=== PATIENT | female | born 1940 | race Caucasian/White ===

== ENCOUNTER 2017-01-01 17:28 | Inpatient (IN) ==
[2017-01-01] MEDS ORDERED: ONDANSETRON 4 MG/2 ML VIAL IV STA (17:48)
[2017-01-01] MEDS ORDERED: ALBUTEROL/IPRATROPIUM 3 ML NEB RESP TX STA (17:48)
[2017-01-01] MEDS ORDERED: LEVOFLOXACIN INJ 750 MG in PREMIX 1 EACH IV STA (17:48)
[2017-01-01] MEDS ORDERED: methylPREDNISolone SOD SUC 125 MG/2 ML VIAL IV STA (17:48)
[2017-01-01] MEDS ORDERED: KETOROLAC 30 MG/1 ML VIAL IV STA (17:51)
--- NOTE | 2017-01-01 17:54 | EKG Report ---
Stationary ECG Study [facility] ER Test Date: 01/01/2017 5:44:29 PM Pat Name: RAINE RIVERA Department: Room: Gender: F Rn Lpn Cna: : 1940 Requested by: Vladimir Doll Order Number: [id number] Reading MD: BROWN SOOD Intervals [place] Rate: 60 P: 140 NV: 284 QRS: -27 QRSD: 110 T: 46 QT: 432 QTc: 432 Interpretive Statements ELECTRONIC ATRIAL PACEMAKER INCOMPLETE RIGHT BUNDLE BRANCH BLOCK CONSIDER ANTEROSEPTAL INFARCT OR LEAD PLACEMENT Electronically Signed On 01-01-17 18:08:51 CDT by BROWN SOOD [email or web address]
--- NOTE | 2017-01-01 17:56 | Emergency Department Note ---
Arrival - Arrival Chief Complaint: Weakness ED Nursing Triage Note: pt saw dr ortiz friday and was told very thing was good and she had over done it. pt states she thinks she over done it. Mode of Arrival: Stretcher Limitations: No Limitations Source: Patient Time Seen by Provider: 01/01/17 17:48 - History of Present Illness HPI Narrative: This 76-year-old white female presents with complaints of weakness and generalized aches and pains. She states she thinks she is overdone it. She reports no chills, chest pain, shortness of breath, nausea, vomiting, diarrhea, dysuria, urgency, frequency, or hematuria. She does states she has had a low- grade fever, cough, and yellow-green sputum. Currently she seems comfortable and quite stable and in no medical distress. Onset (ago): week(s) Allergies/Adverse Reactions: Allergies Allergy/AdvReac Type Severity Reaction Status Date / Time levetiracetam [From Keppra] Allergy Unknown/Unable Verified 01/01/17 18:30 to obtain levofloxacin [From Levaquin] Allergy Unknown/Unable Verified 01/01/17 18:30 to obtain nitroglycerin Allergy Unknown/Unable Verified 01/01/17 18:30 [From Nitro-Bid] to obtain promethazine [From Phenergan] Allergy Unknown/Unable Verified 01/01/17 18:30 to obtain meperidine [From Demerol] AdvReac Palpitation Verified 02/23/16 13:44 s milk AdvReac Nausea Verified 02/23/16 13:44 Penicillins AdvReac Unknown/Unable Verified 02/23/16 13:44 to obtain Home Medications: Home Medications Medication Instructions Recorded Confirmed Type Amiodarone Tab [Cordarone Tab] 200 mg PO DAILY 10/20/14 03/07/16 History Amlodipine Besylate 2.5 mg PO DAILY 10/20/14 03/07/16 History Aspirin [Ecotrin] 81 mg PO DAILY 10/20/14 03/07/16 History Fludrocortisone [Florinef] 0.1 mg PO DAILY 10/20/14 03/07/16 History Pravastatin Sodium 20 mg PO BEDTIME 10/20/14 03/07/16 History Apixaban [Eliquis] 2.5 mg PO BID 08/12/15 03/07/16 History Clorazepate [Tranxene] 3.75 mg PO BEDTIME 08/12/15 03/07/16 History Furosemide Tab [Lasix Tab] 40 mg PO DAILY 08/12/15 03/07/16 History Magnesium Chloride [Mag Delay] 2 tablet PO BID 08/12/15 03/07/16 History Diphenoxylate/Atrop 2.5-0.025 1 tablet PO Q6H PRN 02/23/16 03/07/16 History [Lomotil Tab] Levothyroxine Tab [Synthroid Tab] 50 mcg PO DAILY 02/23/16 03/07/16 History Omeprazole [Prilosec] 20 mg PO BID 02/23/16 03/07/16 History Ondansetron Tab [Zofran Tab] 4 mg PO Q6HR PRN 02/23/16 03/07/16 History Valsartan/Hydrochlorothiazide 1 each PO DAILY 02/23/16 03/07/16 History [Valsartan-Hctz 160-12.5 mg Tab] HYDROcodone/ACETAMIN 7.5-325 1 tablet PO Q6H PRN 03/07/16 03/07/16 History [[place] 7.5-325] Nebivolol HCl [Bystolic] 2.5 mg PO DAILY 03/07/16 03/07/16 History Review of System - Review of System 12 point system: reviewed and no additional remarkable complaints except as stated - Review of System Constitutional: Present: as per HPI Respiratory: Present: as per HPI Cardiovascular: Present: as per HPI Gastrointestinal: Present: as per HPI Genitourinary female: Present: as per HPI Medical,Surgical,& Family Hx - Medical History Cardio: History of: Cardiac Dysrhythmia (A-FIB), CHF, CAD, Hypertension, [place], Pacemaker (08/20), Cardiovascular Problems Neurology: History of: Seizures, TIA HEENT: History of: Eye Problem, Glaucoma Endocrine: History of: Dyslipidemia No history of: Diabetes Mellitus (IDDM), Diabetes Mellitus (NIDDM) Respiratory: History of: COPD Renal: History of: Renal Failure, Renal Problems (one kidney) Genitourinary: History of: Recurring Urinary Tract Infections Gastrointestinal: History of: Gastrointestinal Bleed (upper GI bleed), Gastrointestinal Cancer (rectal cancer), GI Problems (Rectal Cancer-- 22 inches of Colon removed 2011) Musculoskeletal: History of: Back/Neck Problems (chronic back pain), Herniated Disk No history of: Amputation Hematology: History of: Anemia Other: History of: Cancer (rectal) - Surgical History Cardiac Surgeries: Sugical HX of: Cardiac Surgery (CABG) Thoracic Surgeries: Patient denies;: Organ Transplant HEENT Surgeries: Surgical HX of: Tonsilectomy & Adenoidectomy Abdominal Surgeries: Surgical HX of: Abdominal Surgery (resection of rectal carcinoma, 2007. Explored for lap for bowel obs 2009), Appendectomy, Cholecystectomy, EGD, Hernia Repair Reproductive Surgeries: Patient denies;: Genitourinary Surgery - Family History Family History: Reports;: Family Cancer (MOYHER), Family Heart Disease (FATHER) , Family Hypertension (FATHER), Family Stroke (UNCLE) Denies;: Family Diabetes, Family Psychiatric Problems - Social History Smoking Status: Former smoker Frequency of Alcohol Use: None Type of Drug Use: None Exam Physical Examination: GENERAL: Well developed, well nourished elderly white female in no acute distress. HEENT: Normocephalic. No trauma. Moist mucous membranes. EOMI. PERRLA. ENT NML NECK: Supple. No adenopathy. CARDIAC: Regular. No murmurs. Heart rate 60 CHEST: Occasional expiratory rhonchi. No respiratory distress. O2 sat 92% ABDOMEN: Soft. Nontender. Active bowel sounds. EXTREMITIES: No trauma. Normal ROM. No pedal edema. SKIN: No diaphoresis. No rash. NEURO: Alert. Oriented 3. Motor, sensory, vibratory intact. No focal deficits. Vital Signs: Vital Signs Temperature 97.0 F L 01/01/17 17:34 Pulse Rate 61 01/01/17 18:10 Respiratory Rate 20 01/01/17 18:10 Blood Pressure 142/33 01/01/17 17:34 O2 Sat by Pulse Oximetry 98 01/01/17 18:10 Course - Reevaluation(s) Reevaluation #1: Advised patient she will need admission for congestive failure - Consultations Consultation #1: Discussed with Dr. Modi who will admit the patient for Dr. Starks for further treatment and evaluation. Results - Labs CBC & BMP: 01/01/17 17:54 01/01/17 17:54 Labs: I have reviewed the lab and noted the greatly elevated BMP - Impressions EKG paced rhythm with incomplete right bundle branch block and evidence of LVH. Diffuse nonspecific ST changes. No evidence of acute injury although evidence of old anterior RI. - Diagnostic Findings Procedure: Chest x-ray: image reviewed by me, report reviewed by me (Status post median sternotomy, cardiomegaly, pacemaker noted, progressive pulmonary edema with small effusions noted) Disposition Clinical Impression: Congestive failure, bronchitis Case discussed with: patient, patient's family Disposition: Still a Patient Time of Disposition: 20:02
[2017-01-01 18:05] LABS: Basophils % 0.5 % (0.0-0.8); Eosinophils % 0.5 % (0.00-10.9); Hematocrit 30.9 VOL% (35.7-47.0); Immature Granulocytes % 1.1 %; Immature Granulocytes Absolute 0.06 #; Lymphocytes # 0.8 10*3/uL (1.4-4.0); Mean Corpuscular HGB Conc 32.4 GM/DL (32-36); Mean Corpuscular Hemoglobin 29 PG (27-34); Mean Platelet Volume 10.1 FL (9.6-12.0); Monocytes # 0.8 10*3/uL (0.11-0.8); Neutrophils # 3.9 10*3/uL (1.4-7.4); Neutrophils % 68.9 % (38.7-73.9); Platelet Count 186 T/CUMM (130-400); Red Blood Count 3.47 MC/CUMM (3.8-5.5); Red Cell Distribution Width 14.4 % (9.3-17.3); White Blood Count 5.6 T/CUMM (4-12)
[2017-01-01 18:16] LABS: INR 1.2; Partial Thromboplastin Time 36.4 SECS (0-40)
[2017-01-01] MEDS ORDERED: ONDANSETRON 4 MG/2 ML VIAL ONE (18:24)
[2017-01-01] MEDS ORDERED: KETOROLAC 30 MG/1 ML VIAL ONE (18:24)
[2017-01-01] MEDS ORDERED: LEVOFLOXACIN INJ 0 ML IV ONE (18:24)
[2017-01-01] MEDS ORDERED: methylPREDNISolone SOD SUC 125 MG/2 ML VIAL ONE (18:24)
--- NOTE | 2017-01-01 18:32 | XRay Report ---
Portable chest Date: 01/01/2017 Clinical history: Shortness of breath Comparison: 03/07/2016 Technique: Portable AP sitting chest Findings: Persistent cardiomegaly with left subclavian atrioventricular permanent pacemaker. Prior median sternotomy with chronic scarring. Progressive diffuse parenchymal findings with small pleural effusions. More prominent pulmonary vasculature/sofiya with degenerative changes. Impression: Status post median sternotomy with cardiomegaly and left subclavian atrioventricular permanent pacemaker. Progressive moderate pulmonary edema with associated atelectasis and small pleural effusions. PROCEDURE INTERPRETED AT [facility] DEPARTMENT OF RADIOLOGY Final Report Signed by: Dr. Janie Farris
[2017-01-01] MEDS ORDERED: AZITHROMYCIN INJ 500 MG in SODIUM CHLORIDE 0.9% 250 ML IV STA (18:34)
[2017-01-01] MEDS ORDERED: AZITHROMYCIN 500 MG VIAL IV ONE (18:35)
[2017-01-01 18:44] LABS: Alanine Aminotransferase 12 U/L (13-56); Albumin 2.8 G/DL (3.4-5.0); Alkaline Phosphatase 126 U/L (45-117); Aspartate Amino Transferase 22 U/L (0-37); Blood Urea Nitrogen 21 MG/DL (7-18); Calcium 8.4 MG/DL (8.5-10.1); Glucose 83 MG/DL (74-106); Osmolality,Calculated 265.5 MOS/KG (273-304); Potassium 4.3 MMOL/L (3.5-5.1); Sodium 132 MMOL/L (136-145); Total Protein 6.6 G/DL (6.4-8.3); Troponin I Only < 0.015 NG/ML (0.00-0.045)
[2017-01-01] MEDS ORDERED: PRAVASTATIN 20 MG TABLET PO SCH (21:00)
[2017-01-01] MEDS: ALBUTEROL/IPRATROPIUM 3 ML NEB RESP TX SCH (21:15)
[2017-01-01] MEDS: APIXABAN 2.5 MG TABLET PO SCH (23:17)
[2017-01-02] MEDS: ALBUTEROL/IPRATROPIUM 3 ML NEB RESP TX SCH ×4 (00:18→19:50)
[2017-01-02 04:58] LABS: Hematocrit 27.1 VOL% (35.7-47.0); Hemoglobin 8.8 GM/DL (12.0-16.0); Immature Granulocytes % 0.6 %; Immature Granulocytes Absolute 0.02 #; Lymphocytes # 0.2 10*3/uL (1.4-4.0); Lymphocytes % 6.2 % (21.3-54.2); Mean Corpuscular HGB Conc 32.5 GM/DL (32-36); Mean Corpuscular Hemoglobin 29 PG (27-34); Mean Corpuscular Volume 89.1 FL (87-102); Mean Platelet Volume 10.7 FL (9.6-12.0); Monocytes # 0.1 10*3/uL (0.11-0.8); Monocytes % 2.5 % (1.7-12.7); Neutrophils # 3.2 10*3/uL (1.4-7.4); Neutrophils % 90.7 % (38.7-73.9); Platelet Count 150 T/CUMM (130-400); Red Blood Count 3.04 MC/CUMM (3.8-5.5); Red Cell Distribution Width 14.3 % (9.3-17.3); White Blood Count 3.5 T/CUMM (4-12)
[2017-01-02 05:25] LABS: Hypochromasia 1+; Lymphocytes 4 % (20-55); Osmolality,Calculated 282.2 MOS/KG (273-304); Platelet Estimate Normal; Potassium 4.1 MMOL/L (3.5-5.1); Segmented Neutrophils 95 % (50-85); Total Cells Counted 100
[2017-01-02] MEDS: LEVOTHYROXINE 50 MCG TABLET PO SCH (06:37)
[2017-01-02] MEDS ORDERED: NEBIVOLOL 5 MG TABLET PO SCH (09:00)
[2017-01-02] MEDS ORDERED: LEVOFLOXACIN 750 MG TABLET PO SCH (09:00)
[2017-01-02] MEDS: FLUDROCORTISONE 0.1 MG TABLET PO SCH (09:46)
[2017-01-02] MEDS: AMIODARONE 200 MG TABLET PO SCH (09:49)
[2017-01-02] MEDS: VALSARTAN/HCTZ 160-12.5 MG TABLET PO SCH (09:49)
[2017-01-02] MEDS: PANTOPRAZOLE 40 MG TABLET PO SCH (09:49)
[2017-01-02] MEDS: ASPIRIN 325 MG TABLET PO SCH (09:49)
[2017-01-02] MEDS: APIXABAN 2.5 MG TABLET PO SCH ×2 (09:49→20:32)
[2017-01-02 10:27] LABS: Free T4 (Free Thyroxine) 1.75 NG/DL (0.76-1.46); Thyroid Stimulating Hormone 0.396 uIU/ml (0.358-3.74)
[2017-01-02] MEDS: FUROSEMIDE 100 MG/10 ML VIAL IV SCH ×2 (10:59→17:29)
[2017-01-02] MEDS: AZITHROMYCIN INJ 500 MG in SODIUM CHLORIDE 0.9% 250 ML IV SCH (11:02)
--- NOTE | 2017-01-02 12:40 | Internal Med History&Physical ---
Assessment and Plan (1) Congestive cardiac failure Status: Chronic Assessment and plan: will do cardiology consult, continue IV lasix, Current Visit: Yes Qualifiers: Congestive heart failure type: unspecified congestive heart failure type Congestive heart failure chronicity: unspecified congestive heart failure chronicity Qualified Code(s): I50.9 - Heart failure, unspecified (2) COPD (chronic obstructive pulmonary disease) with acute bronchitis Status: Acute Assessment and plan: continue IV Abx , switch from levofloxacin to AZITHROMYCIN ( since allergic to levofloxacin), on Routine O2, on duonebs Current Visit: Yes (3) Coronary artery disease Status: Chronic Current Visit: No (4) History of atrial fibrillation Status: Chronic Assessment and plan: continue eliquis Current Visit: No (5) Hypertension Status: Chronic Assessment and plan: contine antihypertensives Current Visit: No Qualifiers: Hypertension type: essential hypertension Qualified Code(s): I10 - Essential (primary) hypertension History of Present Illness Chief complaint: Weakness History of present illness: Ms. Quiros is a 76 year old female, PCP Dr. Starks. Patient came to the ER on 01/01/2017 for weakness., Generalized aches and pains. Could not get up in the morning of 01/01/2017 felt too weak to do even her regular chores. history of COPD, chronic anemia, anterior myocardial infarction and atrial fibrillation, [facility] pacemaker [facility] Usually she does her ADLs, needs help with IADLs, uses walker to ambulate. As per the patient she mentioned probably she has overdone it, had done few long rides to and fro, in past few weeks. Patient has seen Dr. Hays this past Friday, in the clinic was told her labs were okay. Patient mentioned she has only one kidney. She did mention having low-grade fever with wet cough, on and off since past few weeks. She has been feeling nauseated since few days, no vomiting. She uses inhalers, home oxygen. her BNP was abnormal, from the ER. Home Medications Medication Instructions Recorded Confirmed Type Amiodarone Tab [Cordarone Tab] 200 mg PO DAILY 10/20/14 01/01/17 History Amlodipine Besylate 5 mg PO DAILY 10/20/14 01/01/17 History Aspirin [Ecotrin] 81 mg PO DAILY 10/20/14 01/01/17 History Fludrocortisone [Florinef] 0.1 mg PO DAILY PRN 10/20/14 01/01/17 History Apixaban [Eliquis] 2.5 mg PO BID 08/12/15 01/01/17 History Clorazepate [Tranxene] 3.75 mg PO BEDTIME 08/12/15 01/01/17 History Furosemide Tab [Lasix Tab] 40 mg PO DAILY PRN 08/12/15 01/01/17 History Magnesium Chloride [Mag Delay] 2 tablet PO BID 08/12/15 01/01/17 History Diphenoxylate/Atrop 2.5-0.025 1 tablet PO Q6H PRN 02/23/16 01/01/17 History [Lomotil Tab] Levothyroxine Tab [Synthroid Tab] 50 mcg PO DAILY 02/23/16 01/01/17 History Omeprazole [Prilosec] 20 mg PO BID 02/23/16 01/01/17 History Ondansetron Tab [Zofran Tab] 4 mg PO Q6HR PRN 02/23/16 01/01/17 History Valsartan/Hydrochlorothiazide 1 each PO DAILY 02/23/16 01/01/17 History [Valsartan-Hctz 160-12.5 mg Tab] HYDROcodone/ACETAMIN 7.5-325 1 tablet PO Q6H PRN 03/07/16 01/01/17 History [[place] 7.5-325] Nebivolol HCl [Bystolic] 5 mg PO DAILY 03/07/16 01/01/17 History Rosuvastatin Calcium 10 mg PO DAILY 01/01/17 01/01/17 History Nebivolol [Bystolic] 5 mg PO DAILY 01/02/17 01/02/17 History Allergies Allergy/AdvReac Type Severity Reaction Status Date / Time levetiracetam [From Keppra] Allergy Unknown/Unable Verified 01/01/17 18:30 to obtain levofloxacin [From Levaquin] Allergy Unknown/Unable Verified 01/01/17 20:54 to obtain nitroglycerin Allergy Unknown/Unable Verified 01/01/17 18:30 [From Nitro-Bid] to obtain promethazine [From Phenergan] Allergy Unknown/Unable Verified 01/01/17 18:30 to obtain meperidine [From Demerol] AdvReac Palpitation Verified 02/23/16 13:44 s milk AdvReac Nausea Verified 02/23/16 13:44 Penicillins AdvReac Unknown/Unable Verified 02/23/16 13:44 to obtain Medical,Surgical,& Family Hx - Medical History Cardio: History of: Cardiac Dysrhythmia (A-FIB), CHF, CAD, Hypertension, [place], Pacemaker (08/20), Cardiovascular Problems Neurology: History of: Seizures, TIA HEENT: History of: Eye Problem, Glaucoma Endocrine: History of: Dyslipidemia No history of: Diabetes Mellitus (IDDM), Diabetes Mellitus (NIDDM) Respiratory: History of: COPD Renal: History of: Renal Failure, Renal Problems (one kidney) Genitourinary: History of: Recurring Urinary Tract Infections Gastrointestinal: History of: Gastrointestinal Bleed (upper GI bleed), Gastrointestinal Cancer (rectal cancer), GI Problems (Rectal Cancer-- 22 inches of Colon removed 2011) Musculoskeletal: History of: Back/Neck Problems (chronic back pain), Herniated Disk No history of: Amputation Hematology: History of: Anemia Other: History of: Cancer (rectal) - Surgical History Cardiac Surgeries: Sugical HX of: Cardiac Surgery (CABG) Thoracic Surgeries: Patient denies;: Organ Transplant HEENT Surgeries: Surgical HX of: Tonsilectomy & Adenoidectomy Abdominal Surgeries: Surgical HX of: Abdominal Surgery (resection of rectal carcinoma, 2007. Explored for lap for bowel obs 2009), Appendectomy, Cholecystectomy, EGD, Hernia Repair Reproductive Surgeries: Patient denies;: Genitourinary Surgery, Gynecologic Surgery - Family History Family History: Reports;: Family Cancer (MOYHER), Family Heart Disease (FATHER) , Family Hypertension (FATHER), Family Stroke (UNCLE) Denies;: Family Diabetes, Family Psychiatric Problems - Social History Smoking Status: Former smoker Frequency of Alcohol Use: None Type of Drug Use: None - Constitutional Constitutional: Present: as per HPI, fatigue - EENT Eyes: Present: as per HPI Ears: Present: as per HPI Nose, mouth and throat: Present: as per HPI - Respiratory Respiratory: Present: cough - Gastrointestinal Gastrointestinal: Present: as per HPI - Genitourinary Genitourinary: Present: as per HPI (Wear depends) - Musculoskeletal Musculoskeletal: Present: muscle weakness (Generalized) - Neurological Neurological: Present: as per HPI (Uses walker to ambulate) Exam - Constitutional Vitals: Period Temp Pulse Resp BP Sys/Scott Pulse Ox Last 24 Hr 96.9 F-98.7 F 60-98 16-20 101-147/33-63 86-98 General appearance: normal weight, no acute distress (Ambulating with walker. Elderly female patient) - Head Head exam: Present: other (Has healed old bruises over the forehead) - ENT ENT exam: Present: normal exam - Neck Neck exam: Present: normal inspection - Respiratory Respiratory exam: Present: rhonchi (Transmitted breath sounds.), wheezes - Cardiovascular Cardiovascular exam: Present: regular rate and rhythm - GI/Abdominal GI/Abdominal exam: Present: normal bowel sounds, tenderness (None) - Extremities Exam Extremities exam: Present: normal inspection (Wearing compression stockings bilaterally), edema (None) - Neurological Exam Neurological exam: Present: alert, oriented X3, CN II-XII intact, other (Motor and sensory exam grossly intact) - Psychiatric Psychiatric exam: Present: normal affect, normal mood - Skin Skin exam: Present: other (Has multiple bruises bilateral upper extremities in different stages of healing, left forearm possibly from the IV injection site from yesterday) Results - Labs CBC & BMP: 01/02/17 04:15 01/02/17 04:15 - Impressions BNP 800+ from the ER. Last 24 hours labs reviewed, TSH and T4 labs sent - Diagnostic Findings Procedure: Chest x-ray: other (Chest x-ray from the ER shows progressive moderate pulmonary edema with atelectasis and small pleural effusion.)
--- NOTE | 2017-01-02 15:04 | Cardiology Consult Note ---
<Cherelle Muller - Last Filed: 01/02/17 14:18> Assessment and Plan - Time spent with patient Time spent with patient: Greater than 30 minutes (1) Congestive cardiac failure Status: Chronic Assessment and plan: SEE PLAN OF CARE LISTED BELOW Current Visit: Yes Qualifiers: Congestive heart failure type: unspecified congestive heart failure type Congestive heart failure chronicity: unspecified congestive heart failure chronicity Qualified Code(s): I50.9 - Heart failure, unspecified (2) Coronary artery disease involving coronary bypass graft Status: Chronic Assessment and plan: SEE PLAN OF CARE LISTED BELOW Current Visit: Yes (3) History of TIA (transient ischemic attack) Status: Chronic Assessment and plan: SEE PLAN OF CARE LISTED BELOW Current Visit: Yes (4) dual-chamber pacemaker Status: Chronic Assessment and plan: SEE PLAN OF CARE LISTED BELOW Current Visit: No (5) Former smoker Status: Chronic Assessment and plan: SEE PLAN OF CARE LISTED BELOW Current Visit: Yes (6) Chronic anemia Status: Chronic Assessment and plan: SEE PLAN OF CARE LISTED BELOW Current Visit: Yes (7) Dyslipidemia Status: Chronic Assessment and plan: SEE PLAN OF CARE LISTED BELOW Current Visit: Yes (8) Chronic anticoagulation Status: Chronic Assessment and plan: SEE PLAN OF CARE LISTED BELOW Current Visit: Yes (9) Paroxysmal a-fib Status: Chronic Assessment and plan: SEE PLAN OF CARE LISTED BELOW Current Visit: No (10) COPD (chronic obstructive pulmonary disease) Status: Chronic Assessment and plan: SEE PLAN OF CARE LISTED BELOW Current Visit: Yes (11) Hypertension Status: Chronic Assessment and plan: SEE PLAN OF CARE LISTED BELOW Current Visit: No Qualifiers: Hypertension type: essential hypertension Qualified Code(s): I10 - Essential (primary) hypertension History of Present Illness - Data of Consult Patient: known to practice within the last 3 years Consult date: 01/02/17 Requesting Physician: Bonifacio Modi Primary care physician: Alex Starks - Consult Narrative Reason for consult: a fib, CHF History of present illness: Inspecting Supervisor: Dr. Herbert PCP: Dr. Alex Starks Ms. Quiros is a 76 year old female with known history of coronary artery disease, routinely followed by Dr. Herbert. Patient has cardiac risk factors significant for known history of coronary artery disease, hypertension, dyslipidemia, advanced age, sedentary lifestyle, former smoker and family history of coronary artery disease (father had CABG at age 67). She is a past medical history of COPD, chronic anemia, anterior myocardial infarction and atrial fibrillation. 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 Patient's most recent echocardiogram was performed March 2016 which revealed normal LV systolic function with ejection fraction estimated to be 65% without segmental wall motion abnormality. Grade 1 diastolic dysfunction was noted. She had a nuclear cardiac stress test August 2015 which revealed normal myocardial perfusion scan that did not suggest the presence of significant coronary ischemia. Normal LV systolic function with ejection fraction estimated to be 57%. Normal end-diastolic volume. Patient was last seen in the cardiology clinic September 2016 for routine follow-up. Patient was in her usual state of health until yesterday when she began to feel fatigued, tired and weak. She also reports shortness of breath and general body aches. This is most likely multifactorial as patient does have history of COPD and reports chronic dyspnea. She denies orthopnea and lower extremity edema. She also has been without chest pain, heaviness and tightness. Patient reports that she just saw Dr. Martín Hays on Friday as she only has one kidney. She was doing fine and without any complaints at that time. She also confirms a cough. However, she tells me that this is chronic for her as she has COPD. Yesterday, her shortness of breath progressively worsened and she felt that she needed to be further evaluated in the emergency department. She has been admitted to the hospital under hospitalist's service and housed the telemetry floor. Cardiology has been consulted to further evaluate her dyspnea and manage her paroxysmal atrial fibrillation. Patient was seen and examined on the telemetry unit. Upon entering the room, patient was lying comfortably in her bed with the head of bed approximately 10 . Requiring oxygen via nasal cannula. She is without chest pain, heaviness and tightness. She does tell me that her breathing has improved since being admitted. Cardiac biomarkers have been negative so far and EKG is without diagnostic changes. Patient does have history of paroxysmal atrial fibrillation. However, this admission patient has remained in normal sinus rhythm with occasional atrial pacing. Chest x-ray reveals moderate progressive pulmonary edema. BNP mildly elevated at 823 upon admission. However, this was in the setting of an elevated creatinine of 1.4. Patient's most recent echocardiogram was performed March 2016 which revealed normal LV systolic function with ejection fraction estimated to be 65%. At this time, we will continue to diurese patient with IV Lasix. We will also order repeat echocardiogram in order to reevaluate patient's LV function. This is most likely diastolic heart failure as patient had grade 1 diastolic dysfunction noted per echocardiogram March 2016. We will monitor daily weights and strict I's and O's. I will further discuss with Dr. dickens and await his additional recommendations. ASSESSMENT/PLAN: 1. CONGESTIVE HEART FAILURE - Chest x-ray reveals moderate progressive pulmonary edema. BNP mildly elevated at 823 upon admission. However, this was in the setting of an elevated creatinine of 1.4. Patient's most recent echocardiogram was performed March 2016 which revealed normal LV systolic function with ejection fraction estimated to be 65%. At this time, we will continue to diurese patient with IV Lasix. We will also order repeat echocardiogram in order to reevaluate patient's LV function. This is most likely diastolic heart failure as patient had grade 1 diastolic dysfunction noted per echocardiogram March 2016. We will monitor daily weights and strict I's and O's. I will further discuss with Dr. German and await his additional recommendations. 2. CORONARY ARTERY DISEASE, STATUS POST CABG 2010 - Patient is status post CABG 2010 with a AZAR to LAD and SVG to circumflex artery. This appears to be clinically stable at present. Patient is without chest pain, heaviness and tightness this admission. Recently underwent cardiac stress testing August 2015 which did not reveal any significant coronary ischemia. Cardiac biomarkers have been negative 1 and EKG does not reveal any diagnostic changes. At this point, we will continue current plan of care with aspirin, beta-tamara and lipid-lowering agent. 3. HYPERTENSION - This is clinically stable. Will continue current plan of care and adjust as needed throughout her hospitalization. 4. FORMER SMOKER - Reports that she quit smoking in 2004. 5. HISTORY OF DUAL CHAMBER PACEMAKER - Patient had dual-chamber pacemaker placed 2014as she has history of paroxysmal atrial fibrillation and developed sick sinus syndrome with tachybradycardia components. 6. CHRONIC ANEMIA - Patient reports that she receives iron transfusions occasionally. Her last transfusion was April 2016. Most recent H&H is noted to be 8.8 and 27.1. No overt bleeding noted. I will check stool for occult blood. Patient is chronically anticoagulated with Eliquis for her paroxysmal atrial fibrillation. I will discuss with Dr. German regarding the risk and benefits of chronic anticoagulation given her chronic anemia. 7. DYSLIPIDEMIA - Continue lipid-lowering agent. I will add lipid panel to patient's lab draw. 8. CHRONIC ANTICOAGULATION - Patient is chronically anticoagulated with Eliquis as she has paroxysmal atrial fibrillation. Patient also has chronic anemia requiring iron transfusions occasionally. Her last iron transfusion was April 2016. H&H is admission is noted to be 8.8 and 27.1. No overt bleeding is noted. I will check stool for occult blood. Patient has had a TIA in the past and is extremely high risk for recurrent stroke. I will discuss with Dr. dickens regarding the risk and benefits of chronic anticoagulation given her chronic anemia state. Further recommendations to follow. 9. HISTORY OF PAF - Patient has history of paroxysmal atrial fibrillation. However, this admission she has been in normal sinus rhythm with occasional atrial pacing. She is chronically anticoagulated with Coumadin. At this point , we will continue her current medication regimen of amiodarone, beta- tamara and Eliquis. We will monitor her rhythm per telemetry and make further adjustments as needed. 10.COPD - This is most likely also contributing to her shortness of breath. Will defer management of this to attending. 11. HISTORY OF TIA - Patient reports history of TIA. She is currently chronically anticoagulated with Eliquis. Further plan and addendum to follow per Dr. German. CC: Alex Starks MD - Home Medications and Allergies Home Medications: Home Medications Medication Instructions Recorded Confirmed Type Amiodarone Tab [Cordarone Tab] 200 mg PO DAILY 10/20/14 01/01/17 History Amlodipine Besylate 5 mg PO DAILY 10/20/14 01/01/17 History Aspirin [Ecotrin] 81 mg PO DAILY 10/20/14 01/01/17 History Fludrocortisone [Florinef] 0.1 mg PO DAILY PRN 10/20/14 01/01/17 History Apixaban [Eliquis] 2.5 mg PO BID 08/12/15 01/01/17 History Clorazepate [Tranxene] 3.75 mg PO BEDTIME 08/12/15 01/01/17 History Furosemide Tab [Lasix Tab] 40 mg PO DAILY PRN 08/12/15 01/01/17 History Magnesium Chloride [Mag Delay] 2 tablet PO BID 08/12/15 01/01/17 History Diphenoxylate/Atrop 2.5-0.025 1 tablet PO Q6H PRN 02/23/16 01/01/17 History [Lomotil Tab] Levothyroxine Tab [Synthroid Tab] 50 mcg PO DAILY 02/23/16 01/01/17 History Omeprazole [Prilosec] 20 mg PO BID 02/23/16 01/01/17 History Ondansetron Tab [Zofran Tab] 4 mg PO Q6HR PRN 02/23/16 01/01/17 History Valsartan/Hydrochlorothiazide 1 each PO DAILY 02/23/16 01/01/17 History [Valsartan-Hctz 160-12.5 mg Tab] HYDROcodone/ACETAMIN 7.5-325 1 tablet PO Q6H PRN 03/07/16 01/01/17 History [[place] 7.5-325] Nebivolol HCl [Bystolic] 5 mg PO DAILY 03/07/16 01/01/17 History Rosuvastatin Calcium 10 mg PO DAILY 01/01/17 01/01/17 History Nebivolol [Bystolic] 5 mg PO DAILY 01/02/17 01/02/17 History Allergies/Adverse Reactions: Allergies Allergy/AdvReac Type Severity Reaction Status Date / Time levetiracetam [From Keppra] Allergy Unknown/Unable Verified 01/01/17 18:30 to obtain levofloxacin [From Levaquin] Allergy Unknown/Unable Verified 01/01/17 20:54 to obtain nitroglycerin Allergy Unknown/Unable Verified 01/01/17 18:30 [From Nitro-Bid] to obtain promethazine [From Phenergan] Allergy Unknown/Unable Verified 01/01/17 18:30 to obtain meperidine [From Demerol] AdvReac Palpitation Verified 02/23/16 13:44 s milk AdvReac Nausea Verified 02/23/16 13:44 Penicillins AdvReac Unknown/Unable Verified 02/23/16 13:44 to obtain - Constitutional Constitutional: Present: fatigue, fever(s), lethargy, malaise, weakness. Absent : frequent falls, headache(s) - Cardiovascular Cardiovascular: Present: dyspnea, dyspnea on exertion. Absent: chest pain at rest, chest pain with activity, claudication, diaphoresis, edema, radiating jaw , neck or arm pain, lightheadedness, orthopnea, palpitations, PND - Respiratory Respiratory: Present: cough (Chronic), dyspnea, dyspnea on exertion. Absent: hemoptysis, wheezing, snoring, pain on inspiration, change in phlegm color - Gastrointestinal Gastrointestinal: Absent: abdominal pain, change in bowel habits, coffee ground emesis, constipation, cramping, diarrhea, heartburn, hematemesis, hematochezia, loose stools, melena, nausea, vomiting - Musculoskeletal Musculoskeletal: Present: arthralgias, myalgias - Neurological Neurological: Absent: abnormal gait, abnormal speech, behavioral changes, dizziness, paresthesias, syncope Medical,Surgical,& Family Hx - Medical History Cardio: History of: Cardiac Dysrhythmia (A-FIB), CHF, CAD, Hypertension, [place], Pacemaker (08/20), Cardiovascular Problems Neurology: History of: TIA HEENT: History of: Eye Problem, Glaucoma Endocrine: History of: Dyslipidemia No history of: Diabetes Mellitus (IDDM), Diabetes Mellitus (NIDDM) Respiratory: History of: COPD Renal: History of: Renal Failure, Renal Problems (one kidney) Genitourinary: History of: Recurring Urinary Tract Infections Gastrointestinal: History of: Gastrointestinal Bleed (upper GI bleed), Gastrointestinal Cancer (rectal cancer), GI Problems (Rectal Cancer-- 22 inches of Colon removed 2011) Musculoskeletal: History of: Back/Neck Problems (chronic back pain), Herniated Disk No history of: Amputation Hematology: History of: Anemia Other: History of: Cancer (rectal) - Surgical History Cardiac Surgeries: Sugical HX of: Cardiac Surgery (CABG) Thoracic Surgeries: Patient denies;: Organ Transplant HEENT Surgeries: Surgical HX of: Tonsilectomy & Adenoidectomy Abdominal Surgeries: Surgical HX of: Abdominal Surgery (resection of rectal carcinoma, 2007. Explored for lap for bowel obs 2009), Appendectomy, Cholecystectomy, EGD, Hernia Repair Reproductive Surgeries: Patient denies;: Genitourinary Surgery, Gynecologic Surgery - Family History Family History: Reports;: Family Cancer (MOYHER), Family Heart Disease (FATHER) , Family Hypertension (FATHER), Family Stroke (UNCLE) Denies;: Family Diabetes, Family Psychiatric Problems - Social History Smoking Status: Former smoker Frequency of Alcohol Use: None Type of Drug Use: None Marital Status: Single Lives With:: Alone Functional capacity: independent ambulation Physical Examination Vital Signs Temp Pulse Resp BP Pulse Ox 97.0 F L 61 18 142/33 88 L 01/01/17 17:34 01/01/17 17:34 01/01/17 17:34 01/01/17 17:34 01/01/17 17:34 Exam: General: Appears well with no apparent distress. Pleasant and cooperative. Appears comfortable. HEENT: PERRL, normocephalic, atraumatic. Mucous membranes moist. No jaundice noted. Conjunctiva moist and clear, sclerae anicteric Neck: No JVD/HJR, no thyromegaly or lymphadenopathy noted. Cardiac: Regular rate and rhythm. 2/6 systolic murmur Lungs: Rales and rhonchi auscultated throughout. Requiring oxygen via nasal cannula Abdomen: Soft, bowel sounds normoactive. Nontender and nondistended. Extremities: No clubbing, cyanosis noted. No edema noted. Upper extremity pulses 2+. Lower extremity pulses 2+. Capillary refill less than 3 seconds. Skin: No unusual lesions or rashes. No skin breakdown appreciated. Neuro: Awake, alert and oriented 3. Moves all extremities well without hemiparesis or paralysis. No essential tremor is appreciated. Result/EKG - Labs CBC & BMP: 01/02/17 04:15 01/02/17 04:15 Lab Results: I have reviewed the past 24 hour labs Labs: Laboratory Results - last 24 hr 01/01/17 01/01/17 01/01/17 17:54 17:54 17:54 WBC 5.6 RBC 3.47 L Hgb 10.0 L Hct 30.9 L MCV 89.0 MCH 29 MCHC 32.4 RDW 14.4 Plt Count 186 MPV 10.1 Neut % (Auto) 68.9 Lymph % (Auto) 15.0 L [place] % (Auto) 14.0 H Eos % (Auto) 0.5 Baso % (Auto) 0.5 Neut # (Auto) 3.9 Lymph # (Auto) 0.8 L [place] # (Auto) 0.8 Eos # (Auto) 0.0 Baso # (Auto) 0.0 Total Counted Immature Gran % 1.1 Nucleated RBC % 0.0 Immature Gran # 0.06 Segmented Neutrophils Lymphocytes Monocytes Nucleated RBCs # 0.00 Platelet Estimate Hypochromasia Morphology Comment INR 1.2 PT Patient/Control Mix 13.0 Circ Anticoag PTT 36.4 Sodium 132 L Potassium 4.3 Chloride 98 Carbon Dioxide 24 Anion Gap 14.3 BUN 21 H Creatinine 1.40 H GFR Calculation 39 BUN/Creatinine Ratio 15.00 Glucose 83 Calculated Osmolality 265.5 L Calcium 8.4 L Total Bilirubin 0.60 AST 22 ALT 12 L Alkaline Phosphatase 126 H Total Creatine Kinase 68 CK-MB (CK-2) 1.3 Troponin I < 0.015 B-Natriuretic Peptide Total Protein 6.6 Albumin 2.8 L Globulin 3.8 H Albumin/Globulin Ratio 0.7 L Free T4 TSH 3rd Generation 01/01/17 01/02/17 01/02/17 17:54 04:15 04:15 WBC 3.5 L D RBC 3.04 L Hgb 8.8 L Hct 27.1 L MCV 89.1 MCH 29 MCHC 32.5 RDW 14.3 Plt Count 150 MPV 10.7 Neut % (Auto) 90.7 H Lymph % (Auto) 6.2 L [place] % (Auto) 2.5 Eos % (Auto) 0.0 Baso % (Auto) 0.0 Neut # (Auto) 3.2 Lymph # (Auto) 0.2 L [place] # (Auto) 0.1 L Eos # (Auto) 0.0 Baso # (Auto) 0.0 Total Counted 100 Immature Gran % 0.6 Nucleated RBC % 0.0 Immature Gran # 0.02 Segmented Neutrophils 95 H Lymphocytes 4 L Monocytes 1 L Nucleated RBCs # 0.00 Platelet Estimate Normal Hypochromasia 1+ Morphology Comment INR PT Patient/Control Mix Circ Anticoag PTT Sodium 134 L Potassium 4.1 Chloride 101 Carbon Dioxide 20 L Anion Gap 17.1 H BUN 27 H Creatinine 1.60 H GFR Calculation 32 BUN/Creatinine Ratio 16.00 Glucose 276 H Calculated Osmolality 282.2 Calcium 8.0 L Total Bilirubin AST ALT Alkaline Phosphatase Total Creatine Kinase CK-MB (CK-2) Troponin I B-Natriuretic Peptide 823 H Total Protein Albumin Globulin Albumin/Globulin Ratio Free T4 TSH 3rd Generation 01/02/17 01/02/17 04:15 Unknown WBC RBC Hgb Hct MCV MCH MCHC RDW Plt Count MPV Neut % (Auto) Lymph % (Auto) [place] % (Auto) Eos % (Auto) Baso % (Auto) Neut # (Auto) Lymph # (Auto) [place] # (Auto) Eos # (Auto) Baso # (Auto) Total Counted Immature Gran % Nucleated RBC % Immature Gran # Segmented Neutrophils Lymphocytes Monocytes Nucleated RBCs # Platelet Estimate Hypochromasia Morphology Comment INR PT Patient/Control Mix Circ Anticoag PTT Sodium Potassium Chloride Carbon Dioxide Anion Gap BUN Creatinine GFR Calculation BUN/Creatinine Ratio Glucose Calculated Osmolality Calcium Total Bilirubin AST ALT Alkaline Phosphatase Total Creatine Kinase CK-MB (CK-2) Troponin I B-Natriuretic Peptide 569 H Total Protein Albumin Globulin Albumin/Globulin Ratio Free T4 1.75 H TSH 3rd Generation 0.396 - EKG EKG results: interpreted by me, sinus rhythm <Tristan German - Last Filed: 01/02/17 16:19> History of Present Illness - Consult Narrative History of present illness: Cardiology addendum 76-year-old woman with a four-day history of increasing shortness of breath and cough productive of yellow sputum. Chest x-ray shows congestive heart failure and cardiomegaly. BNP level 823 EKG shows sinus rhythm with atrial pacing. Patient has felt warm the last 2 nights but did not take her temperature. She tires very quickly. She sleeps on 2 pillows and has nocturia 3 times nightly. Denies chest pain. She quit smoking over 10 years ago. Status post two-vessel CABG 2010 Sick sinus syndrome with tacky/bradycardia components Paroxysmal atrial fibrillation, well-controlled on amiodarone Chronic anticoagulation History of rectal cancer 2007 COPD Bronchitis Negative Lexiscan cardiac stress test August 2015 EF 57%. Bilateral carotid stenosis. Loud bilateral bruits. CTA carotids done September show 50-6% right ICA stenosis with severe right subclavian artery stenosis and 80-85% left ICA stenosis. Plan 80 mg Lasix IV twice daily DuoNeb Antibiotics BMP in a.m. CC: Alex Starks MD Physical Examination Vital Signs Temp Pulse Resp BP Pulse Ox 97.0 F L 61 18 142/33 88 L 01/01/17 17:34 01/01/17 17:34 01/01/17 17:34 01/01/17 17:34 01/01/17 17:34 Result/EKG - Labs CBC & BMP: 01/02/17 04:15 01/02/17 04:15 Labs: Laboratory Results - last 24 hr 01/01/17 01/01/17 01/01/17 17:54 17:54 17:54 WBC 5.6 RBC 3.47 L Hgb 10.0 L Hct 30.9 L MCV 89.0 MCH 29 MCHC 32.4 RDW 14.4 Plt Count 186 MPV 10.1 Neut % (Auto) 68.9 Lymph % (Auto) 15.0 L [place] % (Auto) 14.0 H Eos % (Auto) 0.5 Baso % (Auto) 0.5 Neut # (Auto) 3.9 Lymph # (Auto) 0.8 L [place] # (Auto) 0.8 Eos # (Auto) 0.0 Baso # (Auto) 0.0 Total Counted Immature Gran % 1.1 Nucleated RBC % 0.0 Immature Gran # 0.06 Segmented Neutrophils Lymphocytes Monocytes Nucleated RBCs # 0.00 Platelet Estimate Hypochromasia Morphology Comment INR 1.2 PT Patient/Control Mix 13.0 Circ Anticoag PTT 36.4 Sodium 132 L Potassium 4.3 Chloride 98 Carbon Dioxide 24 Anion Gap 14.3 BUN 21 H Creatinine 1.40 H GFR Calculation 39 BUN/Creatinine Ratio 15.00 Glucose 83 Calculated Osmolality 265.5 L Calcium 8.4 L Total Bilirubin 0.60 AST 22 ALT 12 L Alkaline Phosphatase 126 H Total Creatine Kinase 68 CK-MB (CK-2) 1.3 Troponin I < 0.015 B-Natriuretic Peptide Total Protein 6.6 Albumin 2.8 L Globulin 3.8 H Albumin/Globulin Ratio 0.7 L Free T4 TSH 3rd Generation 01/01/17 01/02/17 01/02/17 17:54 04:15 04:15 WBC 3.5 L D RBC 3.04 L Hgb 8.8 L Hct 27.1 L MCV 89.1 MCH 29 MCHC 32.5 RDW 14.3 Plt Count 150 MPV 10.7 Neut % (Auto) 90.7 H Lymph % (Auto) 6.2 L [place] % (Auto) 2.5 Eos % (Auto) 0.0 Baso % (Auto) 0.0 Neut # (Auto) 3.2 Lymph # (Auto) 0.2 L [place] # (Auto) 0.1 L Eos # (Auto) 0.0 Baso # (Auto) 0.0 Total Counted 100 Immature Gran % 0.6 Nucleated RBC % 0.0 Immature Gran # 0.02 Segmented Neutrophils 95 H Lymphocytes 4 L Monocytes 1 L Nucleated RBCs # 0.00 Platelet Estimate Normal Hypochromasia 1+ Morphology Comment INR PT Patient/Control Mix Circ Anticoag PTT Sodium 134 L Potassium 4.1 Chloride 101 Carbon Dioxide 20 L Anion Gap 17.1 H BUN 27 H Creatinine 1.60 H GFR Calculation 32 BUN/Creatinine Ratio 16.00 Glucose 276 H Calculated Osmolality 282.2 Calcium 8.0 L Total Bilirubin AST ALT Alkaline Phosphatase Total Creatine Kinase CK-MB (CK-2) Troponin I B-Natriuretic Peptide 823 H Total Protein Albumin Globulin Albumin/Globulin Ratio Free T4 TSH 3rd Generation 01/02/17 01/02/17 04:15 Unknown WBC RBC Hgb Hct MCV MCH MCHC RDW Plt Count MPV Neut % (Auto) Lymph % (Auto) [place] % (Auto) Eos % (Auto) Baso % (Auto) Neut # (Auto) Lymph # (Auto) [place] # (Auto) Eos # (Auto) Baso # (Auto) Total Counted Immature Gran % Nucleated RBC % Immature Gran # Segmented Neutrophils Lymphocytes Monocytes Nucleated RBCs # Platelet Estimate Hypochromasia Morphology Comment INR PT Patient/Control Mix Circ Anticoag PTT Sodium Potassium Chloride Carbon Dioxide Anion Gap BUN Creatinine GFR Calculation BUN/Creatinine Ratio Glucose Calculated Osmolality Calcium Total Bilirubin AST ALT Alkaline Phosphatase Total Creatine Kinase CK-MB (CK-2) Troponin I B-Natriuretic Peptide 569 H Total Protein Albumin Globulin Albumin/Globulin Ratio Free T4 1.75 H TSH 3rd Generation 0.396
--- NOTE | 2017-01-02 15:21 | EKG Report ---
Stationary ECG Study [facility] Test Date: 01/02/2017 3:20:44 PM Pat Name: RAINE RIVERA Department: Room: 265 Gender: F Drilling Manager: : 1940 Requested by: Cherelle Muller Order Number: [id number] Reading MD: XUAN LUU Intervals [place] Rate: 81 P: 118 TN: 271 QRS: -11 QRSD: 125 T: 72 QT: 418 QTc: 455 Interpretive Statements ELECTRONIC ATRIAL PACEMAKER POSSIBLE RIGHT VENTRICULAR CONDUCTION DELAY MODERATE INTRAVENTRICULAR CONDUCTION DELAY Electronically Signed On 01-02-17 15:59:28 CDT by XUAN LUU [email or web address]
[2017-01-02] MEDS: NEBIVOLOL 5 MG TABLET PO SCH (16:01)
--- NOTE | 2017-01-02 18:05 | ECHO Report ---
Elle Quiros Exam Date: 01/02/2017 15:06 Referring Physician: Technologist: karena Lee ARDMS, RVT Age: 76 Ht (in): 66 Wt (lb): 150 Gender: F Exam Location: [facility] Echo Indications: Weakness, Essential (primary) hypertension, Hx. of Afib, CHF, COPD, CAD, Prev. CABG, Pacemaker BP: 131 / 59 HR: 75 Rhythm: Sinus Technical Quality: Fair IMPRESSIONS MEASUREMENTS (Male / Female) Normal Values 2D ECHO LV Diastolic Diameter PLAX 5.3 cm 4.2 - 5.9 / 3.9 - 5.3 cm LV Systolic Diameter PLAX 3.9 cm LV Fractional Shortening PLAX 25.7 % IVS Diastolic Thickness 1.0 cm 0.6 - 1.0 / 0.6 - 0.9 cm LVPW Diastolic Thickness 1.0 cm 0.6 - 1.0 / 0.6 - 0.9 cm RV Internal Dim ED PLAX 2.7 cm Aortic Root Diameter 3.9 cm LA Systolic Diameter LX 5.0 cm 3.0 - 4.0 / 2.7 - 3.8 cm DOPPLER TR Peak Velocity 308.0 cm/s TR Peak Gradient 37.9 mmHg FINDINGS Left Ventricle EF 60 %. Grade I/IV diastolic dysfunction (abnormal relaxation filling pattern), normal to mildly elevated filling pressures. Right Ventricle The right ventricle is normal in size and function. Right Atrium Moderately increased right atrial size. Left Atrium Moderately increased left atrial size. Mitral Valve Mitral valve sclerosis. Trace mitral valve regurgitation. Aortic Valve Aortic valve sclerosis. Trace to mild aortic valve regurgitation. Tricuspid Valve Morphologically normal tricuspid valve. Moderate tricuspid valve regurgitation. PAP50 mmHG. Pulmonic Valve Morphologically normal pulmonic valve. Trace pulmonary valve regurgitation. Pericardium Normal pericardium without effusion. Aorta Normal ascending aorta dimension. Cayetano German (Electronically Signed) Final Date: 02 January 2017 18:04
[2017-01-03] MEDS: ALBUTEROL/IPRATROPIUM 3 ML NEB RESP TX SCH ×4 (00:15→18:54)
[2017-01-03 05:07] LABS: Basophils % 0.1 % (0.0-0.8); Hematocrit 26.6 VOL% (35.7-47.0); Hemoglobin 8.7 GM/DL (12.0-16.0); Immature Granulocytes % 0.9 %; Immature Granulocytes Absolute 0.12 #; Lymphocytes # 0.5 10*3/uL (1.4-4.0); Lymphocytes % 3.4 % (21.3-54.2); Mean Corpuscular HGB Conc 32.7 GM/DL (32-36); Mean Corpuscular Hemoglobin 29 PG (27-34); Mean Corpuscular Volume 88.1 FL (87-102); Mean Platelet Volume 10.2 FL (9.6-12.0); Monocytes % 7.1 % (1.7-12.7); Neutrophils % 88.5 % (38.7-73.9); Platelet Count 234 T/CUMM (130-400); Red Blood Count 3.02 MC/CUMM (3.8-5.5); Red Cell Distribution Width 14.4 % (9.3-17.3); White Blood Count 13.5 T/CUMM (4-12)
[2017-01-03 05:30] LABS: Hypochromasia 1+; Lymphocytes 3 % (20-55); Ovalocytes Slight; Platelet Estimate Adequate; Segmented Neutrophils 92 % (50-85); Total Cells Counted 100
[2017-01-03 05:41] LABS: Calcium 8.2 MG/DL (8.5-10.1); Magnesium 1.6 MG/DL (1.8-2.4); Osmolality,Calculated 283.8 MOS/KG (273-304); Potassium 3.9 MMOL/L (3.5-5.1)
[2017-01-03 06:03] LABS: Risk Ratio 1.96; VLDL CHOLESTEROL 17.4 MG/DL
[2017-01-03] MEDS: LEVOTHYROXINE 50 MCG TABLET PO SCH (06:46)
--- NOTE | 2017-01-03 07:52 | Cardiology Progress Note ---
Cardiology - PN: Subj Interval history: Cardiology note 76-year-old woman admitted with CHF and bronchitis. No temperature. Telemetry shows sinus rhythm occasional PACs. Blood pressure 124/76 the left arm by me. Decreased breath sounds with bibasilar rhonchi no wheezing Bilateral carotid bruits Regular rhythm with soft systolic murmur Lab data today White count 13.5 with left shift Hemoglobin 8.7 hematocrit 26.6 Sodium 137 potassium 3.9 chloride 99 CO2 24 BUN 36 creatinine 1.70 Mag 1.6 glucose 146 Echo shows ejection fraction of 60% with moderate dilated left atrium, mitral valve sclerosis, aortic valve sclerosis, 1+ AI, normal RV function, moderate TR PA pressure 50 Impression Bronchitis CHF due to diastolic dysfunction Sick sinus syndrome Paroxysmal atrial fibrillation, well-controlled on amiodarone Chronic anticoagulation History of rectal cancer 2007 COPD Normal Lexiscan cardiac stress test August 2015 EF 57% CTA carotids October 03, 2016 showed 50-60% right ICA stenosis with severe right subclavian artery stenosis and 80-85% left ICA stenosis Plan Duo nebs IV antibiotics 80 mg Lasix IV twice daily BMP in a.m. Stool for occult blood Exam (Progress Note) - Constitutional Vitals: Period Temp Pulse Resp BP Sys/Scott Pulse Ox Last 24 Hr 96.6 F-98.7 F 68-98 17-20 114-134/50-63 2-94 Result/EKG - Labs CBC & BMP: 01/03/17 04:17 01/03/17 04:17 Labs: Laboratory Results - last 24 hr 01/02/17 01/03/17 01/03/17 Unknown 04:17 04:17 WBC 13.5 H D RBC 3.02 L Hgb 8.7 L Hct 26.6 L MCV 88.1 MCH 29 MCHC 32.7 RDW 14.4 Plt Count 234 D MPV 10.2 Neut % (Auto) 88.5 H Lymph % (Auto) 3.4 L [place] % (Auto) 7.1 Eos % (Auto) 0.0 Baso % (Auto) 0.1 Neut # (Auto) 12.0 H Lymph # (Auto) 0.5 L [place] # (Auto) 1.0 H Eos # (Auto) 0.0 Baso # (Auto) 0.0 Total Counted 100 Immature Gran % 0.9 Nucleated RBC % 0.0 Immature Gran # 0.12 Segmented Neutrophils 92 H Lymphocytes 3 L Monocytes 5 Nucleated RBCs # 0.00 Platelet Estimate Adequate Hypochromasia 1+ Ovalocytes Slight Morphology Comment Sodium Potassium Chloride Carbon Dioxide Anion Gap BUN Creatinine GFR Calculation BUN/Creatinine Ratio Glucose Calculated Osmolality Calcium Magnesium Triglycerides 87 Cholesterol 90 LDL Cholesterol 32.0 VLDL Cholesterol 17.4 HDL Cholesterol 46 Heart Disease Risk Ratio 1.96 Free T4 1.75 H TSH 3rd Generation 0.396 01/03/17 04:17 WBC RBC Hgb Hct MCV MCH MCHC RDW Plt Count MPV Neut % (Auto) Lymph % (Auto) [place] % (Auto) Eos % (Auto) Baso % (Auto) Neut # (Auto) Lymph # (Auto) [place] # (Auto) Eos # (Auto) Baso # (Auto) Total Counted Immature Gran % Nucleated RBC % Immature Gran # Segmented Neutrophils Lymphocytes Monocytes Nucleated RBCs # Platelet Estimate Hypochromasia Ovalocytes Morphology Comment Sodium 137 Potassium 3.9 Chloride 99 Carbon Dioxide 24 Anion Gap 17.9 H BUN 36 H Creatinine 1.70 H GFR Calculation 30 BUN/Creatinine Ratio 21.00 H Glucose 146 H Calculated Osmolality 283.8 Calcium 8.2 L Magnesium 1.6 L Triglycerides Cholesterol LDL Cholesterol VLDL Cholesterol HDL Cholesterol Heart Disease Risk Ratio Free T4 TSH 3rd Generation
--- NOTE | 2017-01-03 10:09 | Internal Med Progress Note ---
Assessment and Plan - Time spent with patient Time spent with patient: Less than 30 minutes (1) Congestive cardiac failure Status: Chronic Assessment and plan: Cardiology consult was done, echocardiogram report available, Will adjust Lasix, change IV 80 mg twice daily to p.o. 20 mg twice daily. Continue rest of the medication including Eliquis Current Visit: Yes Qualifiers: Congestive heart failure type: diastolic Congestive heart failure chronicity: acute on chronic Qualified Code(s): I50.33 - Acute on chronic diastolic (congestive) heart failure (2) COPD (chronic obstructive pulmonary disease) with acute bronchitis Status: Acute Assessment and plan: continue IV Abx , AZITHROMYCIN, on Routine O2, on duonebs. We will get chest x-ray PA lateral view this morning Current Visit: Yes (3) Coronary artery disease Status: Chronic Current Visit: Yes (4) History of atrial fibrillation Status: Chronic Assessment and plan: continue eliquis Current Visit: No (5) Hypertension Status: Chronic Assessment and plan: contine antihypertensives. Current Visit: Yes Qualifiers: Hypertension type: essential hypertension Qualified Code(s): I10 - Essential (primary) hypertension (6) Renal insufficiency, mild Status: Acute Assessment and plan: Will get renal ultrasound, adjust Lasix dosage. Discussed patient labs with Dr. Hays, this AM( patient's psychiatric tech) Current Visit: No Internal Medicine - PN: Subj Interval history: Patient seen and examined at the telemetry bed, patient was sleeping. After waking her up, patient did not give any new complaints today. Feeling better than yesterday. Tiredness better than yesterday, She was unable to go to the restroom bedside commode was arranged. No fever, chest pain, Had bowel movement 3 yesterday, noticed blood in the stool 1, patient has history of rectal cancer. Attributes the blood to the constipation before she got better yesterday bowel movement. Exam (Progress Note) - Constitutional Vitals: Period Temp Pulse Resp BP Sys/Scott Pulse Ox Last 24 Hr 96.6 F-98.7 F 68-89 17-20 114-131/50-59 2-94 Exam: GENERAL APPEARANCE: alert and oriented, pleasant, in no acute distress, wearing oxygen cannula 2 L,. HEENT: normal. EYES: extraocular movement intact (EOMI), conjunctiva clear, normal. NECK/THYROID: neck supple, full range of motion, no cervical lymphadenopathy, no thyromegaly. HEART: regular rate and rhythm, no murmurs, rubs, gallops. LUNGS: Bilateral rales, transmitted breath sounds. ABDOMEN: soft, nontender, nondistended, no organomegaly , bowel sounds present. EXTREMITIES: no edema. NEUROLOGIC: alert and oriented, cranial nerves 2-12 grossly intact, Results - Labs CBC & BMP: 01/03/17 04:17 01/03/17 04:17 Lab Results: I have reviewed the past 24 hour labs
[2017-01-03] MEDS: AMIODARONE 200 MG TABLET PO SCH (10:17)
[2017-01-03] MEDS: ROSUVASTATIN 10 MG TABLET PO SCH (10:17)
[2017-01-03] MEDS: VALSARTAN/HCTZ 160-12.5 MG TABLET PO SCH (10:17)
[2017-01-03] MEDS: ASPIRIN 325 MG TABLET PO SCH (10:17)
[2017-01-03] MEDS: PANTOPRAZOLE 40 MG TABLET PO SCH (10:18)
[2017-01-03] MEDS: NEBIVOLOL 5 MG TABLET PO SCH (10:19)
[2017-01-03] MEDS: FLUDROCORTISONE 0.1 MG TABLET PO SCH (10:19)
[2017-01-03] MEDS: APIXABAN 2.5 MG TABLET PO SCH ×2 (10:20→21:52)
--- NOTE | 2017-01-03 10:44 | Physician Query Form ---
CLICK EDIT DOCUMENT TO SELECT QUERY ANSWER --> OK --> SIGN Pearl Hoover RN, CCDS Certified Clinical Unit Receptionist W) [phone] (f) [phone] [email or web address] PROVIDERS: Make your selection(s) from the choices in EACH section by typing an "x" and enter comments in the comment section. Please use your independent medical judgment in providing your response. This request does not imply that any particular answer is desired or expected. CLINICAL INDICATORS: (Providers should not edit this section) The medical record indicates that the patient was admitted with CHF, COPD & "continue IV Abx , switch from levofloxacin to AZITHROMYCIN ( since allergic to levofloxacin), on Routine O2". As the attending MD can you please clarify the acuity of the COPD? Clarify which of the following accurately represents the acuity of the above diagnosis. ( ) Acute (exacerbation) ( ) Acute (exacerbation) on chronic ( ) Chronic stable condition ( ) Remission ( ) Other, please specify: Chronic obstructive pulmonary disease with acute bronchitis ( ) Clinically unable to determine COMMENTS: PLEASE ALSO DOCUMENT RESPONSE IN PROGRESS NOTES AND/OR DISCHARGE SUMMARY Use of terms such as suspected, likely, or probable (associated with a specific diagnosis that is being evaluated, monitored, or treated as if it exists) are acceptable and can be restated in the discharge summary if not ruled out. MTDD
--- NOTE | 2017-01-03 10:45 | Physician Query Form ---
CLICK EDIT DOCUMENT TO SELECT QUERY ANSWER --> OK --> SIGN Pearl Hoover RN, CCDS Certified Clinical Tester/Lift Trucker W) [phone] (f) [phone] [email or web address] PROVIDERS: Make your selection(s) from the choices in EACH section by typing an "x" and enter comments in the comment section. Please use your independent medical judgment in providing your response. This request does not imply that any particular answer is desired or expected. CLINICAL INDICATORS: (Providers should not edit this section) The medical record indicates that the patient was admitted with CHF, creatinine of 1.40 on the that has increased to 1.70 on the 30th, GFR of 39 # that has dropped to 30# on the 30th, History- "Renal Failure, Renal Problems ( one kidney)" and the patient being treated for CHF. Clarify which of the following most accurately represents the patient's renal status: ( ) Acute kidney injury (non-traumatic) ( ) Acute renal failure ( ) Acute renal failure with underlying Chronic Kidney Disease (CKD) - please provide stage below ( ) Acute renal failure with pathological renal lesion ( ) Acute renal failure with necrosis ( ) tubular ( ) medullary ( ) cortical ( ) CKD - please provide stage below ( ) End Stage Renal Disease ( ) Acute interstitial nephritis ( ) Hepatorenal syndrome ( ) Other, please specify: Developing worsening of renal function, acutely during this hospital stay ( ) Clinically unable to determine Chronic Kidney Disease Stages Source: National Kidney Disease Foundation ( ) Stage I (eGFR > or = 90) ( ) Stage II (eGFR 60 - 89) ( ) Stage III (eGFR 30 - 59) ( ) Stage IV (eGFR 15 - 29) ( ) Stage V (eGFR < 15 or dialysis) COMMENTS: PLEASE ALSO DOCUMENT RESPONSE IN PROGRESS NOTES AND/OR DISCHARGE SUMMARY Use of terms such as suspected, likely, or probable (associated with a specific diagnosis that is being evaluated, monitored, or treated as if it exists) are acceptable and can be restated in the discharge summary if not ruled out. MTDD
--- NOTE | 2017-01-03 11:40 | Ultrasound Report ---
Exam: US renal Bilateral Date: 01/03/2017 9:29 AM Indication: Renal insufficiency, mild Comparison: None Findings: Right kidney. 11.3 x 5.1 x 4.7 cm . There is a 9 x 8 x 7 mm cyst with smaller cyst also present. No obstructive uropathy present. Normal color flow present. Mild medical renal disease Left kidney. 6.1 x 3.2 x 2.6 cm. No focal mass hydronephrosis or obstruction present with normal color flow. Mild medical renal disease Impression: 1. Simple cyst right kidney. 2. Mild medical renal disease 3. No obstructive uropathy Ultrasound images were stored and captured PROCEDURE INTERPRETED AT [facility] DEPARTMENT OF RADIOLOGY Final Report Signed by: Dr. Lio Bowen
[2017-01-03] MEDS: AZITHROMYCIN INJ 500 MG in SODIUM CHLORIDE 0.9% 250 ML IV SCH (11:46)
[2017-01-03] MEDS: FUROSEMIDE 100 MG/10 ML VIAL IV SCH (11:54)
[2017-01-03] MEDS ORDERED: FUROSEMIDE 20 MG TABLET PO SCH (16:00)
[2017-01-03] MEDS ORDERED: methylPREDNISolone SOD SUC 40 MG/1 ML VIAL IV ONE (21:03)
[2017-01-03] MEDS: BUDESONIDE 0.5 MG/2 ML NEB RESP TX SCH (21:33)
[2017-01-03 21:43] LABS: Allen Test Positive
[2017-01-03 21:44] LABS: ABG Base Excess 2.4 MMOL/L (-2.5-2.5); ABG HCO3 25.7 MMOL/L (20-26); ABG Oxygen Saturation 39.9 % (95-100); ABG PCO2 43.7 MM HG (35-48); ABG PH 7.406 (7.35-7.45); ABG TCO2 25.5 MMOL/L (23-27)
[2017-01-03 21:47] LABS: ABG PO2 25.2 MM HG (80-95)
[2017-01-03] MEDS ORDERED: FUROSEMIDE 40 MG TABLET PO SCH (22:00)
[2017-01-03] MEDS ORDERED: FUROSEMIDE 40 MG/4 ML VIAL IV SCH (22:00)
--- NOTE | 2017-01-03 22:00 | Internal Med Progress Note ---
Assessment and Plan (1) COPD (chronic obstructive pulmonary disease) with acute bronchitis Status: Acute Assessment and plan: continue IV Abx , AZITHROMYCIN,Day 3, on Routine O2, on duonebs. We will try to get chest x-ray today, 2 view if not possible portable ,continue DuoNeb treatments, continue Pulmicort Current Visit: Yes (2) Congestive cardiac failure Status: Chronic Assessment and plan: Will adjust Lasix, morning received 40 mg IV, will go Lasix 20 mg p.o. from the evening dose if patient tolerates continue rest of the medication including Eliquis Current Visit: Yes Qualifiers: Congestive heart failure type: diastolic Congestive heart failure chronicity: acute on chronic Qualified Code(s): I50.33 - Acute on chronic diastolic (congestive) heart failure (3) Coronary artery disease Status: Chronic Current Visit: Yes Qualifiers: Associated angina: without angina (4) History of atrial fibrillation Status: Chronic Assessment and plan: continue eliquis Current Visit: No (5) Hypertension Status: Chronic Assessment and plan: contine antihypertensives. Current Visit: Yes Qualifiers: Hypertension type: essential hypertension Qualified Code(s): I10 - Essential (primary) hypertension (6) Renal insufficiency, mild Status: Acute Assessment and plan: Renal US ,shows BL kidneys , with no significant masses or obstruction. BUN/ creatinine increased to 45/1.9 this a.m. Will get magnesium level. We will try to make 20 mg p.o. twice daily of Lasix Current Visit: Yes (7) Anemia Status: Chronic Assessment and plan: Received blood transfusion 1 yesterday, her H&H today is 9.2/28.3 Current Visit: Yes Qualifiers: Other causes of anemia: chronic disease, other Internal Medicine - PN: Subj Interval history: Patient seen and examined at the telemetry bed, patient is awake. On oxygen and DuoNeb treatment ongoing. Feeling same as yesterday. , No fever, chest pain, Patient noticed to have yesterday low pulse ox, tolerated well the blood transfusion given yesterday. Bowel movement no blood in stool recently. Exam (Progress Note) - Constitutional Vitals: Period Temp Pulse Resp BP Sys/Scott Pulse Ox Last 24 Hr 96.6 F-98.3 F 80-93 17-20 119-132/50-67 2-94 Exam: GENERAL APPEARANCE: alert and oriented, pleasant, in no acute distress, wearing oxygen cannula 2 L,. HEENT: normal. EYES: extraocular movement intact (EOMI), conjunctiva clear, normal. NECK/THYROID: neck supple, full range of motion, no cervical lymphadenopathy, no thyromegaly. HEART: regular rate and rhythm, no murmurs, rubs, gallops. LUNGS: Bilateral generalized rales, transmitted breath sounds, ABDOMEN: soft, nontender, nondistended, no organomegaly , bowel sounds present. EXTREMITIES: no edema. NEUROLOGIC: alert and oriented, cranial nerves 2-12 grossly intact, Results - Labs CBC & BMP: 01/04/17 06:20 01/04/17 06:20 Lab Results: I have reviewed the past 24 hour labs
[2017-01-03] MEDS ORDERED: MAGNESIUM SULF RIDER 2 GM in PREMIX 1 EACH IV ONE (22:37)
[2017-01-03] MEDS ORDERED: SODIUM CHLORIDE 0.9% 250 ML IV PRN (22:49)
[2017-01-04] MEDS: ALBUTEROL/IPRATROPIUM 3 ML NEB RESP TX SCH ×7 (00:34→23:31)
[2017-01-04] MEDS: LEVOTHYROXINE 50 MCG TABLET PO SCH (06:20)
[2017-01-04 06:34] LABS: Hematocrit 28.3 VOL% (35.7-47.0); Hemoglobin 9.2 GM/DL (12.0-16.0); Immature Granulocytes % 1.7 %; Immature Granulocytes Absolute 0.14 #; Lymphocytes # 0.4 10*3/uL (1.4-4.0); Mean Corpuscular HGB Conc 32.5 GM/DL (32-36); Mean Corpuscular Hemoglobin 29 PG (27-34); Mean Corpuscular Volume 88.4 FL (87-102); Monocytes # 0.3 10*3/uL (0.11-0.8); Monocytes % 4.2 % (1.7-12.7); Neutrophils # 7.2 10*3/uL (1.4-7.4); Neutrophils % 89.1 % (38.7-73.9); Platelet Count 183 T/CUMM (130-400); Red Cell Distribution Width 14.7 % (9.3-17.3); White Blood Count 8.1 T/CUMM (4-12)
[2017-01-04 07:03] LABS: Calcium 8.4 MG/DL (8.5-10.1); Magnesium 1.6 MG/DL (1.8-2.4); Potassium 3.6 MMOL/L (3.5-5.1)
[2017-01-04] MEDS: BUDESONIDE 0.5 MG/2 ML NEB RESP TX SCH ×2 (07:06→19:15)
[2017-01-04] MEDS ORDERED: FUROSEMIDE 40 MG/4 ML VIAL IV SCH (08:00)
--- NOTE | 2017-01-04 09:05 | Cardiology Progress Note ---
Cardiology - PN: Subj Interval history: Cardiology note 76-year-old woman admitted with CHF and bronchitis. Telemetry shows sinus rhythm with occasional PACs. O2 sat is 88 on 3 L nasal cannula. Today's chest x-ray shows cardiomegaly with CHF, cannot rule out superimposed pneumonia. Recent echo showed ejection fraction of 60% with moderate dilated left atrium, aortic valve sclerosis, normal RV function, moderate TR PA pressure 50 Regular rhythm soft systolic murmur as before Decreased breath sounds with diffuse rhonchi but no wheezing Abdomen benign Lab data today White count 8.1 Hemoglobin 9.2 hematocrit 20 point 1:03 unit transfusion Sodium 136 potassium 3.6 chloride 99 CO2 29 BUN of 45 creatinine 1.90 Mag 1.8 BNP 569 on admission Impression Bronchitis CHF due to diastolic dysfunction Sick sinus syndrome Paroxysmal atrial fibrillation, well-controlled on amiodarone Chronic anticoagulation History rectal cancer 2007 COPD Normal Lexiscan cardiac stress test August 2015 EF 57% CTA carotids October 03, 2016 showed 50-60% right ICA stenosis with severe right subclavian artery stenosis and 80-85% left ICA stenosis Plan Change Lasix to 40 mg po twice daily Duo nebs Consult pulmonary. May need to broaden antibiotic coverage. BMP and BNP in a.m. Exam (Progress Note) - Constitutional Vitals: Period Temp Pulse Resp BP Sys/Scott Pulse Ox Last 24 Hr 96.8 F-99.5 F 74-99 18-99 78-132/39-72 78-94 Result/EKG - Labs CBC & BMP: 01/04/17 06:20 01/04/17 06:20 Labs: Laboratory Results - last 24 hr 01/03/17 01/03/17 01/04/17 21:38 23:10 00:07 WBC RBC Hgb Hct MCV MCH MCHC RDW Plt Count MPV Neut % (Auto) Lymph % (Auto) [place] % (Auto) Eos % (Auto) Baso % (Auto) Neut # (Auto) Lymph # (Auto) [place] # (Auto) Eos # (Auto) Baso # (Auto) Immature Gran % Nucleated RBC % Immature Gran # Nucleated RBCs # ABG pH 7.406 ABG pCO2 43.7 ABG pO2 25.2 L* ABG HCO3 25.7 ABG Total CO2 25.5 ABG O2 Saturation 39.9 L ABG Base Excess 2.4 FiO2 36.00 Sodium Potassium Chloride Carbon Dioxide Anion Gap BUN Creatinine GFR Calculation BUN/Creatinine Ratio Glucose Calculated Osmolality Calcium Magnesium Blood Type A NEGATIVE A NEGATIVE Antibody Screen Negative Crossmatch See Detail 01/04/17 01/04/17 06:20 06:20 WBC 8.1 D RBC 3.20 L Hgb 9.2 L Hct 28.3 L MCV 88.4 MCH 29 MCHC 32.5 RDW 14.7 Plt Count 183 D MPV 10.0 Neut % (Auto) 89.1 H Lymph % (Auto) 5.0 L [place] % (Auto) 4.2 Eos % (Auto) 0.0 Baso % (Auto) 0.0 Neut # (Auto) 7.2 Lymph # (Auto) 0.4 L [place] # (Auto) 0.3 Eos # (Auto) 0.0 Baso # (Auto) 0.0 Immature Gran % 1.7 Nucleated RBC % 0.0 Immature Gran # 0.14 Nucleated RBCs # 0.00 ABG pH ABG pCO2 ABG pO2 ABG HCO3 ABG Total CO2 ABG O2 Saturation ABG Base Excess FiO2 Sodium 136 Potassium 3.6 Chloride 99 Carbon Dioxide 29 Anion Gap 11.6 BUN 45 H Creatinine 1.90 H GFR Calculation 26 BUN/Creatinine Ratio 23.00 H Glucose 181 H Calculated Osmolality 288.0 Calcium 8.4 L Magnesium 1.6 L Blood Type Antibody Screen Crossmatch
[2017-01-04] MEDS: APIXABAN 2.5 MG TABLET PO SCH ×2 (10:02→21:24)
[2017-01-04] MEDS: NEBIVOLOL 5 MG TABLET PO SCH (10:03)
[2017-01-04] MEDS: ROSUVASTATIN 10 MG TABLET PO SCH (10:03)
[2017-01-04] MEDS: VALSARTAN/HCTZ 80-12.5 MG TABLET PO SCH (10:03)
[2017-01-04] MEDS: PANTOPRAZOLE 40 MG TABLET PO SCH (10:04)
[2017-01-04] MEDS: AMIODARONE 200 MG TABLET PO SCH (10:04)
[2017-01-04] MEDS: ASPIRIN EC 81 MG TABLET PO SCH (10:04)
--- NOTE | 2017-01-04 10:09 | XRay Report ---
History: Pulmonary edema Date: 01/04/2017 Study: Chest x-ray PA and lateral Comparison exam: January 01, 2017 chest x-ray The left subclavian dual-lead transvenous pacemaker is unchanged. There is stable cardiomegaly. The mediastinal contours are unchanged. There is some hazy and patchy edema/infiltrate in the perihilar regions and lung bases, mildly increased. There is no significant pleural effusion. Osseous structures are unchanged. Impression: Mildly increased bilateral pulmonary edema/infiltrate compared to the previous study PROCEDURE INTERPRETED AT [facility] DEPARTMENT OF RADIOLOGY Final Report Signed by: Dr. Felicitas Puckett
[2017-01-04 12:15] LABS: ABG PH 7.405 (7.35-7.45); Allen Test Positive
[2017-01-04 12:16] LABS: ABG Base Excess 1.5 MMOL/L (-2.5-2.5); ABG HCO3 25.3 MMOL/L (20-26); ABG Oxygen Saturation 74.8 % (95-100); ABG PCO2 42.3 MM HG (35-48); ABG PO2 42.2 MM HG (80-95); ABG TCO2 23.3 MMOL/L (23-27)
[2017-01-04] MEDS ORDERED: methylPREDNISolone SOD SUC 40 MG/1 ML VIAL IV SCH (13:00)
--- NOTE | 2017-01-04 14:08 | Pulmonology Consult Note ---
History of Present Illness Chief complaint: Shortness of breath. Hypoxemia. Abnormal chest x-ray History of present illness: Ms. Quiros is a 76 year old white female whom I been asked to see in pulmonary consultation for evaluation and treatment. This patient was admitted with shortness of breath and dyspnea on exertion. She had developed a cough. She says sometimes the sputum was yellow sometimes it was clear she did not have any blood. At the time of admission she said she had a low-grade fever. Today she did not it when I talked her about it. There has not been any significant reflux or aspiration. The remainder the review of systems is negative Allergies Keppra, Levaquin, nitroglycerin, Phenergan, Demerol, milk, penicillin Home medicines. See list Hospital medicines see list. Past history. Partial function 1 of her kidneys. Followed by Dr. Hays. History of COPD. Chronic anemia. History of atrial fib. History of anterior myocardial infarction. Cardiac pacemaker. Degenerative joint disease. High blood pressure. Chronic anticoagulation. Hypothyroidism. History of TIA and seizures. Glaucoma. Hyperlipidemia. History of GI bleed. History of rectal cancer. 22 inches of the colon was removed in 2011. Previous coronary artery bypass grafts. Appendectomy. Cholecystectomy. Hernia repair. Social history. Patient smoked more than a pack of cigarettes per day. She stopped smoking in 2004. She denies alcohol. Family history. Her mother had a cancer. Her father had heart disease and high blood pressure. An uncle had a stroke. Chest x-ray. 01/04/2017. My interpretation. Cardiomegaly. Benign calcifications of both hilar areas. Pulmonary arteries are not well seen. There is a generalized 5 lobe increase in interstitial markings along with multiple small areas of alveolar filling. There are a few scattered areas to contain small air bronchograms. This x-ray was compared to some x-rays done in March 2016. Those x-rays showed a few increased markings at the bases but nothing could that compares to this chest x-ray older x-rays such as August 2015 and x-rays in 2014 showed no changes similar to today's x-ray. This x-ray could be atypical pulmonary edema but I favor amiodarone lung. ABGs on room air showed a pH of 7.40, PCO2 42.3, PO2 of 42.2 and a bicarb of 25.3. O2 sats were in the mid 70s. He said not improved significantly on 3 L/ min oxygen but did move up to approximately 87% on 6 L of oxygen. Echocardiogram. Ejection fraction 60%. Grade 1/4 diastolic dysfunction. Trace of mitral regurgitation. Pulmonary artery pressures of 50 mmHg. Moderately increased right atrial size. Left atrial size is also moderately increased. Right ventricle has normal size and function Creatinine has varied between 1.40 and 1.90 today BUN is 45. Electrolytes are normal. Admit white count was 5600 and now it is 8100 with 89 segs. H&H is 9.2 /28.3. Admit nitrated peptide was elevated at 823 and the following day it dropped to 569. I have ordered a repeat today. TSH is normal. Free T4 is elevated and this is also most likely a side effect of amiodarone. Microbiology. No positive cultures Physical exam. Vital signs. See below. No fever Psychiatric oriented 3. Not a very good historian. Neurologic. Cranial nerves are intact with decreased hearing acuity. Patient moves all 4 extremities. Sensory exam was not done. Gait was not tested. Face. Symmetrical. No swelling of the lips and tongue. Neck. Kyphotic. No meningismus. Lymphatics. No submandibular cervical or supraclavicular or epitrochlear adenopathy. Chest. Diffuse Velcro rales. These are heard anteriorly and posteriorly over all 5 lobes of the chest. Heart. Lateral PMI Abdomen. Nontender Lower extremities. No evidence of edema or deep venous thrombophlebitis Venous exam of the neck upper extremities are normal lower extremities show chronic venous stasis. Musculoskeletal. Loss of normal curvature cervical thoracic and lumbar spine degenerative changes of the hands and knees. The remainder the physical exam is noncontributory. Impression. 1. Diffuse 5 lobe interstitial and alveolar infiltrate. 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 Note the presence of Velcro rales. Watch closely for the possibility of atypical pulmonary edema 2. COPD 3. Significant past history tobacco abuse. Stop smoking 2004 4. Normal TSH with elevated free T4 most likely secondary to amiodarone. 5. 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 6. Mild chronic renal failure and 1 nonfunctioning kidney followed by Dr. Martín Hays 7. Chronic anemia 8. Atrial fibrillation. Plan. 1. Stop amiodarone 2. Chest x-ray and ABGs daily 4 3. C-reactive protein and erythrocyte sedimentation rate 4. Repeat BNP 5. Increase Solu-Medrol to 40 mg every 8 hours 6. See orders 7. Dr. Tristan dicknes and I have discussed the case and we have coordinated her care. Home Medications Medication Instructions Recorded Confirmed Type Amiodarone Tab [Cordarone Tab] 200 mg PO DAILY 10/20/14 01/01/17 History Amlodipine Besylate 5 mg PO DAILY 10/20/14 01/01/17 History Aspirin [Ecotrin] 81 mg PO DAILY 10/20/14 01/01/17 History Fludrocortisone [Florinef] 0.1 mg PO DAILY PRN 10/20/14 01/01/17 History Apixaban [Eliquis] 2.5 mg PO BID 08/12/15 01/01/17 History Clorazepate [Tranxene] 3.75 mg PO BEDTIME 08/12/15 01/01/17 History Furosemide Tab [Lasix Tab] 40 mg PO DAILY PRN 08/12/15 01/01/17 History Magnesium Chloride [Mag Delay] 2 tablet PO BID 08/12/15 01/01/17 History Diphenoxylate/Atrop 2.5-0.025 1 tablet PO Q6H PRN 02/23/16 01/01/17 History [Lomotil Tab] Levothyroxine Tab [Synthroid Tab] 50 mcg PO DAILY 02/23/16 01/01/17 History Omeprazole [Prilosec] 20 mg PO BID 02/23/16 01/01/17 History Ondansetron Tab [Zofran Tab] 4 mg PO Q6HR PRN 02/23/16 01/01/17 History Valsartan/Hydrochlorothiazide 1 each PO DAILY 02/23/16 01/01/17 History [Valsartan-Hctz 160-12.5 mg Tab] HYDROcodone/ACETAMIN 7.5-325 1 tablet PO Q6H PRN 03/07/16 01/01/17 History [[place] 7.5-325] Nebivolol HCl [Bystolic] 5 mg PO DAILY 03/07/16 01/01/17 History Rosuvastatin Calcium 10 mg PO DAILY 06/28/17 06/28/17 History Nebivolol [Bystolic] 5 mg PO DAILY 01/02/17 01/02/17 History Allergies Allergy/AdvReac Type Severity Reaction Status Date / Time levetiracetam [From Keppra] Allergy Unknown/Unable Verified 01/01/17 18:30 to obtain levofloxacin [From Levaquin] Allergy Unknown/Unable Verified 01/01/17 20:54 to obtain nitroglycerin Allergy Unknown/Unable Verified 01/01/17 18:30 [From Nitro-Bid] to obtain promethazine [From Phenergan] Allergy Unknown/Unable Verified 01/01/17 18:30 to obtain meperidine [From Demerol] AdvReac Palpitation Verified 02/23/16 13:44 s milk AdvReac Nausea Verified 02/23/16 13:44 Penicillins AdvReac Unknown/Unable Verified 02/23/16 13:44 to obtain Exam (Pulmonay) H&P - Constitutional Vitals: Period Temp Pulse Resp BP Sys/Scott Pulse Ox Last 24 Hr 96.8 F-99.5 F 73-99 18-99 78-132/39-72 78-94 Medical,Surgical,& Family Hx - Medical History Cardio: History of: Cardiac Dysrhythmia (A-FIB), CHF, CAD, Hypertension, [place], Pacemaker (08/20), Cardiovascular Problems Neurology: History of: Seizures, TIA HEENT: History of: Eye Problem, Glaucoma Endocrine: History of: Dyslipidemia No history of: Diabetes Mellitus (IDDM), Diabetes Mellitus (NIDDM) Respiratory: History of: COPD Renal: History of: Renal Failure, Renal Problems (one kidney) Genitourinary: History of: Recurring Urinary Tract Infections Gastrointestinal: History of: Gastrointestinal Bleed (upper GI bleed), Gastrointestinal Cancer (rectal cancer), GI Problems (Rectal Cancer-- 22 inches of Colon removed 2011) Musculoskeletal: History of: Back/Neck Problems (chronic back pain), Herniated Disk No history of: Amputation Hematology: History of: Anemia Other: History of: Cancer (rectal) - Surgical History Cardiac Surgeries: Sugical HX of: Cardiac Surgery (CABG) Thoracic Surgeries: Patient denies;: Organ Transplant HEENT Surgeries: Surgical HX of: Tonsilectomy & Adenoidectomy Abdominal Surgeries: Surgical HX of: Abdominal Surgery (resection of rectal carcinoma, 2007. Explored for lap for bowel obs 2009), Appendectomy, Cholecystectomy, EGD, Hernia Repair Reproductive Surgeries: Patient denies;: Genitourinary Surgery, Gynecologic Surgery - Family History Family History: Reports;: Family Cancer (MOYHER), Family Heart Disease (FATHER) , Family Hypertension (FATHER), Family Stroke (UNCLE) Denies;: Family Diabetes, Family Psychiatric Problems - Social History Smoking Status: Former smoker Frequency of Alcohol Use: None Type of Drug Use: None Results - Labs CBC & BMP: 01/04/17 06:20 01/04/17 06:20
[2017-01-04 14:11] LABS: ABG Base Excess 0.2 MMOL/L (-2.5-2.5); ABG HCO3 24.4 MMOL/L (20-26); ABG Oxygen Saturation 84.8 % (95-100); ABG PCO2 40.9 MM HG (35-48); ABG PH 7.395 (7.35-7.45); ABG PO2 52.2 MM HG (80-95); ABG TCO2 22.6 MMOL/L (23-27); Allen Test Positive
[2017-01-04] MEDS: AZITHROMYCIN INJ 500 MG in SODIUM CHLORIDE 0.9% 250 ML IV SCH (14:44)
[2017-01-04] MEDS: methylPREDNISolone SOD SUC 40 MG/1 ML VIAL IV SCH ×2 (14:44→23:23)
[2017-01-04] MEDS: FUROSEMIDE 40 MG TABLET PO SCH (17:09)
[2017-01-05] MEDS: ALBUTEROL/IPRATROPIUM 3 ML NEB RESP TX SCH ×6 (03:51→23:55)
[2017-01-05 03:58] LABS: Basophils % 0.1 % (0.0-0.8); Hematocrit 28.6 VOL% (35.7-47.0); Hemoglobin 9.3 GM/DL (12.0-16.0); Immature Granulocytes % 1.5 %; Immature Granulocytes Absolute 0.16 #; Lymphocytes # 0.4 10*3/uL (1.4-4.0); Mean Corpuscular HGB Conc 32.5 GM/DL (32-36); Mean Corpuscular Hemoglobin 29 PG (27-34); Mean Corpuscular Volume 88.5 FL (87-102); Mean Platelet Volume 10.2 FL (9.6-12.0); Monocytes # 0.4 10*3/uL (0.11-0.8); Monocytes % 3.6 % (1.7-12.7); Neutrophils # 9.7 10*3/uL (1.4-7.4); Neutrophils % 90.8 % (38.7-73.9); Platelet Count 229 T/CUMM (130-400); Red Blood Count 3.23 MC/CUMM (3.8-5.5); Red Cell Distribution Width 15.3 % (9.3-17.3); White Blood Count 10.7 T/CUMM (4-12)
[2017-01-05 04:04] LABS: ABG Base Excess 1.6 MMOL/L (-2.5-2.5); ABG HCO3 25.7 MMOL/L (20-26); ABG PCO2 40.4 MM HG (35-48); ABG PH 7.418 (7.35-7.45); ABG PO2 59.9 MM HG (80-95)
[2017-01-05 04:31] LABS: Calcium 8.5 MG/DL (8.5-10.1); Osmolality,Calculated 289.2 MOS/KG (273-304); Potassium 3.3 MMOL/L (3.5-5.1)
[2017-01-05 06:42] LABS: Hypochromasia 1+; Lymphocytes 5 % (20-55); Ovalocytes Slight; Platelet Estimate Adequate; Segmented Neutrophils 94 % (50-85); Total Cells Counted 100
[2017-01-05] MEDS: LEVOTHYROXINE 50 MCG TABLET PO SCH (07:00)
[2017-01-05] MEDS: methylPREDNISolone SOD SUC 40 MG/1 ML VIAL IV SCH ×3 (07:00→23:58)
[2017-01-05] MEDS: BUDESONIDE 0.5 MG/2 ML NEB RESP TX SCH ×2 (07:04→19:36)
--- NOTE | 2017-01-05 09:02 | Cardiology Progress Note ---
Cardiology - PN: Subj Interval history: Cardiology note 76-year-old woman admitted with CHF and bronchitis. Appreciate Dr. Couch help. Multilobe infiltrate pattern consistent with amiodarone lung toxicity. O2 sat 88 and 5 L cannula. No temperature. Weak cough. Bilateral carotid bruits. 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 twice daily Supplemental O2 as needed Exam (Progress Note) - Constitutional Vitals: Period Temp Pulse Resp BP Sys/Scott Pulse Ox Last 24 Hr 97 F-97.9 F 68-93 16-150 112-130/51-62 87-95 Result/EKG - Labs CBC & BMP: 01/05/17 03:33 01/05/17 03:34 Labs: Laboratory Results - last 24 hr 01/04/17 01/04/17 01/04/17 12:00 13:42 13:42 WBC RBC Hgb Hct MCV MCH MCHC RDW Plt Count MPV Neut % (Auto) Lymph % (Auto) [place] % (Auto) Eos % (Auto) Baso % (Auto) Neut # (Auto) Lymph # (Auto) [place] # (Auto) Eos # (Auto) Baso # (Auto) Total Counted Immature Gran % Nucleated RBC % Immature Gran # Segmented Neutrophils Lymphocytes Monocytes Nucleated RBCs # Platelet Estimate Hypochromasia Ovalocytes Morphology Comment ESR Westergren ABG pH 7.405 ABG pCO2 42.3 ABG pO2 42.2 L ABG HCO3 25.3 ABG Total CO2 23.3 ABG O2 Saturation 74.8 L ABG Base Excess 1.5 FiO2 21.00 Sodium Potassium Chloride Carbon Dioxide Anion Gap BUN Creatinine GFR Calculation BUN/Creatinine Ratio Glucose Calculated Osmolality Calcium Magnesium C-Reactive Protein 14.90 H B-Natriuretic Peptide 385 H 01/04/17 01/04/17 01/05/17 14:00 14:51 03:33 WBC 10.7 D RBC 3.23 L Hgb 9.3 L Hct 28.6 L MCV 88.5 MCH 29 MCHC 32.5 RDW 15.3 Plt Count 229 D MPV 10.2 Neut % (Auto) 90.8 H Lymph % (Auto) 4.0 L [place] % (Auto) 3.6 Eos % (Auto) 0.0 Baso % (Auto) 0.1 Neut # (Auto) 9.7 H Lymph # (Auto) 0.4 L [place] # (Auto) 0.4 Eos # (Auto) 0.0 Baso # (Auto) 0.0 Total Counted 100 Immature Gran % 1.5 Nucleated RBC % 0.0 Immature Gran # 0.16 Segmented Neutrophils 94 H Lymphocytes 5 L Monocytes 1 L Nucleated RBCs # 0.00 Platelet Estimate Adequate Hypochromasia 1+ Ovalocytes Slight Morphology Comment ESR Westergren 102 H ABG pH 7.395 ABG pCO2 40.9 ABG pO2 52.2 L ABG HCO3 24.4 ABG Total CO2 22.6 L ABG O2 Saturation 84.8 L ABG Base Excess 0.2 FiO2 44.00 Sodium Potassium Chloride Carbon Dioxide Anion Gap BUN Creatinine GFR Calculation BUN/Creatinine Ratio Glucose Calculated Osmolality Calcium Magnesium C-Reactive Protein B-Natriuretic Peptide 01/05/17 01/05/17 03:34 03:55 WBC RBC Hgb Hct MCV MCH MCHC RDW Plt Count MPV Neut % (Auto) Lymph % (Auto) [place] % (Auto) Eos % (Auto) Baso % (Auto) Neut # (Auto) Lymph # (Auto) [place] # (Auto) Eos # (Auto) Baso # (Auto) Total Counted Immature Gran % Nucleated RBC % Immature Gran # Segmented Neutrophils Lymphocytes Monocytes Nucleated RBCs # Platelet Estimate Hypochromasia Ovalocytes Morphology Comment ESR Westergren ABG pH 7.418 ABG pCO2 40.4 ABG pO2 59.9 L ABG HCO3 25.7 ABG Total CO2 24.0 ABG O2 Saturation 90.0 L ABG Base Excess 1.6 FiO2 44.00 Sodium 134 L Potassium 3.3 L Chloride 95 L Carbon Dioxide 27 Anion Gap 15.3 H BUN 51 H Creatinine 2.00 H GFR Calculation 25 BUN/Creatinine Ratio 25.00 H Glucose 247 H Calculated Osmolality 289.2 Calcium 8.5 Magnesium 2.0 C-Reactive Protein B-Natriuretic Peptide
[2017-01-05] MEDS: MAGNESIUM CHLORIDE 64 MG TABLET PO SCH ×2 (09:58→21:07)
[2017-01-05] MEDS: VALSARTAN/HCTZ 80-12.5 MG TABLET PO SCH (09:58)
[2017-01-05] MEDS: ROSUVASTATIN 10 MG TABLET PO SCH (09:58)
[2017-01-05] MEDS: NEBIVOLOL 5 MG TABLET PO SCH (09:58)
[2017-01-05] MEDS: ASPIRIN EC 81 MG TABLET PO SCH (09:59)
[2017-01-05] MEDS: PANTOPRAZOLE 40 MG TABLET PO SCH (09:59)
[2017-01-05] MEDS: APIXABAN 2.5 MG TABLET PO SCH ×2 (09:59→21:07)
[2017-01-05] MEDS: FUROSEMIDE 40 MG TABLET PO SCH (10:00)
[2017-01-05] MEDS: FLUDROCORTISONE 0.1 MG TABLET PO SCH (10:01)
--- NOTE | 2017-01-05 10:16 | XRay Report ---
History: Interstitial lung disease Date: 01/05/2017 Study: Chest x-ray PA and lateral Comparison exam: 01/04/2017 There is stable cardiomegaly. The mediastinal contours are unchanged in this patient status post prior median sternotomy. The pulmonary vasculature is slightly prominent. There is groundglass and hazy parenchymal disease in either mid to lower lung as before. There is slightly improved aeration in the perihilar regions on the current study. There is no interval worsening. There is no layering pleural effusion. Osseous structures are unchanged. The left subclavian transvenous pacemaker is stable. Impression: Continued bilateral pulmonary edema/infiltrate with slightly improved aeration in the perihilar regions compared to the previous study PROCEDURE INTERPRETED AT [facility] DEPARTMENT OF RADIOLOGY Final Report Signed by: Dr. Felicitas Puckett
--- NOTE | 2017-01-05 13:13 | Pulmonology Progress Note ---
Pulmonary - PN: Subj Interval history: This is a 76-year-old white female whom I saw in pulmonary consultation on 2016. She had had progressive shortness of breath and had chest x-ray changes along with progressive hypoxemia. My impressions were. 1. Diffuse 5 lobe interstitial and alveolar infiltrate. Suspect this will cross tie turner to be amiodarone lung. Note the presence of Velcro rales. Watch closely for the possibility of atypical pulmonary edema 2. COPD 3. Significant past history tobacco abuse. Stop smoking 2004 4. Normal TSH with elevated free T4 most likely secondary to amiodarone. 5. 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 6. Mild chronic renal failure and 1 nonfunctioning kidney followed by Dr. Martín Hays 7. Chronic anemia 8. Atrial fibrillation. Plan. 1. Stop amiodarone 2. Chest x-ray and ABGs daily 4 3. C-reactive protein and erythrocyte sedimentation rate 4. Repeat BNP 5. Increase Solu-Medrol to 40 mg every 8 hours 6. See orders 7. Dr. Tristan dickens and I have discussed the case and we have coordinated her care. 01/05/2017. Today's chest x-ray still shows 5 lobe interstitial and alveolar infiltrates but these appear to be a little different and a little less dense allowing for technique. The patient says she feels better. Her O2 has improved slightly she has erosions in her nose and with her to try different apparatus for her oxygen and will use Bactroban in her nares. There are no new microbiology reports. FiO2 of 44%, pH is 7.418, PO2 is 40.4, PO2 is 59.9 bicarb is 25.7. White count is 10,700 with 90.8 segs. H&H is 9.3/28.6. Sodium is 134 and potassium is 3.3. Cardiology will adjust this. Creatinine has increased to 2.00 with a BUN of 51. I think the patient is becoming a little over diuresed and I have stopped her Lasix which was 40 mg twice daily. Patient fell Velcro rounds have disappeared. Physical exam. Vital signs see below Psychiatric oriented 3 Cranial nerves are intact Long track motor functions intact Chest. Wheeze free. Velcro rales have disappeared. No chest wall tenderness. Heart. No definite gallop. Abdomen. Nontender. Positive bowel sounds. Extremities. No edema Neck. Symmetrical kyphotic with no meningismus Lymphatics. No submandibular cervical supraclavicular adenopathy. The remainder of the physical exam is noncontributory Plan. 01/05/2017 1. DC Lasix, 40 mg p.o. twice daily was her dose 2. Monitor BUN/creatinine sodium and potassium 3. Continue steroids 4. Daily chest x-rays and ABGs to we can see clear-cut improvement. 5. Today I asked the patient admits she has not seen anyone in pulmonary before she says on one occasion she saw Dr. Minesh Whaley. She requested to change to my service and after we discussed this I agree. She has some family members to see me. She is related to Tahira dorado Exam (Progress Note) - Constitutional Vitals: Period Temp Pulse Resp BP Sys/Scott Pulse Ox Last 24 Hr 97.2 F-97.9 F 68-97 16-150 104-130/51-72 87-95 Results - Labs CBC & BMP: 01/05/17 03:33 01/05/17 03:34
[2017-01-05] MEDS: AZITHROMYCIN INJ 500 MG in SODIUM CHLORIDE 0.9% 250 ML IV SCH (16:04)
[2017-01-05] MEDS: CLORAZEPATE 3.75 MG TABLET PO SCH (21:07)
--- NOTE | 2017-01-06 00:09 | Internal Med Progress Note ---
Assessment and Plan (1) COPD (chronic obstructive pulmonary disease) with acute bronchitis Status: Acute Current Visit: Yes (2) COPD (chronic obstructive pulmonary disease) Status: Chronic Current Visit: Yes (3) Chronic anemia Status: Chronic Current Visit: Yes (4) Congestive cardiac failure Status: Chronic Current Visit: Yes Qualifiers: Congestive heart failure type: diastolic Congestive heart failure chronicity: acute on chronic Qualified Code(s): I50.33 - Acute on chronic diastolic (congestive) heart failure (5) Coronary artery disease involving coronary bypass graft Status: Chronic Current Visit: Yes (6) Dyslipidemia Status: Chronic Current Visit: Yes (7) History of TIA (transient ischemic attack) Status: Chronic Current Visit: Yes (8) Hypertension Status: Chronic Current Visit: Yes Qualifiers: Hypertension type: essential hypertension Qualified Code(s): I10 - Essential (primary) hypertension (9) Atrial fibrillation Status: Acute Current Visit: No Qualifiers: Atrial fibrillation type: chronic Qualified Code(s): I48.2 - Chronic atrial fibrillation Internal Medicine - PN: Subj Interval history: This patient was seen during the early afternoon on rounds: This is a 76 year old female patient of Dr. John Paul Starks with history of atrial fibrillation, pacemaker placement, TIA, CAD/FL/CABG, dyslipidemia, anemia, COPD , OA, generalized weakness, who presented to ER with COPD exacerbation and CHF. She also has pulmonary fibrotic disease and Amiodarone was discontinued. She has been hypoxic. She is feeling better on breathing treatments and Solumedrol. Oxygen has been increased and she has favorably responded. Exam (Progress Note) - Constitutional Vitals: Period Temp Pulse Resp BP Sys/Scott Pulse Ox Last 24 Hr 97.2 F-98.6 F 68-97 16-150 104-129/52-74 87-96 General appearance: no acute distress - Head Head exam: Present: normocephalic - Respiratory Respiratory exam: Present: rhonchi (diffuse and scattered) - Cardiovascular Cardiovascular exam: Present: regular rate and rhythm (paced rhythm) - GI/Abdominal GI/Abdominal exam: Present: normal bowel sounds, soft - Extremities Exam Extremities exam: Absent: edema - Neurological Exam Neurological exam: Present: alert - Psychiatric Psychiatric exam: Present: normal mood - Skin Skin exam: Present: warm, dry Results - Labs CBC & BMP: 01/05/17 03:33 01/05/17 03:34 - Diagnostic Findings Procedure: Chest x-ray: report reviewed by me
[2017-01-06] MEDS: ALBUTEROL/IPRATROPIUM 3 ML NEB RESP TX SCH ×6 (04:03→23:57)
[2017-01-06 04:22] LABS: Allen Test Positive
[2017-01-06 04:36] LABS: ABG Base Excess 5.8 MMOL/L (-2.5-2.5); ABG HCO3 29.4 MMOL/L (20-26); ABG Oxygen Saturation 83.9 % (95-100); ABG PH 7.464 (7.35-7.45); ABG PO2 48.9 MM HG (80-95); ABG TCO2 26.7 MMOL/L (23-27)
[2017-01-06] MEDS: MUPIROCIN 2% OINT 22 GM TUBE TOP SCH ×3 (04:54→21:47)
[2017-01-06 04:59] LABS: Hematocrit 29.9 VOL% (35.7-47.0); Hemoglobin 9.6 GM/DL (12.0-16.0); Immature Granulocytes % 1.9 %; Immature Granulocytes Absolute 0.17 #; Lymphocytes # 0.4 10*3/uL (1.4-4.0); Lymphocytes % 4.4 % (21.3-54.2); Mean Corpuscular HGB Conc 32.1 GM/DL (32-36); Mean Corpuscular Hemoglobin 28 PG (27-34); Mean Corpuscular Volume 87.4 FL (87-102); Mean Platelet Volume 9.9 FL (9.6-12.0); Monocytes # 0.4 10*3/uL (0.11-0.8); Monocytes % 4.6 % (1.7-12.7); Neutrophils # 8.2 10*3/uL (1.4-7.4); Neutrophils % 89.1 % (38.7-73.9); Platelet Count 238 T/CUMM (130-400); Red Blood Count 3.42 MC/CUMM (3.8-5.5); Red Cell Distribution Width 15.1 % (9.3-17.3); White Blood Count 9.2 T/CUMM (4-12)
[2017-01-06 05:28] LABS: Calcium 8.3 MG/DL (8.5-10.1); Osmolality,Calculated 290.7 MOS/KG (273-304); Potassium 3.2 MMOL/L (3.5-5.1)
[2017-01-06 06:23] LABS: Hypochromasia 1+; Lymphocytes 4 % (20-55); Microcytosis 1+; Ovalocytes Few; Segmented Neutrophils 91 % (50-85); Total Cells Counted 100
[2017-01-06 06:24] LABS: Platelet Estimate Normal
[2017-01-06] MEDS: methylPREDNISolone SOD SUC 40 MG/1 ML VIAL IV SCH ×3 (06:28→22:18)
[2017-01-06] MEDS: LEVOTHYROXINE 50 MCG TABLET PO SCH (06:28)
--- NOTE | 2017-01-06 07:04 | XRay Report ---
XR chest 2V Indication: Amiodarone lung. Comparison: Chest x-ray 01/05/2017 Technique: PA and lateral chest x-ray was performed. Findings: The heart is minimally enlarged. Prior sternotomy and stable. Cardiac pacemaker is stable. Pulmonary vasculature demonstrates no specific abnormality. Hilar structures demonstrate fairly symmetric appearance. The lungs lungs demonstrate diffuse pattern of reticular opacification more prevalent within the mid to lower chest stable in appearance to previous study. Bones and soft tissues demonstrate no evidence of acute pathology. Impression: 1. Little interval change in the chest. Fibrotic changes are suggested bilaterally given history of amiodarone lung. 01/06/2017 7:00 AM PROCEDURE INTERPRETED AT [facility] DEPARTMENT OF RADIOLOGY Final Report Signed by: Dr. Cipriano Hoover
[2017-01-06] MEDS: BUDESONIDE 0.5 MG/2 ML NEB RESP TX SCH ×2 (07:08→19:22)
--- NOTE | 2017-01-06 07:58 | Pulmonology Progress Note ---
Pulmonary - PN: Subj Interval history: This is a 76-year-old white female whom I saw in pulmonary consultation on 2016. She had had progressive shortness of breath and had chest x-ray changes along with progressive hypoxemia. My impressions were. 1. Diffuse 5 lobe interstitial and alveolar infiltrate. Suspect this will bottom turner to be amiodarone lung. Note the presence of Velcro rales. Watch closely for the possibility of atypical pulmonary edema 2. COPD 3. Significant past history tobacco abuse. Stop smoking 2004 4. Normal TSH with elevated free T4 most likely secondary to amiodarone. 5. 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 6. Mild chronic renal failure and 1 nonfunctioning kidney followed by Dr. Martín Hays 7. Chronic anemia 8. Atrial fibrillation. Plan. 1. Stop amiodarone 2. Chest x-ray and ABGs daily 4 3. C-reactive protein and erythrocyte sedimentation rate 4. Repeat BNP 5. Increase Solu-Medrol to 40 mg every 8 hours 6. See orders 7. Dr. Tristan dickens and I have discussed the case and we have coordinated her care. 01/05/2017. Today's chest x-ray still shows 5 lobe interstitial and alveolar infiltrates but these appear to be a little different and a little less dense allowing for technique. The patient says she feels better. Her O2 has improved slightly she has erosions in her nose and with her to try different apparatus for her oxygen and will use Bactroban in her nares. There are no new microbiology reports. FiO2 of 44%, pH is 7.418, PO2 is 40.4, PO2 is 59.9 bicarb is 25.7. White count is 10,700 with 90.8 segs. H&H is 9.3/28.6. Sodium is 134 and potassium is 3.3. Cardiology will adjust this. Creatinine has increased to 2.00 with a BUN of 51. I think the patient is becoming a little over diuresed and I have stopped her Lasix which was 40 mg twice daily. Patient fell Velcro rounds have disappeared. 01/06/2017. This patient has amiodarone lung. This will be the third day she is off amiodarone. She is on Solu-Medrol 40 IV push q. 8. Today's chest x-ray looks markedly better. She still has 5 lobe alveolar and interstitial infiltrates but these are rapidly resolving. Today's O2 has not improved significantly but I expect that to follow. We need to continue the present treatment for right now impaired attention to her heart rhythm. Potassium is low at 3.2 and replacement as needed. H&H is stable at 9.6/29.9. White count is 9289 segs. TSH is normal. Free T4 is elevated most likely secondary to amiodarone. Physical exam. Vital signs see below Psychiatric oriented 3 Cranial nerves are intact Long track motor functions intact Chest. Wheeze free. Velcro rales have disappeared. No chest wall tenderness. Heart. No definite gallop. Abdomen. Nontender. Positive bowel sounds. Extremities. No edema Neck. Symmetrical kyphotic with no meningismus Lymphatics. No submandibular cervical supraclavicular adenopathy. The remainder of the physical exam is noncontributory Plan. 01/05/2017 1. DC Lasix, 40 mg p.o. twice daily was her dose 2. Monitor BUN/creatinine sodium and potassium 3. Continue steroids 4. Daily chest x-rays and ABGs to we can see clear-cut improvement. 5. Today I asked the patient admits she has not seen anyone in pulmonary before she says on one occasion she saw Dr. Minesh Whaley. She requested to change to my service and after we discussed this I agree. She has some family members to see me. She is related to Tahira dorado 01/06/2017. 1. See today's note above. 2. Amiodarone lung which is improving. Continue steroids and follow chest x- ray and ABGs. 3. Replacement of potassium Exam (Progress Note) - Constitutional Vitals: Period Temp Pulse Resp BP Sys/Scott Pulse Ox Last 24 Hr 96.6 F-98.6 F 75-97 16-22 103-129/46-81 88-96 Results - Labs CBC & BMP: 01/06/17 03:52 01/06/17 03:52
[2017-01-06] MEDS: APIXABAN 2.5 MG TABLET PO SCH ×2 (08:45→21:47)
[2017-01-06] MEDS: VALSARTAN/HCTZ 80-12.5 MG TABLET PO SCH (08:45)
[2017-01-06] MEDS: PANTOPRAZOLE 40 MG TABLET PO SCH (08:45)
[2017-01-06] MEDS: NEBIVOLOL 5 MG TABLET PO SCH (08:45)
[2017-01-06] MEDS: ROSUVASTATIN 10 MG TABLET PO SCH (08:45)
[2017-01-06] MEDS: POTASSIUM CHLORIDE 20 MEQ TABLET PO SCH ×2 (08:46→21:47)
[2017-01-06] MEDS: ASPIRIN EC 81 MG TABLET PO SCH (08:46)
[2017-01-06] MEDS: AZITHROMYCIN INJ 500 MG in SODIUM CHLORIDE 0.9% 250 ML IV SCH (10:30)
[2017-01-06] MEDS: MAGNESIUM CHLORIDE 64 MG TABLET PO SCH ×2 (10:30→21:48)
--- NOTE | 2017-01-06 13:02 | Cardiology Progress Note ---
Assessment and Plan (1) Congestive cardiac failure Status: Chronic Assessment and plan: SEE PLAN OF CARE LISTED BELOW Current Visit: Yes Qualifiers: Congestive heart failure type: diastolic Congestive heart failure chronicity: acute on chronic Qualified Code(s): I50.33 - Acute on chronic diastolic (congestive) heart failure (2) Coronary artery disease involving coronary bypass graft Status: Chronic Assessment and plan: SEE PLAN OF CARE LISTED BELOW Current Visit: Yes (3) History of TIA (transient ischemic attack) Status: Chronic Assessment and plan: SEE PLAN OF CARE LISTED BELOW Current Visit: Yes (4) dual-chamber pacemaker Status: Chronic Assessment and plan: SEE PLAN OF CARE LISTED BELOW Current Visit: No (5) Former smoker Status: Chronic Assessment and plan: SEE PLAN OF CARE LISTED BELOW Current Visit: Yes (6) Chronic anemia Status: Chronic Assessment and plan: SEE PLAN OF CARE LISTED BELOW Current Visit: Yes (7) Dyslipidemia Status: Chronic Assessment and plan: SEE PLAN OF CARE LISTED BELOW Current Visit: Yes (8) Chronic anticoagulation Status: Chronic Assessment and plan: SEE PLAN OF CARE LISTED BELOW Current Visit: Yes (9) Paroxysmal a-fib Status: Chronic Assessment and plan: SEE PLAN OF CARE LISTED BELOW Current Visit: No (10) COPD (chronic obstructive pulmonary disease) Status: Chronic Assessment and plan: SEE PLAN OF CARE LISTED BELOW Current Visit: Yes (11) Hypertension Status: Chronic Assessment and plan: SEE PLAN OF CARE LISTED BELOW Current Visit: Yes Qualifiers: Hypertension type: essential hypertension Qualified Code(s): I10 - Essential (primary) hypertension (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 Current Visit: Yes (13) Hypokalemia Status: Acute Assessment and plan: See plan of care listed below. Current Visit: Yes (14) Chronic renal failure, stage 3 (moderate) Status: Acute Assessment and plan: See plan of care listed below. Current Visit: Yes Cardiology - PN: Subj Interval history: Stunt Person: Dr. Herbert PCP: Dr. Alex Starks SUMMARY - Ms. Quiros is a 76 year old female with known history of coronary artery disease, routinely followed by Dr. Herbert. Patient has cardiac risk factors significant for known history of coronary artery disease, hypertension, dyslipidemia, advanced age, sedentary lifestyle, former smoker and family history of coronary artery disease (father had CABG at age 67). She is a past medical history of COPD, chronic anemia, anterior myocardial infarction and atrial fibrillation. 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 She had a nuclear cardiac stress test August 2015 which revealed normal myocardial perfusion scan that did not suggest the presence of significant coronary ischemia. Normal LV systolic function with ejection fraction estimated to be 57%. Normal end-diastolic volume. Patient presented to [facility] with complaints of fatigue, weakness and shortness of breath. Patient is currently being treated for acute on chronic congestive heart failure due to diastolic dysfunction. Echocardiogram was performed this admission which revealed preserved ejection fraction of 60% and grade 1 diastolic dysfunction. JANUARY 06, 2017 UPDATE - Patient was seen and examined on the telemetry unit. Patient has been diagnosed with amiodarone long. Amiodarone has now been discontinued for 3 days. X-ray is improving. She reports that her breathing is improving daily. She is without complaints of chest pain, heaviness or tightness. Vital signs are stable. Telemetry has been reviewed and no atrial fibrillation has been noted since amiodarone has been discontinued. Will continue to monitor per telemetry and adjust medications as needed. Potassium 3.2. Will replace per protocol. Creatinine improved overnight to 1.6. We will continue to monitor this with daily BMP. I will discuss further with Dr. Fernandes and await his additional recommendations. ASSESSMENT/PLAN: 1. ACUTE ON CHRONIC CONGESTIVE HEART FAILURE, DYSTOLIC DYSFUNCTION - Improved. Echocardiogram this admission reveals preserved ejection fraction of 60% with grade 1 diastolic dysfunction. Diuresed well with IV and p.o. Lasix. This is now been discontinued prior pulmonary due to increasing creatinine. Weight is unchanged. We will monitor daily weights and strict I' s and O's. I will further discuss with Dr. Fernandes and await his additional recommendations. 2. CORONARY ARTERY DISEASE, STATUS POST CABG 2010 - Patient is status post CABG 2010 with a AZAR to LAD and SVG to circumflex artery. This appears to be clinically stable at present. Patient is without chest pain, heaviness and tightness this admission. Recently underwent cardiac stress testing August 2015 which did not reveal any significant coronary ischemia. Cardiac biomarkers have been negative and EKG does not reveal any diagnostic changes. At this point, we will continue current plan of care with aspirin, beta- tamara and lipid-lowering agent. 3. AMIODARONE LUNG - Amiodarone has been discontinued. Management per pulmonary. Continue steroid therapy. 4. HYPERTENSION - This is clinically stable. Will continue current plan of care and adjust as needed throughout her hospitalization. 5. FORMER SMOKER - Reports that she quit smoking in 2004. 6. HISTORY OF DUAL CHAMBER PACEMAKER - Patient had dual-chamber pacemaker placed 2013 as she has history of paroxysmal atrial fibrillation and developed sick sinus syndrome with tachybradycardia components. 7. CHRONIC ANEMIA - Patient reports that she receives iron transfusions occasionally. Her last transfusion was April 2016. Most recent H&H is noted to be 9.6 and 29.9. Patient is chronically anticoagulated with Eliquis for her paroxysmal atrial fibrillation. This will be continued at this time as patient is a high risk for recurrent stroke as she has history of TIA. Will monitor H&H with daily CBC. 8. DYSLIPIDEMIA - Continue lipid-lowering agent. 9. CHRONIC ANTICOAGULATION - Patient is chronically anticoagulated with Eliquis as she has paroxysmal atrial fibrillation. Patient also has chronic anemia requiring iron transfusions occasionally. Her last iron transfusion was April 2016. Patient has had a TIA in the past and is extremely high risk for recurrent stroke. At this point, her H&H is stable. We will monitor this daily during hospitalization. 10. HISTORY OF PAF - Patient has history of paroxysmal atrial fibrillation. This admission she has been in normal sinus rhythm with occasional atrial pacing. She is chronically anticoagulated with Eliquis. Amiodarone has been discontinued due to amiodarone lung. No recurrent atrial fibrillation since that has been discontinued. At this point, we will continue beta-blockade , monitor on telemetry and further adjust medications as needed throughout her hospitalization. 11.COPD - Will defer management of this to attending. 12. HISTORY OF TIA - Patient reports history of TIA. She is currently chronically anticoagulated with Eliquis. 13. HYPOKALEMIA - Replaced per protocol. 14. CHRONIC RENAL FAILURE, STAGE 3 WITH NONFUNCTIONING KIDNEY - Patient routinely followed by Dr. Martín Hays. Monitor with daily BMP. Further plan and addendum to follow per Dr. Fernandes. Exam (Progress Note) - Constitutional Vitals: Period Temp Pulse Resp BP Sys/Scott Pulse Ox Last 24 Hr 96.6 F-98.6 F 71-94 16-22 103-129/46-81 88-96 Exam: General: Appears well with no apparent distress. Pleasant and cooperative. Appears comfortable. HEENT: PERRL, normocephalic, atraumatic. Mucous membranes moist. No jaundice noted. Conjunctiva moist and clear, sclerae anicteric Neck: No JVD/HJR, no thyromegaly or lymphadenopathy noted. No carotid bruit appreciated Cardiac: Regular rate and rhythm. 2/6 systolic murmur. Lungs: Mild rhonchi auscultated without accessory muscle use to assist the respiratory pattern. Requiring oxygen via nasal cannula. Abdomen: Soft, bowel sounds normoactive. Nontender and nondistended. No abdominal bruit or thrill noted. No masses noted. Extremities: No clubbing, cyanosis noted. No edema noted. Upper extremity pulses 2+. Lower extremity pulses 2+. Capillary refill less than 3 seconds. Skin: No unusual lesions or rashes. No skin breakdown appreciated. Neuro: Awake, alert and oriented 3. Moves all extremities well without hemiparesis or paralysis. No essential tremor is appreciated. Result/EKG - Labs CBC & BMP: 01/06/17 03:52 01/06/17 03:52 Lab Results: I have reviewed the past 24 hour labs Labs: Laboratory Results - last 24 hr 01/06/17 01/06/17 01/06/17 03:52 03:52 03:57 WBC 9.2 RBC 3.42 L Hgb 9.6 L Hct 29.9 L MCV 87.4 MCH 28 MCHC 32.1 RDW 15.1 Plt Count 238 MPV 9.9 Neut % (Auto) 89.1 H Lymph % (Auto) 4.4 L [place] % (Auto) 4.6 Eos % (Auto) 0.0 Baso % (Auto) 0.0 Neut # (Auto) 8.2 H Lymph # (Auto) 0.4 L [place] # (Auto) 0.4 Eos # (Auto) 0.0 Baso # (Auto) 0.0 Total Counted 100 Immature Gran % 1.9 Nucleated RBC % 0.0 Immature Gran # 0.17 Segmented Neutrophils 91 H Lymphocytes 4 L Monocytes 5 Nucleated RBCs # 0.00 Platelet Estimate Normal Hypochromasia 1+ Microcytosis 1+ Ovalocytes Few ABG pH 7.464 H ABG pCO2 42.0 ABG pO2 48.9 L ABG HCO3 29.4 H ABG Total CO2 26.7 ABG O2 Saturation 83.9 L ABG Base Excess 5.8 H FiO2 44.00 Sodium 138 Potassium 3.2 L Chloride 96 L Carbon Dioxide 30 Anion Gap 15.2 H BUN 45 H Creatinine 1.60 H GFR Calculation 32 BUN/Creatinine Ratio 28.00 H Glucose 172 H Calculated Osmolality 290.7 Calcium 8.3 L Magnesium 2.0
[2017-01-06] MEDS ORDERED: HYOSCYAMINE 0.125 MG TABLET PO ONE (13:26)
--- NOTE | 2017-01-06 13:42 | EKG Report ---
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
[2017-01-06] MEDS: POTASSIUM CHLORIDE 20 MEQ TABLET PO PRN ×2 (14:23→18:43)
--- NOTE | 2017-01-06 14:27 | Internal Med Progress Note ---
Assessment and Plan (1) COPD (chronic obstructive pulmonary disease) with acute bronchitis Status: Acute Assessment and plan: continue IV Abx , AZITHROMYCIN,Day 5, on O2, on duonebs/breathing treatments, and Solu-Medrol. Current Visit: Yes (2) Congestive cardiac failure Status: Chronic Assessment and plan: Continue recommendation as per smoke control supervisor. Not on Lasix presently, daily weights are stable Current Visit: Yes Qualifiers: Congestive heart failure type: diastolic Congestive heart failure chronicity: acute on chronic Qualified Code(s): I50.33 - Acute on chronic diastolic (congestive) heart failure (3) Coronary artery disease Status: Chronic Current Visit: Yes Qualifiers: Coronary Disease-Associated Artery/Lesion type: [place] artery Associated angina: without angina (4) History of atrial fibrillation Status: Chronic Assessment and plan: continue eliquis Current Visit: No (5) Hypertension Status: Chronic Assessment and plan: contine antihypertensives. Current Visit: Yes Qualifiers: Hypertension type: essential hypertension Qualified Code(s): I10 - Essential (primary) hypertension (6) Renal insufficiency, mild Status: Acute Assessment and plan: BUN/creatinine improving, will continue monitoring daily BMPs, will have a follow-up as outpatient with Dr. Hays at the time of discharge Current Visit: Yes (7) Anemia Status: Chronic Assessment and plan: Received blood transfusion 1 yesterday, her H&H today is 9.2/28.3 Current Visit: Yes Qualifiers: Other causes of anemia: chronic disease, other Internal Medicine - PN: Subj Interval history: Patient seen and examined at the telemetry bed, patient is having her lunch. On oxygen . no overnight events as per the nurse. Overall feeling better, no new complaints given by the patient today No fever, chest pain, shortness of breath improved. 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 Patient's kidney functions are improving. Discussed option of swing bed discharge when the patient is ready, patient refused. Patient is willing to continue her home health with necessary therapy as needed , has [facility] Exam (Progress Note) - Constitutional Vitals: Period Temp Pulse Resp BP Sys/Scott Pulse Ox Last 24 Hr 96.6 F-98.6 F 71-94 16-22 103-129/46-81 88-96 Exam: GENERAL APPEARANCE: alert and oriented, pleasant, in no acute distress, elderly white female patient, on on continuous oxygen,. HEENT: normal. EYES: extraocular movement intact (EOMI), conjunctiva clear, normal. NECK/THYROID: neck supple, full range of motion, no cervical lymphadenopathy, no thyromegaly. HEART: regular rate and rhythm, no murmurs, rubs, gallops. LUNGS: Bilateral generalized rales, transmitted breath sounds, ABDOMEN: soft, nontender, nondistended, no organomegaly , bowel sounds present. EXTREMITIES: no edema. NEUROLOGIC: alert and oriented, cranial nerves 2-12 grossly intact, Results - Labs CBC & BMP: 01/06/17 03:52 01/06/17 03:52 Lab Results: I have reviewed the past 24 hour labs Labs: BUN/creatinine function gradually improving, her H&H is stable
[2017-01-06] MEDS ORDERED: ISOSORBIDE MONONITRATE 20 MG TABLET PO SCH (15:00)
[2017-01-06] MEDS ORDERED: FUROSEMIDE 40 MG/4 ML VIAL IV SCH (16:00)
[2017-01-06] MEDS ORDERED: HYOSCYAMINE 0.125 MG TABLET PO SCH (21:00)
[2017-01-06] MEDS: CLORAZEPATE 3.75 MG TABLET PO SCH (21:50)
[2017-01-07] MEDS: POTASSIUM CHLORIDE 20 MEQ TABLET PO PRN (00:51)
[2017-01-07] MEDS: ALBUTEROL/IPRATROPIUM 3 ML NEB RESP TX SCH ×6 (04:32→22:36)
[2017-01-07 04:42] LABS: ABG Base Excess 4.1 MMOL/L (-2.5-2.5); ABG HCO3 27.9 MMOL/L (20-26); ABG PCO2 41.4 MM HG (35-48); ABG PH 7.445 (7.35-7.45); ABG PO2 54.4 MM HG (80-95); Allen Test Positive
[2017-01-07 05:03] LABS: Basophils % 0.1 % (0.0-0.8); Hematocrit 30.4 VOL% (35.7-47.0); Hemoglobin 9.8 GM/DL (12.0-16.0); Immature Granulocytes % 3.9 %; Immature Granulocytes Absolute 0.36 #; Lymphocytes # 0.3 10*3/uL (1.4-4.0); Lymphocytes % 3.5 % (21.3-54.2); Mean Corpuscular HGB Conc 32.2 GM/DL (32-36); Mean Corpuscular Hemoglobin 29 PG (27-34); Mean Corpuscular Volume 89.1 FL (87-102); Mean Platelet Volume 9.8 FL (9.6-12.0); Monocytes # 0.6 10*3/uL (0.11-0.8); Monocytes % 6.7 % (1.7-12.7); Neutrophils # 7.8 10*3/uL (1.4-7.4); Neutrophils % 85.8 % (38.7-73.9); Platelet Count 228 T/CUMM (130-400); Red Blood Count 3.41 MC/CUMM (3.8-5.5); Red Cell Distribution Width 15.2 % (9.3-17.3); White Blood Count 9.1 T/CUMM (4-12)
[2017-01-07 05:37] LABS: Calcium 8.3 MG/DL (8.5-10.1); Magnesium 1.9 MG/DL (1.8-2.4); Osmolality,Calculated 289.5 MOS/KG (273-304); Potassium 4.2 MMOL/L (3.5-5.1)
[2017-01-07 05:39] LABS: Band Neutrophils 1 % (0-10); Hypochromasia 1+; Lymphocytes 2 % (20-55); Microcytosis Slight; Myelocytes 1 %; Ovalocytes Slight; Platelet Estimate Adequate; Segmented Neutrophils 90 % (50-85); Total Cells Counted 100
[2017-01-07] MEDS: methylPREDNISolone SOD SUC 40 MG/1 ML VIAL IV SCH ×3 (06:21→22:09)
[2017-01-07] MEDS: BUDESONIDE 0.5 MG/2 ML NEB RESP TX SCH ×2 (06:57→18:55)
[2017-01-07] MEDS: LEVOTHYROXINE 50 MCG TABLET PO SCH (07:18)
[2017-01-07] MEDS: MAGNESIUM CHLORIDE 64 MG TABLET PO SCH ×2 (08:20→20:36)
[2017-01-07] MEDS: ASPIRIN EC 81 MG TABLET PO SCH (08:20)
[2017-01-07] MEDS: VALSARTAN/HCTZ 80-12.5 MG TABLET PO SCH (08:20)
[2017-01-07] MEDS: ROSUVASTATIN 10 MG TABLET PO SCH (08:20)
[2017-01-07] MEDS: FLUDROCORTISONE 0.1 MG TABLET PO SCH (08:20)
[2017-01-07] MEDS: PANTOPRAZOLE 40 MG TABLET PO SCH (08:20)
[2017-01-07] MEDS: POTASSIUM CHLORIDE 20 MEQ TABLET PO SCH ×2 (08:20→20:36)
[2017-01-07] MEDS: NEBIVOLOL 5 MG TABLET PO SCH (08:20)
[2017-01-07] MEDS: APIXABAN 2.5 MG TABLET PO SCH ×2 (08:21→20:36)
[2017-01-07] MEDS: MUPIROCIN 2% OINT 22 GM TUBE TOP SCH ×2 (08:21→20:36)
--- NOTE | 2017-01-07 08:41 | Pulmonology Progress Note ---
Pulmonary - PN: Subj Interval history: This 76-year-old female came in with shortness of breath. Dr. Herrera saw her over the weekend and felt that she may have amiodarone lung. That was stopped and she has been given steroids. Her chest x-ray does look better. Exam (Progress Note) - Constitutional Vitals: Period Temp Pulse Resp BP Sys/Scott Pulse Ox Last 24 Hr 97.4 F-98.9 F 76-96 18-20 100-132/47-70 83-96 Exam: Patient is alert and oriented. Vital signs normal. Pupils react to light. Throat is clear. Chest shows some minimal bibasilar crackles. Heart normal rate and rhythm no murmurs. Abdomen soft no masses. Extremities no clubbing cyanosis edema. Calves nontender. Results - Labs CBC & BMP: 01/07/17 04:51 01/07/17 04:51 Lab Results: I have reviewed the past 24 hour labs - Diagnostic Findings Procedure: Chest x-ray: image reviewed by me (Yesterday's chest x-ray shows improvement in the interstitial edema pattern.) Assessment and Plan (1) Coronary artery disease involving coronary bypass graft Status: Chronic Assessment and plan: BNP is a bit elevated at 385. Part of this may be congestive heart failure. Current Visit: Yes (2) Amiodarone pulmonary toxicity Status: Acute Assessment and plan: X-ray and symptoms have improved with holding amiodarone and giving steroids. However again part may be from diuretics improving her fluid status. Current Visit: Yes
--- NOTE | 2017-01-07 09:11 | XRay Report ---
2 view chest. Indication: Interstitial lung disease. Comparison: January 06, 2017. The heart is borderline enlarged. Postmedian sternotomy. Cardiac hardware is in satisfactory position. There is apical pleural irregularity and calcification. There are fibrotic changes noted throughout the lung [place], similar to the previous exam. No dense consolidation, pneumothorax, or pleural effusion. Stable osseous structures. Impression: Chronic lung changes. Borderline cardiomegaly. PROCEDURE INTERPRETED AT [facility] DEPARTMENT OF RADIOLOGY Final Report Signed by: Dr. Cherelle Oakes
--- NOTE | 2017-01-07 09:22 | Internal Med Progress Note ---
Assessment and Plan (1) COPD (chronic obstructive pulmonary disease) with acute bronchitis Status: Acute Assessment and plan: continue IV Abx , AZITHROMYCIN,Day 6, on O2, on duonebs/breathing treatments, and Solu-Medrol. Current Visit: Yes (2) Congestive cardiac failure Status: Chronic Assessment and plan: Continue recommendation as per white goods appliance tech. Not on Lasix presently, daily weights are stable Current Visit: Yes Qualifiers: Congestive heart failure type: diastolic Congestive heart failure chronicity: acute on chronic Qualified Code(s): I50.33 - Acute on chronic diastolic (congestive) heart failure (3) Coronary artery disease Status: Chronic Current Visit: Yes Qualifiers: Coronary Disease-Associated Artery/Lesion type: [place] artery Associated angina: without angina (4) History of atrial fibrillation Status: Chronic Assessment and plan: continue eliquis Current Visit: No (5) Hypertension Status: Chronic Assessment and plan: contine antihypertensives. Current Visit: Yes Qualifiers: Hypertension type: essential hypertension Qualified Code(s): I10 - Essential (primary) hypertension (6) Renal insufficiency, mild Status: Acute Assessment and plan: BUN/creatinine improved to baseline, will continue monitoring daily BMPs, will have a follow-up as outpatient with Dr. Hays at the time of discharge Current Visit: Yes (7) Anemia Status: Chronic Assessment and plan: H&H stable, 9.8/30.4 from today. No new events of bleeding reported by the patient. Current Visit: Yes Qualifiers: Other causes of anemia: chronic disease, other Internal Medicine - PN: Subj Interval history: PCP: Dr. Starks, Patient seen and examined at the telemetry bed, On oxygen . Last night had the episode where she had sweating, no chest pain or no worsening of shortness of breath by history. 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 Patient's kidney functions are improving. Discussed option of swing bed discharge when the patient is ready, patient refused. Patient is willing to continue her home health with necessary therapy as needed , has [facility] Exam (Progress Note) - Constitutional Vitals: Period Temp Pulse Resp BP Sys/Scott Pulse Ox Last 24 Hr 97.4 F-98.9 F 76-96 18-20 100-132/47-70 83-96 Exam: GENERAL APPEARANCE: alert and oriented, pleasant, in no acute distress, elderly white female patient, on continuous oxygen,. HEENT: normal. EYES: extraocular movement intact (EOMI), conjunctiva clear, normal. NECK/THYROID: neck supple, full range of motion, no cervical lymphadenopathy, no thyromegaly. HEART: regular rate and rhythm, no murmurs, rubs, gallops. LUNGS: Bilateral generalized rales, transmitted breath sounds, ABDOMEN: soft, nontender, nondistended, no organomegaly , bowel sounds present. EXTREMITIES: no edema. NEUROLOGIC: alert and oriented, cranial nerves 2-12 grossly intact, Results - Labs CBC & BMP: 01/07/17 04:51 01/07/17 04:51 Lab Results: I have reviewed the past 24 hour labs - Diagnostic Findings Procedure: Chest x-ray: report reviewed by me (From 01/07/2017, chronic lung changes. Borderline cardiomegaly.)
--- NOTE | 2017-01-07 10:43 | Cardiology Progress Note ---
Assessment and Plan (1) dual-chamber pacemaker Status: Chronic Assessment and plan: 76-year-old female, history of CAD, status post CABG, TIA, paroxysmal atrial fibrillation, dual-chamber pacemaker, past smoker, COPD, admitted with respiratory insufficiency. Pneumonitis was diagnosed, with amiodarone as possible etiology. Improving with steroids. Was also diuresed, currently, able to lay flat. Preserved systolic function, diastolic dysfunction. No ACS. No recent A. fib. -Agree to hold off amiodarone due to pulm tox. If symptomatic AF recurs, we may consider renally adjusted sotalol -Continue aspirin, losartan, nebivolol, statin for CAD/hypertension -Continue anticoagulation with low-dose Eliquis. CKD, anemia. No active bleeding -Lasix was stopped. No significant edema on exam. May need to resume lower po dose if worsens, has DDF. -Intermittent jaw and elbow pain, intermittent, occ. at rest. Her angina was atypical in the past. She will need ischemic reevaluation, once recovers from her acute pulmonary issues. No ACS. If remains stable, this may be pursued as an outpatient. Current Visit: No (2) Chronic anticoagulation Status: Chronic Current Visit: Yes (3) Paroxysmal a-fib Status: Chronic Current Visit: No (4) COPD (chronic obstructive pulmonary disease) Status: Chronic Current Visit: Yes (5) Anemia Status: Chronic Current Visit: Yes Qualifiers: Other causes of anemia: chronic disease, other (6) Amiodarone pulmonary toxicity Status: Acute Current Visit: Yes (7) Chronic renal failure, stage 3 (moderate) Status: Acute Current Visit: Yes Cardiology - PN: Subj Interval history: Her oxygen saturation is 94, with supplemental oxygen. Shortness of breath improved. No pain. Acute kidney injury resolving. Sinus rhythm. Exam (Progress Note) - Constitutional Vitals: Period Temp Pulse Resp BP Sys/Scott Pulse Ox Last 24 Hr 97.4 F-98.9 F 76-96 18-20 100-132/47-70 83-96 General appearance: normal weight, over weight - Head Head exam: Present: normal inspection, normocephalic - Eye Eye exam: Absent: conjunctival injection Pupils: Absent: dilated - ENT ENT exam: Present: normal external ear exam - Neck Neck exam: Present: normal inspection - Respiratory Respiratory exam: Present: decreased breath sounds, rhonchi, wheezes - Cardiovascular Cardiovascular exam: Present: regular rate and rhythm, systolic murmur - GI/Abdominal GI/Abdominal exam: Present: normal bowel sounds. Absent: ascites, distended - Extremities Exam Extremities exam: Present: normal inspection, normal capillary refill. Absent: edema - Back Exam Back exam: Present: normal inspection - Neurological Exam Neurological exam: Present: alert, oriented X3 - Psychiatric Psychiatric exam: Present: normal affect, normal mood - Skin Skin exam: Present: normal color, warm. Absent: cyanosis Result/EKG - Labs CBC & BMP: 01/07/17 04:51 01/07/17 04:51 Lab Results: I have reviewed the past 24 hour labs Labs: Laboratory Results - last 24 hr 01/07/17 01/07/17 01/07/17 04:35 04:51 04:51 WBC 9.1 RBC 3.41 L Hgb 9.8 L Hct 30.4 L MCV 89.1 MCH 29 MCHC 32.2 RDW 15.2 Plt Count 228 MPV 9.8 Neut % (Auto) 85.8 H Lymph % (Auto) 3.5 L [place] % (Auto) 6.7 Eos % (Auto) 0.0 Baso % (Auto) 0.1 Neut # (Auto) 7.8 H Lymph # (Auto) 0.3 L [place] # (Auto) 0.6 Eos # (Auto) 0.0 Baso # (Auto) 0.0 Total Counted 100 Immature Gran % 3.9 Nucleated RBC % 0.0 Immature Gran # 0.36 Segmented Neutrophils 90 H Band Neutrophils 1 Lymphocytes 2 L Monocytes 6 Myelocytes 1 Nucleated RBCs # 0.00 Platelet Estimate Adequate Hypochromasia 1+ Microcytosis Slight Ovalocytes Slight Morphology Comment ABG pH 7.445 ABG pCO2 41.4 ABG pO2 54.4 L ABG HCO3 27.9 H ABG Total CO2 26.0 ABG O2 Saturation 87.0 L ABG Base Excess 4.1 H FiO2 44.00 Sodium 139 Potassium 4.2 Chloride 100 Carbon Dioxide 29 Anion Gap 14.2 BUN 39 H Creatinine 1.40 H GFR Calculation 38 BUN/Creatinine Ratio 27.00 H Glucose 171 H Calculated Osmolality 289.5 Calcium 8.3 L Magnesium 1.9 - EKG EKG results: interpreted by me
[2017-01-07] MEDS: AZITHROMYCIN INJ 500 MG in SODIUM CHLORIDE 0.9% 250 ML IV SCH (11:15)
[2017-01-07] MEDS: CLORAZEPATE 3.75 MG TABLET PO SCH (20:36)
[2017-01-08] MEDS: ALBUTEROL/IPRATROPIUM 3 ML NEB RESP TX SCH ×6 (02:58→23:37)
[2017-01-08 03:25] LABS: Allen Test Positive
[2017-01-08 03:27] LABS: ABG Base Excess 3.3 MMOL/L (-2.5-2.5); ABG Oxygen Saturation 73.7 % (95-100); ABG PCO2 39.7 MM HG (35-48); ABG PH 7.448 (7.35-7.45); ABG TCO2 25.3 MMOL/L (23-27)
[2017-01-08 03:30] LABS: ABG PO2 40.5 MM HG (80-95)
[2017-01-08 04:17] LABS: Allen Test Positive
[2017-01-08 04:21] LABS: ABG Base Excess 3.3 MMOL/L (-2.5-2.5); ABG HCO3 27.4 MMOL/L (20-26); ABG Oxygen Saturation 85.3 % (95-100); ABG PCO2 39.6 MM HG (35-48); ABG PH 7.458 (7.35-7.45); ABG TCO2 28.6 MMOL/L (23-27)
[2017-01-08 05:58] LABS: Basophils % 0.1 % (0.0-0.8); Hematocrit 29.2 VOL% (35.7-47.0); Hemoglobin 9.4 GM/DL (12.0-16.0); Immature Granulocytes % 3.3 %; Immature Granulocytes Absolute 0.32 #; Lymphocytes # 0.4 10*3/uL (1.4-4.0); Mean Corpuscular HGB Conc 32.2 GM/DL (32-36); Mean Corpuscular Hemoglobin 29 PG (27-34); Mean Corpuscular Volume 89.6 FL (87-102); Monocytes # 0.8 10*3/uL (0.11-0.8); Monocytes % 7.8 % (1.7-12.7); Neutrophils # 8.2 10*3/uL (1.4-7.4); Neutrophils % 84.8 % (38.7-73.9); Platelet Count 195 T/CUMM (130-400); Red Blood Count 3.26 MC/CUMM (3.8-5.5); Red Cell Distribution Width 15.1 % (9.3-17.3); White Blood Count 9.7 T/CUMM (4-12)
[2017-01-08] MEDS: LEVOTHYROXINE 50 MCG TABLET PO SCH (06:07)
[2017-01-08] MEDS: methylPREDNISolone SOD SUC 40 MG/1 ML VIAL IV SCH ×3 (06:07→21:47)
[2017-01-08 06:20] LABS: Lymphocytes 5 % (20-55); Segmented Neutrophils 88 % (50-85); Total Cells Counted 100
[2017-01-08 06:21] LABS: Hypochromasia 2+; Platelet Estimate Normal
[2017-01-08 06:30] LABS: Calcium 8.5 MG/DL (8.5-10.1); Magnesium 1.8 MG/DL (1.8-2.4); Potassium 4.3 MMOL/L (3.5-5.1)
[2017-01-08] MEDS: BUDESONIDE 0.5 MG/2 ML NEB RESP TX SCH ×2 (07:35→19:08)
--- NOTE | 2017-01-08 07:39 | Family Practice Progress Note ---
Family Practice - PN: Subj Interval history: Patient states he still dyspneic this morning and when she talks her O2 sats dropped to 85%. 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 EF was 60% on recent echocardiogram. Patient denies any pain at present. She also has underlying COPD and paroxysmal atrial fibrillation. Exam (Progress Note) - Constitutional Vitals: Period Temp Pulse Resp BP Sys/Scott Pulse Ox Last 24 Hr 97.7 F-99.8 F 60-84 18-20 106-128/50-72 90-97 Exam: Objective a well-developed white female no acute distress. Patient's not dyspneic at rest though I note that her O2 sats dropped into the upper 80s when she is conversing. Cardiovascular: Heart rates regular I hear no murmurs or gallops respiratory: Respiratory: Patient has scattered inspiratory rales in all lung [place]. Abdomen: Abdomen soft and nontender. Results - Labs CBC & BMP: 01/08/17 04:26 01/08/17 04:26 Lab Results: I have reviewed the past 24 hour labs - Diagnostic Findings Procedure: Chest x-ray: report reviewed by me (Chest x-ray shows no interval change from 01/07/2017.) Assessment and Plan (1) COPD (chronic obstructive pulmonary disease) Status: Chronic Assessment and plan: 01/08/2017: We will continue present therapy. Current Visit: Yes (2) Amiodarone pulmonary toxicity Status: Acute Assessment and plan: 01/08/2017: We will continue to hold her amiodarone of course. Current Visit: Yes
--- NOTE | 2017-01-08 07:53 | XRay Report ---
XR chest 2V Indication: Interstitial lung disease. Comparison: Chest x-ray 01/07/2017 Technique: PA and lateral chest x-ray was performed. Findings: Borderline to mild cardiomegaly is stable. Previous sternotomy is demonstrated. Cardiac pacemaker is stable. The lungs demonstrate a reticular pattern of interstitial opacification scattered airspace opacities superimposed in the right perihilar region and more focal stranding noted within the left cardiophrenic angle. The pattern of parenchymal opacity has probably changed little since comparison study. Bones and soft tissues demonstrate no significant interval change. Gallbladder appears surgically absent. Impression: 1. The pattern of parenchymal opacification involving the lungs has changed little since comparison study. Component of subsegmental atelectasis could be considered within the left lower lobe. Superimposed pulmonary edema is not excluded. Infectious process right perihilar region is not excluded. 01/08/2017 7:49 AM PROCEDURE INTERPRETED AT [facility] DEPARTMENT OF RADIOLOGY Final Report Signed by: Dr. Cipriano Hoover
[2017-01-08] MEDS: ROSUVASTATIN 10 MG TABLET PO SCH (08:21)
[2017-01-08] MEDS: MAGNESIUM CHLORIDE 64 MG TABLET PO SCH ×2 (08:22→21:46)
[2017-01-08] MEDS: ASPIRIN EC 81 MG TABLET PO SCH (08:22)
[2017-01-08] MEDS: PANTOPRAZOLE 40 MG TABLET PO SCH (08:22)
[2017-01-08] MEDS: POTASSIUM CHLORIDE 20 MEQ TABLET PO SCH ×2 (08:22→21:46)
[2017-01-08] MEDS: VALSARTAN/HCTZ 80-12.5 MG TABLET PO SCH (08:22)
[2017-01-08] MEDS: APIXABAN 2.5 MG TABLET PO SCH ×2 (08:22→21:47)
[2017-01-08] MEDS: NEBIVOLOL 5 MG TABLET PO SCH (08:22)
[2017-01-08] MEDS: MUPIROCIN 2% OINT 22 GM TUBE TOP SCH ×2 (08:22→21:53)
[2017-01-08] MEDS: AZITHROMYCIN INJ 500 MG in SODIUM CHLORIDE 0.9% 250 ML IV SCH (09:22)
--- NOTE | 2017-01-08 09:33 | Pulmonology Progress Note ---
Pulmonary - PN: Subj Interval history: This is a 76-year-old white female whom I saw in pulmonary consultation on 2016. She had had progressive shortness of breath and had chest x-ray changes along with progressive hypoxemia. My impressions were. 1. Diffuse 5 lobe interstitial and alveolar infiltrate. Suspect this will boot turner to be amiodarone lung. Note the presence of Velcro rales. Watch closely for the possibility of atypical pulmonary edema 2. COPD 3. Significant past history tobacco abuse. Stop smoking 2004 4. Normal TSH with elevated free T4 most likely secondary to amiodarone. 5. 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 6. Mild chronic renal failure and 1 nonfunctioning kidney followed by Dr. Martín Hays 7. Chronic anemia 8. Atrial fibrillation. Plan. 1. Stop amiodarone 2. Chest x-ray and ABGs daily 4 3. C-reactive protein and erythrocyte sedimentation rate 4. Repeat BNP 5. Increase Solu-Medrol to 40 mg every 8 hours 6. See orders 7. Dr. Tristan dickens and I have discussed the case and we have coordinated her care. 01/05/2017. Today's chest x-ray still shows 5 lobe interstitial and alveolar infiltrates but these appear to be a little different and a little less dense allowing for technique. The patient says she feels better. Her O2 has improved slightly she has erosions in her nose and with her to try different apparatus for her oxygen and will use Bactroban in her nares. There are no new microbiology reports. FiO2 of 44%, pH is 7.418, PO2 is 40.4, PO2 is 59.9 bicarb is 25.7. White count is 10,700 with 90.8 segs. H&H is 9.3/28.6. Sodium is 134 and potassium is 3.3. Cardiology will adjust this. Creatinine has increased to 2.00 with a BUN of 51. I think the patient is becoming a little over diuresed and I have stopped her Lasix which was 40 mg twice daily. Patient fell Velcro rounds have disappeared. 01/06/2017. This patient has amiodarone lung. This will be the third day she is off amiodarone. She is on Solu-Medrol 40 IV push q. 8. Today's chest x-ray looks markedly better. She still has 5 lobe alveolar and interstitial infiltrates but these are rapidly resolving. Today's O2 has not improved significantly but I expect that to follow. We need to continue the present treatment for right now impaired attention to her heart rhythm. Potassium is low at 3.2 and replacement as needed. H&H is stable at 9.6/29.9. White count is 9289 segs. TSH is normal. Free T4 is elevated most likely secondary to amiodarone. 01/08/2017. On steroids the patient's lung (chest x-ray) is looking much better. Her breath sounds are much improved. So far her ABGs have not improved a good bit. Hopefully this will follow soon. Off diuretics creatinine is dropped from 2.0-1.30 with a BUN of 35. Electrolytes are normal. CBC is stable. Physical exam. Vital signs see below Psychiatric oriented 3 Cranial nerves are intact Long track motor functions intact Chest. Wheeze free. Velcro rales have disappeared. No chest wall tenderness. Heart. No definite gallop. Abdomen. Nontender. Positive bowel sounds. Extremities. No edema Neck. Symmetrical kyphotic with no meningismus Lymphatics. No submandibular cervical supraclavicular adenopathy. The remainder of the physical exam is noncontributory Plan. 01/05/2017 1. DC Lasix, 40 mg p.o. twice daily was her dose 2. Monitor BUN/creatinine sodium and potassium 3. Continue steroids 4. Daily chest x-rays and ABGs to we can see clear-cut improvement. 5. Today I asked the patient admits she has not seen anyone in pulmonary before she says on one occasion she saw Dr. Minesh Whaley. She requested to change to my service and after we discussed this I agree. She has some family members to see me. She is related to Tahiraglen dorado 01/06/2017. 1. See today's note above. 2. Amiodarone lung which is improving. Continue steroids and follow chest x- ray and ABGs. 3. Replacement of potassium 01/08/2017. 1. See today's note above. 2. Amiodarone lung is improving by chest x-ray and physical exam criteria. 3. Continue present regimen including Solu-Medrol 40 IV push every 8 hours Exam (Progress Note) - Constitutional Vitals: Period Temp Pulse Resp BP Sys/Scott Pulse Ox Last 24 Hr 97.7 F-99.8 F 60-84 18-22 106-146/50-72 83-97 Results - Labs CBC & BMP: 01/08/17 04:26 01/08/17 04:26
--- NOTE | 2017-01-08 10:34 | Cardiology Progress Note ---
Marcela Kuo April RN, am scribing for, and in the presence of, Art Fernandes MD 10 :34. Assessment and Plan (1) Amiodarone pulmonary toxicity Status: Acute Assessment and plan: 76-year-old female, history of CAD, status post CABG, TIA, paroxysmal atrial fibrillation, dual-chamber pacemaker, past smoker, COPD, admitted with respiratory insufficiency. Pneumonitis was diagnosed, with amiodarone as possible etiology. Improving with steroids. Was also diuresed, currently, able to lay flat. Preserved systolic function, diastolic dysfunction. No ACS. No recent A. fib. -Agree to hold off amiodarone due to pulm tox. If symptomatic AF recurs, we may consider renally adjusted sotalol. BRAEDEN improving -Still hypoxic. Pneumonitis improving. Resume Lasix 40 mg po qd. Has DDF -Continue aspirin, losartan, nebivolol, statin for CAD/hypertension -Continue anticoagulation with low-dose Eliquis. CKD, anemia. No active bleeding -Intermittent jaw and elbow pain, intermittent, occ. at rest. Her angina was atypical in the past. She will need ischemic reevaluation, once recovers from her acute pulmonary issues. No ACS. If remains stable, this may be pursued as an outpatient. Current Visit: Yes (2) Hypokalemia Status: Acute Current Visit: Yes (3) COPD (chronic obstructive pulmonary disease) Status: Chronic Current Visit: Yes (4) Chronic anemia Status: Chronic Current Visit: Yes (5) Chronic anticoagulation Status: Chronic Current Visit: Yes (6) Coronary artery disease involving coronary bypass graft Status: Chronic Current Visit: Yes Qualifiers: [place] vs. transplanted heart: [place] heart Associated angina: without angina Qualified Code(s): I25.810 - Atherosclerosis of coronary artery bypass graft(s) without angina pectoris (7) Former smoker Status: Chronic Current Visit: No (8) History of TIA (transient ischemic attack) Status: Chronic Current Visit: No (9) Hypertension Status: Chronic Current Visit: Yes Qualifiers: Hypertension type: essential hypertension Qualified Code(s): I10 - Essential (primary) hypertension (10) Paroxysmal a-fib Status: Chronic Current Visit: No (11) dual-chamber pacemaker Status: Chronic Current Visit: Yes Cardiology - PN: Subj Interval history: [employer] Operator: Dr. Herbert PCP: Dr. Alex Starks SUMMARY - Ms. Quiros is a 76 year old female with known history of coronary artery disease, routinely followed by Dr. Herbert. Patient has cardiac risk factors significant for known history of coronary artery disease, hypertension, dyslipidemia, advanced age, sedentary lifestyle, former smoker and family history of coronary artery disease (father had CABG at age 67). She is a past medical history of COPD, chronic anemia, anterior myocardial infarction and atrial fibrillation. 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 She had a nuclear cardiac stress test August 2015 which revealed normal myocardial perfusion scan that did not suggest the presence of significant coronary ischemia. Normal LV systolic function with ejection fraction estimated to be 57%. Normal end-diastolic volume. Patient presented to [facility] with complaints of fatigue, weakness and shortness of breath. Patient is currently being treated for acute on chronic congestive heart failure due to diastolic dysfunction. Echocardiogram was performed this admission which revealed preserved ejection fraction of 60% and grade 1 diastolic dysfunction. Patient has been diagnosed with amiodarone lung. Amiodarone was discontinued January 04. January 08, 2017: She is seen resting in bed reading the newspaper. She reports her breathing is about the same. Oxygen is in use via nasal cannula. O2 sats running in the 90s, but it does drop down in the mid 80s when she is conversing. Chest x-ray done this morning is essentially unchanged. She denies any chest pain or discomfort, palpitations, or dizziness. shelter monitor shows sinus rhythm with heart rates in the 80s, no atrial fibrillation has been noted. Vital signs been stable with blood pressure this morning 146/ 60. Potassium was low for several days was replaced. Today is 4.3. Creatinine continues to improve, today is 1.3. Exam (Progress Note) - Constitutional Vitals: Period Temp Pulse Resp BP Sys/Scott Pulse Ox Last 24 Hr 97.7 F-99.8 F 60-84 18-22 106-146/50-72 83-97 General appearance: normal weight, no acute distress - Head Head exam: Absent: abrasion, hematoma - Eye Eye exam: Absent: periorbital swelling, laceration to eyelids Pupils: Present: KEVON - Neck Neck exam: Absent: lymphadenopathy, tenderness - Respiratory Respiratory exam: Present: rhonchi, other (Oxygen via nasal cannula). Absent: accessory muscle use, chest wall tenderness - Cardiovascular Cardiovascular exam: Present: regular rate and rhythm, systolic murmur. Absent : carotid bruit - GI/Abdominal GI/Abdominal exam: Present: normal bowel sounds, soft. Absent: distended, tenderness - Extremities Exam Extremities exam: Absent: calf tenderness, edema - Neurological Exam Neurological exam: Present: alert, oriented X3 - Psychiatric Psychiatric exam: Present: normal affect, normal mood - Skin Skin exam: Present: warm, dry Result/EKG - Labs CBC & BMP: 01/08/17 04:26 01/08/17 04:26 Lab Results: I have reviewed the past 24 hour labs Labs: Laboratory Results - last 24 hr 01/08/17 01/08/17 01/08/17 03:21 04:02 04:26 WBC 9.7 RBC 3.26 L Hgb 9.4 L Hct 29.2 L MCV 89.6 MCH 29 MCHC 32.2 RDW 15.1 Plt Count 195 MPV 10.0 Neut % (Auto) 84.8 H Lymph % (Auto) 4.0 L Richardson % (Auto) 7.8 Eos % (Auto) 0.0 Baso % (Auto) 0.1 Neut # (Auto) 8.2 H Lymph # (Auto) 0.4 L Richardson # (Auto) 0.8 Eos # (Auto) 0.0 Baso # (Auto) 0.0 Total Counted 100 Immature Gran % 3.3 Nucleated RBC % 0.0 Immature Gran # 0.32 Segmented Neutrophils 88 H Lymphocytes 5 L Monocytes 7 Nucleated RBCs # 0.00 Platelet Estimate Normal Hypochromasia 2+ ABG pH 7.448 7.458 H ABG pCO2 39.7 39.6 ABG pO2 40.5 L* 45.0 L ABG HCO3 27.0 H 27.4 H ABG Total CO2 25.3 28.6 H ABG O2 Saturation 73.7 L 85.3 L ABG Base Excess 3.3 H 3.3 H FiO2 44.00 44.00 Sodium Potassium Chloride Carbon Dioxide Anion Gap BUN Creatinine GFR Calculation BUN/Creatinine Ratio Glucose Calculated Osmolality Calcium Magnesium 01/08/17 04:26 WBC RBC Hgb Hct MCV MCH MCHC RDW Plt Count MPV Neut % (Auto) Lymph % (Auto) Richardson % (Auto) Eos % (Auto) Baso % (Auto) Neut # (Auto) Lymph # (Auto) Richardson # (Auto) Eos # (Auto) Baso # (Auto) Total Counted Immature Gran % Nucleated RBC % Immature Gran # Segmented Neutrophils Lymphocytes Monocytes Nucleated RBCs # Platelet Estimate Hypochromasia ABG pH ABG pCO2 ABG pO2 ABG HCO3 ABG Total CO2 ABG O2 Saturation ABG Base Excess FiO2 Sodium 136 Potassium 4.3 Chloride 98 Carbon Dioxide 27 Anion Gap 15.3 H BUN 35 H Creatinine 1.30 H GFR Calculation 43 BUN/Creatinine Ratio 26.00 H Glucose 178 H Calculated Osmolality 283.0 Calcium 8.5 Magnesium 1.8 - Diagnostic Findings Procedure: Chest x-ray: report reviewed by me - EKG EKG results: interpreted by me EKG shows: sinus rhythm Dena Kuo Attila, MD, personally performed the services described in this documentation, ascribed by Marianne Medrano RN in my presence, and it is both accurate and complete .
--- NOTE | 2017-01-08 12:44 | Sleep Medicine Consult ---
Assessment and Plan (1) Unspecified sleep apnea Status: Acute Assessment and plan: This patient has a history of atrial fib that has been chronic. She had sleep study done in 2014 and did not have significant sleep apnea at that time. She has not gained much weight at all since that original diagnosis and I think it is unlikely based on her history that sleep apnea is a significant contributing factor to her current illness. She is not medically stable enough for HST evaluation while hospitalized. At this point, I would hold off on further sleep evaluation given her recent study in the last 2 years and with development of no new symptoms to suggest sleep apnea. If sleep medicine can be of further assistance, please do not hesitate to reconsult. Current Visit: Yes History of Present Illness Chief complaint: Sleep apnea History of present illness: Ms. Quiros is a 76 year old female known to me from previous sleep evaluation. She has a history of atrial fib and underwent sleep evaluation and 2015. She had no evidence of any significant sleep apnea at that time, having a normal apnea-hypopnea index of 0.3. She had no significant O2 desaturation with that study, her lowest O2 sat being only 89%. She has been admitted on this occasion for multi lobar infiltrates and there is concern that she has amiodarone toxicity. Sleep medicine was consulted. The patient denies any increased snoring. She has not gained weight since her original study done in 2014. She denies any significant problems with sleepiness during the day. Her stop bang score is only 3 and her [place] sleepiness score is within normal limits at 9. Home Medications Medication Instructions Recorded Confirmed Type Amiodarone Tab [Cordarone Tab] 200 mg PO DAILY 10/20/14 01/01/17 History Amlodipine Besylate 5 mg PO DAILY 10/20/14 01/01/17 History Aspirin [Ecotrin] 81 mg PO DAILY 10/20/14 01/01/17 History Fludrocortisone [Florinef] 0.1 mg PO DAILY PRN 10/20/14 01/01/17 History Apixaban [Eliquis] 2.5 mg PO BID 08/12/15 01/01/17 History Clorazepate [Tranxene] 3.75 mg PO BEDTIME 08/12/15 01/01/17 History Furosemide Tab [Lasix Tab] 40 mg PO DAILY PRN 08/12/15 01/01/17 History Magnesium Chloride [Mag Delay] 2 tablet PO BID 08/12/15 01/01/17 History Diphenoxylate/Atrop 2.5-0.025 1 tablet PO Q6H PRN 02/23/16 01/01/17 History [Lomotil Tab] Levothyroxine Tab [Synthroid Tab] 50 mcg PO DAILY 02/23/16 01/01/17 History Omeprazole [Prilosec] 20 mg PO BID 02/23/16 01/01/17 History Ondansetron Tab [Zofran Tab] 4 mg PO Q6HR PRN 02/23/16 01/01/17 History Valsartan/Hydrochlorothiazide 1 each PO DAILY 02/23/16 01/01/17 History [Valsartan-Hctz 160-12.5 mg Tab] HYDROcodone/ACETAMIN 7.5-325 1 tablet PO Q6H PRN 03/07/16 01/01/17 History [[place] 7.5-325] Nebivolol HCl [Bystolic] 5 mg PO DAILY 03/07/16 01/01/17 History Rosuvastatin Calcium 10 mg PO DAILY 01/01/17 01/01/17 History Nebivolol [Bystolic] 5 mg PO DAILY 01/02/17 01/02/17 History Allergies Allergy/AdvReac Type Severity Reaction Status Date / Time levetiracetam [From Keppra] Allergy Unknown/Unable Verified 01/01/17 18:30 to obtain levofloxacin [From Levaquin] Allergy Unknown/Unable Verified 01/01/17 20:54 to obtain nitroglycerin Allergy Unknown/Unable Verified 01/01/17 18:30 [From Nitro-Bid] to obtain promethazine [From Phenergan] Allergy Unknown/Unable Verified 01/01/17 18:30 to obtain meperidine [From Demerol] AdvReac Palpitation Verified 02/23/16 13:44 s milk AdvReac Nausea Verified 02/23/16 13:44 Penicillins AdvReac Unknown/Unable Verified 02/23/16 13:44 to obtain Review of systems: Otherwise unremarkable from a sleep standpoint. Exam (Pulmonay) H&P - Constitutional Vitals: Period Temp Pulse Resp BP Sys/Scott Pulse Ox Last 24 Hr 97.8 F-99.8 F 60-84 18-22 106-146/46-72 83-97 Exam: She is alert and responsive in no acute distress. Pupils equal round reactive to light and accommodation. Extraocular movements intact. Oropharynx with a class III Mallampati exam. Neck is supple without adenopathy or thyromegaly. No supraclavicular adenopathy is noted. Chest with fine crackles bilaterally. Cardiac exam reveals a regular rhythm without murmur or gallop. Abdomen soft nontender without palpable hepatosplenomegaly or mass. Extremities are without increased edema or clubbing. Neurologically, she is grossly intact. She answers all questions appropriately and moves all extremities with good strength. Medical,Surgical,& Family Hx - Medical History Cardio: History of: Cardiac Dysrhythmia (A-FIB), CHF, CAD, Hypertension, [place], Pacemaker (08/20), Cardiovascular Problems Neurology: History of: Seizures, TIA HEENT: History of: Eye Problem, Glaucoma Endocrine: History of: Dyslipidemia No history of: Diabetes Mellitus (IDDM), Diabetes Mellitus (NIDDM) Respiratory: History of: COPD Renal: History of: Renal Failure, Renal Problems (one kidney) Genitourinary: History of: Recurring Urinary Tract Infections Gastrointestinal: History of: Gastrointestinal Bleed (upper GI bleed), Gastrointestinal Cancer (rectal cancer), GI Problems (Rectal Cancer-- 22 inches of Colon removed 2011) Musculoskeletal: History of: Back/Neck Problems (chronic back pain), Herniated Disk No history of: Amputation Hematology: History of: Anemia Other: History of: Cancer (rectal) - Surgical History Cardiac Surgeries: Sugical HX of: Cardiac Surgery (CABG) Thoracic Surgeries: Patient denies;: Organ Transplant HEENT Surgeries: Surgical HX of: Tonsilectomy & Adenoidectomy Abdominal Surgeries: Surgical HX of: Abdominal Surgery (resection of rectal carcinoma, 2007. Explored for lap for bowel obs 2009), Appendectomy, Cholecystectomy, EGD, Hernia Repair Reproductive Surgeries: Patient denies;: Genitourinary Surgery, Gynecologic Surgery - Family History Family History: Reports;: Family Cancer (MOYHER), Family Heart Disease (FATHER) , Family Hypertension (FATHER), Family Stroke (UNCLE) Denies;: Family Diabetes, Family Psychiatric Problems - Social History Smoking Status: Former smoker Frequency of Alcohol Use: None Type of Drug Use: None Results - Labs CBC & BMP: 01/08/17 04:26 01/08/17 04:26 Lab Results: I have reviewed the past 24 hour labs
[2017-01-08] MEDS: FUROSEMIDE 40 MG TABLET PO SCH (13:30)
--- NOTE | 2017-01-08 15:40 | CT Report ---
History: Injury. Status post fall. Headache after fall from bedside toilet Date: 01/08/2017 Study: CT head without contrast Comparison exam: February 23, [address] sections were obtained through the head without IV contrast. This CT exam was performed using one or more the following dose reduction techniques: Automated exposure control, adjustment of the MA and/or KV according to patient size, or use of iterative reconstruction technique. The ventricles are midline in position without evidence of hydrocephalus. There is mild diffuse cerebral atrophy. There is no mass or parenchymal hemorrhage. There is no gross CT evidence of acute cortical stroke. There is a small amount of ill-defined low density in the periventricular white matter without mass effect compatible with changes of small vessel disease. There is no extra-axial hematoma. There is no acute abnormality of the calvarium. There is mild mucosal thickening in the left sphenoid sinus. The mastoid air cells are clear. Impression: No acute intracranial process. Mild left sphenoid sinus disease which may be chronic or allergic PROCEDURE INTERPRETED AT [facility] DEPARTMENT OF RADIOLOGY Final Report Signed by: Dr. Felicitas Puckett
--- NOTE | 2017-01-08 15:48 | CT Report ---
History: Neck pain after fall Date: 01/08/2017 Study: CT cervical spine without contrast Comparison exam: CT angiogram neck October 03, [address] sections were obtained through the cervical spine without IV contrast. Multiplanar reconstruction images are also evaluated. This CT exam was performed using one or more the following dose reduction techniques: Automated exposure control, adjustment of the MA and/or KV according to patient size, or use of iterative reconstruction technique. There is no acute fracture. There is mild chronic anterior subluxation of C5 with respect to C4 measuring approximately 3 mm, similar to the previous exam. There is prominent degenerative disc narrowing and moderate anterior spondylosis at C3-C4 through C6-C7. There is prominent facet hypertrophy throughout the cervical spine. There is no focal disc extrusion. There is mild narrowing of the spinal canal at C3-C4 related to posterior bulging disc and osteophyte; there is moderate bony neural foraminal narrowing bilaterally at this same level related to uncovertebral and facet hypertrophy. There is moderate spinal stenosis at C4-C5 related to posterior bulging disc and osteophyte as well as the subluxation; there is severe bony neural foraminal narrowing bilaterally related to uncovertebral hypertrophy. There is mild narrowing of the spinal canal at C5-C6 related to mild posterior bulging disc and osteophyte; there is severe neural foraminal narrowing bilaterally at this level related to uncovertebral hypertrophy. Impression: No acute fracture. Prominent degenerative disc disease with multilevel spinal and neural foraminal stenosis as detailed above. Mild subluxation at C4-C5 as on the previous study PROCEDURE INTERPRETED AT [facility] DEPARTMENT OF RADIOLOGY Final Report Signed by: Dr. Felicitas Puckett
--- NOTE | 2017-01-08 15:54 | CT Report ---
History: Facial injury after fall Date: 01/08/2017 Study: CT facial bones without contrast Comparison exam: July 31, [address] Thin spiral CT sections were obtained through the facial bones without IV contrast. Multiplanar reconstruction images are also evaluated. This CT exam was performed using one or more the following dose reduction techniques: Automated exposure control, adjustment of the MA and/or KV according to patient size, or use of iterative reconstruction technique. There is no acute displaced facial fracture noted on today's exam. There is prominent osteophyte formation and joint space narrowing associated with either TMJ, right more severe than left. There is mild circumferential mucosal thickening in the maxillary and sphenoid sinuses. The globes are intact. Impression: No convincing evidence of an acute facial fracture. Chronic sinus disease. Prominent osteoarthritis of either TMJ PROCEDURE INTERPRETED AT [facility] DEPARTMENT OF RADIOLOGY Final Report Signed by: Dr. Felicitas Puckett
[2017-01-08] MEDS: CLORAZEPATE 3.75 MG TABLET PO SCH (21:46)
[2017-01-09] MEDS: ALBUTEROL/IPRATROPIUM 3 ML NEB RESP TX SCH ×5 (03:25→20:55)
[2017-01-09 04:30] LABS: Basophils % 0.1 % (0.0-0.8); Hematocrit 27.3 VOL% (35.7-47.0); Hemoglobin 8.9 GM/DL (12.0-16.0); Immature Granulocytes % 5.4 %; Lymphocytes # 0.4 10*3/uL (1.4-4.0); Lymphocytes % 3.6 % (21.3-54.2); Mean Corpuscular HGB Conc 32.6 GM/DL (32-36); Mean Corpuscular Hemoglobin 29 PG (27-34); Mean Corpuscular Volume 88.9 FL (87-102); Monocytes # 0.7 10*3/uL (0.11-0.8); Monocytes % 6.4 % (1.7-12.7); Neutrophils # 9.5 10*3/uL (1.4-7.4); Neutrophils % 84.5 % (38.7-73.9); Platelet Count 182 T/CUMM (130-400); Red Blood Count 3.07 MC/CUMM (3.8-5.5); Red Cell Distribution Width 15.1 % (9.3-17.3); White Blood Count 11.2 T/CUMM (4-12)
[2017-01-09 05:05] LABS: Lymphocytes 4 % (20-55); Nucleated Red Blood Cells 1 (0-5); Segmented Neutrophils 88 % (50-85)
[2017-01-09 05:07] LABS: Elliptocytes Few; Hypochromasia 1+; Platelet Estimate Normal
[2017-01-09 05:08] LABS: Basophilic Stippling Few; Total Cells Counted 100
[2017-01-09 05:09] LABS: Calcium 8.3 MG/DL (8.5-10.1); Magnesium 1.6 MG/DL (1.8-2.4); Osmolality,Calculated 278.2 MOS/KG (273-304); Potassium 4.3 MMOL/L (3.5-5.1)
[2017-01-09] MEDS: LEVOTHYROXINE 50 MCG TABLET PO SCH (06:14)
[2017-01-09] MEDS: methylPREDNISolone SOD SUC 40 MG/1 ML VIAL IV SCH ×3 (06:14→20:31)
--- NOTE | 2017-01-09 07:40 | Family Practice Progress Note ---
Family Practice - PN: Subj Interval history: Patient states she is feeling a bit better this morning she had a fall yesterday morning striking her face on the floor. She has a large bruise to her chin. She had no loss consciousness and tells me she just stumbled and fell getting off the bedside commode. We did a CT of her brain or facial bones in her neck which revealed no acute abnormality. She seems to be breathing a bit better this morning though she still hypoxic when she talks. Exam (Progress Note) - Constitutional Vitals: Period Temp Pulse Resp BP Sys/Scott Pulse Ox Last 24 Hr 97.6 F-99.0 F 68-86 16-24 100-146/46-62 71-93 Exam: Objective a well-developed white female no acute distress. Patient's noted to have large bruise on her chin. Her oxygen saturation still dropped when she is talking. Cardiovascular: Heart rates regular I hear no murmurs or gallops respiratory: Respiratory: Patient has scattered inspiratory rales in all lung [place]. This is improved from yesterday. Abdomen: Abdomen soft and nontender. Results - Labs CBC & BMP: 01/09/17 03:55 01/09/17 03:55 Lab Results: I have reviewed the past 24 hour labs Assessment and Plan (1) COPD (chronic obstructive pulmonary disease) Status: Chronic Assessment and plan: 01/08/2017: We will continue present therapy. 01/09/2017: Patient is slowly improving. Current Visit: Yes (2) Amiodarone pulmonary toxicity Status: Acute Assessment and plan: 01/08/2017: We will continue to hold her amiodarone of course. 01/09/2017: Patient is slowly improving. Current Visit: Yes
[2017-01-09] MEDS ORDERED: MAGNESIUM SULF RIDER 4 GM in PREMIX 1 EACH IV PRN (08:03)
[2017-01-09] MEDS ORDERED: MAGNESIUM SULF RIDER 2 GM in PREMIX 1 EACH IV PRN (08:03)
[2017-01-09] MEDS: BUDESONIDE 0.5 MG/2 ML NEB RESP TX SCH ×2 (08:12→20:55)
[2017-01-09] MEDS: FLUDROCORTISONE 0.1 MG TABLET PO SCH (08:42)
[2017-01-09] MEDS: MAGNESIUM CHLORIDE 64 MG TABLET PO SCH ×2 (08:43→20:31)
[2017-01-09] MEDS: POTASSIUM CHLORIDE 20 MEQ TABLET PO SCH ×2 (08:43→20:31)
[2017-01-09] MEDS: NEBIVOLOL 5 MG TABLET PO SCH (08:43)
[2017-01-09] MEDS: VALSARTAN/HCTZ 80-12.5 MG TABLET PO SCH (08:43)
[2017-01-09] MEDS: PANTOPRAZOLE 40 MG TABLET PO SCH (08:43)
[2017-01-09] MEDS: APIXABAN 2.5 MG TABLET PO SCH ×2 (08:43→20:30)
[2017-01-09] MEDS: ROSUVASTATIN 10 MG TABLET PO SCH (08:43)
[2017-01-09] MEDS: FUROSEMIDE 40 MG TABLET PO SCH ×2 (08:43→08:57)
[2017-01-09] MEDS: ASPIRIN EC 81 MG TABLET PO SCH (08:43)
[2017-01-09] MEDS: MUPIROCIN 2% OINT 22 GM TUBE TOP SCH ×2 (08:44→20:32)
--- NOTE | 2017-01-09 09:52 | Physician Query Form ---
CLICK EDIT DOCUMENT TO SELECT QUERY ANSWER --> OK --> SIGN Pearl Hoover RN, CCDS Certified Clinical [employer] W) [phone] (f) [phone] [email or web address] PROVIDERS: Make your selection(s) from the choices in EACH section by typing an "x" and enter comments in the comment section. Please use your independent medical judgment in providing your response. This request does not imply that any particular answer is desired or expected. CLINICAL INDICATORS: (Providers should not edit this section) The medical record indicates that the patient was admitted with pulmonary toxicity, then on the : "ABGs on room air showed a pH of 7.40, PCO2 42.3, PO2 of 42.2 and a bicarb of 25.3. O2 sats were in the mid 70s. He said not improved significantly on 3 L/min oxygen but did move up to approximately 87% on 6 L of oxygen". If possible, please further clarify the type and acuity of respiratory diagnosis : ACUITY: ( ) Acute ( ) Chronic (x ) Acute on Chronic TYPE: ( ) Respiratory failure with hypoxia ( ) Respiratory failure with hypercapnia ( ) Respiratory Arrest ( ) Postprocedural/postoperative respiratory failure (x ) Respiratory Insufficiency ( ) ARDS (Adult/Acute Respiratory Distress Syndrome) ( ) Other, please specify: ( ) Clinically unable to determine Recognized criteria for respiratory failure PH <7.35 or >7.45 PO2 <60 PCO2 >50 RR >24 O2 Sat <90% on RA or <95% on O2 Use of accessory muscles Unable to speak in full sentences Intubation is not required COMMENTS: PLEASE ALSO DOCUMENT RESPONSE IN PROGRESS NOTES AND/OR DISCHARGE SUMMARY Use of terms such as suspected, likely, or probable (associated with a specific diagnosis that is being evaluated, monitored, or treated as if it exists) are acceptable and can be restated in the discharge summary if not ruled out. MTDD
--- NOTE | 2017-01-09 10:08 | Pulmonology Progress Note ---
Pulmonary - PN: Subj Interval history: This is a 76-year-old white female whom I saw in pulmonary consultation on 2016. She had had progressive shortness of breath and had chest x-ray changes along with progressive hypoxemia. My impressions were. 1. Diffuse 5 lobe interstitial and alveolar infiltrate. Suspect this will turn out worker to be amiodarone lung. Note the presence of Velcro rales. Watch closely for the possibility of atypical pulmonary edema 2. COPD 3. Significant past history tobacco abuse. Stop smoking 2004 4. Normal TSH with elevated free T4 most likely secondary to amiodarone. 5. 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 6. Mild chronic renal failure and 1 nonfunctioning kidney followed by Dr. Martín Hays 7. Chronic anemia 8. Atrial fibrillation. Plan. 1. Stop amiodarone 2. Chest x-ray and ABGs daily 4 3. C-reactive protein and erythrocyte sedimentation rate 4. Repeat BNP 5. Increase Solu-Medrol to 40 mg every 8 hours 6. See orders 7. Dr. Tristan dickens and I have discussed the case and we have coordinated her care. 01/05/2017. Today's chest x-ray still shows 5 lobe interstitial and alveolar infiltrates but these appear to be a little different and a little less dense allowing for technique. The patient says she feels better. Her O2 has improved slightly she has erosions in her nose and with her to try different apparatus for her oxygen and will use Bactroban in her nares. There are no new microbiology reports. FiO2 of 44%, pH is 7.418, PO2 is 40.4, PO2 is 59.9 bicarb is 25.7. White count is 10,700 with 90.8 segs. H&H is 9.3/28.6. Sodium is 134 and potassium is 3.3. Cardiology will adjust this. Creatinine has increased to 2.00 with a BUN of 51. I think the patient is becoming a little over diuresed and I have stopped her Lasix which was 40 mg twice daily. Patient fell Velcro rounds have disappeared. 01/06/2017. This patient has amiodarone lung. This will be the third day she is off amiodarone. She is on Solu-Medrol 40 IV push q. 8. Today's chest x-ray looks markedly better. She still has 5 lobe alveolar and interstitial infiltrates but these are rapidly resolving. Today's O2 has not improved significantly but I expect that to follow. We need to continue the present treatment for right now impaired attention to her heart rhythm. Potassium is low at 3.2 and replacement as needed. H&H is stable at 9.6/29.9. White count is 9289 segs. TSH is normal. Free T4 is elevated most likely secondary to amiodarone. 01/08/2017. On steroids the patient's lung (chest x-ray) is looking much better. Her breath sounds are much improved. So far her ABGs have not improved a good bit. Hopefully this will follow soon. Off diuretics creatinine is dropped from 2.0-1.30 with a BUN of 35. Electrolytes are normal. CBC is stable. 01/09/2017. Patient had a fall yesterday. She was on the commode and slumped forward and injured her face. She has had CT scan of the face and brain these are negative. She is fine from a neurological standpoint today and embarrassed by the episode. Patient's chest is clear at this time goes by. Her O2 sats have not improved but she is found if she lays on the right side and takes several deep breaths her oxygen improved. I think we will just have to wait this out but this should begin to improve. Orders have been reviewed and note that Lasix has been restarted. With holding Lasix creatinine is dropped from 2.00-1.20 with a BUN of 32. Sodium is 134 and potassium is 4.3. White count is 11,200 with 84 segs. H&H is 8.9/27.3. I have not repeated the patient's blood gases since she is asked that we hold this if at all possible. Physical exam. Vital signs see below Psychiatric oriented 3 Cranial nerves are intact Long track motor functions intact Chest. Wheeze free. Velcro rales have disappeared. No chest wall tenderness. Heart. No definite gallop. Abdomen. Nontender. Positive bowel sounds. Extremities. No edema Neck. Symmetrical kyphotic with no meningismus Lymphatics. No submandibular cervical supraclavicular adenopathy. The remainder of the physical exam is noncontributory Plan. 01/05/2017 1. DC Lasix, 40 mg p.o. twice daily was her dose 2. Monitor BUN/creatinine sodium and potassium 3. Continue steroids 4. Daily chest x-rays and ABGs to we can see clear-cut improvement. 5. Today I asked the patient admits she has not seen anyone in pulmonary before she says on one occasion she saw Dr. Minesh Whaley. She requested to change to my service and after we discussed this I agree. She has some family members to see me. She is related to Tahira dorado 01/06/2017. 1. See today's note above. 2. Amiodarone lung which is improving. Continue steroids and follow chest x- ray and ABGs. 3. Replacement of potassium 01/08/2017. 1. See today's note above. 2. Amiodarone lung is improving by chest x-ray and physical exam criteria. 3. Continue present regimen including Solu-Medrol 40 IV push every 8 hours 01/09/2017. 1. See today's note above 2. For tomorrow morning I have ordered a 2 view chest x-ray. #3 continue to monitor O2 sats. Exam (Progress Note) - Constitutional Vitals: Period Temp Pulse Resp BP Sys/Scott Pulse Ox Last 24 Hr 97.6 F-99.0 F 68-96 16-24 100-130/46-62 71-93 Results - Labs CBC & BMP: 01/09/17 03:55 01/09/17 03:55
--- NOTE | 2017-01-09 10:12 | Cardiology Progress Note ---
Marcela Kuo April RN, am scribing for, and in the presence of, Art Fernandes MD 10 :12. Assessment and Plan (1) Amiodarone pulmonary toxicity Status: Acute Assessment and plan: 76-year-old female, history of CAD, status post CABG, TIA, paroxysmal atrial fibrillation, dual-chamber pacemaker, past smoker, COPD, admitted with respiratory insufficiency. Pneumonitis was diagnosed, with amiodarone as possible etiology. Improving with steroids. Was also diuresed, currently, able to lay flat. Preserved systolic function, diastolic dysfunction. No ACS. No recent A. fib. -Amio was stopped due to pulm tox. If symptomatic AF recurs, we may consider renally adjusted sotalol. BRAEDEN improving -Still hypoxic. Pneumonitis improving. Lasix iv 40 mg qd. Has DDF -Continue aspirin, valsartan, nebivolol, crestor for CAD/hypertension -Continue anticoagulation with low-dose Eliquis. CKD, anemia. No active bleeding. facial hematoma post fall - if grows or crit drops, may need to hold anticoagulation. CHADSVASC 7. -Intermittent jaw and elbow pain, intermittent, occ. at rest. Her angina was atypical in the past. She will need ischemic reevaluation, once recovers from her acute pulmonary issues. No ACS. If remains stable, this may be pursued as an outpatient. With her recent fall/hematomas, full anticoagulation required for PCI would be high risk. Current Visit: Yes (2) Hypokalemia Status: Acute Current Visit: Yes (3) COPD (chronic obstructive pulmonary disease) Status: Chronic Current Visit: Yes (4) Chronic anemia Status: Chronic Current Visit: Yes (5) Chronic anticoagulation Status: Chronic Current Visit: Yes (6) Coronary artery disease involving coronary bypass graft Status: Chronic Current Visit: Yes Qualifiers: [place] vs. transplanted heart: [place] heart Associated angina: without angina Qualified Code(s): I25.810 - Atherosclerosis of coronary artery bypass graft(s) without angina pectoris (7) Former smoker Status: Chronic Current Visit: No (8) History of TIA (transient ischemic attack) Status: Chronic Current Visit: No (9) Hypertension Status: Chronic Current Visit: Yes Qualifiers: Hypertension type: essential hypertension Qualified Code(s): I10 - Essential (primary) hypertension (10) Paroxysmal a-fib Status: Chronic Current Visit: No (11) dual-chamber pacemaker Status: Chronic Current Visit: Yes (12) Hypomagnesemia Status: Acute Current Visit: Yes Cardiology - PN: Subj Interval history: Pantographer: Dr. Herbert PCP: Dr. Alex Starks SUMMARY - Ms. Quiros is a 76 year old female with known history of coronary artery disease, routinely followed by Dr. Herbert. Patient has cardiac risk factors significant for known history of coronary artery disease, hypertension, dyslipidemia, advanced age, sedentary lifestyle, former smoker and family history of coronary artery disease (father had CABG at age 67). She is a past medical history of COPD, chronic anemia, anterior myocardial infarction and atrial fibrillation. 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 She had a nuclear cardiac stress test August 2015 which revealed normal myocardial perfusion scan that did not suggest the presence of significant coronary ischemia. Normal LV systolic function with ejection fraction estimated to be 57%. Normal end-diastolic volume. Patient presented to [facility] with complaints of fatigue, weakness and shortness of breath. Patient is currently being treated for acute on chronic congestive heart failure due to diastolic dysfunction. Echocardiogram was performed this admission which revealed preserved ejection fraction of 60% and grade 1 diastolic dysfunction. Patient has been diagnosed with amiodarone lung. Amiodarone was discontinued January 04. January 08, 2017: She is seen resting in bed reading the newspaper. She reports her breathing is about the same. Oxygen is in use via nasal cannula. O2 sats running in the 90s, but it does drop down in the mid 80s when she is conversing. Chest x-ray done this morning is essentially unchanged. She denies any chest pain or discomfort, palpitations, or dizziness. infectious diseases physician shows sinus rhythm with heart rates in the 80s, no atrial fibrillation has been noted. Vital signs been stable with blood pressure this morning 146/ 60. Potassium was low for several days was replaced. Today is 4.3. Creatinine continues to improve, today is 1.3. January 09, 2017: Ms. Quiros sustained a fall yesterday. She states she was sitting on the bedside commode and leaned over. She is unsure if she just leaned over too far, but she fell on the floor. She has a large bruise noted on her chin this morning. CT of her brain, facial bones, and neck revealed no acute abnormality. She denies any chest pain or discomfort. She reports she feels as if her breathing has improved, but she continues to be hypoxic when conversing. infectious diseases physician currently shows sinus rhythm heart rates in the 80s. Vital signs been stable, blood pressure this morning 112/49. Magnesium this morning is 1.6, this is being repleted intravenously. Exam (Progress Note) - Constitutional Vitals: Period Temp Pulse Resp BP Sys/Scott Pulse Ox Last 24 Hr 97.6 F-99.0 F 68-89 16-24 100-130/46-62 71-93 General appearance: normal weight, no acute distress - Head Head exam: Present: hematoma (Chin). Absent: abrasion - Eye Eye exam: Absent: periorbital swelling, laceration to eyelids Pupils: Present: KEVON - Respiratory Respiratory exam: Present: rhonchi, other (oxygen via nasal cannula). Absent: accessory muscle use, chest wall tenderness - Cardiovascular Cardiovascular exam: Present: regular rate and rhythm - GI/Abdominal GI/Abdominal exam: Present: normal bowel sounds, soft. Absent: distended, tenderness - Extremities Exam Extremities exam: Absent: edema - Neurological Exam Neurological exam: Present: alert, oriented X3 - Psychiatric Psychiatric exam: Present: normal affect, normal mood - Skin Skin exam: Present: warm, dry Result/EKG - Labs CBC & BMP: 01/09/17 03:55 01/09/17 03:55 Lab Results: I have reviewed the past 24 hour labs Labs: Laboratory Results - last 24 hr 01/09/17 01/09/17 03:55 03:55 WBC 11.2 RBC 3.07 L Hgb 8.9 L Hct 27.3 L MCV 88.9 MCH 29 MCHC 32.6 RDW 15.1 Plt Count 182 MPV 10.0 Neut % (Auto) 84.5 H Lymph % (Auto) 3.6 L [place] % (Auto) 6.4 Eos % (Auto) 0.0 Baso % (Auto) 0.1 Neut # (Auto) 9.5 H Lymph # (Auto) 0.4 L [place] # (Auto) 0.7 Eos # (Auto) 0.0 Baso # (Auto) 0.0 Total Counted 100 Immature Gran % 5.4 Nucleated RBC % 0.0 Immature Gran # 0.60 Segmented Neutrophils 88 H Lymphocytes 4 L Monocytes 8 Nucleated RBCs 1 Nucleated RBCs # 0.00 Platelet Estimate Normal Hypochromasia 1+ Basophilic Stippling Few Elliptocytes Few Sodium 134 L Potassium 4.3 Chloride 95 L Carbon Dioxide 27 Anion Gap 16.3 H BUN 32 H Creatinine 1.20 H GFR Calculation 48 BUN/Creatinine Ratio 26.00 H Glucose 169 H Calculated Osmolality 278.2 Calcium 8.3 L Magnesium 1.6 L - EKG EKG results: interpreted by me EKG shows: sinus rhythm Dena Kuo Attila, MD, personally performed the services described in this documentation, ascribed by Marianne Medrano RN in my presence, and it is both accurate and complete .
[2017-01-09] MEDS: AZITHROMYCIN INJ 500 MG in SODIUM CHLORIDE 0.9% 250 ML IV SCH (10:40)
[2017-01-09] MEDS ORDERED: FUROSEMIDE 40 MG/4 ML VIAL IV ONE (11:30)
[2017-01-09] MEDS: ONDANSETRON 4 MG/2 ML VIAL IV PRN ×2 (12:35→18:41)
[2017-01-09] MEDS: CLORAZEPATE 3.75 MG TABLET PO SCH (20:30)
[2017-01-10] MEDS: methylPREDNISolone SOD SUC 40 MG/1 ML VIAL IV SCH ×4 (00:07→20:58)
[2017-01-10] MEDS: ALBUTEROL/IPRATROPIUM 3 ML NEB RESP TX SCH ×7 (00:31→23:49)
[2017-01-10 02:42] LABS: Basophils % 0.1 % (0.0-0.8); Hematocrit 28.1 VOL% (35.7-47.0); Hemoglobin 9.2 GM/DL (12.0-16.0); Immature Granulocytes % 5.4 %; Immature Granulocytes Absolute 0.78 #; Lymphocytes # 0.4 10*3/uL (1.4-4.0); Lymphocytes % 2.6 % (21.3-54.2); Mean Corpuscular HGB Conc 32.7 GM/DL (32-36); Mean Corpuscular Hemoglobin 29 PG (27-34); Mean Corpuscular Volume 88.4 FL (87-102); Mean Platelet Volume 10.2 FL (9.6-12.0); Monocytes # 0.8 10*3/uL (0.11-0.8); Monocytes % 5.4 % (1.7-12.7); NRBC # 0.03 10*3/uL; Neutrophils # 12.6 10*3/uL (1.4-7.4); Neutrophils % 86.5 % (38.7-73.9); Platelet Count 190 T/CUMM (130-400); Red Blood Count 3.18 MC/CUMM (3.8-5.5); Red Cell Distribution Width 15.1 % (9.3-17.3); White Blood Count 14.5 T/CUMM (4-12)
[2017-01-10 02:57] LABS: Calcium 7.9 MG/DL (8.5-10.1); Magnesium 2.1 MG/DL (1.8-2.4); Osmolality,Calculated 278.4 MOS/KG (273-304); Potassium 3.8 MMOL/L (3.5-5.1)
[2017-01-10 03:27] LABS: Band Neutrophils 1 % (0-10); Lymphocytes 1 % (20-55); Myelocytes 1 %; Ovalocytes Few; Platelet Estimate Normal; Segmented Neutrophils 95 % (50-85); Total Cells Counted 100
[2017-01-10] MEDS: POTASSIUM CHLORIDE 20 MEQ TABLET PO PRN (04:11)
--- NOTE | 2017-01-10 05:55 | Pulmonology Progress Note ---
Pulmonary - PN: Subj Interval history: This is a 76-year-old white female whom I saw in pulmonary consultation on 2016. She had had progressive shortness of breath and had chest x-ray changes along with progressive hypoxemia. My impressions were. 1. Diffuse 5 lobe interstitial and alveolar infiltrate. Suspect this will return clerk to be amiodarone lung. Note the presence of Velcro rales. Watch closely for the possibility of atypical pulmonary edema 2. COPD 3. Significant past history tobacco abuse. Stop smoking 2004 4. Normal TSH with elevated free T4 most likely secondary to amiodarone. 5. 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 6. Mild chronic renal failure and 1 nonfunctioning kidney followed by Dr. Martín Hays 7. Chronic anemia 8. Atrial fibrillation. Plan. 1. Stop amiodarone 2. Chest x-ray and ABGs daily 4 3. C-reactive protein and erythrocyte sedimentation rate 4. Repeat BNP 5. Increase Solu-Medrol to 40 mg every 8 hours 6. See orders 7. Dr. Tristan dickens and I have discussed the case and we have coordinated her care. 01/05/2017. Today's chest x-ray still shows 5 lobe interstitial and alveolar infiltrates but these appear to be a little different and a little less dense allowing for technique. The patient says she feels better. Her O2 has improved slightly she has erosions in her nose and with her to try different apparatus for her oxygen and will use Bactroban in her nares. There are no new microbiology reports. FiO2 of 44%, pH is 7.418, PO2 is 40.4, PO2 is 59.9 bicarb is 25.7. White count is 10,700 with 90.8 segs. H&H is 9.3/28.6. Sodium is 134 and potassium is 3.3. Cardiology will adjust this. Creatinine has increased to 2.00 with a BUN of 51. I think the patient is becoming a little over diuresed and I have stopped her Lasix which was 40 mg twice daily. Patient fell Velcro rounds have disappeared. 01/06/2017. This patient has amiodarone lung. This will be the third day she is off amiodarone. She is on Solu-Medrol 40 IV push q. 8. Today's chest x-ray looks markedly better. She still has 5 lobe alveolar and interstitial infiltrates but these are rapidly resolving. Today's O2 has not improved significantly but I expect that to follow. We need to continue the present treatment for right now impaired attention to her heart rhythm. Potassium is low at 3.2 and replacement as needed. H&H is stable at 9.6/29.9. White count is 9289 segs. TSH is normal. Free T4 is elevated most likely secondary to amiodarone. 01/08/2017. On steroids the patient's lung (chest x-ray) is looking much better. Her breath sounds are much improved. So far her ABGs have not improved a good bit. Hopefully this will follow soon. Off diuretics creatinine is dropped from 2.0-1.30 with a BUN of 35. Electrolytes are normal. CBC is stable. 01/09/2017. Patient had a fall yesterday. She was on the commode and slumped forward and injured her face. She has had CT scan of the face and brain these are negative. She is fine from a neurological standpoint today and embarrassed by the episode. Patient's chest is clear at this time goes by. Her O2 sats have not improved but she is found if she lays on the right side and takes several deep breaths her oxygen improved. I think we will just have to wait this out but this should begin to improve. Orders have been reviewed and note that Lasix has been restarted. With holding Lasix creatinine is dropped from 2.00-1.20 with a BUN of 32. Sodium is 134 and potassium is 4.3. White count is 11,200 with 84 segs. H&H is 8.9/27.3. I have not repeated the patient's blood gases since she is asked that we hold this if at all possible. 01/10/2017. This 76-year-old white female has amiodarone lung. After stopping amiodarone and starting Solu-Medrol 40 IV push every 8 hours her chest x-ray has improved remarkably. She however remains hypoxemia and hopefully this will be improved soon. Earlier in the patient's hospitalization she was slightly over diuresed and her creatinine went up to 1.6 with a BUN of 45. Creatinine is now 1.30 with a BUN of 36. Patient's on a lower dose of diuretics. Watch closely. White blood cell count is 14,500 with 86 segs. H&H is stable at 9.2/ 28.1. Platelets are 190,000. There are no positive cultures. Patient had a fall on 01/08/2017. CT of the face and head of been normal. She does have some mild contusions and bruises on her face. She was on Eliquis. There is a history of atrial fib. At the present time we will continue to follow her chest x-ray. Will wait for her oxygenation to improve and will watch her kidney status. Physical exam. Vital signs see below Psychiatric oriented 3 Cranial nerves are intact Long track motor functions intact Chest. Wheeze free. Velcro rales have disappeared. No chest wall tenderness. Heart. No definite gallop. Abdomen. Nontender. Positive bowel sounds. Extremities. No edema Neck. Symmetrical kyphotic with no meningismus Lymphatics. No submandibular cervical supraclavicular adenopathy. The remainder of the physical exam is noncontributory Plan. 01/05/2017 1. DC Lasix, 40 mg p.o. twice daily was her dose 2. Monitor BUN/creatinine sodium and potassium 3. Continue steroids 4. Daily chest x-rays and ABGs to we can see clear-cut improvement. 5. Today I asked the patient admits she has not seen anyone in pulmonary before she says on one occasion she saw Dr. Minesh Whaley. She requested to change to my service and after we discussed this I agree. She has some family members to see me. She is related to Tahira dorado 01/06/2017. 1. See today's note above. 2. Amiodarone lung which is improving. Continue steroids and follow chest x- ray and ABGs. 3. Replacement of potassium 01/08/2017. 1. See today's note above. 2. Amiodarone lung is improving by chest x-ray and physical exam criteria. 3. Continue present regimen including Solu-Medrol 40 IV push every 8 hours 01/09/2017. 1. See today's note above 2. For tomorrow morning I have ordered a 2 view chest x-ray. #3 continue to monitor O2 sats. 01/10/2017. 1. See today's note above. 2. Chest x-ray pending. Repeat Friday and Friday 3. Follow-up BMP 4. Supplemental oxygen. #5 continue Solu-Medrol 40 IV push every 8 hours. Exam (Progress Note) - Constitutional Vitals: Period Temp Pulse Resp BP Sys/Scott Pulse Ox Last 24 Hr 97.4 F-98.0 F 72-96 17-20 100-115/46-54 68-88 Results - Labs CBC & BMP: 01/10/17 01:53 01/10/17 01:53
[2017-01-10] MEDS: LEVOTHYROXINE 50 MCG TABLET PO SCH (06:01)
[2017-01-10] MEDS: BUDESONIDE 0.5 MG/2 ML NEB RESP TX SCH ×2 (06:44→19:00)
--- NOTE | 2017-01-10 08:23 | Family Practice Progress Note ---
Family Practice - PN: Subj Interval history: Patient states she is feeling some better and is not as short of breath. She was telling me this her O2 sats dropped into the 60s. Patient states he is not a source was yesterday from her fall but her chin is still very ecchymotic. All of her CTs were negative. Exam (Progress Note) - Constitutional Vitals: Period Temp Pulse Resp BP Sys/Scott Pulse Ox Last 24 Hr 97.4 F-98.0 F 72-96 17-20 100-115/46-54 68-87 Exam: Objective a well-developed white female no acute distress. Her oxygen saturation continues to drop when she is talking. I told her that telling her she got up was very satisfying but she told me not to get used to it! Cardiovascular: Heart rates regular I hear no murmurs or gallops respiratory: Respiratory: Patient has scattered inspiratory rales in all lung [place]. This is improved from yesterday. Abdomen: Abdomen soft and nontender. Results - Labs CBC & BMP: 01/10/17 01:53 01/10/17 01:53 Lab Results: I have reviewed the past 24 hour labs Assessment and Plan (1) COPD (chronic obstructive pulmonary disease) Status: Chronic Assessment and plan: 01/08/2017: We will continue present therapy. 01/09/2017: Patient is slowly improving. 01/10/2017: Patient is slowly improving Current Visit: Yes (2) Amiodarone pulmonary toxicity Status: Acute Assessment and plan: 01/08/2017: We will continue to hold her amiodarone of course. 01/09/2017: Patient is slowly improving. 01/10/2017: Patient is certainly improved with IV steroids. Current Visit: Yes
[2017-01-10] MEDS: APIXABAN 2.5 MG TABLET PO SCH ×2 (08:47→21:00)
[2017-01-10] MEDS: VALSARTAN/HCTZ 80-12.5 MG TABLET PO SCH (08:47)
[2017-01-10] MEDS: POTASSIUM CHLORIDE 20 MEQ TABLET PO SCH ×2 (08:47→21:00)
[2017-01-10] MEDS: FUROSEMIDE 40 MG TABLET PO SCH (08:47)
[2017-01-10] MEDS: PANTOPRAZOLE 40 MG TABLET PO SCH (08:48)
[2017-01-10] MEDS: ASPIRIN EC 81 MG TABLET PO SCH (08:48)
[2017-01-10] MEDS: MAGNESIUM CHLORIDE 64 MG TABLET PO SCH ×2 (08:48→21:00)
[2017-01-10] MEDS: NEBIVOLOL 5 MG TABLET PO SCH (08:48)
[2017-01-10] MEDS: ROSUVASTATIN 10 MG TABLET PO SCH (08:48)
[2017-01-10] MEDS: MUPIROCIN 2% OINT 22 GM TUBE TOP SCH ×2 (08:49→21:01)
[2017-01-10] MEDS: ONDANSETRON 4 MG/2 ML VIAL IV PRN ×2 (08:52→18:49)
[2017-01-10] MEDS: AZITHROMYCIN INJ 500 MG in SODIUM CHLORIDE 0.9% 250 ML IV SCH (09:01)
--- NOTE | 2017-01-10 13:15 | XRay Report ---
Exam: XR chest 2V Date: 01/10/2017 4:00 AM Indication: Pulmonary fibrosis ? Secondary to amiodarone therapy Comparison: 01/08/2017 Technical: PA lateral Findings: Cardiomegaly is present with previous sternotomy. A left-sided cardiac pacing device with atrial ventricular leads present. Underlying interstitial fibrotic scarring and some alveolar edema present bilaterally. Gastric distention is present. No pneumothorax. Impression: 1. Cardiomegaly and component of mild cardiac decompensation suspected with alveolar edema. Slight worsening of findings when compared to the previous study. 2. Previous sternotomy and stepsister cardiac pacing device with a left-sided approach PROCEDURE INTERPRETED AT [facility] DEPARTMENT OF RADIOLOGY Final Report Signed by: Dr. Lio Bowen
--- NOTE | 2017-01-10 14:03 | Cardiology Progress Note ---
Marcela Kuo April RN, am scribing for, and in the presence of, Art Fernandes MD 14 :03. Assessment and Plan (1) Amiodarone pulmonary toxicity Status: Acute Assessment and plan: 76-year-old female, history of CAD, status post CABG, TIA, paroxysmal atrial fibrillation, dual-chamber pacemaker, past smoker, COPD, admitted with respiratory insufficiency. Pneumonitis was diagnosed, with amiodarone as possible etiology. Improving with steroids. Was also diuresed, currently, able to lay flat. Preserved systolic function, diastolic dysfunction. No ACS. No recent A. fib. -Amio was stopped due to pul tox. If symptomatic AF recurs, we may consider renally adjusted sotalol. BRAEDEN improving -Still hypoxic. Pneumonitis improving. Lasix 40 mg po qd. Has DDF -Continue aspirin, losartan, nebivolol, statin for CAD/hypertension. BP, HR well controlled. -Continue anticoagulation with low-dose Eliquis. CKD, anemia. No active bleeding. Facial hematoma post fall - if grows or crit drops, may need to hold anticoagulation. CHADSVASC 7. -Intermittent jaw and elbow pain, intermittent, occ. at rest. Her angina was atypical in the past. She will need ischemic reevaluation, once recovers from her acute pulmonary issues. No ACS. If remains stable, this may be pursued as an outpatient. With her recent fall/hematomas, full anticoagulation required for PCI would be high risk at this time. Current Visit: Yes (2) Hypokalemia Status: Acute Current Visit: Yes (3) COPD (chronic obstructive pulmonary disease) Status: Chronic Current Visit: Yes (4) Chronic anemia Status: Chronic Current Visit: Yes (5) Chronic anticoagulation Status: Chronic Current Visit: Yes (6) Coronary artery disease involving coronary bypass graft Status: Chronic Current Visit: Yes Qualifiers: [place] vs. transplanted heart: [place] heart Associated angina: without angina Qualified Code(s): I25.810 - Atherosclerosis of coronary artery bypass graft(s) without angina pectoris (7) Former smoker Status: Chronic Current Visit: No (8) History of TIA (transient ischemic attack) Status: Chronic Current Visit: No (9) Hypertension Status: Chronic Current Visit: Yes Qualifiers: Hypertension type: essential hypertension Qualified Code(s): I10 - Essential (primary) hypertension (10) Paroxysmal a-fib Status: Chronic Current Visit: No (11) dual-chamber pacemaker Status: Chronic Current Visit: Yes (12) Hypomagnesemia Status: Acute Current Visit: Yes Cardiology - PN: Subj Interval history: Hadoop Software Engineer: Dr. Herbert PCP: Dr. Alex Starks SUMMARY - Ms. Quiros is a 76 year old female with known history of coronary artery disease, routinely followed by Dr. Herbert. Patient has cardiac risk factors significant for known history of coronary artery disease, hypertension, dyslipidemia, advanced age, sedentary lifestyle, former smoker and family history of coronary artery disease (father had CABG at age 67). She is a past medical history of COPD, chronic anemia, anterior myocardial infarction and atrial fibrillation. 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 She had a nuclear cardiac stress test August 2015 which revealed normal myocardial perfusion scan that did not suggest the presence of significant coronary ischemia. Normal LV systolic function with ejection fraction estimated to be 57%. Normal end-diastolic volume. Patient presented to [facility] with complaints of fatigue, weakness and shortness of breath. Patient is currently being treated for acute on chronic congestive heart failure due to diastolic dysfunction. Echocardiogram was performed this admission which revealed preserved ejection fraction of 60% and grade 1 diastolic dysfunction. Patient has been diagnosed with amiodarone lung. Amiodarone was discontinued January 04. January 08, 2017: She is seen resting in bed reading the newspaper. She reports her breathing is about the same. Oxygen is in use via nasal cannula. O2 sats running in the 90s, but it does drop down in the mid 80s when she is conversing. Chest x-ray done this morning is essentially unchanged. She denies any chest pain or discomfort, palpitations, or dizziness. laboratory monitor shows sinus rhythm with heart rates in the 80s, no atrial fibrillation has been noted. Vital signs been stable with blood pressure this morning 146/ 60. Potassium was low for several days was replaced. Today is 4.3. Creatinine continues to improve, today is 1.3. January 09, 2017: Ms. Quiros sustained a fall yesterday. She states she was sitting on the bedside commode and leaned over. She is unsure if she just leaned over too far, but she fell on the floor. She has a large bruise noted on her chin this morning. CT of her brain, facial bones, and neck revealed no acute abnormality. She denies any chest pain or discomfort. She reports she feels as if her breathing has improved, but she continues to be hypoxic when conversing. laboratory monitor currently shows sinus rhythm heart rates in the 80s. Vital signs been stable, blood pressure this morning 112/49. Magnesium this morning is 1.6, this is being repleted intravenously. January 10, 2017: Ms. Quiros says she does not feel well today, she is complaining of nausea. States she has had some Zofran. She is resting in bed on her right side, her O2 sats are currently in the low 80s. She denies any chest pain or discomfort. laboratory monitor currently shows sinus rhythm with heart rates in the 80s. Magnesium this morning is improved to 2.1. Creatinine is stable at 1.3. H&H is stable at 9.2 and 28.1. Exam (Progress Note) - Constitutional Vitals: Period Temp Pulse Resp BP Sys/Scott Pulse Ox Last 24 Hr 97.4 F-98.0 F 72-94 17-20 100-115/46-56 68-87 General appearance: normal weight, no acute distress - Head Head exam: Present: hematoma (To chin). Absent: abrasion - Eye Eye exam: Absent: periorbital swelling, laceration to eyelids - Respiratory Respiratory exam: Present: rales, other (Oxygen via nasal cannula). Absent: accessory muscle use, chest wall tenderness - Cardiovascular Cardiovascular exam: Present: regular rate and rhythm - GI/Abdominal GI/Abdominal exam: Present: normal bowel sounds, soft. Absent: distended, tenderness - Extremities Exam Extremities exam: Absent: edema - Neurological Exam Neurological exam: Present: alert, oriented X3 - Psychiatric Psychiatric exam: Present: normal affect, normal mood - Skin Skin exam: Present: warm, dry Result/EKG - Labs CBC & BMP: 01/10/17 01:53 01/10/17 01:53 Lab Results: I have reviewed the past 24 hour labs Labs: Laboratory Results - last 24 hr 01/10/17 01/10/17 01:53 01:53 WBC 14.5 H RBC 3.18 L Hgb 9.2 L Hct 28.1 L MCV 88.4 MCH 29 MCHC 32.7 RDW 15.1 Plt Count 190 MPV 10.2 Neut % (Auto) 86.5 H Lymph % (Auto) 2.6 L [place] % (Auto) 5.4 Eos % (Auto) 0.0 Baso % (Auto) 0.1 Neut # (Auto) 12.6 H Lymph # (Auto) 0.4 L [place] # (Auto) 0.8 Eos # (Auto) 0.0 Baso # (Auto) 0.0 Total Counted 100 Immature Gran % 5.4 Nucleated RBC % 0.2 Immature Gran # 0.78 Segmented Neutrophils 95 H Band Neutrophils 1 Lymphocytes 1 L Monocytes 2 Myelocytes 1 Nucleated RBCs # 0.03 Platelet Estimate Normal Ovalocytes Few Sodium 133 L Potassium 3.8 Chloride 94 L Carbon Dioxide 30 Anion Gap 12.8 BUN 36 H Creatinine 1.30 H GFR Calculation 43 BUN/Creatinine Ratio 27.00 H Glucose 187 H Calculated Osmolality 278.4 Calcium 7.9 L Magnesium 2.1 - EKG EKG results: interpreted by me EKG shows: sinus rhythm Dena Kuo Attila, MD, personally performed the services described in this documentation, ascribed by Marianne Medrano RN in my presence, and it is both accurate and complete 403 .
[2017-01-10] MEDS: CLORAZEPATE 3.75 MG TABLET PO SCH (20:59)
[2017-01-11] MEDS: methylPREDNISolone SOD SUC 40 MG/1 ML VIAL IV SCH ×4 (00:05→18:18)
[2017-01-11] MEDS: ALBUTEROL/IPRATROPIUM 3 ML NEB RESP TX SCH ×6 (03:07→23:22)
[2017-01-11] MEDS: LEVOTHYROXINE 50 MCG TABLET PO SCH (06:13)
[2017-01-11 06:14] LABS: Basophils % 0.1 % (0.0-0.8); Hematocrit 29.1 VOL% (35.7-47.0); Hemoglobin 9.3 GM/DL (12.0-16.0); Immature Granulocytes % 6.2 %; Immature Granulocytes Absolute 1.08 #; Lymphocytes # 0.4 10*3/uL (1.4-4.0); Lymphocytes % 2.2 % (21.3-54.2); Mean Corpuscular Hemoglobin 29 PG (27-34); Mean Corpuscular Volume 91.2 FL (87-102); Mean Platelet Volume 10.2 FL (9.6-12.0); Monocytes % 5.9 % (1.7-12.7); NRBC # 0.04 10*3/uL; Neutrophils % 85.6 % (38.7-73.9); Platelet Count 210 T/CUMM (130-400); Red Blood Count 3.19 MC/CUMM (3.8-5.5); Red Cell Distribution Width 15.4 % (9.3-17.3); White Blood Count 17.5 T/CUMM (4-12)
[2017-01-11 07:08] LABS: Calcium 8.6 MG/DL (8.5-10.1); Magnesium 2.2 MG/DL (1.8-2.4); Osmolality,Calculated 285.7 MOS/KG (273-304); Potassium 4.6 MMOL/L (3.5-5.1)
[2017-01-11] MEDS: BUDESONIDE 0.5 MG/2 ML NEB RESP TX SCH ×2 (07:08→19:01)
--- NOTE | 2017-01-11 07:44 | Family Practice Progress Note ---
Family Practice - PN: Subj Interval history: Seen this morning. She still having significant shortness of breath and her oxygen sats are dropping as low as 65-70. Currently they are about 85 and she does get a little better when she is lying on her side. White count was 17.5 with a hemoglobin hematocrit of 9.3 and 29. Electrolytes were grossly normal. She is very alert and oriented and answers all questions. She did want a Douglass catheter because it is difficult for her to move or she gets short of breath. I will accommodate her for a day or 2 with this but told her we cannot keep long. She voiced understanding Exam (Progress Note) - Constitutional Vitals: Period Temp Pulse Resp BP Sys/Scott Pulse Ox Last 24 Hr 97.1 F-98.1 F 60-99 16-20 96-116/44-73 59-87 Exam: Alert and oriented no acute distress although she gets short of breath with movement and especially lying on her back HEENT neck supple trachea midline Lungs positive rales and rhonchi Abdomen soft nondistended Extremities no clubbing cyanosis or edema Results - Labs CBC & BMP: 01/11/17 05:51 01/11/17 05:51 Assessment and Plan (1) Amiodarone pulmonary toxicity Status: Acute Assessment and plan: 01/11/2017 continuing current therapy at this time. White count is elevated but she is on steroids which certainly could be contributing at this. She has been covered with antibiotics Current Visit: Yes
[2017-01-11 08:06] LABS: Band Neutrophils 1 % (0-10); Hypochromasia 2+; Lymphocytes 4 % (20-55); Microcytosis 1+; Platelet Estimate Adequate; Segmented Neutrophils 89 % (50-85); Total Cells Counted 100
[2017-01-11] MEDS: AZITHROMYCIN INJ 500 MG in SODIUM CHLORIDE 0.9% 250 ML IV SCH (09:17)
[2017-01-11] MEDS: MAGNESIUM CHLORIDE 64 MG TABLET PO SCH ×2 (09:18→21:08)
[2017-01-11] MEDS: ROSUVASTATIN 10 MG TABLET PO SCH (09:18)
[2017-01-11] MEDS: POTASSIUM CHLORIDE 20 MEQ TABLET PO SCH ×2 (09:18→21:08)
[2017-01-11] MEDS: VALSARTAN/HCTZ 80-12.5 MG TABLET PO SCH (09:18)
[2017-01-11] MEDS: CLORAZEPATE 3.75 MG TABLET PO SCH ×2 (09:18→21:07)
[2017-01-11] MEDS: PANTOPRAZOLE 40 MG TABLET PO SCH (09:18)
[2017-01-11] MEDS: FLUDROCORTISONE 0.1 MG TABLET PO SCH (09:18)
[2017-01-11] MEDS: NEBIVOLOL 5 MG TABLET PO SCH (09:18)
[2017-01-11] MEDS: ASPIRIN EC 81 MG TABLET PO SCH (09:19)
[2017-01-11] MEDS: APIXABAN 2.5 MG TABLET PO SCH ×2 (09:19→21:08)
[2017-01-11] MEDS: MUPIROCIN 2% OINT 22 GM TUBE TOP SCH ×2 (09:19→21:07)
[2017-01-11] MEDS: FUROSEMIDE 40 MG TABLET PO SCH (09:19)
--- NOTE | 2017-01-11 09:20 | XRay Report ---
Portable chest. Indication: Amiodarone chronic lung changes. Comparison: Yesterday's exam. The heart is enlarged. Post median sternotomy. Cardiac hardware is in satisfactory position. Extensive reticulonodular opacities remain stable. No pneumothorax. No pleural effusion. Heavy vascular calcifications. Impression: Cardiomegaly. Fibrotic changes of the lung. No interval change. PROCEDURE INTERPRETED AT [facility] DEPARTMENT OF RADIOLOGY Final Report Signed by: Dr. Cherelle Oakes
--- NOTE | 2017-01-11 12:01 | Pulmonology Progress Note ---
Pulmonary - PN: Subj Interval history: PAtient with presumed amiodarone pulmonary toxicity, having significant hypoxia on NC. Has not been tried on other modalities. She feels ok if she lays still and doesnt move, gets severely short of breath if she tries to get around Exam (Progress Note) - Constitutional Vitals: Period Temp Pulse Resp BP Sys/Scott Pulse Ox Last 24 Hr 97.1 F-98.1 F 60-99 16-24 96-116/44-73 59-85 General appearance: mild distress - Head Head exam: Present: normal inspection - ENT ENT exam: Present: normal exam - Respiratory Respiratory exam: Present: rales, wheezes. Absent: accessory muscle use - Cardiovascular Cardiovascular exam: Present: regular rate and rhythm Results - Labs CBC & BMP: 01/11/17 05:51 01/11/17 05:51 Lab Results: I have reviewed the past 24 hour labs - Diagnostic Findings Procedure: Chest x-ray: image reviewed by me, report reviewed by me (i reviewed the image and report) Assessment and Plan (1) Hypoxemia requiring supplemental oxygen Status: Acute Assessment and plan: Patient with significant hypoxemia. Amiodarone induced pneumonitis is certainly on the differential, although this is rare and patient was on a low dose. Unfortunately at this time, she would not tolerate bronchoscopy without intubation. I am concerned that she does not appear to be having any response to the steroids. Will try her on CPAP to see if we can get any recruitment with positive pressure. Will continue to monitor closely. I discussed possible intubation with the patient and she does not want to do that at this time. Current Visit: Yes
--- NOTE | 2017-01-11 12:34 | Cardiology Progress Note ---
Assessment and Plan (1) Amiodarone pulmonary toxicity Status: Acute Assessment and plan: 76-year-old female, history of CAD, status post CABG, TIA, paroxysmal atrial fibrillation, dual-chamber pacemaker, past smoker, COPD, admitted with respiratory insufficiency. Pneumonitis was diagnosed, with amiodarone as possible etiology. Was also diuresed. Preserved systolic function, diastolic dysfunction. No ACS. No recent A. fib. -Amio was stopped due to susp pulm tox. If symptomatic AF recurs, we may consider renally adjusted sotalol. -Still markedly hypoxic. She has grade 1 diastolic dysfunction underwires no significant systolic dysfunction or valvular disease. -Peripheral edema improving. Now, only trace edema. Continue Lasix 40 mg daily. I's and O's were mostly negative, without much improvement in her oxygenation. -Continue anticoagulation with low-dose Eliquis. Mild CKD, anemia. No active bleeding. Facial hematoma post fall - if grows or crit drops, may need to hold anticoagulation. CHADSVASC 7. -Intermittent jaw and elbow pain, intermittent, occ. at rest. Her angina was atypical in the past. She will need ischemic reevaluation, once recovers from her acute pulmonary issues. No ACS. If remains stable, this may be pursued as an outpatient. Current Visit: Yes (2) Hypokalemia Status: Acute Current Visit: Yes (3) COPD (chronic obstructive pulmonary disease) Status: Chronic Current Visit: Yes (4) Chronic anemia Status: Chronic Current Visit: Yes (5) Chronic anticoagulation Status: Chronic Current Visit: Yes (6) Coronary artery disease involving coronary bypass graft Status: Chronic Current Visit: Yes Qualifiers: [place] vs. transplanted heart: [place] heart Associated angina: without angina Qualified Code(s): I25.810 - Atherosclerosis of coronary artery bypass graft(s) without angina pectoris (7) Former smoker Status: Chronic Current Visit: No (8) History of TIA (transient ischemic attack) Status: Chronic Current Visit: No (9) Hypertension Status: Chronic Current Visit: Yes Qualifiers: Hypertension type: essential hypertension Qualified Code(s): I10 - Essential (primary) hypertension (10) Paroxysmal a-fib Status: Chronic Current Visit: No (11) dual-chamber pacemaker Status: Chronic Assessment and plan: 76-year-old female, history of CAD, status post CABG, TIA, paroxysmal atrial fibrillation, dual-chamber pacemaker, past smoker, COPD, admitted with respiratory insufficiency. Pneumonitis was diagnosed, with amiodarone as possible etiology. Improving with steroids. Was also diuresed, currently, able to lay flat. Preserved systolic function, diastolic dysfunction. No ACS. No recent A. fib. -Agree to hold off amiodarone due to pulm tox. If symptomatic AF recurs, we may consider renally adjusted sotalol -Continue aspirin, losartan, nebivolol, statin for CAD/hypertension -Continue anticoagulation with low-dose Eliquis. CKD, anemia. No active bleeding -Lasix was stopped. No significant edema on exam. May need to resume lower po dose if worsens, has DDF. -Intermittent jaw and elbow pain, intermittent, occ. at rest. Her angina was atypical in the past. She will need ischemic reevaluation, once recovers from her acute pulmonary issues. No ACS. If remains stable, this may be pursued as an outpatient. Current Visit: Yes (12) Hypomagnesemia Status: Acute Current Visit: Yes Cardiology - PN: Subj Interval history: She remained markedly hypoxic, saturation is in the 60s, off BiPAP. This is only mildly symptomatic. I's and O's were mildly negative, the peripheral edema improved. No significant arrhythmia on telemetry. Exam (Progress Note) - Constitutional Vitals: Period Temp Pulse Resp BP Sys/Scott Pulse Ox Last 24 Hr 97.1 F-98.1 F 60-98 16-24 96-116/44-53 59-85 General appearance: normal weight, no acute distress - Head Head exam: Present: normal inspection, normocephalic - Eye Eye exam: Absent: conjunctival injection, scleral icterus Pupils: Absent: dilated - ENT ENT exam: Present: normal external ear exam - Neck Neck exam: Present: normal inspection - Respiratory Respiratory exam: Present: decreased breath sounds, rhonchi - Cardiovascular Cardiovascular exam: Present: regular rate and rhythm, systolic murmur. Absent : JVD - GI/Abdominal GI/Abdominal exam: Present: normal bowel sounds - Extremities Exam Extremities exam: Present: normal inspection, normal capillary refill, edema (1+ ) - Neurological Exam Neurological exam: Present: alert, oriented X3 - Psychiatric Psychiatric exam: Present: normal affect, normal mood - Skin Skin exam: Present: normal color, warm. Absent: cyanosis Result/EKG - Labs CBC & BMP: 01/11/17 05:51 01/11/17 05:51 Lab Results: I have reviewed the past 24 hour labs Labs: Laboratory Results - last 24 hr 01/11/17 01/11/17 05:51 05:51 WBC 17.5 H RBC 3.19 L Hgb 9.3 L Hct 29.1 L MCV 91.2 MCH 29 MCHC 32.0 RDW 15.4 Plt Count 210 MPV 10.2 Neut % (Auto) 85.6 H Lymph % (Auto) 2.2 L [place] % (Auto) 5.9 Eos % (Auto) 0.0 Baso % (Auto) 0.1 Neut # (Auto) 15.0 H Lymph # (Auto) 0.4 L [place] # (Auto) 1.0 H Eos # (Auto) 0.0 Baso # (Auto) 0.0 Total Counted 100 Immature Gran % 6.2 Nucleated RBC % 0.2 Immature Gran # 1.08 Segmented Neutrophils 89 H Band Neutrophils 1 Lymphocytes 4 L Monocytes 6 Nucleated RBCs # 0.04 Platelet Estimate Adequate Hypochromasia 2+ Microcytosis 1+ Sodium 138 Potassium 4.6 Chloride 98 Carbon Dioxide 33 H Anion Gap 11.6 BUN 36 H Creatinine 1.10 H GFR Calculation 52 BUN/Creatinine Ratio 32.00 H Glucose 150 H Calculated Osmolality 285.7 Calcium 8.6 Magnesium 2.2 - EKG EKG results: interpreted by me
[2017-01-11 14:18] LABS: ABG Base Excess 7.6 MMOL/L (-2.5-2.5); ABG HCO3 33.6 MMOL/L (20-26); ABG Oxygen Saturation 82.1 % (95-100); ABG PCO2 54.6 MM HG (35-48); ABG PH 7.407 (7.35-7.45); ABG PO2 46.3 MM HG (80-95); ABG TCO2 35.3 MMOL/L (23-27); Allen Test Positive; Pt O2 Delivery Device CPAP
--- NOTE | 2017-01-11 15:42 | Pulmonology Progress Note ---
Pulmonary - PN: Subj Interval history: Patient seen and examined this morning on telemetry floor. When I came in, her SpO2 was 79% on 6L. She reportedly has amiodarone pulmonary toxicity. She has been on solumedrol for the last week without any improvement in her breathing. She denies feeling short of breath except when she exerts herself. She had a bucio catheter placed because she was having such severe desats when she would get up to the bathroom. She does not know how long she has been on amiodarone. She denies any other recent exposures or travel outside of [place] Exam (Progress Note) - Constitutional Vitals: Period Temp Pulse Resp BP Sys/Scott Pulse Ox Last 24 Hr 97.1 F-98.1 F 60-99 16-28 96-118/44-69 59-88 General appearance: mild distress - Head Head exam: Present: normal inspection - Eye Eye exam: Present: EOMI - Respiratory Respiratory exam: Absent: rhonchi - Cardiovascular Cardiovascular exam: Present: regular rate and rhythm - GI/Abdominal GI/Abdominal exam: Present: normal bowel sounds Results - Labs CBC & BMP: 01/11/17 05:51 01/11/17 05:51 Lab Results: I have reviewed the past 24 hour labs - Diagnostic Findings Procedure: Chest x-ray: image reviewed by me (reviewed images and report) Assessment and Plan (1) Hypoxemia requiring supplemental oxygen Status: Acute Assessment and plan: Patient with significant hypoxemia. Amiodarone induced pneumonitis is certainly on the differential, although this is rare and patient was on a low dose. Unfortunately at this time, she would not tolerate bronchoscopy without intubation. I am concerned that she does not appear to be having any response to the steroids. Will try her on CPAP to see if we can get any recruitment with positive pressure. Will transfer her to the ICU for closer monitoring. I discussed possible intubation with the patient and she does not want to do that at this time. Wants to wait until family gets here to discuss further Current Visit: Yes
[2017-01-12] MEDS: methylPREDNISolone SOD SUC 40 MG/1 ML VIAL IV SCH ×4 (00:15→18:07)
[2017-01-12] MEDS: ALBUTEROL/IPRATROPIUM 3 ML NEB RESP TX SCH ×6 (02:22→23:01)
[2017-01-12 05:15] LABS: Basophils % 0.1 % (0.0-0.8); Hematocrit 30.5 VOL% (35.7-47.0); Hemoglobin 9.5 GM/DL (12.0-16.0); Immature Granulocytes % 5.6 %; Immature Granulocytes Absolute 0.95 #; Lymphocytes # 0.4 10*3/uL (1.4-4.0); Lymphocytes % 2.4 % (21.3-54.2); Mean Corpuscular HGB Conc 31.1 GM/DL (32-36); Mean Corpuscular Hemoglobin 28 PG (27-34); Mean Platelet Volume 10.7 FL (9.6-12.0); Monocytes # 0.8 10*3/uL (0.11-0.8); Monocytes % 4.5 % (1.7-12.7); NRBC # 0.06 10*3/uL; Neutrophils # 14.7 10*3/uL (1.4-7.4); Neutrophils % 87.4 % (38.7-73.9); Platelet Count 195 T/CUMM (130-400); Red Blood Count 3.35 MC/CUMM (3.8-5.5); Red Cell Distribution Width 15.6 % (9.3-17.3); White Blood Count 16.9 T/CUMM (4-12)
[2017-01-12 05:39] LABS: Calcium 8.3 MG/DL (8.5-10.1); Magnesium 2.1 MG/DL (1.8-2.4); Osmolality,Calculated 288.7 MOS/KG (273-304); Potassium 4.5 MMOL/L (3.5-5.1)
[2017-01-12] MEDS: LEVOTHYROXINE 50 MCG TABLET PO SCH (06:10)
[2017-01-12 06:17] LABS: Anisocytosis 1+; Band Neutrophils 3 % (0-10); Hypochromasia Slight; Lymphocytes 3 % (20-55); Metamyelocytes 2 %; Platelet Estimate Normal; Segmented Neutrophils 91 % (50-85); Total Cells Counted 100
[2017-01-12] MEDS: BUDESONIDE 0.5 MG/2 ML NEB RESP TX SCH ×2 (07:01→19:05)
--- NOTE | 2017-01-12 08:04 | Pulmonology Progress Note ---
Pulmonary - PN: Subj Interval history: Patient moved to the ICU yesterday and placed on CPAP, titrated up to pressure of 10, also increased her steroids to 60mg IV q 6. Her O2 sats this morning are back in the high 80s, low 90 and she is feeling better, although the CPAP mask is bothering her Exam (Progress Note) - Constitutional Vitals: Period Temp Pulse Resp BP Sys/Scott Pulse Ox Last 24 Hr 96.8 F-97.7 F 77-100 16-30 104-151/44-91 64-89 General appearance: normal weight, no acute distress - Head Head exam: Present: normal inspection, hematoma (over chin) - Respiratory Respiratory exam: Present: rhonchi - Cardiovascular Cardiovascular exam: Present: regular rate and rhythm - GI/Abdominal GI/Abdominal exam: Present: normal bowel sounds Results - Labs CBC & BMP: 01/12/17 04:38 01/12/17 04:38 Lab Results: I have reviewed the past 24 hour labs Assessment and Plan (1) Hypoxemia requiring supplemental oxygen Status: Acute Assessment and plan: Patient with improved sats on NIPPV and higher steroids. Ok to come off CPAP to eat, will see if she can maintain sats on a ventimask instead. Otherwise continue with supportive care for now Current Visit: Yes
[2017-01-12] MEDS: CLORAZEPATE 3.75 MG TABLET PO SCH ×2 (08:19→21:41)
[2017-01-12] MEDS: ROSUVASTATIN 10 MG TABLET PO SCH (08:19)
[2017-01-12] MEDS: NEBIVOLOL 5 MG TABLET PO SCH (08:19)
--- NOTE | 2017-01-12 08:19 | Family Practice Progress Note ---
Family Practice - PN: Subj Interval history: Seen this morning. She still having significant shortness of breath and her oxygen sats are dropping as low as 65-70. Currently they are about 85 and she does get a little better when she is lying on her side. White count was 17.5 with a hemoglobin hematocrit of 9.3 and 29. Electrolytes were grossly normal. She is very alert and oriented and answers all questions. She did want a Douglass catheter because it is difficult for her to move or she gets short of breath. I will accommodate her for a day or 2 with this but told her we cannot keep long. She voiced understanding 01/12/2017: Patient seen this morning. She is resting quite well. Oxygen sats are between 85 and 88 at present. Is continuing on CPAP with a pressure of 10. In no acute respiratory distress and talking very coherently without any difficulty. Does state that the mask hurts her a little bit on her forehead and nose. Lab reveals a white count 16.9. CBC values are tolerable at this time. Is afebrile and vital signs are stable otherwise with a blood pressure of 134/60. We will continue current therapy and appreciate pulmonary directives on this case Exam (Progress Note) - Constitutional Vitals: Period Temp Pulse Resp BP Sys/Scott Pulse Ox Last 24 Hr 96.8 F-97.7 F 77-100 16-30 104-151/44-91 64-89 Results - Labs CBC & BMP: 01/12/17 04:38 01/12/17 04:38 Assessment and Plan (1) Amiodarone pulmonary toxicity Status: Acute Assessment and plan: 01/11/2017 continuing current therapy at this time. White count is elevated but she is on steroids which certainly could be contributing at this. She has been covered with antibiotics Current Visit: Yes
[2017-01-12] MEDS: POTASSIUM CHLORIDE 20 MEQ TABLET PO SCH ×2 (08:20→21:40)
[2017-01-12] MEDS: APIXABAN 2.5 MG TABLET PO SCH ×2 (08:20→21:41)
[2017-01-12] MEDS: FUROSEMIDE 40 MG TABLET PO SCH (08:20)
[2017-01-12] MEDS: MAGNESIUM CHLORIDE 64 MG TABLET PO SCH ×2 (08:20→21:41)
[2017-01-12] MEDS: PANTOPRAZOLE 40 MG TABLET PO SCH (08:20)
[2017-01-12] MEDS: ASPIRIN EC 81 MG TABLET PO SCH (08:20)
[2017-01-12] MEDS: MUPIROCIN 2% OINT 22 GM TUBE TOP SCH ×2 (08:21→21:42)
[2017-01-12] MEDS: VALSARTAN/HCTZ 80-12.5 MG TABLET PO SCH (08:26)
[2017-01-12] MEDS: DOCUSATE SODIUM 100 MG CAPSULE PO SCH (08:27)
--- NOTE | 2017-01-12 08:28 | Cardiology Progress Note ---
Assessment and Plan (1) Amiodarone pulmonary toxicity Status: Acute Assessment and plan: 76-year-old female, history of CAD, status post CABG, TIA, paroxysmal atrial fibrillation, dual-chamber pacemaker, past smoker, COPD, admitted with respiratory insufficiency. Pneumonitis was diagnosed, with amiodarone as possible etiology. Was also diuresed. Preserved systolic function, diastolic dysfunction. No ACS. No recent A. fib. -Amio was stopped due to susp pulm tox. If symptomatic AF recurs, we may consider renally adjusted sotalol. -Still markedly hypoxic. She has grade 1 diastolic dysfunction, no significant systolic dysfunction or valvular disease. Elev PASP likely due to pulm issues. Clinical course does not suggest ischemic MR. -Peripheral edema improving. Now, only trace edema. Continue Lasix 40 mg daily. Continues diuresing well, renal function stable -Continue anticoagulation with low-dose Eliquis. Mild CKD, anemia. No active bleeding. Facial hematoma post fall - if grows or crit drops, may need to hold anticoagulation. CHADSVASC 7. -Intermittent jaw and elbow pain, intermittent, occ. at rest. Her angina was atypical in the past. She will need ischemic reevaluation, once recovers from her acute pulmonary issues. No ACS. If remains stable, this may be pursued as an outpatient. -We will continue intensive rate/rhythm control, blood pressure management, diuresis. I suspect the hypoxia is primarily a lung issue. Current Visit: Yes (2) Hypokalemia Status: Acute Current Visit: Yes (3) COPD (chronic obstructive pulmonary disease) Status: Chronic Current Visit: Yes (4) Chronic anemia Status: Chronic Current Visit: Yes (5) Chronic anticoagulation Status: Chronic Current Visit: Yes (6) Coronary artery disease involving coronary bypass graft Status: Chronic Current Visit: Yes Qualifiers: [place] vs. transplanted heart: [place] heart Associated angina: without angina Qualified Code(s): I25.810 - Atherosclerosis of coronary artery bypass graft(s) without angina pectoris (7) Former smoker Status: Chronic Current Visit: No (8) History of TIA (transient ischemic attack) Status: Chronic Current Visit: No (9) Hypertension Status: Chronic Current Visit: Yes Qualifiers: Hypertension type: essential hypertension Qualified Code(s): I10 - Essential (primary) hypertension (10) Paroxysmal a-fib Status: Chronic Current Visit: No (11) dual-chamber pacemaker Status: Chronic Assessment and plan: 76-year-old female, history of CAD, status post CABG, TIA, paroxysmal atrial fibrillation, dual-chamber pacemaker, past smoker, COPD, admitted with respiratory insufficiency. Pneumonitis was diagnosed, with amiodarone as possible etiology. Improving with steroids. Was also diuresed, currently, able to lay flat. Preserved systolic function, diastolic dysfunction. No ACS. No recent A. fib. -Agree to hold off amiodarone due to pulm tox. If symptomatic AF recurs, we may consider renally adjusted sotalol -Continue aspirin, losartan, nebivolol, statin for CAD/hypertension -Continue anticoagulation with low-dose Eliquis. CKD, anemia. No active bleeding -Lasix was stopped. No significant edema on exam. May need to resume lower po dose if worsens, has DDF. -Intermittent jaw and elbow pain, intermittent, occ. at rest. Her angina was atypical in the past. She will need ischemic reevaluation, once recovers from her acute pulmonary issues. No ACS. If remains stable, this may be pursued as an outpatient. Current Visit: Yes (12) Hypomagnesemia Status: Acute Current Visit: Yes Cardiology - PN: Subj Interval history: She remained hypoxic and was transferred to the ICU, now on BIPAP, O2 sat in high 80s. SHe is comfortable. Continues diuresis well with po Lasix. BP, HR well controlled. Exam (Progress Note) - Constitutional Vitals: Period Temp Pulse Resp BP Sys/Scott Pulse Ox Last 24 Hr 96.8 F-97.7 F 77-100 16-30 104-151/44-91 64-89 General appearance: normal weight, no acute distress - Head Head exam: Present: normal inspection, normocephalic - Eye Eye exam: Absent: conjunctival injection, scleral icterus Pupils: Absent: dilated - ENT ENT exam: Present: normal external ear exam - Neck Neck exam: Present: normal inspection - Respiratory Respiratory exam: Present: decreased breath sounds, rhonchi. Absent: wheezes - Cardiovascular Cardiovascular exam: Present: regular rate and rhythm. Absent: JVD, systolic murmur - GI/Abdominal GI/Abdominal exam: Present: normal bowel sounds. Absent: distended - Extremities Exam Extremities exam: Present: normal inspection, normal capillary refill, edema (1+ ) - Neurological Exam Neurological exam: Present: alert, oriented X3 - Psychiatric Psychiatric exam: Present: normal affect, normal mood - Skin Skin exam: Present: normal color, warm. Absent: cyanosis Result/EKG - Labs CBC & BMP: 01/12/17 04:38 01/12/17 04:38 Lab Results: I have reviewed the past 24 hour labs Labs: Laboratory Results - last 24 hr 01/11/17 01/12/17 01/12/17 14:13 04:38 04:38 WBC 16.9 H RBC 3.35 L Hgb 9.5 L Hct 30.5 L MCV 91.0 MCH 28 MCHC 31.1 L RDW 15.6 Plt Count 195 MPV 10.7 Neut % (Auto) 87.4 H Lymph % (Auto) 2.4 L [place] % (Auto) 4.5 Eos % (Auto) 0.0 Baso % (Auto) 0.1 Neut # (Auto) 14.7 H Lymph # (Auto) 0.4 L [place] # (Auto) 0.8 Eos # (Auto) 0.0 Baso # (Auto) 0.0 Total Counted 100 Immature Gran % 5.6 Nucleated RBC % 0.4 Immature Gran # 0.95 Segmented Neutrophils 91 H Band Neutrophils 3 Lymphocytes 3 L Monocytes 1 L Metamyelocytes 2 Nucleated RBCs # 0.06 Platelet Estimate Normal Hypochromasia Slight Anisocytosis 1+ ABG pH 7.407 ABG pCO2 54.6 H ABG pO2 46.3 L ABG HCO3 33.6 H ABG Total CO2 35.3 H ABG O2 Saturation 82.1 L ABG Base Excess 7.6 H FiO2 100.00 Sodium 138 Potassium 4.5 Chloride 97 L Carbon Dioxide 32 Anion Gap 13.5 BUN 44 H Creatinine 1.20 H GFR Calculation 47 BUN/Creatinine Ratio 36.00 H Glucose 146 H Calculated Osmolality 288.7 Calcium 8.3 L Magnesium 2.1 - EKG EKG results: interpreted by me
[2017-01-12] MEDS: ONDANSETRON 4 MG/2 ML VIAL IV PRN ×2 (10:02→23:05)
[2017-01-12] MEDS: AZITHROMYCIN INJ 500 MG in SODIUM CHLORIDE 0.9% 250 ML IV SCH (11:08)
[2017-01-13] MEDS: methylPREDNISolone SOD SUC 40 MG/1 ML VIAL IV SCH ×4 (01:09→18:09)
[2017-01-13] MEDS: ALBUTEROL/IPRATROPIUM 3 ML NEB RESP TX SCH ×5 (03:06→19:14)
[2017-01-13 05:43] LABS: Basophils % 0.1 % (0.0-0.8); Hematocrit 28.9 VOL% (35.7-47.0); Hemoglobin 9.2 GM/DL (12.0-16.0); Immature Granulocytes Absolute 0.41 #; Lymphocytes # 0.2 10*3/uL (1.4-4.0); Lymphocytes % 1.7 % (21.3-54.2); Mean Corpuscular HGB Conc 31.8 GM/DL (32-36); Mean Corpuscular Hemoglobin 29 PG (27-34); Mean Corpuscular Volume 90.6 FL (87-102); Monocytes # 0.5 10*3/uL (0.11-0.8); NRBC # 0.03 10*3/uL; Neutrophils # 12.3 10*3/uL (1.4-7.4); Neutrophils % 91.2 % (38.7-73.9); Platelet Count 149 T/CUMM (130-400); Red Blood Count 3.19 MC/CUMM (3.8-5.5); Red Cell Distribution Width 15.7 % (9.3-17.3); White Blood Count 13.5 T/CUMM (4-12)
[2017-01-13 06:14] LABS: Magnesium 2.2 MG/DL (1.8-2.4); Osmolality,Calculated 293.5 MOS/KG (273-304); Potassium 3.8 MMOL/L (3.5-5.1)
[2017-01-13 06:23] LABS: Band Neutrophils 1 % (0-10); Hypochromasia Slight; Lymphocytes 1 % (20-55); Microcytosis 1+; Myelocytes 1 %; Platelet Estimate Adequate; Segmented Neutrophils 95 % (50-85); Total Cells Counted 100
[2017-01-13] MEDS: LEVOTHYROXINE 50 MCG TABLET PO SCH (06:24)
--- NOTE | 2017-01-13 07:13 | Family Practice Progress Note ---
Family Practice - PN: Subj Interval history: Patient apparently worsens over the weekend and required BiPAP which she is unable to tolerate. She is now on a Ventimask and her O2 sats running around 80 %. Repeat chest x-ray this morning shows some improvement from 01/11/2017. She denies any chest pain associated with this. Her vital signs have been stable except for her hypoxia. Exam (Progress Note) - Constitutional Vitals: Period Temp Pulse Resp BP Sys/Scott Pulse Ox Last 24 Hr 97.6 F-98.4 F 77-102 17-31 68-140/41-68 78-87 Exam: Objective a well-developed white female in mild respiratory distress. Her oxygen saturation continues to drop when she is talking. She is able to give a good history without getting terribly dyspneic and her O2 sat hovered around 80% . Cardiovascular: Heart rates regular I hear no murmurs or gallops respiratory: Respiratory: Patient has scattered inspiratory rales in all lung [place]. This is about the same as it was Friday. Abdomen: Abdomen soft and nontender. Results - Labs CBC & BMP: 01/13/17 05:27 01/13/17 05:27 Lab Results: I have reviewed the past 24 hour labs Assessment and Plan (1) COPD (chronic obstructive pulmonary disease) Status: Chronic Assessment and plan: 01/08/2017: We will continue present therapy. 01/09/2017: Patient is slowly improving. 01/10/2017: Patient is slowly improving 01/13/2017: Patient is tolerating her Ventimask. Chest x-ray showed slight improvement with increasing steroids. Current Visit: Yes (2) Amiodarone pulmonary toxicity Status: Acute Assessment and plan: 01/08/2017: We will continue to hold her amiodarone of course. 01/09/2017: Patient is slowly improving. 01/10/2017: Patient is certainly improved with IV steroids. 01/13/2017: Patient improved with increase in steroids. Current Visit: Yes
--- NOTE | 2017-01-13 07:21 | XRay Report ---
Exam: XR chest 1V portable Date: 01/13/2017 3:00 AM Indication: Shortness of breath Comparison: 01/11/2017 Technical: AP portable Findings: Cardiomegaly with previous sternotomy. Cardiac pacing device with atrial ventricular leads present. Diffuse interstitial alveolar densities are present in the lung [place] bilaterally there are calcifications present extending along the right paratracheal region cephalad as well as in the left apex. External cardiac leads are present. Tiny low volume effusions. ASVD is present. No pneumothorax. Impression: 1. Diffuse interstitial alveolar infiltrates superimposed on chronic lung disease again noted 2. Cardiomegaly and stepsister cardiac pacing device and previous sternotomy. 3. Bony detail degenerative changes are present along the shoulders and thoracic spine. PROCEDURE INTERPRETED AT [facility] DEPARTMENT OF RADIOLOGY Final Report Signed by: Dr. Lio Bowen
[2017-01-13] MEDS: BUDESONIDE 0.5 MG/2 ML NEB RESP TX SCH ×2 (07:36→19:14)
--- NOTE | 2017-01-13 08:06 | Cardiology Progress Note ---
Assessment and Plan (1) Amiodarone pulmonary toxicity Status: Acute Assessment and plan: See plan of care listed below. Current Visit: Yes (2) COPD (chronic obstructive pulmonary disease) Status: Chronic Assessment and plan: SEE PLAN OF CARE LISTED BELOW Current Visit: Yes (3) Congestive cardiac failure Status: Chronic Assessment and plan: SEE PLAN OF CARE LISTED BELOW Current Visit: Yes Qualifiers: Congestive heart failure type: diastolic Congestive heart failure chronicity: acute on chronic Qualified Code(s): I50.33 - Acute on chronic diastolic (congestive) heart failure (4) Coronary artery disease involving coronary bypass graft Status: Chronic Assessment and plan: SEE PLAN OF CARE LISTED BELOW Current Visit: Yes Qualifiers: [place] vs. transplanted heart: [place] heart Associated angina: without angina Qualified Code(s): I25.810 - Atherosclerosis of coronary artery bypass graft(s) without angina pectoris (5) History of TIA (transient ischemic attack) Status: Chronic Assessment and plan: SEE PLAN OF CARE LISTED BELOW Current Visit: No (6) dual-chamber pacemaker Status: Chronic Assessment and plan: SEE PLAN OF CARE LISTED BELOW Current Visit: Yes (7) Former smoker Status: Chronic Assessment and plan: SEE PLAN OF CARE LISTED BELOW Current Visit: No (8) Chronic anemia Status: Chronic Assessment and plan: SEE PLAN OF CARE LISTED BELOW Current Visit: Yes (9) Dyslipidemia Status: Chronic Assessment and plan: SEE PLAN OF CARE LISTED BELOW Current Visit: Yes (10) Chronic anticoagulation Status: Chronic Assessment and plan: SEE PLAN OF CARE LISTED BELOW Current Visit: Yes (11) Paroxysmal a-fib Status: Chronic Assessment and plan: SEE PLAN OF CARE LISTED BELOW Current Visit: No (12) Hypertension Status: Chronic Assessment and plan: SEE PLAN OF CARE LISTED BELOW Current Visit: Yes Qualifiers: Hypertension type: essential hypertension Qualified Code(s): I10 - Essential (primary) hypertension (13) Hypokalemia Status: Acute Assessment and plan: See plan of care listed below. Current Visit: Yes (14) Chronic renal failure, stage 3 (moderate) Status: Acute Assessment and plan: See plan of care listed below. Current Visit: Yes Cardiology - PN: Subj Interval history: Bolt Sorter: Dr. Herbert PCP: Dr. Alex Starks SUMMARY - Ms. Quiros is a 76 year old female with known history of coronary artery disease, routinely followed by Dr. Herbert. Patient's PMH includes: hypertension, dyslipidemia, former smoker, COPD, chronic anemia, anterior myocardial infarction and paroxysmal atrial fibrillation. 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 She had a nuclear cardiac stress test August 2015 which revealed normal myocardial perfusion scan that did not suggest the presence of significant coronary ischemia. Normal LV systolic function with ejection fraction estimated to be 57 %. Normal end-diastolic volume. Patient admitted with respiratory insufficiency. Pneumonitis was diagnosed, with amiodarone as possible etiology. Was also diuresed due to acute on chronic CHF due to diastolic dysfunction. Preserved systolic function, grade 1 diastolic dysfunction. No ACS. No recent A. fib. JANUARY 13, 2017 UPDATE - Patient was seen and examined in the ICU. Patient is awake and alert and without complaints this morning. Currently requiring a Ventimask. She reports that her breathing has greatly improved. Hematoma noted to face. Patient is status post fall. Telemetry has been reviewed and no atrial fibrillation has been noted since amiodarone has been discontinued. We will continue to monitor her on the heart monitor and consider adding renally dose to sotalol if recurrent A. fib occurs. Mild hypotension noted overnight. At this point, we will hold valsartan/HCTZ. Will reinitiate this once her blood pressure will allow. H&H is stable at 9.2 and 28.9. No active bleeding noted. Creatinine of 1.4 with BUN of 47. We will continue to monitor this with daily BMP. I will discuss further with Dr. Martell and await his additional recommendations. ASSESSMENT/PLAN: 1. ACUTE ON CHRONIC CONGESTIVE HEART FAILURE, DYSTOLIC DYSFUNCTION - Improved. Echocardiogram this admission reveals preserved ejection fraction of 60% with grade 1 diastolic dysfunction. Diuresing well with p.o. Lasix. At this point, we will continue to diurese and monitor renal function with daily BMP. Suspect that patient's hypoxia is primarily a lung issue. 2. CORONARY ARTERY DISEASE, STATUS POST CABG 2010 - Patient is status post CABG 2010 with a AZAR to LAD and SVG to circumflex artery. This appears to be clinically stable at present, no ACS. Intermittent jaw and elbow pain, intermittent, occ. at rest. Her angina was atypical in the past. She will need ischemic reevaluation, once recovers from her acute pulmonary issues. No ACS. If remains stable, this may be pursued as an outpatient. 3. AMIODARONE LUNG - Amiodarone has been discontinued. Management per pulmonary. Continue steroid therapy. 4. HYPERTENSION - Patient has had episodes of hypotension overnight. We will hold valsartan/HCTZ at this time. Will reinitiate this once her blood pressure will allow. 5. FORMER SMOKER - Reports that she quit smoking in 2004. 6. HISTORY OF DUAL CHAMBER PACEMAKER - Patient had dual-chamber pacemaker placed 2013 as she has history of paroxysmal atrial fibrillation and developed sick sinus syndrome with tachybradycardia components. 7. CHRONIC ANEMIA - Patient reports that she receives iron transfusions occasionally. Her last transfusion was April 2016. Most recent H&H is noted to be 9.2 and 28.9. Patient is chronically anticoagulated with Eliquis for her paroxysmal atrial fibrillation. This will be continued at this time as patient is a high risk for recurrent stroke as she has history of TIA. Will monitor H&H with daily CBC. 8. DYSLIPIDEMIA - Continue lipid-lowering agent. 9. CHRONIC ANTICOAGULATION - Patient is chronically anticoagulated with Eliquis as she has paroxysmal atrial fibrillation. Facial hematoma post fall. If this grows or if H&H drops may need to hold anticoagulation. CHADSVASC score of 7. 10. HISTORY OF PAF - Amiodarone has been discontinued this admission due to suspected pulmonary toxicity. She is chronically anticoagulated with Eliquis. 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 If symptomatic AF recurs, we may consider renally adjusted sotalol. 11.COPD EXACERBATION - Will defer management of this to attending. 12. HISTORY OF TIA - Patient reports history of TIA. She is currently chronically anticoagulated with Eliquis. 13. HYPOKALEMIA - Resolved 14. CHRONIC RENAL FAILURE, STAGE 3 WITH NONFUNCTIONING KIDNEY - Patient routinely followed by Dr. Martín Hays. Monitor with daily BMP. Further plan and addendum to follow per Dr. Martell. Exam (Progress Note) - Constitutional Vitals: Period Temp Pulse Resp BP Sys/Scott Pulse Ox Last 24 Hr 97.6 F-98.4 F 77-102 17-33 68-140/41-68 78-87 Exam: General: Appears well with no apparent distress. Pleasant and cooperative. Appears comfortable. HEENT: PERRL, normocephalic, facial hematoma noted. Mucous membranes moist. No jaundice noted. Conjunctiva moist and clear, sclerae anicteric Neck: No JVD/HJR, no thyromegaly or lymphadenopathy noted. No carotid bruit appreciated Cardiac: Regular rate and rhythm. 2/6 systolic murmur. Lungs: Decreased breath sounds with mild rhonchi auscultated without accessory muscle use to assist the respiratory pattern. Requiring oxygen via Ventimask. Abdomen: Soft, bowel sounds normoactive. Nontender and nondistended. No abdominal bruit or thrill noted. No masses noted. Extremities: No clubbing, cyanosis noted. Trace edema. Upper extremity pulses 2+. Lower extremity pulses 2+. Capillary refill less than 3 seconds. Neuro: Awake, alert and oriented 3. Moves all extremities well without hemiparesis or paralysis. No essential tremor is appreciated. Result/EKG - Labs CBC & BMP: 01/13/17 05:27 01/13/17 05:27 Lab Results: I have reviewed the past 24 hour labs Labs: Laboratory Results - last 24 hr 01/13/17 01/13/17 05:27 05:27 WBC 13.5 H RBC 3.19 L Hgb 9.2 L Hct 28.9 L MCV 90.6 MCH 29 MCHC 31.8 L RDW 15.7 Plt Count 149 D MPV 11.0 Neut % (Auto) 91.2 H Lymph % (Auto) 1.7 L [place] % (Auto) 4.0 Eos % (Auto) 0.0 Baso % (Auto) 0.1 Neut # (Auto) 12.3 H Lymph # (Auto) 0.2 L [place] # (Auto) 0.5 Eos # (Auto) 0.0 Baso # (Auto) 0.0 Total Counted 100 Immature Gran % 3.0 Nucleated RBC % 0.2 Immature Gran # 0.41 Segmented Neutrophils 95 H Band Neutrophils 1 Lymphocytes 1 L Monocytes 2 Myelocytes 1 Nucleated RBCs # 0.03 Platelet Estimate Adequate Hypochromasia Slight Microcytosis 1+ Sodium 139 Potassium 3.8 Chloride 94 L Carbon Dioxide 37 H Anion Gap 11.8 BUN 47 H Creatinine 1.40 H GFR Calculation 39 BUN/Creatinine Ratio 33.00 H Glucose 191 H Calculated Osmolality 293.5 Calcium 8.0 L Magnesium 2.2
[2017-01-13 08:11] LABS: Troponin I Only 0.044 NG/ML (0.00-0.045)
[2017-01-13] MEDS: APIXABAN 2.5 MG TABLET PO SCH ×2 (08:27→21:45)
[2017-01-13] MEDS: PANTOPRAZOLE 40 MG TABLET PO SCH (08:27)
[2017-01-13] MEDS: ROSUVASTATIN 10 MG TABLET PO SCH (08:27)
[2017-01-13] MEDS: POTASSIUM CHLORIDE 20 MEQ TABLET PO SCH ×2 (08:27→22:04)
[2017-01-13] MEDS: ASPIRIN EC 81 MG TABLET PO SCH (08:27)
[2017-01-13] MEDS: FUROSEMIDE 40 MG TABLET PO SCH (08:27)
[2017-01-13] MEDS: CLORAZEPATE 3.75 MG TABLET PO SCH ×2 (08:27→21:45)
[2017-01-13] MEDS: MAGNESIUM CHLORIDE 64 MG TABLET PO SCH ×2 (08:27→21:45)
[2017-01-13] MEDS: DOCUSATE SODIUM 100 MG CAPSULE PO SCH (08:28)
[2017-01-13] MEDS: MUPIROCIN 2% OINT 22 GM TUBE TOP SCH ×2 (08:28→21:45)
[2017-01-13] MEDS: FLUDROCORTISONE 0.1 MG TABLET PO SCH (08:33)
[2017-01-13] MEDS: NEBIVOLOL 5 MG TABLET PO SCH (08:33)
[2017-01-13] MEDS: AZITHROMYCIN INJ 500 MG in SODIUM CHLORIDE 0.9% 250 ML IV SCH (09:46)
--- NOTE | 2017-01-13 10:01 | Pulmonology Progress Note ---
Pulmonary - PN: Subj Interval history: This is a 76-year-old white female whom I saw in pulmonary consultation on 2016. She had had progressive shortness of breath and had chest x-ray changes along with progressive hypoxemia. My impressions were. 1. Diffuse 5 lobe interstitial and alveolar infiltrate. Suspect this will returns processor to be amiodarone lung. Note the presence of Velcro rales. Watch closely for the possibility of atypical pulmonary edema 2. COPD 3. Significant past history tobacco abuse. Stop smoking 2004 4. Normal TSH with elevated free T4 most likely secondary to amiodarone. 5. 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 6. Mild chronic renal failure and 1 nonfunctioning kidney followed by Dr. Martín Hays 7. Chronic anemia 8. Atrial fibrillation. Plan. 1. Stop amiodarone 2. Chest x-ray and ABGs daily 4 3. C-reactive protein and erythrocyte sedimentation rate 4. Repeat BNP 5. Increase Solu-Medrol to 40 mg every 8 hours 6. See orders 7. Dr. Tristan dickens and I have discussed the case and we have coordinated her care. 01/05/2017. Today's chest x-ray still shows 5 lobe interstitial and alveolar infiltrates but these appear to be a little different and a little less dense allowing for technique. The patient says she feels better. Her O2 has improved slightly she has erosions in her nose and with her to try different apparatus for her oxygen and will use Bactroban in her nares. There are no new microbiology reports. FiO2 of 44%, pH is 7.418, PO2 is 40.4, PO2 is 59.9 bicarb is 25.7. White count is 10,700 with 90.8 segs. H&H is 9.3/28.6. Sodium is 134 and potassium is 3.3. Cardiology will adjust this. Creatinine has increased to 2.00 with a BUN of 51. I think the patient is becoming a little over diuresed and I have stopped her Lasix which was 40 mg twice daily. Patient fell Velcro rounds have disappeared. 01/06/2017. This patient has amiodarone lung. This will be the third day she is off amiodarone. She is on Solu-Medrol 40 IV push q. 8. Today's chest x-ray looks markedly better. She still has 5 lobe alveolar and interstitial infiltrates but these are rapidly resolving. Today's O2 has not improved significantly but I expect that to follow. We need to continue the present treatment for right now impaired attention to her heart rhythm. Potassium is low at 3.2 and replacement as needed. H&H is stable at 9.6/29.9. White count is 9289 segs. TSH is normal. Free T4 is elevated most likely secondary to amiodarone. 01/08/2017. On steroids the patient's lung (chest x-ray) is looking much better. Her breath sounds are much improved. So far her ABGs have not improved a good bit. Hopefully this will follow soon. Off diuretics creatinine is dropped from 2.0-1.30 with a BUN of 35. Electrolytes are normal. CBC is stable. 01/09/2017. Patient had a fall yesterday. She was on the commode and slumped forward and injured her face. She has had CT scan of the face and brain these are negative. She is fine from a neurological standpoint today and embarrassed by the episode. Patient's chest is clear at this time goes by. Her O2 sats have not improved but she is found if she lays on the right side and takes several deep breaths her oxygen improved. I think we will just have to wait this out but this should begin to improve. Orders have been reviewed and note that Lasix has been restarted. With holding Lasix creatinine is dropped from 2.00-1.20 with a BUN of 32. Sodium is 134 and potassium is 4.3. White count is 11,200 with 84 segs. H&H is 8.9/27.3. I have not repeated the patient's blood gases since she is asked that we hold this if at all possible. 01/10/2017. This 76-year-old white female has amiodarone lung. After stopping amiodarone and starting Solu-Medrol 40 IV push every 8 hours her chest x-ray has improved remarkably. She however remains hypoxemia and hopefully this will be improved soon. Earlier in the patient's hospitalization she was slightly over diuresed and her creatinine went up to 1.6 with a BUN of 45. Creatinine is now 1.30 with a BUN of 36. Patient's on a lower dose of diuretics. Watch closely. White blood cell count is 14,500 with 86 segs. H&H is stable at 9.2/ 28.1. Platelets are 190,000. There are no positive cultures. Patient had a fall on 01/08/2017. CT of the face and head of been normal. She does have some mild contusions and bruises on her face. She was on Eliquis. There is a history of atrial fib. At the present time we will continue to follow her chest x-ray. Will wait for her oxygenation to improve and will watch her kidney status. 01/13/2017. During this weekend the patient was moved to intensive care. Her chest x-ray which is shown a very good improvement with steroids regressed and as she has a 5 lobe alveolar filling defect with increased interstitial markings. She was being treated for amiodarone lung. Even though her chest x- ray improved her ABGs did not improve and they have recently deteriorated. We are at the point that this needs to be treated as adult respiratory distress syndrome. That necessitates mechanical ventilation with PEEP and pressure support. I have discussed this with the patient and she is agreeable. I discussed it with Dr. Alex Starks and Dr. Sam Martell and they were agreeable. I have asked anesthesia to electively intubate the patient. I will start her on P and later will add IMV and pressure support. Electrolytes are normal. Creatinine is 1.4. H&H is stable at 9.2/28.9. White count is 13,500 with 91 segs. Platelets are 149,000. Natruretic peptide is 267 Physical exam. Vital signs see below Psychiatric oriented 3. On 01/13/2017 this patient's mental status and reasoning ability were normal. As noted above we discussed whether not to proceed with intubation mechanical ventilation. Her ultimate reason was she had 2 grandchildren and she felt like they needed her. Cranial nerves are intact Long track motor functions intact Chest. Wheeze free. Velcro rales have disappeared. No chest wall tenderness. Heart. No definite gallop. Abdomen. Nontender. Positive bowel sounds. Extremities. No edema Neck. Symmetrical kyphotic with no meningismus Lymphatics. No submandibular cervical supraclavicular adenopathy. The remainder of the physical exam is noncontributory Plan. 01/05/2017 1. DC Lasix, 40 mg p.o. twice daily was her dose 2. Monitor BUN/creatinine sodium and potassium 3. Continue steroids 4. Daily chest x-rays and ABGs to we can see clear-cut improvement. 5. Today I asked the patient admits she has not seen anyone in pulmonary before she says on one occasion she saw Dr. Minesh Whaley. She requested to change to my service and after we discussed this I agree. She has some family members to see me. She is related to Tahira dorado 01/06/2017. 1. See today's note above. 2. Amiodarone lung which is improving. Continue steroids and follow chest x- ray and ABGs. 3. Replacement of potassium 01/08/2017. 1. See today's note above. 2. Amiodarone lung is improving by chest x-ray and physical exam criteria. 3. Continue present regimen including Solu-Medrol 40 IV push every 8 hours 01/09/2017. 1. See today's note above 2. For tomorrow morning I have ordered a 2 view chest x-ray. #3 continue to monitor O2 sats. 01/10/2017. 1. See today's note above. 2. Chest x-ray pending. Repeat Friday and Friday 3. Follow-up BMP 4. Supplemental oxygen. #5 continue Solu-Medrol 40 IV push every 8 hours. 01/13/2017. 1. See today's note. Above. 2. Continue Solu-Medrol 3. Intubation mechanical ventilation. Treat amiodarone lung as adult respiratory distress syndrome. Exam (Progress Note) - Constitutional Vitals: Period Temp Pulse Resp BP Sys/Scott Pulse Ox Last 24 Hr 97.6 F-98.4 F 77-102 17-33 68-140/41-68 78-87 Results - Labs CBC & BMP: 01/13/17 05:27 01/13/17 05:27
[2017-01-13] MEDS ORDERED: PROPOFOL 1,000 MG/100 ML BOTTLE IV ONE (14:52)
--- NOTE | 2017-01-13 15:08 | Anesthesia Procedures ---
Anesthesia Procedures - Intubation Time out performed intubation: Yes Sedative: Etomidate Mg given sedative: 20 Paralytic: Succinylcholine Mg given paralytic: 120 Laryngoscope: [place] ET Tube Size: 7.5 Tube Secured Depth (cm): 23 Tube Secured Location: lips Tube Placement Confirmation: visualized tube passing through cords, equal breath sounds bilaterally, no breath sounds over epigastrium, confirmation by capnometry, confirmation detector color change Patient tolerated procedure intubation: well Intubation Complications: none
[2017-01-13] MEDS ORDERED: ETOMIDATE 20 MG/10 ML VIAL IV ONE (15:20)
[2017-01-13] MEDS ORDERED: SUCCINYLCHOLINE 200 MG/10 ML VIAL ONE (15:20)
[2017-01-13] MEDS ORDERED: PROPOFOL 200 MG/20 ML VIAL IV ONE (15:20)
[2017-01-13 15:36] LABS: ABG Base Excess 13.1 MMOL/L (-2.5-2.5); ABG HCO3 36.9 MMOL/L (20-26); ABG Oxygen Saturation 98.1 % (95-100); ABG PCO2 49.3 MM HG (35-48); ABG PH 7.498 (7.35-7.45); ABG TCO2 34.5 MMOL/L (23-27)
[2017-01-13] MEDS ORDERED: MIDAZOLAM 2 MG/2 ML VIAL IV ONE (15:37)
[2017-01-13] MEDS ORDERED: MIDAZOLAM 2 MG/2 ML VIAL ONE (15:40)
--- NOTE | 2017-01-13 15:52 | XRay Report ---
Portable chest. Indication: Endotracheal tube placement. Comparison: January 13, 2017. The heart is enlarged. The distal tip of an endotracheal tube is in satisfactory position. Post median sternotomy. Cardiac hardware is in satisfactory position. The lung volumes are normal. There is heavy vascular calcification seen projecting along the right paratracheal region. There are prominent reticulonodular infiltrates bilaterally which are stable. Impression: Satisfactory endotracheal tube placement. Stable appearance of the lung hamilton. PROCEDURE INTERPRETED AT [facility] DEPARTMENT OF RADIOLOGY Final Report Signed by: Dr. Cherelle Oakes
[2017-01-13] MEDS: PROPOFOL 1,000 MG/100 ML BOTTLE IV SCH (16:33)
[2017-01-13 17:05] LABS: ABG Base Excess 13.8 MMOL/L (-2.5-2.5); ABG HCO3 37.6 MMOL/L (20-26); ABG Oxygen Saturation 97.3 % (95-100); ABG PCO2 55.9 MM HG (35-48); ABG PH 7.462 (7.35-7.45); ABG PO2 95.5 MM HG (80-95); ABG TCO2 36.2 MMOL/L (23-27); Pt O2 Delivery Device Ventilator
[2017-01-13] MEDS ORDERED: MORPHINE 2 MG/1 ML SYRINGE ONE (17:29)
[2017-01-13] MEDS ORDERED: MORPHINE 2 MG/1 ML SYRINGE IV SCH (17:30)
[2017-01-13] MEDS: MORPHINE 2 MG/1 ML SYRINGE IV PRN (18:08)
[2017-01-13] MEDS: POTASSIUM CHLORIDE 20 MEQ/15 ML UDCUP PER TUBE SCH (21:46)
[2017-01-14] MEDS: methylPREDNISolone SOD SUC 40 MG/1 ML VIAL IV SCH ×4 (01:07→18:16)
[2017-01-14] MEDS: ALBUTEROL/IPRATROPIUM 3 ML NEB RESP TX SCH ×7 (01:12→23:18)
[2017-01-14 05:37] LABS: Basophils % 0.1 % (0.0-0.8); Hematocrit 29.4 VOL% (35.7-47.0); Hemoglobin 9.3 GM/DL (12.0-16.0); Immature Granulocytes % 3.6 %; Immature Granulocytes Absolute 0.56 #; Lymphocytes # 0.4 10*3/uL (1.4-4.0); Lymphocytes % 2.3 % (21.3-54.2); Mean Corpuscular HGB Conc 31.6 GM/DL (32-36); Mean Corpuscular Hemoglobin 29 PG (27-34); Mean Platelet Volume 10.9 FL (9.6-12.0); Monocytes # 1.1 10*3/uL (0.11-0.8); Monocytes % 6.8 % (1.7-12.7); NRBC # 0.03 10*3/uL; Neutrophils # 13.7 10*3/uL (1.4-7.4); Neutrophils % 87.2 % (38.7-73.9); Platelet Count 148 T/CUMM (130-400); Red Blood Count 3.23 MC/CUMM (3.8-5.5); Red Cell Distribution Width 15.5 % (9.3-17.3); White Blood Count 15.8 T/CUMM (4-12)
[2017-01-14 05:57] LABS: Calcium 8.1 MG/DL (8.5-10.1)
[2017-01-14 05:58] LABS: Potassium 3.5 MMOL/L (3.5-5.1)
[2017-01-14 06:15] LABS: Band Neutrophils 2 % (0-10); Hypochromasia 2+; Macrocytosis Slight; Platelet Estimate Decreased; Segmented Neutrophils 89 % (50-85); Total Cells Counted 100
[2017-01-14] MEDS: LEVOTHYROXINE 50 MCG TABLET PO SCH (06:22)
[2017-01-14] MEDS: POTASSIUM CHLORIDE RIDER 10 MEQ in PREMIX 1 EACH IV PRN ×3 (06:22→08:45)
[2017-01-14 06:40] LABS: ABG Base Excess 14.4 MMOL/L (-2.5-2.5); ABG HCO3 38.3 MMOL/L (20-26); ABG Oxygen Saturation 98.4 % (95-100); ABG PCO2 45.8 MM HG (35-48); ABG PH 7.537 (7.35-7.45); ABG TCO2 35.5 MMOL/L (23-27); Allen Test Positive; Pt O2 Delivery Device Ventilator
--- NOTE | 2017-01-14 07:26 | Family Practice Progress Note ---
Family Practice - PN: Subj Interval history: Patient had a decent night according to ICU staff. She is presently on the ventilator and oxygenating well. Repeat chest x-ray this morning is pending. She is afebrile and her vital signs are stable. Exam (Progress Note) - Constitutional Vitals: Period Temp Pulse Resp BP Sys/Scott Pulse Ox Last 24 Hr 97.8 F-98.2 F 73-102 16-33 70-126/42-72 81-100 Exam: Objective a well-developed white female in no acute distress on the ventilator. She is awake and alert and follows simple commands. Cardiovascular: Heart rates regular I hear no murmurs or gallops respiratory: Respiratory: Patient has scattered inspiratory rales in all lung hamilton. This is about the same as it was yesterday. Abdomen: Abdomen soft and nontender. Results - Labs CBC & BMP: 01/14/17 05:06 01/14/17 05:06 Lab Results: I have reviewed the past 24 hour labs Assessment and Plan (1) COPD (chronic obstructive pulmonary disease) Status: Chronic Assessment and plan: 01/08/2017: We will continue present therapy. 01/09/2017: Patient is slowly improving. 01/10/2017: Patient is slowly improving 01/13/2017: Patient is tolerating her Ventimask. Chest x-ray showed slight improvement with increasing steroids. Current Visit: Yes (2) Amiodarone pulmonary toxicity Status: Acute Assessment and plan: 01/08/2017: We will continue to hold her amiodarone of course. 01/09/2017: Patient is slowly improving. 01/10/2017: Patient is certainly improved with IV steroids. 01/13/2017: Patient improved with increase in steroids. 01/14/2017: Patient presently on ventilator and is oxygenating adequately. Current Visit: Yes
[2017-01-14] MEDS: MORPHINE 2 MG/1 ML SYRINGE IV PRN ×2 (07:27→14:14)
--- NOTE | 2017-01-14 07:54 | Cardiology Progress Note ---
<Cherelle Muller - Last Filed: 01/14/17 07:57> Assessment and Plan (1) Amiodarone pulmonary toxicity Status: Acute Assessment and plan: See plan of care listed below. Current Visit: Yes (2) COPD (chronic obstructive pulmonary disease) Status: Chronic Assessment and plan: SEE PLAN OF CARE LISTED BELOW Current Visit: Yes (3) Congestive cardiac failure Status: Chronic Assessment and plan: SEE PLAN OF CARE LISTED BELOW Current Visit: Yes Qualifiers: Congestive heart failure type: diastolic Congestive heart failure chronicity: acute on chronic Qualified Code(s): I50.33 - Acute on chronic diastolic (congestive) heart failure (4) Coronary artery disease involving coronary bypass graft Status: Chronic Assessment and plan: SEE PLAN OF CARE LISTED BELOW Current Visit: Yes Qualifiers: [place] vs. transplanted heart: [place] heart Associated angina: without angina Qualified Code(s): I25.810 - Atherosclerosis of coronary artery bypass graft(s) without angina pectoris (5) History of TIA (transient ischemic attack) Status: Chronic Assessment and plan: SEE PLAN OF CARE LISTED BELOW Current Visit: No (6) dual-chamber pacemaker Status: Chronic Assessment and plan: SEE PLAN OF CARE LISTED BELOW Current Visit: Yes (7) Former smoker Status: Chronic Assessment and plan: SEE PLAN OF CARE LISTED BELOW Current Visit: No (8) Chronic anemia Status: Chronic Assessment and plan: SEE PLAN OF CARE LISTED BELOW Current Visit: Yes (9) Dyslipidemia Status: Chronic Assessment and plan: SEE PLAN OF CARE LISTED BELOW Current Visit: Yes (10) Chronic anticoagulation Status: Chronic Assessment and plan: SEE PLAN OF CARE LISTED BELOW Current Visit: Yes (11) Paroxysmal a-fib Status: Chronic Assessment and plan: SEE PLAN OF CARE LISTED BELOW Current Visit: No (12) Hypertension Status: Chronic Assessment and plan: SEE PLAN OF CARE LISTED BELOW Current Visit: Yes Qualifiers: Hypertension type: essential hypertension Qualified Code(s): I10 - Essential (primary) hypertension (13) Hypokalemia Status: Acute Assessment and plan: See plan of care listed below. Current Visit: Yes (14) Chronic renal failure, stage 3 (moderate) Status: Acute Assessment and plan: See plan of care listed below. Current Visit: Yes Cardiology - PN: Subj Interval history: Mechanic Foreman: Dr. Herbert PCP: Dr. Alex Starks SUMMARY - Ms. Quiros is a 76 year old female with known history of coronary artery disease, routinely followed by Dr. Herbert. Patient's PMH includes: hypertension, dyslipidemia, former smoker, COPD, chronic anemia, anterior myocardial infarction and paroxysmal atrial fibrillation. 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 She had a nuclear cardiac stress test August 2015 which revealed normal myocardial perfusion scan that did not suggest the presence of significant coronary ischemia. Normal LV systolic function with ejection fraction estimated to be 57 %. Normal end-diastolic volume. Patient admitted with respiratory insufficiency. Pneumonitis was diagnosed, with amiodarone as possible etiology. Was also diuresed due to acute on chronic CHF due to diastolic dysfunction. Preserved systolic function, grade 1 diastolic dysfunction. No ACS. No recent A. fib. JANUARY 14, 2017 UPDATE - Patient was seen and examined in the ICU. Patient is being treated for amiodarone lung. Yesterday, her ABGs declined. Therefore, pulmonary begin to treat as adult respiratory distress syndrome. Subsequently patient was electively intubated. She has done well overnight. This morning, she is awake on the ventilator and able to follow all commands. Hematoma noted to face. Patient is status post fall. Telemetry has been reviewed and no atrial fibrillation has been noted since amiodarone has been discontinued. We will continue to monitor her on the heart monitor and consider adding renally dose to sotalol if recurrent A. fib occurs. Blood pressure has improved today. We will continue to hold valsartan/HCTZ. Will reinitiate this once her blood pressure will allow. H&H is stable at 9.3 and 29.4. No active bleeding noted. Creatinine of 1.5 with BUN of 56. We will continue to monitor this with daily BMP. I will discuss further with Dr. Martell and await his additional recommendations. ASSESSMENT/PLAN: 1. ACUTE ON CHRONIC CONGESTIVE HEART FAILURE, DYSTOLIC DYSFUNCTION - Improved. Echocardiogram this admission reveals preserved ejection fraction of 60% with grade 1 diastolic dysfunction. Diuresing well with p.o. Lasix. At this point, we will continue to diurese and monitor renal function with daily BMP. Suspect that patient's hypoxia is primarily a lung issue. 2. CORONARY ARTERY DISEASE, STATUS POST CABG 2010 - Patient is status post CABG 2010 with a AZAR to LAD and SVG to circumflex artery. This appears to be clinically stable at present, no ACS. Intermittent jaw and elbow pain, occurs at rest. Her angina was atypical in the past. She will need ischemic reevaluation, once recovers from her acute pulmonary issues. No ACS. If remains stable, this may be pursued as an outpatient. 3. AMIODARONE LUNG - Amiodarone has been discontinued. Continue steroid therapy. Currently being treated as ARDS. Management per pulmonary. 4. HYPERTENSION - Under well control. Patient was mildly tachycardic overnight. Beta-tamara increased. Will further adjust as needed throughout her hospitalization. 5. FORMER SMOKER - Reports that she quit smoking in 2004. 6. HISTORY OF DUAL CHAMBER PACEMAKER - Continue current plan of care. Patient had dual-chamber pacemaker placed 2013 as she has history of paroxysmal atrial fibrillation and developed sick sinus syndrome with tachybradycardia components. 7. CHRONIC ANEMIA - Stable. Patient reports that she receives iron transfusions occasionally. Her last transfusion was April 2016. Most recent H&H is noted to be 9.2 and 28.9. Patient is chronically anticoagulated with Eliquis for her paroxysmal atrial fibrillation. This will be continued at this time as patient is a high risk for recurrent stroke, history of TIA. Will monitor H&H with daily CBC. 8. DYSLIPIDEMIA - Continue lipid-lowering agent. 9. CHRONIC ANTICOAGULATION - Patient is chronically anticoagulated with Eliquis as she has paroxysmal atrial fibrillation. Facial hematoma post fall. If this grows or if H&H drops may need to hold anticoagulation. CHADSVASC score of 7. 10. HISTORY OF PAF - Amiodarone has been discontinued this admission due to suspected pulmonary toxicity. She is chronically anticoagulated with Eliquis. At this point, we will continue beta-blockade and monitor closely on property assessment monitor. If symptomatic AF recurs, we may consider renally adjusted sotalol. 11.COPD EXACERBATION - Will defer management of this to attending. 12. HISTORY OF TIA - Patient reports history of TIA. She is currently chronically anticoagulated with Eliquis. 13. HYPOKALEMIA - Resolved 14. CHRONIC RENAL FAILURE, STAGE 3 WITH NONFUNCTIONING KIDNEY - Patient routinely followed by Dr. Martín Hays. Monitor with daily BMP. Further plan and addendum to follow per Dr. Martell. Exam (Progress Note) - Constitutional Vitals: Period Temp Pulse Resp BP Sys/Scott Pulse Ox Last 24 Hr 97.8 F-98.2 F 73-102 16-26 70-126/42-72 81-100 Exam: General: Appears comfortable on the ventilator. HEENT: PERRL, normocephalic, facial hematoma noted. No jaundice noted. Conjunctiva moist and clear, sclerae anicteric Neck: No JVD/HJR, no thyromegaly or lymphadenopathy noted. No carotid bruit appreciated Cardiac: Regular rate and rhythm. 2/6 systolic murmur. Lungs: Mild rhonchi auscultated. Patient ventilated. Abdomen: Soft, bowel sounds normoactive. Nontender and nondistended. No abdominal bruit or thrill noted. No masses noted. Extremities: No clubbing, cyanosis noted. Trace edema. Upper extremity pulses 2+. Lower extremity pulses 2+. Capillary refill less than 3 seconds. Neuro: Unable to fully assess as patient is ventilated. She is awake and able to follow commands. Result/EKG - Labs CBC & BMP: 01/14/17 05:06 01/14/17 05:06 Lab Results: I have reviewed the past 24 hour labs Labs: Laboratory Results - last 24 hr 01/13/17 01/13/17 01/13/17 05:33 07:21 15:40 WBC RBC Hgb Hct MCV MCH MCHC RDW Plt Count MPV Neut % (Auto) Lymph % (Auto) [place] % (Auto) Eos % (Auto) Baso % (Auto) Neut # (Auto) Lymph # (Auto) [place] # (Auto) Eos # (Auto) Baso # (Auto) Total Counted Immature Gran % Nucleated RBC % Immature Gran # Segmented Neutrophils Band Neutrophils Monocytes Nucleated RBCs # Platelet Estimate Hypochromasia Macrocytosis ABG pH 7.498 H ABG pCO2 49.3 H ABG pO2 107.0 H ABG HCO3 36.9 H ABG Total CO2 34.5 H ABG O2 Saturation 98.1 ABG Base Excess 13.1 H FiO2 Sodium Potassium Chloride Carbon Dioxide Anion Gap BUN Creatinine GFR Calculation BUN/Creatinine Ratio Glucose Calculated Osmolality Calcium Magnesium Total Creatine Kinase 36 CK-MB (CK-2) < 1.0 Troponin I 0.044 B-Natriuretic Peptide 267 H 01/13/17 01/14/17 01/14/17 16:45 05:06 05:06 WBC 15.8 H RBC 3.23 L Hgb 9.3 L Hct 29.4 L MCV 91.0 MCH 29 MCHC 31.6 L RDW 15.5 Plt Count 148 MPV 10.9 Neut % (Auto) 87.2 H Lymph % (Auto) 2.3 L [place] % (Auto) 6.8 Eos % (Auto) 0.0 Baso % (Auto) 0.1 Neut # (Auto) 13.7 H Lymph # (Auto) 0.4 L [place] # (Auto) 1.1 H Eos # (Auto) 0.0 Baso # (Auto) 0.0 Total Counted 100 Immature Gran % 3.6 Nucleated RBC % 0.2 Immature Gran # 0.56 Segmented Neutrophils 89 H Band Neutrophils 2 Monocytes 9 Nucleated RBCs # 0.03 Platelet Estimate Decreased Hypochromasia 2+ Macrocytosis Slight ABG pH 7.462 H ABG pCO2 55.9 H ABG pO2 95.5 H ABG HCO3 37.6 H ABG Total CO2 36.2 H ABG O2 Saturation 97.3 ABG Base Excess 13.8 H FiO2 100.00 Sodium 143 Potassium 3.5 Chloride 96 L Carbon Dioxide 38 H Anion Gap 12.5 BUN 56 H Creatinine 1.50 H GFR Calculation 33 BUN/Creatinine Ratio 37.00 H Glucose 148 H Calculated Osmolality 303.0 Calcium 8.1 L Magnesium 2.0 Total Creatine Kinase CK-MB (CK-2) Troponin I B-Natriuretic Peptide 01/14/17 06:35 WBC RBC Hgb Hct MCV MCH MCHC RDW Plt Count MPV Neut % (Auto) Lymph % (Auto) [place] % (Auto) Eos % (Auto) Baso % (Auto) Neut # (Auto) Lymph # (Auto) [place] # (Auto) Eos # (Auto) Baso # (Auto) Total Counted Immature Gran % Nucleated RBC % Immature Gran # Segmented Neutrophils Band Neutrophils Monocytes Nucleated RBCs # Platelet Estimate Hypochromasia Macrocytosis ABG pH 7.537 H ABG pCO2 45.8 ABG pO2 115.0 H ABG HCO3 38.3 H ABG Total CO2 35.5 H ABG O2 Saturation 98.4 ABG Base Excess 14.4 H FiO2 100.00 Sodium Potassium Chloride Carbon Dioxide Anion Gap BUN Creatinine GFR Calculation BUN/Creatinine Ratio Glucose Calculated Osmolality Calcium Magnesium Total Creatine Kinase CK-MB (CK-2) Troponin I B-Natriuretic Peptide <John Martell - Last Filed: 01/14/17 11:02> Cardiology - PN: Subj Interval history: This patient has changes on chest x-ray in the nurses suspicious for amiodarone lung toxicity. Her amiodarone has been discontinued we will continue aggressive steroid therapy. She has worsened to the point that she required intubation and mechanical ventilation and positive pressure which hopefully will improve her oxygenation she is very ill and will require significant ventilator support. I have discussed in detail the particulars of this case and I have examined the patient and reviewed the patient's chart both current and old. I was directly involved in the patient's evaluation and management and I completely agree with Cherelle Muller AUTO FLEET MANAGER regarding this patient's evaluation and treatment plan. Exam (Progress Note) - Constitutional Vitals: Period Temp Pulse Resp BP Sys/Scott Pulse Ox Last 24 Hr 97.8 F-98.2 F 73-102 16-26 70-126/42-72 81-100 Result/EKG - Labs CBC & BMP: 01/14/17 05:06 01/14/17 05:06 Labs: Laboratory Results - last 24 hr 01/13/17 01/13/17 01/14/17 15:40 16:45 05:06 WBC RBC Hgb Hct MCV MCH MCHC RDW Plt Count MPV Neut % (Auto) Lymph % (Auto) [place] % (Auto) Eos % (Auto) Baso % (Auto) Neut # (Auto) Lymph # (Auto) [place] # (Auto) Eos # (Auto) Baso # (Auto) Total Counted Immature Gran % Nucleated RBC % Immature Gran # Segmented Neutrophils Band Neutrophils Monocytes Nucleated RBCs # Platelet Estimate Hypochromasia Macrocytosis ABG pH 7.498 H 7.462 H ABG pCO2 49.3 H 55.9 H ABG pO2 107.0 H 95.5 H ABG HCO3 36.9 H 37.6 H ABG Total CO2 34.5 H 36.2 H ABG O2 Saturation 98.1 97.3 ABG Base Excess 13.1 H 13.8 H FiO2 100.00 Sodium 143 Potassium 3.5 Chloride 96 L Carbon Dioxide 38 H Anion Gap 12.5 BUN 56 H Creatinine 1.50 H GFR Calculation 33 BUN/Creatinine Ratio 37.00 H Glucose 148 H Calculated Osmolality 303.0 Calcium 8.1 L Magnesium 2.0 01/14/17 01/14/17 05:06 06:35 WBC 15.8 H RBC 3.23 L Hgb 9.3 L Hct 29.4 L MCV 91.0 MCH 29 MCHC 31.6 L RDW 15.5 Plt Count 148 MPV 10.9 Neut % (Auto) 87.2 H Lymph % (Auto) 2.3 L [place] % (Auto) 6.8 Eos % (Auto) 0.0 Baso % (Auto) 0.1 Neut # (Auto) 13.7 H Lymph # (Auto) 0.4 L [place] # (Auto) 1.1 H Eos # (Auto) 0.0 Baso # (Auto) 0.0 Total Counted 100 Immature Gran % 3.6 Nucleated RBC % 0.2 Immature Gran # 0.56 Segmented Neutrophils 89 H Band Neutrophils 2 Monocytes 9 Nucleated RBCs # 0.03 Platelet Estimate Decreased Hypochromasia 2+ Macrocytosis Slight ABG pH 7.537 H ABG pCO2 45.8 ABG pO2 115.0 H ABG HCO3 38.3 H ABG Total CO2 35.5 H ABG O2 Saturation 98.4 ABG Base Excess 14.4 H FiO2 100.00 Sodium Potassium Chloride Carbon Dioxide Anion Gap BUN Creatinine GFR Calculation BUN/Creatinine Ratio Glucose Calculated Osmolality Calcium Magnesium
[2017-01-14] MEDS: BUDESONIDE 0.5 MG/2 ML NEB RESP TX SCH ×2 (07:59→19:40)
--- NOTE | 2017-01-14 08:02 | XRay Report ---
Exam: XR chest 1V portable Date: 01/14/2017 7:43 AM Indication: Follow-up ventilator respiratory failure Comparison: 01/13/2017 Technical: AP portable Findings: Endotracheal tube at the level aortic knob. Nasogastric traverses esophagus into the stomach. A left-sided cardiac pacing device with atrial ventricular leads present. Cardiomegaly with previous sternotomy. ASVD is present. Low volume effusions are suspected bilaterally. Patchy alveolar interstitial densities are present bilaterally. No pneumothorax. Impression: 1. Stable appearance of the endotracheal tube with interval placement of a nasogastric tube into the stomach with decompression of the stomach. 2. Cardiomegaly with previous sternotomy and alveolar infiltrates and effusions bilaterally 3. Stable position a cardiac pacing device. PROCEDURE INTERPRETED AT [facility] DEPARTMENT OF RADIOLOGY Final Report Signed by: Dr. Lio Bowen
[2017-01-14] MEDS: NEBIVOLOL 5 MG TABLET PO SCH ×2 (09:29→09:46)
[2017-01-14] MEDS: MUPIROCIN 2% OINT 22 GM TUBE TOP SCH ×2 (09:29→21:46)
[2017-01-14] MEDS: MAGNESIUM CHLORIDE 64 MG TABLET PO SCH ×2 (09:29→21:47)
[2017-01-14] MEDS: POTASSIUM CHLORIDE 20 MEQ/15 ML UDCUP PER TUBE SCH ×2 (09:29→21:46)
[2017-01-14] MEDS: DOCUSATE SODIUM 100 MG CAPSULE PO SCH (09:30)
[2017-01-14] MEDS: FUROSEMIDE 40 MG TABLET PO SCH (09:30)
[2017-01-14] MEDS: ROSUVASTATIN 10 MG TABLET PO SCH (09:30)
[2017-01-14] MEDS: AZITHROMYCIN INJ 500 MG in SODIUM CHLORIDE 0.9% 250 ML IV SCH (09:30)
[2017-01-14] MEDS: APIXABAN 2.5 MG TABLET PO SCH ×2 (09:30→21:46)
[2017-01-14] MEDS: CLORAZEPATE 3.75 MG TABLET PO SCH ×2 (09:30→21:47)
[2017-01-14] MEDS: ASPIRIN EC 81 MG TABLET PO SCH (09:30)
[2017-01-14] MEDS: PANTOPRAZOLE 40 MG TABLET PO SCH (09:40)
[2017-01-14] MEDS: LANSOPRAZOLE ODT 30 MG TABLET PO SCH (09:42)
--- NOTE | 2017-01-14 09:46 | Pulmonology Progress Note ---
Pulmonary - PN: Subj Interval history: This is a 76-year-old white female whom I saw in pulmonary consultation on 2016. She had had progressive shortness of breath and had chest x-ray changes along with progressive hypoxemia. My impressions were. 1. Diffuse 5 lobe interstitial and alveolar infiltrate. Suspect this will electrode turner and finisher to be amiodarone lung. Note the presence of Velcro rales. Watch closely for the possibility of atypical pulmonary edema 2. COPD 3. Significant past history tobacco abuse. Stop smoking 2004 4. Normal TSH with elevated free T4 most likely secondary to amiodarone. 5. 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 6. Mild chronic renal failure and 1 nonfunctioning kidney followed by Dr. Martín Hays 7. Chronic anemia 8. Atrial fibrillation. Plan. 1. Stop amiodarone 2. Chest x-ray and ABGs daily 4 3. C-reactive protein and erythrocyte sedimentation rate 4. Repeat BNP 5. Increase Solu-Medrol to 40 mg every 8 hours 6. See orders 7. Dr. Tristan dickens and I have discussed the case and we have coordinated her care. 01/05/2017. Today's chest x-ray still shows 5 lobe interstitial and alveolar infiltrates but these appear to be a little different and a little less dense allowing for technique. The patient says she feels better. Her O2 has improved slightly she has erosions in her nose and with her to try different apparatus for her oxygen and will use Bactroban in her nares. There are no new microbiology reports. FiO2 of 44%, pH is 7.418, PO2 is 40.4, PO2 is 59.9 bicarb is 25.7. White count is 10,700 with 90.8 segs. H&H is 9.3/28.6. Sodium is 134 and potassium is 3.3. Cardiology will adjust this. Creatinine has increased to 2.00 with a BUN of 51. I think the patient is becoming a little over diuresed and I have stopped her Lasix which was 40 mg twice daily. Patient fell Velcro rounds have disappeared. 01/06/2017. This patient has amiodarone lung. This will be the third day she is off amiodarone. She is on Solu-Medrol 40 IV push q. 8. Today's chest x-ray looks markedly better. She still has 5 lobe alveolar and interstitial infiltrates but these are rapidly resolving. Today's O2 has not improved significantly but I expect that to follow. We need to continue the present treatment for right now impaired attention to her heart rhythm. Potassium is low at 3.2 and replacement as needed. H&H is stable at 9.6/29.9. White count is 9289 segs. TSH is normal. Free T4 is elevated most likely secondary to amiodarone. 01/08/2017. On steroids the patient's lung (chest x-ray) is looking much better. Her breath sounds are much improved. So far her ABGs have not improved a good bit. Hopefully this will follow soon. Off diuretics creatinine is dropped from 2.0-1.30 with a BUN of 35. Electrolytes are normal. CBC is stable. 01/09/2017. Patient had a fall yesterday. She was on the commode and slumped forward and injured her face. She has had CT scan of the face and brain these are negative. She is fine from a neurological standpoint today and embarrassed by the episode. Patient's chest is clear at this time goes by. Her O2 sats have not improved but she is found if she lays on the right side and takes several deep breaths her oxygen improved. I think we will just have to wait this out but this should begin to improve. Orders have been reviewed and note that Lasix has been restarted. With holding Lasix creatinine is dropped from 2.00-1.20 with a BUN of 32. Sodium is 134 and potassium is 4.3. White count is 11,200 with 84 segs. H&H is 8.9/27.3. I have not repeated the patient's blood gases since she is asked that we hold this if at all possible. 01/10/2017. This 76-year-old white female has amiodarone lung. After stopping amiodarone and starting Solu-Medrol 40 IV push every 8 hours her chest x-ray has improved remarkably. She however remains hypoxemia and hopefully this will be improved soon. Earlier in the patient's hospitalization she was slightly over diuresed and her creatinine went up to 1.6 with a BUN of 45. Creatinine is now 1.30 with a BUN of 36. Patient's on a lower dose of diuretics. Watch closely. White blood cell count is 14,500 with 86 segs. H&H is stable at 9.2/ 28.1. Platelets are 190,000. There are no positive cultures. Patient had a fall on 01/08/2017. CT of the face and head of been normal. She does have some mild contusions and bruises on her face. She was on Eliquis. There is a history of atrial fib. At the present time we will continue to follow her chest x-ray. Will wait for her oxygenation to improve and will watch her kidney status. 01/13/2017. During this weekend the patient was moved to intensive care. Her chest x-ray which is shown a very good improvement with steroids regressed and as she has a 5 lobe alveolar filling defect with increased interstitial markings. She was being treated for amiodarone lung. Even though her chest x- ray improved her ABGs did not improve and they have recently deteriorated. We are at the point that this needs to be treated as adult respiratory distress syndrome. That necessitates mechanical ventilation with PEEP and pressure support. I have discussed this with the patient and she is agreeable. I discussed it with Dr. Alex Starks and Dr. Sam Martell and they were agreeable. I have asked anesthesia to electively intubate the patient. I will start her on P and later will add IMV and pressure support. Electrolytes are normal. Creatinine is 1.4. H&H is stable at 9.2/28.9. White count is 13,500 with 91 segs. Platelets are 149,000. Natruretic peptide is 267 01/14/2017. This patient required intubation mechanical ventilation secondary to adult respiratory distress syndrome which is secondary to amiodarone. Today' s chest x-ray shows some improvement in a generalized 5 lobe alveolar infiltrates with surrounding interstitial edema. Endotracheal tube is in good position. ABGs on mechanical ventilation FiO2 of 100%. PEEP of 5 and pressure support of 12 shows a pH 7.537. PCO2 45.8. PO2 of 115 a bicarb of 35.2. Electrolytes are normal. Creatinine is increased to 1.50 with BUN of 56. We may need to stop either the patient's Lasix or her valsartan. H&H is 9.3/29.4. White count is 15,800 with 87% segs and platelets 148,000. Physical exam. Vital signs see below Psychiatric oriented 3. On 01/13/2017 this patient's mental status and reasoning ability were normal. As noted above we discussed whether not to proceed with intubation mechanical ventilation. Her ultimate reason was she had 2 grandchildren and she felt like they needed her. Cranial nerves are intact Long track motor functions intact Chest. Wheeze free. Velcro rales have disappeared. No chest wall tenderness. Heart. No definite gallop. Abdomen. Nontender. Positive bowel sounds. Extremities. No edema Neck. Symmetrical kyphotic with no meningismus Lymphatics. No submandibular cervical supraclavicular adenopathy. The remainder of the physical exam is noncontributory Plan. 01/05/2017 1. DC Lasix, 40 mg p.o. twice daily was her dose 2. Monitor BUN/creatinine sodium and potassium 3. Continue steroids 4. Daily chest x-rays and ABGs to we can see clear-cut improvement. 5. Today I asked the patient admits she has not seen anyone in pulmonary before she says on one occasion she saw Dr. Minesh Whaley. She requested to change to my service and after we discussed this I agree. She has some family members to see me. She is related to Tahira dorado 01/06/2017. 1. See today's note above. 2. Amiodarone lung which is improving. Continue steroids and follow chest x- ray and ABGs. 3. Replacement of potassium 01/08/2017. 1. See today's note above. 2. Amiodarone lung is improving by chest x-ray and physical exam criteria. 3. Continue present regimen including Solu-Medrol 40 IV push every 8 hours 01/09/2017. 1. See today's note above 2. For tomorrow morning I have ordered a 2 view chest x-ray. #3 continue to monitor O2 sats. 01/10/2017. 1. See today's note above. 2. Chest x-ray pending. Repeat Friday and Friday 3. Follow-up BMP 4. Supplemental oxygen. #5 continue Solu-Medrol 40 IV push every 8 hours. 01/13/2017. 1. See today's note. Above. 2. Continue Solu-Medrol 3. Intubation mechanical ventilation. Treat amiodarone lung as adult respiratory distress syndrome. 01/14/2017 1. Gradually increasing creatinine. Consider stopping Lasix and/or valsartan. 2. Slight improvement in ABGs. This looks like it is going to be slow. 3. Mechanical ventilation weaning protocol 4. Physical therapy protocol. 5. Deep venous thrombophlebitis prevention protocol 6. Proton pump inhibitor protocol 7. Discontinue Zithromax. Exam (Progress Note) - Constitutional Vitals: Period Temp Pulse Resp BP Sys/Scott Pulse Ox Last 24 Hr 97.8 F-98.2 F 73-102 16-26 70-126/42-72 81-100 Results - Labs CBC & BMP: 01/14/17 05:06 01/14/17 05:06
--- NOTE | 2017-01-14 11:08 | Post Interventional Procedure ---
Pre-op diagnosis: Intubated, ARDS, limited PIV access Post-op diagnosis: same Procedure: LUE mid-length PICC to left subclavian vein Flouroscopy: 0.4 min Radiologist: John Harris Anesthesia: local Specimens: none sent Estimated blood loss: none Complications: none Description/Findings: Unable to pass wire through innominant vein. Situated a mid-length catheter in the left subclavian vein. Assessment and Plan - Time spent with patient Time spent with patient: Less than 30 minutes
--- NOTE | 2017-01-14 13:10 | Interventional Radiology Rpt ---
IR PICC line insertion, US guide vascular access Indication: ARDS with intubation and very limited peripheral IV access. PICC LINE Description: A formal timeout was performed. Maximum sterile barrier technique was used. Sonographic evaluation of the left upper extremity demonstrates patent and compressible brachial vein. The upper arm was prepped and draped in sterile fashion. 3 cc 1% lidocaine was administered subcutaneously. Under sonographic guidance, a micropuncture needle was advanced into the vein. A captured sonographic image documents the position of the needle. Needle was exchanged over a wire for a peel-away sheath. The wire would not pass through the innominate vein which appears stenosed secondary to pacemaker device. Number, I elected to place a midline PICC. A dual lumen power PICC, cut to 32 cm, was advanced over the wire until the tip was in the left subclavian vein. The position of the catheter was confirmed with fluoroscopic guidance and an image stored in PACS. The wire and sheath were removed. Both ports of the PICC were aspirated and flushed with heparinized saline. The device was secured with a StatLock. Fluoroscopy: 0.4 minutes. Impression: Midline PICC line ready for immediate use, tip terminating left subclavian vein. Routine catheter care. Innominate vein occlusion/stenosis with pacemaker leads present. PROCEDURE INTERPRETED AT [facility] DEPARTMENT OF RADIOLOGY Final Report Signed by: oJhn Harris M.D.
[2017-01-14] MEDS: PROPOFOL 1,000 MG/100 ML BOTTLE IV SCH ×2 (17:02→20:00)
[2017-01-14] MEDS: DESITIN 4OZ/NYSTATIN 15 GRAM MIXTURE PASTE TOP SCH (21:47)
[2017-01-15] MEDS: methylPREDNISolone SOD SUC 40 MG/1 ML VIAL IV SCH ×4 (01:18→18:31)
[2017-01-15 03:51] LABS: ABG Base Excess 12.6 MMOL/L (-2.5-2.5); ABG HCO3 36.4 MMOL/L (20-26); ABG Oxygen Saturation 98.2 % (95-100); ABG PCO2 47.5 MM HG (35-48); ABG PH 7.506 (7.35-7.45); ABG TCO2 33.9 MMOL/L (23-27); Allen Test Positive; Pt O2 Delivery Device Ventilator
[2017-01-15] MEDS: ALBUTEROL/IPRATROPIUM 3 ML NEB RESP TX SCH ×5 (04:00→19:18)
[2017-01-15 05:25] LABS: Basophils % 0.1 % (0.0-0.8); Hematocrit 27.9 VOL% (35.7-47.0); Hemoglobin 8.9 GM/DL (12.0-16.0); Immature Granulocytes % 2.5 %; Immature Granulocytes Absolute 0.37 #; Lymphocytes # 0.2 10*3/uL (1.4-4.0); Lymphocytes % 1.6 % (21.3-54.2); Mean Corpuscular HGB Conc 31.9 GM/DL (32-36); Mean Corpuscular Hemoglobin 29 PG (27-34); Mean Corpuscular Volume 91.2 FL (87-102); Mean Platelet Volume 11.2 FL (9.6-12.0); Monocytes # 0.6 10*3/uL (0.11-0.8); Monocytes % 4.3 % (1.7-12.7); Neutrophils # 13.6 10*3/uL (1.4-7.4); Neutrophils % 91.5 % (38.7-73.9); Platelet Count 135 T/CUMM (130-400); Red Blood Count 3.06 MC/CUMM (3.8-5.5); Red Cell Distribution Width 15.9 % (9.3-17.3); White Blood Count 14.9 T/CUMM (4-12)
[2017-01-15 05:52] LABS: Band Neutrophils 2 % (0-10); Hypochromasia 1+; Lymphocytes 3 % (20-55); Microcytosis 1+; Segmented Neutrophils 93 % (50-85); Total Cells Counted 100
[2017-01-15 05:53] LABS: Calcium 8.3 MG/DL (8.5-10.1); Magnesium 2.3 MG/DL (1.8-2.4); Osmolality,Calculated 308.7 MOS/KG (273-304); Ovalocytes Slight; Potassium 3.8 MMOL/L (3.5-5.1)
[2017-01-15] MEDS: LEVOTHYROXINE 50 MCG TABLET PO SCH (06:14)
[2017-01-15] MEDS: POTASSIUM CHLORIDE RIDER 10 MEQ in PREMIX 1 EACH IV PRN ×2 (06:20→07:30)
[2017-01-15] MEDS: BUDESONIDE 0.5 MG/2 ML NEB RESP TX SCH ×2 (07:23→19:18)
--- NOTE | 2017-01-15 07:24 | XRay Report ---
Exam: XR chest 1V portable Date: 01/15/2017 4:00 AM Indication: Follow-up ventilator respiratory failure Comparison: 01/14/2017. Technical: AP portable Findings: Endotracheal tube at the level of the aortic knob. Nasogastric tube is present. A cardiac pacing device and placement left-sided approach. Sternotomy wires are present. Alveolar interstitial infiltrates are present. Some motion artifact is present. Low volume effusions are noted. Mediastinum is intact. Impression: 1. Stable position of life-support tubing 2. Cardiomegaly 3. Persistent alveolar interstitial infiltrates and tiny effusions. The study is slightly limited with respiratory motion artifact PROCEDURE INTERPRETED AT [facility] [place] DEPARTMENT OF RADIOLOGY Final Report Signed by: Dr. Lio Bowen
--- NOTE | 2017-01-15 07:41 | Family Practice Progress Note ---
Family Practice - PN: Subj Interval history: Pt is awake and alert and miserable on the ventilator. Pt still requiring 100% O2. CXR unchanged from yesterday. Her niece was present and we discussed the situation. Exam (Progress Note) - Constitutional Vitals: Period Temp Pulse Resp BP Sys/Scott Pulse Ox Last 24 Hr 96.6 F-97.4 F 75-105 20-122 76-152/28-80 96-100 Exam: Objective a well-developed white female in no acute distress on the ventilator. She is awake and alert and follows simple commands. Cardiovascular: Heart rates regular I hear no murmurs or gallops respiratory: Respiratory: Patient has scattered inspiratory rales in all lung [place]. This is about the same as it was yesterday. CXR is unchanged Abdomen: Abdomen soft and nontender. Results - Labs CBC & BMP: 01/15/17 04:00 01/15/17 04:00 Lab Results: I have reviewed the past 24 hour labs Assessment and Plan (1) COPD (chronic obstructive pulmonary disease) Status: Chronic Assessment and plan: 01/08/2017: We will continue present therapy. 01/09/2017: Patient is slowly improving. 01/10/2017: Patient is slowly improving 01/13/2017: Patient is tolerating her Ventimask. Chest x-ray showed slight improvement with increasing steroids. Current Visit: Yes (2) Amiodarone pulmonary toxicity Status: Acute Assessment and plan: 01/08/2017: We will continue to hold her amiodarone of course. 01/09/2017: Patient is slowly improving. 01/10/2017: Patient is certainly improved with IV steroids. 01/13/2017: Patient improved with increase in steroids. 01/14/2017: Patient presently on ventilator and is oxygenating adequately. 01/15/2017: No significant change from yesterday. Current Visit: Yes
--- NOTE | 2017-01-15 08:00 | Cardiology Progress Note ---
<Cherelle Muller - Last Filed: 01/15/17 08:31> Assessment and Plan (1) Amiodarone pulmonary toxicity Status: Acute Assessment and plan: See plan of care listed below. Current Visit: Yes (2) COPD (chronic obstructive pulmonary disease) Status: Chronic Assessment and plan: SEE PLAN OF CARE LISTED BELOW Current Visit: Yes (3) Congestive cardiac failure Status: Chronic Assessment and plan: SEE PLAN OF CARE LISTED BELOW Current Visit: Yes Qualifiers: Congestive heart failure type: diastolic Congestive heart failure chronicity: acute on chronic Qualified Code(s): I50.33 - Acute on chronic diastolic (congestive) heart failure (4) Coronary artery disease involving coronary bypass graft Status: Chronic Assessment and plan: SEE PLAN OF CARE LISTED BELOW Current Visit: Yes Qualifiers: [place] vs. transplanted heart: [place] heart Associated angina: without angina Qualified Code(s): I25.810 - Atherosclerosis of coronary artery bypass graft(s) without angina pectoris (5) History of TIA (transient ischemic attack) Status: Chronic Assessment and plan: SEE PLAN OF CARE LISTED BELOW Current Visit: No (6) dual-chamber pacemaker Status: Chronic Assessment and plan: SEE PLAN OF CARE LISTED BELOW Current Visit: Yes (7) Former smoker Status: Chronic Assessment and plan: SEE PLAN OF CARE LISTED BELOW Current Visit: No (8) Chronic anemia Status: Chronic Assessment and plan: SEE PLAN OF CARE LISTED BELOW Current Visit: Yes (9) Dyslipidemia Status: Chronic Assessment and plan: SEE PLAN OF CARE LISTED BELOW Current Visit: Yes (10) Chronic anticoagulation Status: Chronic Assessment and plan: SEE PLAN OF CARE LISTED BELOW Current Visit: Yes (11) Paroxysmal a-fib Status: Chronic Assessment and plan: SEE PLAN OF CARE LISTED BELOW Current Visit: No (12) Hypertension Status: Chronic Assessment and plan: SEE PLAN OF CARE LISTED BELOW Current Visit: Yes Qualifiers: Hypertension type: essential hypertension Qualified Code(s): I10 - Essential (primary) hypertension (13) Hypokalemia Status: Acute Assessment and plan: See plan of care listed below. Current Visit: Yes (14) Chronic renal failure, stage 3 (moderate) Status: Acute Assessment and plan: See plan of care listed below. Current Visit: Yes Cardiology - PN: Subj Interval history: [employer] School: Dr. Herbert PCP: Dr. Alex Starks SUMMARY - Ms. Quiros is a 76 year old female with known history of coronary artery disease, routinely followed by Dr. Herbert. Patient's PMH includes: hypertension, dyslipidemia, former smoker, COPD, chronic anemia, anterior myocardial infarction and paroxysmal atrial fibrillation. 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 She had a nuclear cardiac stress test August 2015 which revealed normal myocardial perfusion scan that did not suggest the presence of significant coronary ischemia. Normal LV systolic function with ejection fraction estimated to be 57 %. Normal end-diastolic volume. Patient admitted with respiratory insufficiency. Pneumonitis was diagnosed, with amiodarone as possible etiology. Was also diuresed due to acute on chronic CHF due to diastolic dysfunction. Preserved systolic function, grade 1 diastolic dysfunction. No ACS. No recent A. fib. Patient is being treated for amiodarone lung. Her amiodarone has been discontinued we will continue aggressive steroid therapy. She has worsened to the point that she required intubation and mechanical ventilation and positive pressure which hopefully will improve her oxygenation. JANUARY 15, 2017 UPDATE - Patient was seen and examined in the ICU. She has done well overnight. She continues to be ventilated. This morning, she is awake on the ventilator and able to follow all commands. Hematoma noted to face. Patient is status post fall. Telemetry has been reviewed and no atrial fibrillation has been noted since amiodarone has been discontinued. It appears that she is in sinus rhythm with occasional PACs. Will get an EKG to confirm. We will continue to monitor her on the heart monitor and consider adding renally dose to sotalol if recurrent A. fib occurs. Vital signs are stable. H& H is stable at 8.9 and 27.9. No active bleeding noted. Creatinine of 1.4 with BUN of 58. We will continue to monitor this with daily BMP. I will discuss further with Dr. Martell and await his additional recommendations. ASSESSMENT/PLAN: 1. AMIODARONE LUNG - Amiodarone has been discontinued. Continue aggressive steroid therapy. Currently being treated as ARDS. Management per pulmonary. 2. COPD EXACERBATION - Chest ray is improving with steroid therapy. Will defer management of this to attending/pulmonary. 3. CONGESTIVE HEART FAILURE, DYSTOLIC DYSFUNCTION - Compensated. Echocardiogram this admission reveals preserved ejection fraction of 60% with grade 1 diastolic dysfunction. Patient was successfully diuresed with Lasix. Suspect that patient's hypoxia is primarily a lung issue. 4. CORONARY ARTERY DISEASE, STATUS POST CABG 2010 - Patient is status post CABG 2010 with a AZAR to LAD and SVG to circumflex artery. This appears to be clinically stable at present, no ACS. Intermittent jaw and elbow pain, occurs at rest. Her angina was atypical in the past. She will need ischemic reevaluation, once recovers from her acute pulmonary issues. No ACS. If remains stable, this may be pursued as an outpatient. 5. HYPERTENSION - Overall, this is under well control. Will monitor blood pressure and further adjust as needed throughout her hospitalization. 6. FORMER SMOKER - Reports that she quit smoking in 2004. 7. HISTORY OF DUAL CHAMBER PACEMAKER - Continue current plan of care. Patient had dual-chamber pacemaker placed 2013 as she has history of paroxysmal atrial fibrillation and developed sick sinus syndrome with tachybradycardia components. 8. CHRONIC ANEMIA - Stable. Patient reports that she receives iron transfusions occasionally. Her last transfusion was April 2016. Most recent H&H is noted to be 8.9 and 27.9. Patient is chronically anticoagulated with Eliquis for her paroxysmal atrial fibrillation. This will be continued at this time as patient is a high risk for recurrent stroke, history of TIA. Will monitor H&H with daily CBC. 9. DYSLIPIDEMIA - Continue lipid-lowering agent. 10. CHRONIC ANTICOAGULATION - Patient is chronically anticoagulated with Eliquis as she has paroxysmal atrial fibrillation. Facial hematoma post fall. If this grows or if H&H drops may need to hold anticoagulation. CHADSVASC score of 7. 11. HISTORY OF PAF - Amiodarone has been discontinued this admission due to suspected pulmonary toxicity. She is chronically anticoagulated with Eliquis. At this point, we will continue beta-blockade and monitor closely on lunchroom monitor. If symptomatic AF recurs, we may consider renally adjusted sotalol. 12. HISTORY OF TIA - Patient reports history of TIA. She is currently chronically anticoagulated with Eliquis. 13. HYPOKALEMIA - Resolved 14. CHRONIC RENAL FAILURE, STAGE 3 WITH NONFUNCTIONING KIDNEY - Patient routinely followed by Dr. Martín Hays. Monitor with daily BMP. Further plan and addendum to follow per Dr. Martell. Exam (Progress Note) - Constitutional Vitals: Period Temp Pulse Resp BP Sys/Scott Pulse Ox Last 24 Hr 96.6 F-97.4 F 75-105 20-122 76-152/28-80 96-100 Exam: General: Appears comfortable on the ventilator. HEENT: PERRL, normocephalic, facial hematoma noted. No jaundice noted. Conjunctiva moist and clear, sclerae anicteric Neck: No JVD/HJR, no thyromegaly or lymphadenopathy noted. No carotid bruit appreciated Cardiac: Regular rate and rhythm. 2/6 systolic murmur. Lungs: Decreased breath sounds. Patient ventilated. Abdomen: Soft, bowel sounds normoactive. Nontender and nondistended. No abdominal bruit or thrill noted. No masses noted. Extremities: No clubbing, edema or cyanosis noted. Upper extremity pulses 2+. Lower extremity pulses 2+. Capillary refill less than 3 seconds. Neuro: Unable to fully assess as patient is ventilated. She is awake and able to follow commands. Result/EKG - Labs CBC & BMP: 01/15/17 04:00 01/15/17 04:00 Lab Results: I have reviewed the past 24 hour labs Labs: Laboratory Results - last 24 hr 01/15/17 01/15/17 01/15/17 03:43 04:00 04:00 WBC 14.9 H RBC 3.06 L Hgb 8.9 L Hct 27.9 L MCV 91.2 MCH 29 MCHC 31.9 L RDW 15.9 Plt Count 135 MPV 11.2 Neut % (Auto) 91.5 H Lymph % (Auto) 1.6 L [place] % (Auto) 4.3 Eos % (Auto) 0.0 Baso % (Auto) 0.1 Neut # (Auto) 13.6 H Lymph # (Auto) 0.2 L [place] # (Auto) 0.6 Eos # (Auto) 0.0 Baso # (Auto) 0.0 Total Counted 100 Immature Gran % 2.5 Nucleated RBC % 0.0 Immature Gran # 0.37 Segmented Neutrophils 93 H Band Neutrophils 2 Lymphocytes 3 L Monocytes 2 Nucleated RBCs # 0.00 Hypochromasia 1+ Microcytosis 1+ Ovalocytes Slight Morphology Comment ABG pH 7.506 H ABG pCO2 47.5 ABG pO2 121.0 H ABG HCO3 36.4 H ABG Total CO2 33.9 H ABG O2 Saturation 98.2 ABG Base Excess 12.6 H FiO2 100.00 Sodium 145 Potassium 3.8 Chloride 100 Carbon Dioxide 36 H Anion Gap 12.8 BUN 58 H Creatinine 1.40 H GFR Calculation 38 BUN/Creatinine Ratio 41.00 H Glucose 180 H Calculated Osmolality 308.7 H Calcium 8.3 L Magnesium 2.3 <John Martell - Last Filed: 01/15/17 10:26> Cardiology - PN: Subj Interval history: Patient is awake alert on the ventilator. Her rhythm is stable and we are continuing support. Hopefully can begin the weaning process in the next several days. Overall I think she is making reasonable progress. I reviewed our plans with the family. I have discussed in detail the particulars of this case and I have examined the patient and reviewed the patient's chart both current and old. I was directly involved in the patient's evaluation and management and I completely agree with Cherelle Muller HANDLE LATHE OPERATOR regarding this patient's evaluation and treatment plan. Exam (Progress Note) - Constitutional Vitals: Period Temp Pulse Resp BP Sys/Scott Pulse Ox Last 24 Hr 96.6 F-97.2 F 85-105 20-122 76-152/28-80 96-100 Result/EKG - Labs CBC & BMP: 01/15/17 04:00 01/15/17 04:00 Labs: Laboratory Results - last 24 hr 01/15/17 01/15/17 01/15/17 03:43 04:00 04:00 WBC 14.9 H RBC 3.06 L Hgb 8.9 L Hct 27.9 L MCV 91.2 MCH 29 MCHC 31.9 L RDW 15.9 Plt Count 135 MPV 11.2 Neut % (Auto) 91.5 H Lymph % (Auto) 1.6 L [place] % (Auto) 4.3 Eos % (Auto) 0.0 Baso % (Auto) 0.1 Neut # (Auto) 13.6 H Lymph # (Auto) 0.2 L [place] # (Auto) 0.6 Eos # (Auto) 0.0 Baso # (Auto) 0.0 Total Counted 100 Immature Gran % 2.5 Nucleated RBC % 0.0 Immature Gran # 0.37 Segmented Neutrophils 93 H Band Neutrophils 2 Lymphocytes 3 L Monocytes 2 Nucleated RBCs # 0.00 Hypochromasia 1+ Microcytosis 1+ Ovalocytes Slight Morphology Comment ABG pH 7.506 H ABG pCO2 47.5 ABG pO2 121.0 H ABG HCO3 36.4 H ABG Total CO2 33.9 H ABG O2 Saturation 98.2 ABG Base Excess 12.6 H FiO2 100.00 Sodium 145 Potassium 3.8 Chloride 100 Carbon Dioxide 36 H Anion Gap 12.8 BUN 58 H Creatinine 1.40 H GFR Calculation 38 BUN/Creatinine Ratio 41.00 H Glucose 180 H Calculated Osmolality 308.7 H Calcium 8.3 L Magnesium 2.3
[2017-01-15] MEDS: MORPHINE 2 MG/1 ML SYRINGE IV PRN ×2 (08:02→13:34)
--- NOTE | 2017-01-15 09:18 | EKG Report ---
Stationary ECG Study [facility] Test Date: 01/15/2017 9:18:36 AM Pat Name: RAINE RIVERA Department: Room: 109 Gender: F Field Ring Assembler: Garrett : 1940 Requested by: Cherelle Muller Order Number: [id number] Reading MD: NIC GELLER Intervals [place] Rate: 85 P: 30 MA: 164 QRS: 10 QRSD: 121 T: 101 QT: 426 QTc: 468 Interpretive Statements ELECTRONIC ATRIAL PACEMAKER MODERATE INTRAVENTRICULAR CONDUCTION DELAY ST DEVIATION AND MODERATE T-WAVE ABNORMALITY, CONSIDER ANTEROLATERAL ISCHEMIA Electronically Signed On 01-15-17 09:29:58 CDT by NIC GELLER [email or web address]
[2017-01-15] MEDS: CLORAZEPATE 3.75 MG TABLET PO SCH ×2 (09:38→21:40)
[2017-01-15] MEDS: MAGNESIUM CHLORIDE 64 MG TABLET PO SCH ×2 (09:39→21:40)
[2017-01-15] MEDS: ROSUVASTATIN 10 MG TABLET PO SCH (09:40)
[2017-01-15] MEDS: DOCUSATE SODIUM 100 MG CAPSULE PO SCH (09:40)
[2017-01-15] MEDS: ASPIRIN EC 81 MG TABLET PO SCH (09:40)
[2017-01-15] MEDS: POTASSIUM CHLORIDE 20 MEQ/15 ML UDCUP PER TUBE SCH ×2 (09:40→21:39)
[2017-01-15] MEDS: FLUDROCORTISONE 0.1 MG TABLET PO SCH (09:40)
[2017-01-15] MEDS: NEBIVOLOL 5 MG TABLET PO SCH (09:40)
[2017-01-15] MEDS: LANSOPRAZOLE ODT 30 MG TABLET PO SCH (09:40)
[2017-01-15] MEDS: APIXABAN 2.5 MG TABLET PO SCH ×2 (09:40→21:40)
[2017-01-15] MEDS: MUPIROCIN 2% OINT 22 GM TUBE TOP SCH ×2 (09:41→21:39)
--- NOTE | 2017-01-15 10:25 | Pulmonology Progress Note ---
Pulmonary - PN: Subj Interval history: This is a 76-year-old white female whom I saw in pulmonary consultation on 2016. She had had progressive shortness of breath and had chest x-ray changes along with progressive hypoxemia. My impressions were. 1. Diffuse 5 lobe interstitial and alveolar infiltrate. Suspect this will return clerk to be amiodarone lung. Note the presence of Velcro rales. Watch closely for the possibility of atypical pulmonary edema 2. COPD 3. Significant past history tobacco abuse. Stop smoking 2004 4. Normal TSH with elevated free T4 most likely secondary to amiodarone. 5. 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 6. Mild chronic renal failure and 1 nonfunctioning kidney followed by Dr. Martín Hays 7. Chronic anemia 8. Atrial fibrillation. Plan. 1. Stop amiodarone 2. Chest x-ray and ABGs daily 4 3. C-reactive protein and erythrocyte sedimentation rate 4. Repeat BNP 5. Increase Solu-Medrol to 40 mg every 8 hours 6. See orders 7. Dr. Tristan dickens and I have discussed the case and we have coordinated her care. 01/05/2017. Today's chest x-ray still shows 5 lobe interstitial and alveolar infiltrates but these appear to be a little different and a little less dense allowing for technique. The patient says she feels better. Her O2 has improved slightly she has erosions in her nose and with her to try different apparatus for her oxygen and will use Bactroban in her nares. There are no new microbiology reports. FiO2 of 44%, pH is 7.418, PO2 is 40.4, PO2 is 59.9 bicarb is 25.7. White count is 10,700 with 90.8 segs. H&H is 9.3/28.6. Sodium is 134 and potassium is 3.3. Cardiology will adjust this. Creatinine has increased to 2.00 with a BUN of 51. I think the patient is becoming a little over diuresed and I have stopped her Lasix which was 40 mg twice daily. Patient fell Velcro rounds have disappeared. 01/06/2017. This patient has amiodarone lung. This will be the third day she is off amiodarone. She is on Solu-Medrol 40 IV push q. 8. Today's chest x-ray looks markedly better. She still has 5 lobe alveolar and interstitial infiltrates but these are rapidly resolving. Today's O2 has not improved significantly but I expect that to follow. We need to continue the present treatment for right now impaired attention to her heart rhythm. Potassium is low at 3.2 and replacement as needed. H&H is stable at 9.6/29.9. White count is 9289 segs. TSH is normal. Free T4 is elevated most likely secondary to amiodarone. 01/08/2017. On steroids the patient's lung (chest x-ray) is looking much better. Her breath sounds are much improved. So far her ABGs have not improved a good bit. Hopefully this will follow soon. Off diuretics creatinine is dropped from 2.0-1.30 with a BUN of 35. Electrolytes are normal. CBC is stable. 01/09/2017. Patient had a fall yesterday. She was on the commode and slumped forward and injured her face. She has had CT scan of the face and brain these are negative. She is fine from a neurological standpoint today and embarrassed by the episode. Patient's chest is clear at this time goes by. Her O2 sats have not improved but she is found if she lays on the right side and takes several deep breaths her oxygen improved. I think we will just have to wait this out but this should begin to improve. Orders have been reviewed and note that Lasix has been restarted. With holding Lasix creatinine is dropped from 2.00-1.20 with a BUN of 32. Sodium is 134 and potassium is 4.3. White count is 11,200 with 84 segs. H&H is 8.9/27.3. I have not repeated the patient's blood gases since she is asked that we hold this if at all possible. 01/10/2017. This 76-year-old white female has amiodarone lung. After stopping amiodarone and starting Solu-Medrol 40 IV push every 8 hours her chest x-ray has improved remarkably. She however remains hypoxemia and hopefully this will be improved soon. Earlier in the patient's hospitalization she was slightly over diuresed and her creatinine went up to 1.6 with a BUN of 45. Creatinine is now 1.30 with a BUN of 36. Patient's on a lower dose of diuretics. Watch closely. White blood cell count is 14,500 with 86 segs. H&H is stable at 9.2/ 28.1. Platelets are 190,000. There are no positive cultures. Patient had a fall on 01/08/2017. CT of the face and head of been normal. She does have some mild contusions and bruises on her face. She was on Eliquis. There is a history of atrial fib. At the present time we will continue to follow her chest x-ray. Will wait for her oxygenation to improve and will watch her kidney status. 01/13/2017. During this weekend the patient was moved to intensive care. Her chest x-ray which is shown a very good improvement with steroids regressed and as she has a 5 lobe alveolar filling defect with increased interstitial markings. She was being treated for amiodarone lung. Even though her chest x- ray improved her ABGs did not improve and they have recently deteriorated. We are at the point that this needs to be treated as adult respiratory distress syndrome. That necessitates mechanical ventilation with PEEP and pressure support. I have discussed this with the patient and she is agreeable. I discussed it with Dr. Alex Starks and Dr. Sam Martell and they were agreeable. I have asked anesthesia to electively intubate the patient. I will start her on P and later will add IMV and pressure support. Electrolytes are normal. Creatinine is 1.4. H&H is stable at 9.2/28.9. White count is 13,500 with 91 segs. Platelets are 149,000. Natruretic peptide is 267 01/14/2017. This patient required intubation mechanical ventilation secondary to adult respiratory distress syndrome which is secondary to amiodarone. Today' s chest x-ray shows some improvement in a generalized 5 lobe alveolar infiltrates with surrounding interstitial edema. Endotracheal tube is in good position. ABGs on mechanical ventilation FiO2 of 100%. PEEP of 5 and pressure support of 12 shows a pH 7.537. PCO2 45.8. PO2 of 115 a bicarb of 35.2. Electrolytes are normal. Creatinine is increased to 1.50 with BUN of 56. We may need to stop either the patient's Lasix or her valsartan. H&H is 9.3/29.4. White count is 15,800 with 87% segs and platelets 148,000. 01/15/2017.Today's chest x-ray is improved. There is still 5 lobe alveolar infiltrates with associated increased interstitial markings. The consolidative pattern is resolving. There is a slight improvement in ABGs. On FiO2 of 100% pH is 7.506, PCO2 is 47.5, PO2 is 121 and bicarb is 36.4. Patient's on weaning protocol. Creatinine is dropped from 1.50-1.40 with a BUN of 58. Electrolytes are normal. White count is 14,991.5 segs. H&H is 8.9/27.9 and platelets are 135, 000. There are no positive cultures. This morning I had a talk with the niece . Hernán Victor nurse practitioner and Elver Resendiz RN were present. I explained amiodarone lung and the result of adult respiratory distress syndrome and pointed out that nationally the mortality for this is 50% in all comers. Madelyn wanted to know if the patient needed bronchoscopy. I told her not now but at later date we may need 1. Physical exam. Vital signs. See below. Psychiatric. Alert and oriented. Neurologic. Cranial nerves are intact Long track motor functions intact Chest. Wheeze free. Velcro rales have disappeared. No chest wall tenderness. Heart. No definite gallop. Abdomen. Nontender. Positive bowel sounds. Extremities. No edema Neck. Symmetrical kyphotic with no meningismus Lymphatics. No submandibular cervical supraclavicular adenopathy. The remainder of the physical exam is noncontributory Plan. 01/05/2017 1. DC Lasix, 40 mg p.o. twice daily was her dose 2. Monitor BUN/creatinine sodium and potassium 3. Continue steroids 4. Daily chest x-rays and ABGs to we can see clear-cut improvement. 5. Today I asked the patient admits she has not seen anyone in pulmonary before she says on one occasion she saw Dr. Minesh Whaley. She requested to change to my service and after we discussed this I agree. She has some family members to see me. She is related to Tahira dorado 01/06/2017. 1. See today's note above. 2. Amiodarone lung which is improving. Continue steroids and follow chest x- ray and ABGs. 3. Replacement of potassium 01/08/2017. 1. See today's note above. 2. Amiodarone lung is improving by chest x-ray and physical exam criteria. 3. Continue present regimen including Solu-Medrol 40 IV push every 8 hours 01/09/2017. 1. See today's note above 2. For tomorrow morning I have ordered a 2 view chest x-ray. #3 continue to monitor O2 sats. 01/10/2017. 1. See today's note above. 2. Chest x-ray pending. Repeat Friday and Friday 3. Follow-up BMP 4. Supplemental oxygen. #5 continue Solu-Medrol 40 IV push every 8 hours. 01/13/2017. 1. See today's note. Above. 2. Continue Solu-Medrol 3. Intubation mechanical ventilation. Treat amiodarone lung as adult respiratory distress syndrome. 01/14/2017 1. Gradually increasing creatinine. Consider stopping Lasix and/or valsartan. 2. Slight improvement in ABGs. This looks like it is going to be slow. 3. Mechanical ventilation weaning protocol 4. Physical therapy protocol. 5. Deep venous thrombophlebitis prevention protocol 6. Proton pump inhibitor protocol 7. Discontinue Zithromax. 01/15/2017. 1. Creatinine is stabilized. 2. Chest x-ray showing gradual improvement and oxygenation although very poor is gradually improved Exam (Progress Note) - Constitutional Vitals: Period Temp Pulse Resp BP Sys/Scott Pulse Ox Last 24 Hr 96.6 F-97.2 F 85-105 20-122 76-152/28-80 96-100 Results - Labs CBC & BMP: 01/15/17 04:00 01/15/17 04:00
[2017-01-15] MEDS: DESITIN 4OZ/NYSTATIN 15 GRAM MIXTURE PASTE TOP SCH ×2 (11:07→21:40)
[2017-01-15] MEDS ORDERED: GLUCAGON 1 MG VIAL IM PRN (14:49)
[2017-01-15] MEDS ORDERED: DEXTROSE 50% 25 GM/50 ML VIAL IV PRN (14:49)
[2017-01-15] MEDS: PROPOFOL 1,000 MG/100 ML BOTTLE IV SCH (16:05)
[2017-01-15] MEDS: INSULIN REGULAR 100 UNIT/ML SUBCUT SCH (18:31)
--- NOTE | 2017-01-15 21:41 | Nephrology Consult Note ---
History of Present Illness Chief complaint: Renal insufficiency, solitary kidney History of present illness: Ms. Quiros is a 76 year old female whom I have followed in the past for chronic renal insufficiency and a solitary kidney. I was asked by her niece to see her. She was admitted with shortness of breath and has developed ARDS and possible amiodarone toxicity. She required intubation 2 days ago. BUN and creatinine have risen slightly over the past 2 days. Fluid balance has been negative. Home Medications Medication Instructions Recorded Confirmed Type Amiodarone Tab [Cordarone Tab] 200 mg PO DAILY 10/20/14 01/01/17 History Amlodipine Besylate 5 mg PO DAILY 10/20/14 01/01/17 History Aspirin [Ecotrin] 81 mg PO DAILY 10/20/14 01/01/17 History Fludrocortisone [Florinef] 0.1 mg PO DAILY PRN 10/20/14 01/01/17 History Apixaban [Eliquis] 2.5 mg PO BID 08/12/15 01/01/17 History Clorazepate [Tranxene] 3.75 mg PO BEDTIME 08/12/15 01/01/17 History Furosemide Tab [Lasix Tab] 40 mg PO DAILY PRN 08/12/15 01/01/17 History Magnesium Chloride [Mag Delay] 2 tablet PO BID 08/12/15 01/01/17 History Diphenoxylate/Atrop 2.5-0.025 1 tablet PO Q6H PRN 02/23/16 01/01/17 History [Lomotil Tab] Levothyroxine Tab [Synthroid Tab] 50 mcg PO DAILY 02/23/16 01/01/17 History Omeprazole [Prilosec] 20 mg PO BID 02/23/16 01/01/17 History Ondansetron Tab [Zofran Tab] 4 mg PO Q6HR PRN 02/23/16 01/01/17 History Valsartan/Hydrochlorothiazide 1 each PO DAILY 02/23/16 01/01/17 History [Valsartan-Hctz 160-12.5 mg Tab] HYDROcodone/ACETAMIN 7.5-325 1 tablet PO Q6H PRN 03/07/16 01/01/17 History [Flanagan 7.5-325] Nebivolol HCl [Bystolic] 5 mg PO DAILY 03/07/16 01/01/17 History Rosuvastatin Calcium 10 mg PO DAILY 01/01/17 01/01/17 History Nebivolol [Bystolic] 5 mg PO DAILY 01/02/17 01/02/17 History Allergies Allergy/AdvReac Type Severity Reaction Status Date / Time levetiracetam [From Keppra] Allergy Unknown/Unable Verified 01/01/17 18:30 to obtain levofloxacin [From Levaquin] Allergy Unknown/Unable Verified 01/01/17 20:54 to obtain nitroglycerin Allergy Unknown/Unable Verified 01/01/17 18:30 [From Nitro-Bid] to obtain promethazine [From Phenergan] Allergy Unknown/Unable Verified 01/01/17 18:30 to obtain meperidine [From Demerol] AdvReac Palpitation Verified 02/23/16 13:44 s milk AdvReac Nausea Verified 02/23/16 13:44 Penicillins AdvReac Unknown/Unable Verified 02/23/16 13:44 to obtain Medical,Surgical,& Family Hx - Medical History Cardio: History of: Cardiac Dysrhythmia (A-FIB), CHF, CAD, Hypertension, [place], Pacemaker (08/20), Cardiovascular Problems Neurology: History of: Seizures, TIA HEENT: History of: Eye Problem, Glaucoma Endocrine: History of: Dyslipidemia No history of: Diabetes Mellitus (IDDM), Diabetes Mellitus (NIDDM) Respiratory: History of: COPD Renal: History of: Renal Failure, Renal Problems (one kidney) Genitourinary: History of: Recurring Urinary Tract Infections Gastrointestinal: History of: Gastrointestinal Bleed (upper GI bleed), Gastrointestinal Cancer (rectal cancer), GI Problems (Rectal Cancer-- 22 inches of Colon removed 2011) Musculoskeletal: History of: Back/Neck Problems (chronic back pain), Herniated Disk No history of: Amputation Hematology: History of: Anemia Other: History of: Cancer (rectal) - Surgical History Cardiac Surgeries: Sugical HX of: Cardiac Surgery (CABG) Thoracic Surgeries: Patient denies;: Organ Transplant HEENT Surgeries: Surgical HX of: Tonsilectomy & Adenoidectomy Abdominal Surgeries: Surgical HX of: Abdominal Surgery (resection of rectal carcinoma, 2007. Explored for lap for bowel obs 2009), Appendectomy, Cholecystectomy, EGD, Hernia Repair Reproductive Surgeries: Patient denies;: Genitourinary Surgery, Gynecologic Surgery - Family History Family History: Reports;: Family Cancer (MOYHER), Family Heart Disease (FATHER) , Family Hypertension (FATHER), Family Stroke (UNCLE) Denies;: Family Diabetes, Family Psychiatric Problems - Social History Smoking Status: Former smoker Frequency of Alcohol Use: None Type of Drug Use: None Review of Systems ROS unobtainable: due to endotracheal tube Exam - Vital Signs Vital signs: Period Temp Pulse Resp BP Sys/Scott Pulse Ox Last 24 Hr 96.4 F-97.2 F 81-100 18-35 71-164/23-83 96-100 Exam: Gen.: She is intubated but he is alert and follows commands ENT: Pupils equal round reactive to light. Neck: Supple. No JVD or bruit. Cardiovascular: Regular rate and rhythm. No murmur rub or gallop Lungs: Bilateral rhonchi. Abdomen: Soft. Nontender. Positive bowel sounds. No organomegaly Extremities: No edema Results - Labs CBC & BMP: 01/15/17 04:00 01/15/17 04:00 Assessment and Plan (1) Chronic renal failure, stage 3 (moderate) Status: Acute Assessment and plan: 76-year-old woman with: * Solitary kidney * CRF stage III. Creatinine has risen during the past 2-3 days. Fluid balance has been negative. Intake is quite low since intubation. Diuretic will be held. ARB may be held if her creatinine rises. * Ventilatory failure. 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 Wean ventilator as tolerated * COPD * A. fib * CAD Current Visit: Yes (2) Solitary kidney Status: Acute Current Visit: Yes (3) Ventilatory failure Status: Acute Current Visit: Yes (4) Amiodarone pulmonary toxicity Status: Acute Current Visit: Yes (5) COPD (chronic obstructive pulmonary disease) Status: Chronic Current Visit: Yes (6) Coronary artery disease Status: Chronic Current Visit: Yes Qualifiers: Coronary Disease-Associated Artery/Lesion type: [place] artery Associated angina: without angina (7) Hypertension Status: Chronic Current Visit: Yes Qualifiers: Hypertension type: essential hypertension Qualified Code(s): I10 - Essential (primary) hypertension (8) History of atrial fibrillation Status: Chronic Current Visit: No
[2017-01-16] MEDS: ALBUTEROL/IPRATROPIUM 3 ML NEB RESP TX SCH ×6 (00:02→19:27)
[2017-01-16] MEDS: INSULIN REGULAR 100 UNIT/ML SUBCUT SCH ×5 (00:15→23:36)
[2017-01-16] MEDS: methylPREDNISolone SOD SUC 40 MG/1 ML VIAL IV SCH ×4 (00:16→18:38)
[2017-01-16] MEDS: MORPHINE 2 MG/1 ML SYRINGE IV PRN ×2 (02:35→10:05)
[2017-01-16 03:09] LABS: ABG Base Excess 9.3 MMOL/L (-2.5-2.5); ABG HCO3 33.1 MMOL/L (20-26); ABG Oxygen Saturation 98.7 % (95-100); ABG PCO2 49.5 MM HG (35-48); ABG PH 7.457 (7.35-7.45); ABG TCO2 29.9 MMOL/L (23-27); Allen Test Positive; Pt O2 Delivery Device Ventilator
[2017-01-16 05:10] LABS: Basophils % 0.1 % (0.0-0.8); Hematocrit 29.9 VOL% (35.7-47.0); Hemoglobin 9.1 GM/DL (12.0-16.0); Immature Granulocytes Absolute 0.74 #; Lymphocytes # 0.3 10*3/uL (1.4-4.0); Lymphocytes % 1.4 % (21.3-54.2); Mean Corpuscular HGB Conc 30.4 GM/DL (32-36); Mean Corpuscular Hemoglobin 29 PG (27-34); Mean Corpuscular Volume 95.2 FL (87-102); Mean Platelet Volume 11.1 FL (9.6-12.0); Monocytes # 0.8 10*3/uL (0.11-0.8); Monocytes % 4.2 % (1.7-12.7); Neutrophils # 16.5 10*3/uL (1.4-7.4); Neutrophils % 90.3 % (38.7-73.9); Platelet Count 146 T/CUMM (130-400); Red Blood Count 3.14 MC/CUMM (3.8-5.5); White Blood Count 18.3 T/CUMM (4-12)
[2017-01-16 05:30] LABS: Calcium 8.7 MG/DL (8.5-10.1); Magnesium 2.7 MG/DL (1.8-2.4); Osmolality,Calculated 314.4 MOS/KG (273-304); Potassium 4.6 MMOL/L (3.5-5.1)
[2017-01-16 06:16] LABS: Phosphorous 3.7 MG/DL (2.5-4.9); Prealbumin 16.4 MG/DL (20-40)
[2017-01-16 06:18] LABS: Band Neutrophils 2 % (0-10); Hypochromasia Slight; Lymphocytes 2 % (20-55); Platelet Estimate Adequate; Polychromasia Slight; Segmented Neutrophils 93 % (50-85); Total Cells Counted 100
[2017-01-16] MEDS: LEVOTHYROXINE 50 MCG TABLET PO SCH (06:18)
--- NOTE | 2017-01-16 07:07 | Family Practice Progress Note ---
Family Practice - PN: Subj Interval history: Patient had a good night according to nursing staff. Her O2 sats are around 100 % but she is also 100% oxygen still. She tolerated 4 hours of CPAP yesterday. Repeat chest x-ray this morning appears to be slightly improved. She denies any chest pain this morning. Her BUN is up to 70. Exam (Progress Note) - Constitutional Vitals: Period Temp Pulse Resp BP Sys/Scott Pulse Ox Last 24 Hr 96.4 F-96.8 F 65-98 18-35 71-153/23-83 97-100 Exam: Objective a well-developed white female in no acute distress on the ventilator. She is awake and alert and follows simple commands. Cardiovascular: Heart rates regular I hear no murmurs or gallops respiratory: Respiratory: Patient has scattered inspiratory rales in all lung [place] though I think these are improved.. Chest x-ray may be slightly improved. Abdomen: Abdomen soft and nontender. Results - Labs CBC & BMP: 01/16/17 04:58 01/16/17 04:58 Lab Results: I have reviewed the past 24 hour labs Assessment and Plan (1) COPD (chronic obstructive pulmonary disease) Status: Chronic Assessment and plan: 01/08/2017: We will continue present therapy. 01/09/2017: Patient is slowly improving. 01/10/2017: Patient is slowly improving 01/13/2017: Patient is tolerating her Ventimask. Chest x-ray showed slight improvement with increasing steroids. Current Visit: Yes (2) Amiodarone pulmonary toxicity Status: Acute Assessment and plan: 01/08/2017: We will continue to hold her amiodarone of course. 01/09/2017: Patient is slowly improving. 01/10/2017: Patient is certainly improved with IV steroids. 01/13/2017: Patient improved with increase in steroids. 01/14/2017: Patient presently on ventilator and is oxygenating adequately. 01/15/2017: No significant change from yesterday. 01/16/2017: Patient may be slightly improved. Current Visit: Yes
[2017-01-16] MEDS: BUDESONIDE 0.5 MG/2 ML NEB RESP TX SCH ×2 (07:14→19:27)
[2017-01-16] MEDS: POTASSIUM CHLORIDE 20 MEQ/15 ML UDCUP PER TUBE SCH ×2 (08:00→10:10)
[2017-01-16] MEDS: NEBIVOLOL 5 MG TABLET PO SCH (08:00)
[2017-01-16] MEDS: DOCUSATE SODIUM 100 MG CAPSULE PO SCH (08:09)
[2017-01-16] MEDS: APIXABAN 2.5 MG TABLET PO SCH ×2 (08:09→20:55)
[2017-01-16] MEDS: LANSOPRAZOLE ODT 30 MG TABLET PO SCH (08:09)
[2017-01-16] MEDS: ROSUVASTATIN 10 MG TABLET PO SCH (08:09)
[2017-01-16] MEDS: ASPIRIN EC 81 MG TABLET PO SCH (08:09)
[2017-01-16] MEDS: CLORAZEPATE 3.75 MG TABLET PO SCH ×2 (08:10→20:56)
[2017-01-16] MEDS: MAGNESIUM CHLORIDE 64 MG TABLET PO SCH ×2 (08:10→20:42)
[2017-01-16] MEDS: DESITIN 4OZ/NYSTATIN 15 GRAM MIXTURE PASTE TOP SCH ×2 (08:14→20:55)
[2017-01-16] MEDS: MUPIROCIN 2% OINT 22 GM TUBE TOP SCH ×2 (08:20→20:55)
--- NOTE | 2017-01-16 08:27 | XRay Report ---
Exam: XR chest 1V portable Date: 01/16/2017 4:00 AM Indication: Follow-up ventilator respiratory failure Comparison: 01/15/2017 Technical: AP Findings: Endotracheal tube at the level aortic knob. Nasogastric tube is present. Sternotomy wires are present. Cardiac pacing device with atrial ventricular leads are present. Underlying component of COPD and fibrotic scarring present. A small area of nodularity is present in the left base measuring 9 mm this could represent the nipple not otherwise clarified. No pneumothorax. Bony structures are intact. Mild cardiomegaly . Interstitial alveolar infiltrates in both bases. Impression: 1. Stable appearance of the life support tubing 2. Cardiomegaly with interstitial alveolar edema and infiltrates with some small area of nodularity could represent the nipple on the left base. Nipple markers should be used for repeat exam. PROCEDURE INTERPRETED AT [facility] DEPARTMENT OF RADIOLOGY Final Report Signed by: Dr. Lio Bowen
--- NOTE | 2017-01-16 08:34 | Cardiology Progress Note ---
<Sandie Teague E - Last Filed: 01/16/17 08:21> Assessment and Plan - Time spent with patient Time spent with patient: Greater than 30 minutes (1) UTI (urinary tract infection) Status: Acute Assessment and plan: SEE PLAN OF CARE LISTED BELOW Current Visit: No (2) Atrial fibrillation Status: Acute Assessment and plan: SEE PLAN OF CARE LISTED BELOW Current Visit: No Qualifiers: Atrial fibrillation type: chronic Qualified Code(s): I48.2 - Chronic atrial fibrillation (3) Coronary artery disease Status: Chronic Assessment and plan: SEE PLAN OF CARE LISTED BELOW Current Visit: Yes Qualifiers: Coronary Disease-Associated Artery/Lesion type: [place] artery Associated angina: without angina (4) History of TIA (transient ischemic attack) Status: Chronic Assessment and plan: SEE PLAN OF CARE LISTED BELOW Current Visit: No (5) Coronary artery disease involving coronary bypass graft Status: Chronic Assessment and plan: SEE PLAN OF CARE LISTED BELOW Current Visit: Yes Qualifiers: [place] vs. 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 BARRY PCP: DR. HO IRENE SUMMARY: Ms. Quiros is a 76 year old female with known history of coronary artery disease, routinely followed by Dr. Barry. Patient's PMH includes: hypertension, dyslipidemia, former smoker, COPD, chronic anemia, anterior myocardial infarction and paroxysmal atrial fibrillation. History of CKD, solitary kidney. 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 She had a nuclear cardiac stress test August 2015 which revealed normal myocardial perfusion scan that did not suggest the presence of significant coronary ischemia. Normal LV systolic function with ejection fraction estimated to be 57%. Normal end-diastolic volume. Patient admitted January 01, 2017 with respiratory failure related to acute on chronic CHF, pneumonitis (Amiodarone as possible etiology). JANUARY 15, 2017 UPDATE - Patient was seen and examined in the ICU. She has done well overnight. She continues to be ventilated. This morning, she is awake on the ventilator and able to follow all commands. Hematoma noted to face. Patient is status post fall. Telemetry has been reviewed and no atrial fibrillation has been noted since amiodarone has been discontinued. It appears that she is in sinus rhythm with occasional PACs. Will get an EKG to confirm. We will continue to monitor her on the heart monitor and consider adding renally dose to sotalol if recurrent A. fib occurs. Vital signs are stable. H& H is stable at 8.9 and 27.9. No active bleeding noted. Creatinine of 1.4 with BUN of 58. We will continue to monitor this with daily BMP. I will discuss further with Dr. Martell and await his additional recommendations. JANUARY 16, 2017: No significant change overnight. Currently being treated for ARDS. Continuing low-dose Eliquis for stroke prevention. Labs are stable this morning. WBCs elevated overnight, possibly related to her steroid. I will add a urine sample to evaluate for UTI. Blood pressure adequately controlled. Continue following labs routinely. Will further discuss with Dr. Martell and await additional recommendations. ASSESSMENT/PLAN: 1. AMIODARONE LUNG - Amiodarone has been discontinued. Continue aggressive steroid therapy. Currently being treated as ARDS. Management per pulmonary. 2. COPD EXACERBATION - Chest ray is improving with steroid therapy. Will defer management of this to attending/pulmonary. 3. CONGESTIVE HEART FAILURE, DYSTOLIC DYSFUNCTION - acute on chronic, now compensated. EF 60%, grade 1 diastolic dysfunction, NYHA Class IV. Suspect hypoxia is primarily a lung issue. 4. CORONARY ARTERY DISEASE, STATUS POST CABG 2010 - S/P CABG 2010 (AZAR to LAD, SVG to Cx.) May benefit from ischemic reevaluation once she recovers from her primary pulmonary issues. This is not ACS. 5. HYPERTENSION - Overall, this is under well control. Will monitor blood pressure and further adjust as needed throughout her hospitalization. 6. FORMER SMOKER - Reports that she quit smoking in 2004. 7. HISTORY OF DUAL CHAMBER PACEMAKER - Continue current plan of care. Patient had dual-chamber pacemaker placed 2013 as she has history of paroxysmal atrial fibrillation and developed sick sinus syndrome with tachybradycardia components. 8. CHRONIC ANEMIA - Stable. Patient reports that she receives iron transfusions occasionally. Her last transfusion was April 2016. H & H 9.1 & 29.9 this morning. Chronically anticoagulated with Eliquis for stroke prevention. Continue low dose as patient is high risk for stroke. 9. DYSLIPIDEMIA - Continue lipid-lowering agent. 10. CHRONIC ANTICOAGULATION - Eliquis for stroke prevention. Facial hematoma post fall. If this grows or if H&H drops may need to hold anticoagulation. CHADSVASC score of 7. 11. HISTORY OF PAF - Amiodarone has been discontinued this admission due to suspected pulmonary toxicity. Continue beta-blockade. If symptomatic AF recurs, we may consider renally adjusted Sotalol. 12. HISTORY OF TIA - Patient reports history of TIA. She is currently chronically anticoagulated with Eliquis. 13. HYPOKALEMIA - Resolved 14. CHRONIC RENAL FAILURE, STAGE 3 WITH NONFUNCTIONING KIDNEY - Patient routinely followed by Dr. Martín Hays. Monitor with daily BMP. Exam (Progress Note) - Constitutional Vitals: Period Temp Pulse Resp BP Sys/Scott Pulse Ox Last 24 Hr 96.4 F-96.8 F 64-98 18-30 71-150/23-64 97-100 Exam: General: [Thin female. On ventilator but wakes and responds appropriately. Frail ] HEENT: [Normocephalic, multiple ecchymotic areas noted, particularly large across the chin. Mucous membranes moist. No jaundice noted. Conjunctiva moist and clear, sclerae anicteric] Neck: No obvious JVD/HJR, no thyromegaly or lymphadenopathy noted. No carotid bruit appreciated Cardiac: [Regular rate and rhythm.] [No obvious murmur rub or gallop.] Lungs: [Coarse throughout, no wheezing noted. Symmetrical chest wall movements noted. Remains intubated. Abdomen: Soft, bowel sounds normoactive. Nontender and nondistended. No abdominal bruit or thrill noted. No masses noted. Musculoskeletal: No fluid collection. Decreased range of motion is noted. Extremities: No clubbing, cyanosis noted. [ No edema noted.] Upper extremity pulses 2+. Lower extremity pulses 1+. Capillary refill less than 3 seconds. Skin: Multiple areas of ecchymosis, skin tears. No rash. Neuro: Awake, alert, follows commands appropriately. No essential tremor is appreciated. Result/EKG - Labs CBC & BMP: 01/16/17 04:58 01/16/17 04:58 Lab Results: I have reviewed the past 24 hour labs Labs: Laboratory Results - last 24 hr 01/15/17 01/16/17 01/16/17 18:12 00:08 02:55 WBC RBC Hgb Hct MCV MCH MCHC RDW Plt Count MPV Neut % (Auto) Lymph % (Auto) [place] % (Auto) Eos % (Auto) Baso % (Auto) Neut # (Auto) Lymph # (Auto) [place] # (Auto) Eos # (Auto) Baso # (Auto) Total Counted Immature Gran % Nucleated RBC % Immature Gran # Segmented Neutrophils Band Neutrophils Lymphocytes Monocytes Nucleated RBCs # Platelet Estimate Polychromasia Hypochromasia ABG pH 7.457 H ABG pCO2 49.5 H ABG pO2 167.0 H ABG HCO3 33.1 H ABG Total CO2 29.9 H ABG O2 Saturation 98.7 ABG Base Excess 9.3 H FiO2 100.00 Sodium Potassium Chloride Carbon Dioxide Anion Gap BUN Creatinine GFR Calculation BUN/Creatinine Ratio Glucose POC Glucose 208 H 212 H Calculated Osmolality Calcium Phosphorus Magnesium Prealbumin 01/16/17 01/16/17 01/16/17 04:58 04:58 04:58 WBC 18.3 H RBC 3.14 L Hgb 9.1 L Hct 29.9 L MCV 95.2 MCH 29 MCHC 30.4 L RDW 16.0 Plt Count 146 MPV 11.1 Neut % (Auto) 90.3 H Lymph % (Auto) 1.4 L Carlton % (Auto) 4.2 Eos % (Auto) 0.0 Baso % (Auto) 0.1 Neut # (Auto) 16.5 H Lymph # (Auto) 0.3 L [place] # (Auto) 0.8 Eos # (Auto) 0.0 Baso # (Auto) 0.0 Total Counted 100 Immature Gran % 4.0 Nucleated RBC % 0.0 Immature Gran # 0.74 Segmented Neutrophils 93 H Band Neutrophils 2 Lymphocytes 2 L Monocytes 3 Nucleated RBCs # 0.00 Platelet Estimate Adequate Polychromasia Slight Hypochromasia Slight ABG pH ABG pCO2 ABG pO2 ABG HCO3 ABG Total CO2 ABG O2 Saturation ABG Base Excess FiO2 Sodium 147 H Potassium 4.6 Chloride 105 Carbon Dioxide 36 H Anion Gap 10.6 BUN 70 H Creatinine 1.30 H GFR Calculation 42 BUN/Creatinine Ratio 53.00 H Glucose 131 H POC Glucose Calculated Osmolality 314.4 H Calcium 8.7 Phosphorus 3.7 Magnesium 2.7 H Prealbumin 16.4 L 01/16/17 06:10 WBC RBC Hgb Hct MCV MCH MCHC RDW Plt Count MPV Neut % (Auto) Lymph % (Auto) [place] % (Auto) Eos % (Auto) Baso % (Auto) Neut # (Auto) Lymph # (Auto) [place] # (Auto) Eos # (Auto) Baso # (Auto) Total Counted Immature Gran % Nucleated RBC % Immature Gran # Segmented Neutrophils Band Neutrophils Lymphocytes Monocytes Nucleated RBCs # Platelet Estimate Polychromasia Hypochromasia ABG pH ABG pCO2 ABG pO2 ABG HCO3 ABG Total CO2 ABG O2 Saturation ABG Base Excess FiO2 Sodium Potassium Chloride Carbon Dioxide Anion Gap BUN Creatinine GFR Calculation BUN/Creatinine Ratio Glucose POC Glucose 173 H Calculated Osmolality Calcium Phosphorus Magnesium Prealbumin - Diagnostic Findings Procedure: Chest x-ray: report reviewed by me - EKG EKG results: interpreted by ut EKG shows: atrial fibrillation <John Martell - Last Filed: 01/16/17 10:33> Cardiology - PN: Subj Interval history: Patient appears stronger to me today. She is on a CPAP trial and is tolerating it reasonably well. Dr. Herrera is attempting weaning. Overall I think she is improving slowly. I have discussed in detail the particulars of this case and I have examined the patient and reviewed the patient's chart both current and old. I was directly involved in the patient's evaluation and management and I completely agree with Sandie Teague NP regarding this patient's evaluation and treatment plan. Exam (Progress Note) - Constitutional Vitals: Period Temp Pulse Resp BP Sys/Scott Pulse Ox Last 24 Hr 96.4 F-96.8 F 64-96 18-30 71-150/23-64 97-100 Result/EKG - Labs CBC & BMP: 01/16/17 04:58 01/16/17 04:58 Labs: Laboratory Results - last 24 hr 01/15/17 01/16/17 01/16/17 18:12 00:08 02:55 WBC RBC Hgb Hct MCV MCH MCHC RDW Plt Count MPV Neut % (Auto) Lymph % (Auto) [place] % (Auto) Eos % (Auto) Baso % (Auto) Neut # (Auto) Lymph # (Auto) [place] # (Auto) Eos # (Auto) Baso # (Auto) Total Counted Immature Gran % Nucleated RBC % Immature Gran # Segmented Neutrophils Band Neutrophils Lymphocytes Monocytes Nucleated RBCs # Platelet Estimate Polychromasia Hypochromasia ABG pH 7.457 H ABG pCO2 49.5 H ABG pO2 167.0 H ABG HCO3 33.1 H ABG Total CO2 29.9 H ABG O2 Saturation 98.7 ABG Base Excess 9.3 H FiO2 100.00 Sodium Potassium Chloride Carbon Dioxide Anion Gap BUN Creatinine GFR Calculation BUN/Creatinine Ratio Glucose POC Glucose 208 H 212 H Calculated Osmolality Calcium Phosphorus Magnesium Prealbumin Urine Color Urine Appearance Urine pH Ur Specific [place] Urine Protein Urine Glucose (UA) Urine Ketones Urine Blood Urine Nitrate Urine Bilirubin Urine Urobilinogen Urine Leukocytes Urine RBC Urine WBC Ur Squamous Epith Cells Urine Bacteria Urine Mucus Ur Culture Indicated? 01/16/17 01/16/17 01/16/17 04:58 04:58 04:58 WBC 18.3 H RBC 3.14 L Hgb 9.1 L Hct 29.9 L MCV 95.2 MCH 29 MCHC 30.4 L RDW 16.0 Plt Count 146 MPV 11.1 Neut % (Auto) 90.3 H Lymph % (Auto) 1.4 L [place] % (Auto) 4.2 Eos % (Auto) 0.0 Baso % (Auto) 0.1 Neut # (Auto) 16.5 H Lymph # (Auto) 0.3 L [place] # (Auto) 0.8 Eos # (Auto) 0.0 Baso # (Auto) 0.0 Total Counted 100 Immature Gran % 4.0 Nucleated RBC % 0.0 Immature Gran # 0.74 Segmented Neutrophils 93 H Band Neutrophils 2 Lymphocytes 2 L Monocytes 3 Nucleated RBCs # 0.00 Platelet Estimate Adequate Polychromasia Slight Hypochromasia Slight ABG pH ABG pCO2 ABG pO2 ABG HCO3 ABG Total CO2 ABG O2 Saturation ABG Base Excess FiO2 Sodium 147 H Potassium 4.6 Chloride 105 Carbon Dioxide 36 H Anion Gap 10.6 BUN 70 H Creatinine 1.30 H GFR Calculation 42 BUN/Creatinine Ratio 53.00 H Glucose 131 H POC Glucose Calculated Osmolality 314.4 H Calcium 8.7 Phosphorus 3.7 Magnesium 2.7 H Prealbumin 16.4 L Urine Color Urine Appearance Urine pH Ur Specific [place] Urine Protein Urine Glucose (UA) Urine Ketones Urine Blood Urine Nitrate Urine Bilirubin Urine Urobilinogen Urine Leukocytes Urine RBC Urine WBC Ur Squamous Epith Cells Urine Bacteria Urine Mucus Ur Culture Indicated? 01/16/17 01/16/17 06:10 09:15 WBC RBC Hgb Hct MCV MCH MCHC RDW Plt Count MPV Neut % (Auto) Lymph % (Auto) [place] % (Auto) Eos % (Auto) Baso % (Auto) Neut # (Auto) Lymph # (Auto) [place] # (Auto) Eos # (Auto) Baso # (Auto) Total Counted Immature Gran % Nucleated RBC % Immature Gran # Segmented Neutrophils Band Neutrophils Lymphocytes Monocytes Nucleated RBCs # Platelet Estimate Polychromasia Hypochromasia ABG pH ABG pCO2 ABG pO2 ABG HCO3 ABG Total CO2 ABG O2 Saturation ABG Base Excess FiO2 Sodium Potassium Chloride Carbon Dioxide Anion Gap BUN Creatinine GFR Calculation BUN/Creatinine Ratio Glucose POC Glucose 173 H Calculated Osmolality Calcium Phosphorus Magnesium Prealbumin Urine Color Yellow Urine Appearance Cloudy Urine pH 5.0 Ur Specific [place] 1.017 Urine Protein Negative Urine Glucose (UA) Negative Urine Ketones Negative Urine Blood Moderate Urine Nitrate Negative Urine Bilirubin Negative Urine Urobilinogen < 2.0 H Urine Leukocytes Large H Urine RBC 4 Urine WBC 45 Ur Squamous Epith Cells Few Urine Bacteria Many Urine Mucus Few Ur Culture Indicated? Results to follow
[2017-01-16 09:31] LABS: Apearance,Urine CLOUDY (Clear); Bacteria,Urine Many /HPF (Few); Bilirubin,Urine Negative (Negative); Blood, Urine Moderate mg/dL (Negative); Glucose,Urine (UA) Negative (Negative); Ketones,Urine Negative (Negative); Mucus,Urine Few /LPF (Occasional); Nitrite,Urine Negative (Negative); Protein,Urine Negative; RBC,Urine 4 /HPF (0-4); Squamous Epithelial Cell,Urine Few /HPF (0-10); Urine Color Yellow (Yellow); Urine Specific Gravity 1.017 (1.001-1.035); Urine Urobilinogen < 2.0 EU/DL (0.2-1.0); WBC,Urine 45 /HPF (0-6)
--- NOTE | 2017-01-16 11:17 | Pulmonology Progress Note ---
Pulmonary - PN: Subj Interval history: Hernán Victor, [facility] CENTERNP-, acting as scribe for Dr. Lio Herrera This is a 76-year-old white female who we saw in pulmonary consultation on 2016. She had had progressive shortness of breath and had chest x-ray changes along with progressive hypoxemia. At the time of our initial consultation, our impressions were: 1. Diffuse 5 lobe interstitial and alveolar infiltrate. Suspect this will air turning machine feeder to be amiodarone lung. Note the presence of Velcro rales. Watch closely for the possibility of atypical pulmonary edema 2. COPD 3. Significant past history tobacco abuse. Stop smoking 2004 4. Normal TSH with elevated free T4 most likely secondary to amiodarone. 5. 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 6. Mild chronic renal failure and 1 nonfunctioning kidney followed by Dr. Martín Hays 7. Chronic anemia 8. Atrial fibrillation. Plan. 1. Stop amiodarone 2. Chest x-ray and ABGs daily 4 3. C-reactive protein and erythrocyte sedimentation rate 4. Repeat BNP 5. Increase Solu-Medrol to 40 mg every 8 hours 6. See orders 7. Dr. Tristan dickens and I have discussed the case and we have coordinated her care. 01/05/2017. Today's chest x-ray still shows 5 lobe interstitial and alveolar infiltrates but these appear to be a little different and a little less dense allowing for technique. The patient says she feels better. Her O2 has improved slightly she has erosions in her nose and with her to try different apparatus for her oxygen and will use Bactroban in her nares. There are no new microbiology reports. FiO2 of 44%, pH is 7.418, PO2 is 40.4, PO2 is 59.9 bicarb is 25.7. White count is 10,700 with 90.8 segs. H&H is 9.3/28.6. Sodium is 134 and potassium is 3.3. Cardiology will adjust this. Creatinine has increased to 2.00 with a BUN of 51. I think the patient is becoming a little over diuresed and I have stopped her Lasix which was 40 mg twice daily. Patient fell Velcro rounds have disappeared. 01/06/2017. This patient has amiodarone lung. This will be the third day she is off amiodarone. She is on Solu-Medrol 40 IV push q. 8. Today's chest x-ray looks markedly better. She still has 5 lobe alveolar and interstitial infiltrates but these are rapidly resolving. Today's O2 has not improved significantly but I expect that to follow. We need to continue the present treatment for right now impaired attention to her heart rhythm. Potassium is low at 3.2 and replacement as needed. H&H is stable at 9.6/29.9. White count is 9289 segs. TSH is normal. Free T4 is elevated most likely secondary to amiodarone. 01/08/2017. On steroids the patient's lung (chest x-ray) is looking much better. Her breath sounds are much improved. So far her ABGs have not improved a good bit. Hopefully this will follow soon. Off diuretics creatinine is dropped from 2.0-1.30 with a BUN of 35. Electrolytes are normal. CBC is stable. 01/09/2017. Patient had a fall yesterday. She was on the commode and slumped forward and injured her face. She has had CT scan of the face and brain these are negative. She is fine from a neurological standpoint today and embarrassed by the episode. Patient's chest is clear at this time goes by. Her O2 sats have not improved but she is found if she lays on the right side and takes several deep breaths her oxygen improved. I think we will just have to wait this out but this should begin to improve. Orders have been reviewed and note that Lasix has been restarted. With holding Lasix creatinine is dropped from 2.00-1.20 with a BUN of 32. Sodium is 134 and potassium is 4.3. White count is 11,200 with 84 segs. H&H is 8.9/27.3. I have not repeated the patient's blood gases since she is asked that we hold this if at all possible. 01/10/2017. This 76-year-old white female has amiodarone lung. After stopping amiodarone and starting Solu-Medrol 40 IV push every 8 hours her chest x-ray has improved remarkably. She however remains hypoxemia and hopefully this will be improved soon. Earlier in the patient's hospitalization she was slightly over diuresed and her creatinine went up to 1.6 with a BUN of 45. Creatinine is now 1.30 with a BUN of 36. Patient's on a lower dose of diuretics. Watch closely. White blood cell count is 14,500 with 86 segs. H&H is stable at 9.2/ 28.1. Platelets are 190,000. There are no positive cultures. Patient had a fall on 01/08/2017. CT of the face and head of been normal. She does have some mild contusions and bruises on her face. She was on Eliquis. There is a history of atrial fib. At the present time we will continue to follow her chest x-ray. Will wait for her oxygenation to improve and will watch her kidney status. 01/13/2017. During this weekend the patient was moved to intensive care. Her chest x-ray which is shown a very good improvement with steroids regressed and as she has a 5 lobe alveolar filling defect with increased interstitial markings. She was being treated for amiodarone lung. Even though her chest x- ray improved her ABGs did not improve and they have recently deteriorated. We are at the point that this needs to be treated as adult respiratory distress syndrome. That necessitates mechanical ventilation with PEEP and pressure support. I have discussed this with the patient and she is agreeable. I discussed it with Dr. Alex Starks and Dr. Sam Martell and they were agreeable. I have asked anesthesia to electively intubate the patient. I will start her on P and later will add IMV and pressure support. Electrolytes are normal. Creatinine is 1.4. H&H is stable at 9.2/28.9. White count is 13,500 with 91 segs. Platelets are 149,000. Natruretic peptide is 267 01/14/2017. This patient required intubation mechanical ventilation secondary to adult respiratory distress syndrome which is secondary to amiodarone. Today' s chest x-ray shows some improvement in a generalized 5 lobe alveolar infiltrates with surrounding interstitial edema. Endotracheal tube is in good position. ABGs on mechanical ventilation FiO2 of 100%. PEEP of 5 and pressure support of 12 shows a pH 7.537. PCO2 45.8. PO2 of 115 a bicarb of 35.2. Electrolytes are normal. Creatinine is increased to 1.50 with BUN of 56. We may need to stop either the patient's Lasix or her valsartan. H&H is 9.3/29.4. White count is 15,800 with 87% segs and platelets 148,000. 01/15/2017.Today's chest x-ray is improved. There is still 5 lobe alveolar infiltrates with associated increased interstitial markings. The consolidative pattern is resolving. There is a slight improvement in ABGs. On FiO2 of 100% pH is 7.506, PCO2 is 47.5, PO2 is 121 and bicarb is 36.4. Patient's on weaning protocol. Creatinine is dropped from 1.50-1.40 with a BUN of 58. Electrolytes are normal. White count is 14,991.5 segs. H&H is 8.9/27.9 and platelets are 135,000. There are no positive cultures. This morning I had a talk with the niece. Hernán Victor nurse practitioner and Elver Resendiz RN were present. I explained amiodarone lung and the result of adult respiratory distress syndrome and pointed out that nationally the mortality for this is 50% in all comers. Her niece wanted to know if the patient needed bronchoscopy. I told her not now but at later date we may need one. 01/16/2017. The patient's ABGs this morning on mechanical ventilation and an FiO2 of 100% showed pH of 7.457, PCO2 49.5, PO2 167.0, bicarb 33.1, and oxygen saturation 98.7%. We have decreased the FiO2 to 70%. Will repeat ABGs tomorrow. Chest x-ray stable. There are no positive cultures. The patient was started on tube feedings yesterday. She is reportedly tolerating this fine. Medications have been reviewed. We made no changes today. Labs have been reviewed. White count is 18,300 with 90.3% segs; H&H 9.1/29.9; platelet count 146,000; creatinine 1.30, BUN 70, sodium 147, potassium 4.6, magnesium 2.7 Exam (Progress Note) - Constitutional Vitals: Period Temp Pulse Resp BP Sys/Soctt Pulse Ox Last 24 Hr 96.4 F-96.8 F 64-96 16-30 71-150/23-64 97-100 Exam: Chest is wheeze free; the previously noted Velcro rales have resolved Heart no definite gallop Abdomen is nontender and nondistended; bowel sounds are positive 4 Extremities with nothing to suggest acute deep venous thrombophlebitis Psychiatric unchanged Neurologic unchanged Plan: Continue present treatment. Decrease FiO2 to 70%. Follow daily chest x- ray, ABGs, and labs. See orders. Results - Labs CBC & BMP: 01/16/17 04:58 01/16/17 04:58
--- NOTE | 2017-01-16 11:29 | Nephrology Progress Note ---
Nephrology - PN: Subj Interval history: She remains on the ventilator. She is awake and alert. She follows commands Exam (PN)-Nephrology - Vital Signs Vital signs: Period Temp Pulse Resp BP Sys/Scott Pulse Ox Last 24 Hr 96.4 F-96.8 F 64-96 16-30 71-150/23-64 97-100 Exam: Gen.: Alert and oriented . ENT: Intubated Neck: Supple. No JVD or bruit. Cardiovascular: Regular rate and rhythm. No murmur rub or gallop Lungs: Bilateral rhonchi Abdomen: Soft. Nontender. Positive bowel sounds. No organomegaly Extremities: No edema - Lab 01/16/17 04:58 01/16/17 04:58 Most recent lab results ABG pH 7.457 (7.35-7.45) H 01/16/17 02:55 ABG pCO2 49.5 MM HG (35-48) H 01/16/17 02:55 ABG pO2 167.0 MM HG (80-95) H 01/16/17 02:55 ABG HCO3 33.1 MMOL/L (20-26) H 01/16/17 02:55 ABG O2 Saturation 98.7 % (95-100) 01/16/17 02:55 Calcium 8.7 MG/DL (8.5-10.1) 01/16/17 04:58 Phosphorus 3.7 MG/DL (2.5-4.9) 01/16/17 04:58 Magnesium 2.7 MG/DL (1.8-2.4) H 01/16/17 04:58 Assessment and Plan (1) Chronic renal failure, stage 3 (moderate) Status: Acute Assessment and plan: 76-year-old woman with: * Solitary kidney * CRF stage III. Creatinine is slightly improved. BUN is higher, likely due to steroids. * Ventilatory failure. 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 Wean ventilator as tolerated * COPD * A. fib * CAD Current Visit: Yes (2) Solitary kidney Status: Chronic Current Visit: Yes (3) Ventilatory failure Status: Acute Current Visit: Yes (4) Amiodarone pulmonary toxicity Status: Acute Current Visit: Yes (5) COPD (chronic obstructive pulmonary disease) Status: Chronic Current Visit: Yes (6) Coronary artery disease Status: Chronic Current Visit: Yes (7) Hypertension Status: Chronic Current Visit: Yes Qualifiers: Qualified Code(s): I10 - Essential (primary) hypertension (8) History of atrial fibrillation Status: Chronic Current Visit: No
[2017-01-16] MEDS: PHENYLEPHRINE DRIP 40 MG/250 ML PREMIX IV SCH (16:26)
[2017-01-16] MEDS: PROPOFOL 1,000 MG/100 ML BOTTLE IV SCH (16:26)
[2017-01-16] MEDS ORDERED: SODIUM CHLORIDE 0.9% 250 ML IV ONE (16:53)
--- NOTE | 2017-01-16 16:53 | Family Practice Progress Note ---
Family Practice - PN: Subj Interval history: Patient blood pressures dropped to the 70/40 range. Axel-Synephrine infusion was begun. I think she is probably a little dry as her urine output is diminished and her BUN was up to 70 today. She is not having any chest pain or shortness of breath but I am going to repeat her x-ray and check some cardiac isoenzymes and EKG. Her blood pressure is 90/60 range now on Axel-Synephrine. Exam (Progress Note) - Constitutional Vitals: Period Temp Pulse Resp BP Sys/Scott Pulse Ox Last 24 Hr 96.5 F-97.9 F 64-100 16-28 100-179/23-72 92-100 Results - Labs CBC & BMP: 01/16/17 04:58 01/16/17 04:58 Assessment and Plan (1) COPD (chronic obstructive pulmonary disease) Status: Chronic Assessment and plan: 01/08/2017: We will continue present therapy. 01/09/2017: Patient is slowly improving. 01/10/2017: Patient is slowly improving 01/13/2017: Patient is tolerating her Ventimask. Chest x-ray showed slight improvement with increasing steroids. Current Visit: Yes (2) Amiodarone pulmonary toxicity Status: Acute Assessment and plan: 01/08/2017: We will continue to hold her amiodarone of course. 01/09/2017: Patient is slowly improving. 01/10/2017: Patient is certainly improved with IV steroids. 01/13/2017: Patient improved with increase in steroids. 01/14/2017: Patient presently on ventilator and is oxygenating adequately. 01/15/2017: No significant change from yesterday. 01/16/2017: Patient may be slightly improved. Current Visit: Yes
--- NOTE | 2017-01-16 17:31 | XRay Report ---
Portable chest. Indication: Shortness of breath. Comparison: Exam from earlier today. The heart is enlarged. Post median sternotomy. Distal tip of the nasogastric tube is in the fundus. Endotracheal tube is in satisfactory position. Cardiac hardware is in satisfactory position. There is worsening infiltrate present in the right lung base. Parenchymal opacities in the left lung base remains stable. No pneumothorax. Impression: Interval worsening of the infiltrate in the right lung base. The remainder the exam is unchanged PROCEDURE INTERPRETED AT [facility] DEPARTMENT OF RADIOLOGY Final Report Signed by: Dr. Cherelle Oakes
[2017-01-17] MEDS: MORPHINE 2 MG/1 ML SYRINGE IV PRN ×2 (00:15→04:32)
[2017-01-17] MEDS: ALBUTEROL/IPRATROPIUM 3 ML NEB RESP TX SCH ×6 (00:16→20:15)
[2017-01-17] MEDS: methylPREDNISolone SOD SUC 40 MG/1 ML VIAL IV SCH ×4 (00:52→18:04)
[2017-01-17 03:29] LABS: Allen Test Positive; Pt O2 Delivery Device Ventilator
[2017-01-17 03:30] LABS: ABG Base Excess 7.7 MMOL/L (-2.5-2.5); ABG HCO3 34.4 MMOL/L (20-26); ABG Oxygen Saturation 92.2 % (95-100); ABG PCO2 60.2 MM HG (35-48); ABG PH 7.375 (7.35-7.45); ABG PO2 70.6 MM HG (80-95); ABG TCO2 36.3 MMOL/L (23-27)
[2017-01-17 04:03] LABS: Basophils # 0.1 10*3/uL (0.0-0.2); Basophils % 0.2 % (0.0-0.8); Hematocrit 33.9 VOL% (35.7-47.0); Hemoglobin 10.2 GM/DL (12.0-16.0); Immature Granulocytes % 4.3 %; Lymphocytes # 0.3 10*3/uL (1.4-4.0); Lymphocytes % 0.7 % (21.3-54.2); Mean Corpuscular HGB Conc 30.1 GM/DL (32-36); Mean Corpuscular Hemoglobin 29 PG (27-34); Mean Corpuscular Volume 97.7 FL (87-102); Mean Platelet Volume 11.1 FL (9.6-12.0); Monocytes # 2.2 10*3/uL (0.11-0.8); Monocytes % 5.5 % (1.7-12.7); NRBC # 0.02 10*3/uL; Neutrophils # 35.5 10*3/uL (1.4-7.4); Neutrophils % 89.3 % (38.7-73.9); Platelet Count 242 T/CUMM (130-400); Red Blood Count 3.47 MC/CUMM (3.8-5.5); Red Cell Distribution Width 16.1 % (9.3-17.3); White Blood Count 39.8 T/CUMM (4-12)
[2017-01-17 04:28] LABS: Calcium 8.7 MG/DL (8.5-10.1); Magnesium 2.6 MG/DL (1.8-2.4); Osmolality,Calculated 317.4 MOS/KG (273-304); Potassium 5.1 MMOL/L (3.5-5.1)
[2017-01-17] MEDS: PHENYLEPHRINE DRIP 40 MG/250 ML PREMIX IV SCH ×2 (04:40→17:58)
[2017-01-17] MEDS: INSULIN REGULAR 100 UNIT/ML SUBCUT SCH ×3 (05:35→17:59)
[2017-01-17 05:41] LABS: Lymphocytes 2 % (20-55); Metamyelocytes 1 %; Platelet Estimate Normal; Segmented Neutrophils 96 % (50-85); Total Cells Counted 100
[2017-01-17] MEDS: LEVOTHYROXINE 50 MCG TABLET PO SCH (06:30)
--- NOTE | 2017-01-17 06:47 | EKG Report ---
Stationary ECG Study [facility] Test Date: 01/16/2017 5:05:30 PM Pat Name: RAINE RIVERA Department: Room: 109 Gender: F Bell Maker: CT : 1940 Requested by: Evgeny Abrams Order Number: [id number] Reading MD: GEOVANNY CAMARILLO Intervals [place] Rate: 78 P: -5 MA: 199 QRS: -4 QRSD: 110 T: 25 QT: 401 QTc: 434 Interpretive Statements ELECTRONIC ATRIAL PACEMAKER MINIMAL INTRAVENTRICULAR CONDUCTION DELAY Electronically Signed On 01-17-17 14:08:39 CDT by GEOVANNY CAMARILLO [email or web address]
--- NOTE | 2017-01-17 07:34 | Cardiology Progress Note ---
<Sandie Teague E - Last Filed: 01/17/17 07:24> Assessment and Plan - Time spent with patient Time spent with patient: Greater than 30 minutes (1) UTI (urinary tract infection) Status: Acute Assessment and plan: SEE PLAN OF CARE LISTED BELOW Current Visit: No (2) Atrial fibrillation Status: Acute Assessment and plan: SEE PLAN OF CARE LISTED BELOW Current Visit: No Qualifiers: Atrial fibrillation type: chronic Qualified Code(s): I48.2 - Chronic atrial fibrillation (3) Coronary artery disease Status: Chronic Assessment and plan: SEE PLAN OF CARE LISTED BELOW Current Visit: Yes Qualifiers: Coronary Disease-Associated Artery/Lesion type: [place] artery Associated angina: without angina (4) History of TIA (transient ischemic attack) Status: Chronic Assessment and plan: SEE PLAN OF CARE LISTED BELOW Current Visit: No (5) Coronary artery disease involving coronary bypass graft Status: Chronic Assessment and plan: SEE PLAN OF CARE LISTED BELOW Current Visit: Yes Qualifiers: [place] vs. transplanted heart: [place] heart Associated angina: without angina Qualified Code(s): I25.810 - Atherosclerosis of coronary artery bypass graft(s) without angina pectoris (6) Former smoker Status: Chronic Assessment and plan: SEE PLAN OF CARE LISTED BELOW Current Visit: No (7) Chronic anemia Status: Chronic Assessment and plan: SEE PLAN OF CARE LISTED BELOW Current Visit: Yes (8) Dyslipidemia Status: Chronic Assessment and plan: SEE PLAN OF CARE LISTED BELOW Current Visit: Yes (9) Chronic anticoagulation Status: Chronic Assessment and plan: SEE PLAN OF CARE LISTED BELOW Current Visit: Yes (10) Amiodarone pulmonary toxicity Status: Acute Assessment and plan: SEE PLAN OF CARE LISTED BELOW Current Visit: Yes (11) Chronic renal failure, stage 3 (moderate) Status: Acute Assessment and plan: SEE PLAN OF CARE LISTED BELOW Current Visit: Yes (12) Solitary kidney Status: Chronic Assessment and plan: SEE PLAN OF CARE LISTED BELOW Current Visit: Yes (13) Ventilatory failure Status: Acute Assessment and plan: SEE PLAN OF CARE LISTED BELOW Current Visit: Yes (14) UTI (urinary tract infection) Status: Acute Assessment and plan: SEE PLAN OF CARE LISTED BELOW Current Visit: Yes Cardiology - PN: Subj Interval history: Interval history: OUTSIDE PLANT ENGINEER: DR. BARRY PCP: DR. HO IRENE SUMMARY: Ms. Quiros is a 76 year old female with known history of coronary artery disease, routinely followed by Dr. Barry. Patient's PMH includes: hypertension, dyslipidemia, former smoker, COPD, chronic anemia, anterior myocardial infarction and paroxysmal atrial fibrillation. History of CKD, solitary kidney. 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 She had a nuclear cardiac stress test August 2015 which revealed normal myocardial perfusion scan that did not suggest the presence of significant coronary ischemia. Normal LV systolic function with ejection fraction estimated to be 57%. Normal end-diastolic volume. Patient admitted January 01, 2017 with respiratory failure related to acute on chronic CHF, pneumonitis (Amiodarone as possible etiology). JANUARY 15, 2017 UPDATE - Patient was seen and examined in the ICU. She has done well overnight. She continues to be ventilated. This morning, she is awake on the ventilator and able to follow all commands. Hematoma noted to face. Patient is status post fall. Telemetry has been reviewed and no atrial fibrillation has been noted since amiodarone has been discontinued. It appears that she is in sinus rhythm with occasional PACs. Will get an EKG to confirm. We will continue to monitor her on the heart monitor and consider adding renally dose to sotalol if recurrent A. fib occurs. Vital signs are stable. H& H is stable at 8.9 and 27.9. No active bleeding noted. Creatinine of 1.4 with BUN of 58. We will continue to monitor this with daily BMP. I will discuss further with Dr. Martell and await his additional recommendations. JANUARY 16, 2017: No significant change overnight. Currently being treated for ARDS. Continuing low-dose Eliquis for stroke prevention. Labs are stable this morning. WBCs elevated overnight, possibly related to her steroid. I will add a urine sample to evaluate for UTI. Blood pressure adequately controlled. Continue following labs routinely. Will further discuss with Dr. Martell and await additional recommendations. JANUARY 17, 2017: Patient is on CPAP trials this morning. She wakes, follows commands appropriately. Appears to be very comfortable. Patient had moderate hypotension last evening with brief systolic blood pressures in the 80s and 90s. Phenylephrine was initiated, she was also given a bit of a fluid challenges there is some question as to whether or not she has become volume depleted. Diuretics are being held. Blood pressures are stable this morning with Phenylephrine at 70 mcg/min. Chest x-ray last evening reveals worsening infiltrate of the right lung, WBC 39.8, afebrile. Urinalysis yesterday reveals UTI. Will start Cipro and await cultures. Sending blood cultures 2, chest x- ray this morning pending. Anemia is stable on Eliquis. Will further discuss with Dr. Martell and await additional recommendations. ASSESSMENT/PLAN: 1. AMIODARONE LUNG - Amiodarone has been discontinued. Continue aggressive steroid therapy. Currently being treated as ARDS. Management per pulmonary. 2. COPD EXACERBATION - Chest ray pending this morning. Continue current plan of care, aggressive pulmonary toilet. Will defer management of this to attending/pulmonary. 3. CONGESTIVE HEART FAILURE, DYSTOLIC DYSFUNCTION - acute on chronic, now compensated. EF 60%, grade 1 diastolic dysfunction, NYHA Class IV. Suspect hypoxia is primarily a lung issue. 4. CORONARY ARTERY DISEASE, STATUS POST CABG 2010 - S/P CABG 2010 (AZAR to LAD, SVG to Cx.) May benefit from ischemic reevaluation once she recovers from her primary pulmonary issues. This is not ACS. 5. HYPERTENSION - Overall, this is under well control. Will monitor blood pressure and further adjust as needed throughout her hospitalization. 6. FORMER SMOKER - Reports that she quit smoking in 2004. 7. HISTORY OF DUAL CHAMBER PACEMAKER - Continue current plan of care. Patient had dual-chamber pacemaker placed 2013 as she has history of paroxysmal atrial fibrillation and developed sick sinus syndrome with tachybradycardia components. 8. CHRONIC ANEMIA - Stable. Patient reports that she receives iron transfusions occasionally. Her last transfusion was April 2016. H & H stable this morning. Chronically anticoagulated with Eliquis for stroke prevention. Continue low dose as patient is high risk for stroke. 9. DYSLIPIDEMIA - Continue lipid-lowering agent. 10. CHRONIC ANTICOAGULATION - Eliquis for stroke prevention. Facial hematoma post fall. If this grows or if H&H drops may need to hold anticoagulation. CHADSVASC score of 7. 11. HISTORY OF PAF - Amiodarone has been discontinued this admission due to suspected pulmonary toxicity. Continue beta-blockade when blood pressure will allow. If symptomatic AF recurs, we may consider renally adjusted Sotalol. 12. HISTORY OF TIA - Patient reports history of TIA. She is currently chronically anticoagulated with Eliquis. 13. HYPOKALEMIA - Resolved 14. CHRONIC RENAL FAILURE, STAGE 3 WITH NONFUNCTIONING KIDNEY - Patient routinely followed by Dr. Martín Hays. Monitor with daily BMP. 15. UTI - Cipro initiated. Exam (Progress Note) - Constitutional Vitals: Period Temp Pulse Resp BP Sys/Scott Pulse Ox Last 24 Hr 96.7 F-97.9 F 64-104 15-29 72-179/31-95 86-100 Exam: General: [Thin female. On ventilator but wakes and responds appropriately. Frail ] HEENT: [Normocephalic, multiple ecchymotic areas noted, particularly large across the chin. Mucous membranes moist. No jaundice noted. Conjunctiva moist and clear, sclerae anicteric] Neck: No obvious JVD/HJR, no thyromegaly or lymphadenopathy noted. No carotid bruit appreciated Cardiac: [Regular rate and rhythm.] [No obvious murmur rub or gallop.] Lungs: [Coarse throughout, no wheezing noted. Symmetrical chest wall movements noted. Remains intubated. Abdomen: Soft, bowel sounds normoactive. Nontender and nondistended. No abdominal bruit or thrill noted. No masses noted. Musculoskeletal: No fluid collection. Decreased range of motion is noted. Extremities: No clubbing, cyanosis noted. [ No edema noted.] Upper extremity pulses 2+. Lower extremity pulses 1+. Capillary refill less than 3 seconds. Skin: Multiple areas of ecchymosis, skin tears. No rash. Neuro: Awake, alert, follows commands appropriately. No essential tremor is appreciated. Result/EKG - Labs CBC & BMP: 01/17/17 03:45 01/17/17 03:45 Lab Results: I have reviewed the past 24 hour labs Labs: Laboratory Results - last 24 hr 01/16/17 01/16/17 01/16/17 09:15 11:35 17:00 WBC RBC Hgb Hct MCV MCH MCHC RDW Plt Count MPV Neut % (Auto) Lymph % (Auto) [place] % (Auto) Eos % (Auto) Baso % (Auto) Neut # (Auto) Lymph # (Auto) [place] # (Auto) Eos # (Auto) Baso # (Auto) Total Counted Immature Gran % Nucleated RBC % Immature Gran # Segmented Neutrophils Lymphocytes Monocytes Metamyelocytes Nucleated RBCs # Platelet Estimate ABG pH ABG pCO2 ABG pO2 ABG HCO3 ABG Total CO2 ABG O2 Saturation ABG Base Excess FiO2 Sodium Potassium Chloride Carbon Dioxide Anion Gap BUN Creatinine GFR Calculation BUN/Creatinine Ratio Glucose POC Glucose 163 H Calculated Osmolality Calcium Magnesium Troponin I 0.070 H D Urine Color Yellow Urine Appearance Cloudy Urine pH 5.0 Ur Specific [place] 1.017 Urine Protein Negative Urine Glucose (UA) Negative Urine Ketones Negative Urine Blood Moderate Urine Nitrate Negative Urine Bilirubin Negative Urine Urobilinogen < 2.0 H Urine Leukocytes Large H Urine RBC 4 Urine WBC 45 Ur Squamous Epith Cells Few Urine Bacteria Many Urine Mucus Few Ur Culture Indicated? Results to follow 01/16/17 01/16/17 01/17/17 18:10 23:15 03:00 WBC RBC Hgb Hct MCV MCH MCHC RDW Plt Count MPV Neut % (Auto) Lymph % (Auto) [place] % (Auto) Eos % (Auto) Baso % (Auto) Neut # (Auto) Lymph # (Auto) [place] # (Auto) Eos # (Auto) Baso # (Auto) Total Counted Immature Gran % Nucleated RBC % Immature Gran # Segmented Neutrophils Lymphocytes Monocytes Metamyelocytes Nucleated RBCs # Platelet Estimate ABG pH 7.375 ABG pCO2 60.2 H ABG pO2 70.6 L ABG HCO3 34.4 H ABG Total CO2 36.3 H ABG O2 Saturation 92.2 L ABG Base Excess 7.7 H FiO2 80.00 Sodium Potassium Chloride Carbon Dioxide Anion Gap BUN Creatinine GFR Calculation BUN/Creatinine Ratio Glucose POC Glucose 199 H 200 H Calculated Osmolality Calcium Magnesium Troponin I Urine Color Urine Appearance Urine pH Ur Specific [place] Urine Protein Urine Glucose (UA) Urine Ketones Urine Blood Urine Nitrate Urine Bilirubin Urine Urobilinogen Urine Leukocytes Urine RBC Urine WBC Ur Squamous Epith Cells Urine Bacteria Urine Mucus Ur Culture Indicated? 01/17/17 01/17/17 01/17/17 03:45 03:45 05:32 WBC 39.8 H D RBC 3.47 L Hgb 10.2 L Hct 33.9 L MCV 97.7 MCH 29 MCHC 30.1 L RDW 16.1 Plt Count 242 D MPV 11.1 Neut % (Auto) 89.3 H Lymph % (Auto) 0.7 L [place] % (Auto) 5.5 Eos % (Auto) 0.0 Baso % (Auto) 0.2 Neut # (Auto) 35.5 H Lymph # (Auto) 0.3 L [place] # (Auto) 2.2 H Eos # (Auto) 0.0 Baso # (Auto) 0.1 Total Counted 100 Immature Gran % 4.3 Nucleated RBC % 0.1 Immature Gran # 1.70 Segmented Neutrophils 96 H Lymphocytes 2 L Monocytes 1 L Metamyelocytes 1 Nucleated RBCs # 0.02 Platelet Estimate Normal ABG pH ABG pCO2 ABG pO2 ABG HCO3 ABG Total CO2 ABG O2 Saturation ABG Base Excess FiO2 Sodium 147 H Potassium 5.1 Chloride 107 Carbon Dioxide 35 H Anion Gap 10.1 BUN 70 H Creatinine 1.10 H GFR Calculation 51 BUN/Creatinine Ratio 63.00 H Glucose 180 H POC Glucose 225 H Calculated Osmolality 317.4 H Calcium 8.7 Magnesium 2.6 H Troponin I Urine Color Urine Appearance Urine pH Ur Specific [place] Urine Protein Urine Glucose (UA) Urine Ketones Urine Blood Urine Nitrate Urine Bilirubin Urine Urobilinogen Urine Leukocytes Urine RBC Urine WBC Ur Squamous Epith Cells Urine Bacteria Urine Mucus Ur Culture Indicated? - Diagnostic Findings Procedure: Chest x-ray: pending - EKG EKG results: interpreted by me EKG shows: sinus rhythm, atrial fibrillation <John Martell - Last Filed: 01/17/17 10:16> Cardiology - PN: Subj Interval history: She has had a marked elevation in her white blood cell count and desaturations. She was hypotensive yesterday. I do not know whether she is septic or whether this is related to volume. She has been given some volume back and she still has significant secretions and we are going to see if we can suction her. Her gases are still crossed and Dr. Blas is following. I have discussed in detail the particulars of this case and I have examined the patient and reviewed the patient's chart both current and old. I was directly involved in the patient's evaluation and management and I completely agree with Sandie Teague NP regarding this patient's evaluation and treatment plan. Exam (Progress Note) - Constitutional Vitals: Period Temp Pulse Resp BP Sys/Scott Pulse Ox Last 24 Hr 96.7 F-97.4 F 75-104 15-29 72-179/31-95 86-100 Result/EKG - Labs CBC & BMP: 01/17/17 03:45 01/17/17 03:45 Labs: Laboratory Results - last 24 hr 01/16/17 01/16/17 01/16/17 09:15 11:35 17:00 WBC RBC Hgb Hct MCV MCH MCHC RDW Plt Count MPV Neut % (Auto) Lymph % (Auto) [place] % (Auto) Eos % (Auto) Baso % (Auto) Neut # (Auto) Lymph # (Auto) [place] # (Auto) Eos # (Auto) Baso # (Auto) Total Counted Immature Gran % Nucleated RBC % Immature Gran # Segmented Neutrophils Lymphocytes Monocytes Metamyelocytes Nucleated RBCs # Platelet Estimate ABG pH ABG pCO2 ABG pO2 ABG HCO3 ABG Total CO2 ABG O2 Saturation ABG Base Excess FiO2 Sodium Potassium Chloride Carbon Dioxide Anion Gap BUN Creatinine GFR Calculation BUN/Creatinine Ratio Glucose POC Glucose 163 H Calculated Osmolality Calcium Magnesium Troponin I 0.070 H D Urine Leukocytes Large H 01/16/17 01/16/17 01/17/17 18:10 23:15 03:00 WBC RBC Hgb Hct MCV MCH MCHC RDW Plt Count MPV Neut % (Auto) Lymph % (Auto) [place] % (Auto) Eos % (Auto) Baso % (Auto) Neut # (Auto) Lymph # (Auto) [place] # (Auto) Eos # (Auto) Baso # (Auto) Total Counted Immature Gran % Nucleated RBC % Immature Gran # Segmented Neutrophils Lymphocytes Monocytes Metamyelocytes Nucleated RBCs # Platelet Estimate ABG pH 7.375 ABG pCO2 60.2 H ABG pO2 70.6 L ABG HCO3 34.4 H ABG Total CO2 36.3 H ABG O2 Saturation 92.2 L ABG Base Excess 7.7 H FiO2 80.00 Sodium Potassium Chloride Carbon Dioxide Anion Gap BUN Creatinine GFR Calculation BUN/Creatinine Ratio Glucose POC Glucose 199 H 200 H Calculated Osmolality Calcium Magnesium Troponin I Urine Leukocytes 01/17/17 01/17/17 01/17/17 03:45 03:45 05:32 WBC 39.8 H D RBC 3.47 L Hgb 10.2 L Hct 33.9 L MCV 97.7 MCH 29 MCHC 30.1 L RDW 16.1 Plt Count 242 D MPV 11.1 Neut % (Auto) 89.3 H Lymph % (Auto) 0.7 L [place] % (Auto) 5.5 Eos % (Auto) 0.0 Baso % (Auto) 0.2 Neut # (Auto) 35.5 H Lymph # (Auto) 0.3 L [place] # (Auto) 2.2 H Eos # (Auto) 0.0 Baso # (Auto) 0.1 Total Counted 100 Immature Gran % 4.3 Nucleated RBC % 0.1 Immature Gran # 1.70 Segmented Neutrophils 96 H Lymphocytes 2 L Monocytes 1 L Metamyelocytes 1 Nucleated RBCs # 0.02 Platelet Estimate Normal ABG pH ABG pCO2 ABG pO2 ABG HCO3 ABG Total CO2 ABG O2 Saturation ABG Base Excess FiO2 Sodium 147 H Potassium 5.1 Chloride 107 Carbon Dioxide 35 H Anion Gap 10.1 BUN 70 H Creatinine 1.10 H GFR Calculation 51 BUN/Creatinine Ratio 63.00 H Glucose 180 H POC Glucose 225 H Calculated Osmolality 317.4 H Calcium 8.7 Magnesium 2.6 H Troponin I Urine Leukocytes 01/17/17 08:35 WBC RBC Hgb Hct MCV MCH MCHC RDW Plt Count MPV Neut % (Auto) Lymph % (Auto) [place] % (Auto) Eos % (Auto) Baso % (Auto) Neut # (Auto) Lymph # (Auto) [place] # (Auto) Eos # (Auto) Baso # (Auto) Total Counted Immature Gran % Nucleated RBC % Immature Gran # Segmented Neutrophils Lymphocytes Monocytes Metamyelocytes Nucleated RBCs # Platelet Estimate ABG pH 7.386 ABG pCO2 57.2 H ABG pO2 57.8 L ABG HCO3 31.1 H ABG Total CO2 30.9 H ABG O2 Saturation 87.4 L ABG Base Excess 7.5 H FiO2 80.00 Sodium Potassium Chloride Carbon Dioxide Anion Gap BUN Creatinine GFR Calculation BUN/Creatinine Ratio Glucose POC Glucose Calculated Osmolality Calcium Magnesium Troponin I Urine Leukocytes
--- NOTE | 2017-01-17 08:05 | XRay Report ---
Exam: XR chest 1V portable Date: 01/17/2017 4:00 AM Indication: Follow-up ventilator respiratory failure Comparison: 01/16/2017 Technical:AP Findings: Mild cardiomegaly. Sternotomy wires are present. Endotracheal tube and nasogastric tube are present. Cardiac pacing device and placement left-sided approach with atrioventricular leads. Underlying alveolar edema infiltrates are present with interstitial thickening present in both bases. Nasogastric tube is in the fundus of the stomach. Endotracheal tube is at the level of the aortic knob. A left-sided PICC line is again noted. No pneumothorax. Impression: 1. Stable appearance of life support tubing 2. Persistent but slightly improved interstitial alveolar infiltrates in both bases and underlying shunt vascularity. 3. Cardiomegaly with previous sternotomy and stable position of the patient device PROCEDURE INTERPRETED AT [facility] DEPARTMENT OF RADIOLOGY Final Report Signed by: Dr. Lio Bowen
[2017-01-17] MEDS: ASPIRIN EC 81 MG TABLET PO SCH (08:50)
[2017-01-17 08:52] LABS: ABG Base Excess 7.5 MMOL/L (-2.5-2.5); ABG HCO3 31.1 MMOL/L (20-26); ABG Oxygen Saturation 87.4 % (95-100); ABG PCO2 57.2 MM HG (35-48); ABG PH 7.386 (7.35-7.45); ABG PO2 57.8 MM HG (80-95); ABG TCO2 30.9 MMOL/L (23-27); Allen Test Positive; Pt O2 Delivery Device Ventilator
[2017-01-17] MEDS ORDERED: CIPROFLOXACIN 500 MG TABLET PO SCH (09:00)
[2017-01-17] MEDS: BUDESONIDE 0.5 MG/2 ML NEB RESP TX SCH ×2 (09:10→20:15)
[2017-01-17] MEDS: FLUDROCORTISONE 0.1 MG TABLET PO SCH (09:20)
[2017-01-17] MEDS: POTASSIUM CHLORIDE 20 MEQ/15 ML UDCUP PER TUBE SCH ×2 (09:20→20:57)
[2017-01-17] MEDS: DOCUSATE SODIUM 100 MG CAPSULE PO SCH (09:20)
[2017-01-17] MEDS: ASPIRIN CHEW 81 MG TABLET PO SCH (09:20)
[2017-01-17] MEDS: VALSARTAN/HCTZ 80-12.5 MG TABLET PO SCH (09:20)
[2017-01-17] MEDS: NEBIVOLOL 5 MG TABLET PO SCH (09:20)
[2017-01-17] MEDS: ROSUVASTATIN 10 MG TABLET PO SCH (09:20)
[2017-01-17] MEDS: LANSOPRAZOLE ODT 30 MG TABLET PO SCH (09:21)
[2017-01-17] MEDS: APIXABAN 2.5 MG TABLET PO SCH ×2 (09:21→21:02)
[2017-01-17] MEDS: MAGNESIUM CHLORIDE 64 MG TABLET PO SCH ×2 (09:22→20:54)
[2017-01-17] MEDS: LORazepam 2 MG/1 ML VIAL IV PRN ×3 (09:26→20:54)
[2017-01-17] MEDS: MUPIROCIN 2% OINT 22 GM TUBE TOP SCH ×2 (09:27→20:55)
[2017-01-17] MEDS: DESITIN 4OZ/NYSTATIN 15 GRAM MIXTURE PASTE TOP SCH ×2 (09:27→20:58)
--- NOTE | 2017-01-17 09:34 | XRay Report ---
Exam: XR chest 1V portable Date: 01/17/2017 8:43 AM Indication: Endotracheal tube follow-up Comparison: 01/17/2017 at 3:13 AM Technical: AP portable Findings: Nasogastric tube and endotracheal tube cardiac pacing device and sternotomy wires are again noted. Cardiomegaly is present with ASVD with interstitial alveolar densities superimposed on chronic lung disease with low volume effusions. Calcification present within the right paratracheal and apical regions bilaterally. Left-sided PICC line again noted. Impression: 1. Stable appearance of life support tubing 2. No significant interval changes with persistent low volume effusions and interstitial alveolar edema superimposed on chronic lung disease PROCEDURE INTERPRETED AT [facility] DEPARTMENT OF RADIOLOGY Final Report Signed by: Dr. Lio Bowen
--- NOTE | 2017-01-17 10:07 | Nephrology Progress Note ---
Nephrology - PN: Subj Interval history: She had transient hypotension last night. Blood pressure is now better. She remains responsive, on the ventilator. Exam (PN)-Nephrology - Vital Signs Vital signs: Period Temp Pulse Resp BP Sys/Scott Pulse Ox Last 24 Hr 96.7 F-97.4 F 75-104 15-29 72-179/31-95 86-100 Exam: Gen.: On ventilator. Alert. Follows commands ENT: Pupils equal round reactive to light. Neck: Supple. No JVD or bruit. Cardiovascular: Regular rate and rhythm. No murmur rub or gallop Lungs: Clear Abdomen: Soft. Nontender. Positive bowel sounds. No organomegaly Extremities: No edema - Lab 01/17/17 03:45 01/17/17 03:45 Most recent lab results ABG pH 7.386 (7.35-7.45) 01/17/17 08:35 ABG pCO2 57.2 MM HG (35-48) H 01/17/17 08:35 ABG pO2 57.8 MM HG (80-95) L 01/17/17 08:35 ABG HCO3 31.1 MMOL/L (20-26) H 01/17/17 08:35 ABG O2 Saturation 87.4 % (95-100) L 01/17/17 08:35 Calcium 8.7 MG/DL (8.5-10.1) 01/17/17 03:45 Phosphorus 3.7 MG/DL (2.5-4.9) 01/16/17 04:58 Magnesium 2.6 MG/DL (1.8-2.4) H 01/17/17 03:45 Assessment and Plan (1) Chronic renal failure, stage 3 (moderate) Status: Acute Assessment and plan: 76-year-old woman with: * Solitary kidney * CRF stage III. Creatinine is stable. BUN is higher, likely due to steroids. Transient hypotension last night. ARB will be held * Ventilatory failure. 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 Wean ventilator as tolerated * COPD * A. fib * CAD Current Visit: Yes (2) Solitary kidney Status: Chronic Current Visit: Yes (3) Ventilatory failure Status: Acute Current Visit: Yes (4) Amiodarone pulmonary toxicity Status: Acute Current Visit: Yes (5) COPD (chronic obstructive pulmonary disease) Status: Chronic Current Visit: Yes (6) Coronary artery disease Status: Chronic Current Visit: Yes Qualifiers: Coronary Disease-Associated Artery/Lesion type: [place] artery Associated angina: without angina (7) Hypertension Status: Chronic Current Visit: Yes Qualifiers: Hypertension type: essential hypertension Qualified Code(s): I10 - Essential (primary) hypertension (8) History of atrial fibrillation Status: Chronic Current Visit: No
--- NOTE | 2017-01-17 11:00 | Pulmonology Progress Note ---
Pulmonary - PN: Subj Interval history: This is a 76-year-old white female whom I saw in pulmonary consultation on 2016. She had had progressive shortness of breath and had chest x-ray changes along with progressive hypoxemia. My impressions were. 1. Diffuse 5 lobe interstitial and alveolar infiltrate. Suspect this will air turning machine feeder to be amiodarone lung. Note the presence of Velcro rales. Watch closely for the possibility of atypical pulmonary edema 2. COPD 3. Significant past history tobacco abuse. Stop smoking 2004 4. Normal TSH with elevated free T4 most likely secondary to amiodarone. 5. 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 6. Mild chronic renal failure and 1 nonfunctioning kidney followed by Dr. Martín Hays 7. Chronic anemia 8. Atrial fibrillation. Plan. 1. Stop amiodarone 2. Chest x-ray and ABGs daily 4 3. C-reactive protein and erythrocyte sedimentation rate 4. Repeat BNP 5. Increase Solu-Medrol to 40 mg every 8 hours 6. See orders 7. Dr. Tristan dickens and I have discussed the case and we have coordinated her care. 01/05/2017. Today's chest x-ray still shows 5 lobe interstitial and alveolar infiltrates but these appear to be a little different and a little less dense allowing for technique. The patient says she feels better. Her O2 has improved slightly she has erosions in her nose and with her to try different apparatus for her oxygen and will use Bactroban in her nares. There are no new microbiology reports. FiO2 of 44%, pH is 7.418, PO2 is 40.4, PO2 is 59.9 bicarb is 25.7. White count is 10,700 with 90.8 segs. H&H is 9.3/28.6. Sodium is 134 and potassium is 3.3. Cardiology will adjust this. Creatinine has increased to 2.00 with a BUN of 51. I think the patient is becoming a little over diuresed and I have stopped her Lasix which was 40 mg twice daily. Patient fell Velcro rounds have disappeared. 01/06/2017. This patient has amiodarone lung. This will be the third day she is off amiodarone. She is on Solu-Medrol 40 IV push q. 8. Today's chest x-ray looks markedly better. She still has 5 lobe alveolar and interstitial infiltrates but these are rapidly resolving. Today's O2 has not improved significantly but I expect that to follow. We need to continue the present treatment for right now impaired attention to her heart rhythm. Potassium is low at 3.2 and replacement as needed. H&H is stable at 9.6/29.9. White count is 9289 segs. TSH is normal. Free T4 is elevated most likely secondary to amiodarone. 01/08/2017. On steroids the patient's lung (chest x-ray) is looking much better. Her breath sounds are much improved. So far her ABGs have not improved a good bit. Hopefully this will follow soon. Off diuretics creatinine is dropped from 2.0-1.30 with a BUN of 35. Electrolytes are normal. CBC is stable. 01/09/2017. Patient had a fall yesterday. She was on the commode and slumped forward and injured her face. She has had CT scan of the face and brain these are negative. She is fine from a neurological standpoint today and embarrassed by the episode. Patient's chest is clear at this time goes by. Her O2 sats have not improved but she is found if she lays on the right side and takes several deep breaths her oxygen improved. I think we will just have to wait this out but this should begin to improve. Orders have been reviewed and note that Lasix has been restarted. With holding Lasix creatinine is dropped from 2.00-1.20 with a BUN of 32. Sodium is 134 and potassium is 4.3. White count is 11,200 with 84 segs. H&H is 8.9/27.3. I have not repeated the patient's blood gases since she is asked that we hold this if at all possible. 01/10/2017. This 76-year-old white female has amiodarone lung. After stopping amiodarone and starting Solu-Medrol 40 IV push every 8 hours her chest x-ray has improved remarkably. She however remains hypoxemia and hopefully this will be improved soon. Earlier in the patient's hospitalization she was slightly over diuresed and her creatinine went up to 1.6 with a BUN of 45. Creatinine is now 1.30 with a BUN of 36. Patient's on a lower dose of diuretics. Watch closely. White blood cell count is 14,500 with 86 segs. H&H is stable at 9.2/ 28.1. Platelets are 190,000. There are no positive cultures. Patient had a fall on 01/08/2017. CT of the face and head of been normal. She does have some mild contusions and bruises on her face. She was on Eliquis. There is a history of atrial fib. At the present time we will continue to follow her chest x-ray. Will wait for her oxygenation to improve and will watch her kidney status. 01/13/2017. During this weekend the patient was moved to intensive care. Her chest x-ray which is shown a very good improvement with steroids regressed and as she has a 5 lobe alveolar filling defect with increased interstitial markings. She was being treated for amiodarone lung. Even though her chest x- ray improved her ABGs did not improve and they have recently deteriorated. We are at the point that this needs to be treated as adult respiratory distress syndrome. That necessitates mechanical ventilation with PEEP and pressure support. I have discussed this with the patient and she is agreeable. I discussed it with Dr. Alex Starks and Dr. Sam Martell and they were agreeable. I have asked anesthesia to electively intubate the patient. I will start her on P and later will add IMV and pressure support. Electrolytes are normal. Creatinine is 1.4. H&H is stable at 9.2/28.9. White count is 13,500 with 91 segs. Platelets are 149,000. Natruretic peptide is 267 01/14/2017. This patient required intubation mechanical ventilation secondary to adult respiratory distress syndrome which is secondary to amiodarone. Today' s chest x-ray shows some improvement in a generalized 5 lobe alveolar infiltrates with surrounding interstitial edema. Endotracheal tube is in good position. ABGs on mechanical ventilation FiO2 of 100%. PEEP of 5 and pressure support of 12 shows a pH 7.537. PCO2 45.8. PO2 of 115 a bicarb of 35.2. Electrolytes are normal. Creatinine is increased to 1.50 with BUN of 56. We may need to stop either the patient's Lasix or her valsartan. H&H is 9.3/29.4. White count is 15,800 with 87% segs and platelets 148,000. 01/15/2017.Today's chest x-ray is improved. There is still 5 lobe alveolar infiltrates with associated increased interstitial markings. The consolidative pattern is resolving. There is a slight improvement in ABGs. On FiO2 of 100% pH is 7.506, PCO2 is 47.5, PO2 is 121 and bicarb is 36.4. Patient's on weaning protocol. Creatinine is dropped from 1.50-1.40 with a BUN of 58. Electrolytes are normal. White count is 14,991.5 segs. H&H is 8.9/27.9 and platelets are 135, 000. There are no positive cultures. This morning I had a talk with the niece . Hernán Victor nurse practitioner and Elver Resendiz RN were present. I explained amiodarone lung and the result of adult respiratory distress syndrome and pointed out that nationally the mortality for this is 50% in all comers. Madelyn wanted to know if the patient needed bronchoscopy. I told her not now but at later date we may need 1. 01/17/2017 peer this 76-year-old white female has amiodarone lung with 5 lobe alveolar and interstitial infiltrate. This initially improved rapidly with steroids and stopping amiodarone but then last week in this deteriorated. Patient is now on mechanical ventilation. Her chest x-ray is improving slightly on a daily basis. She still has a 5 lobe alveolar interstitial infiltrate with the tendencies towards consolidation at each base. Earlier today her endotracheal tube was a little too far down and it was retracted and the follow-up x-ray looks fine. Patient's hypoxemia has worsened. I have gone back from an FiO2 of 70% to 1 of 100%. Will try to keep her O2 sats 93 or above. She has CO2 retention and I have increased her rate to 32. She is on PEEP of 5 and I have increased her pressure support from 12-15. Patient also has hypotension and is on pressor agents. Patient has a white blood cell count of 39,000. I think this is a leukemoid reaction to high-dose steroid. Urine culture from 01/16/2017 is growing gram-negative rods and gram-positive cocci. There are no reported IDs and sensitivities. Patient was started on Cipro but she is allergic to Levaquin. Without any additional knowledge I am going to take the liberty of stopping the Cipro. I will start her on Fortaz 1 g every 8 hours and will begin with test dose and I will add Cleocin 300 every 6 hours. Physical exam. Vital signs. See below. Hypotension requiring pressor Psychiatric. Alert and oriented. Neurologic. Cranial nerves are intact Long track motor functions intact Chest. Wheeze free. Velcro rales have disappeared. No chest wall tenderness. Heart. No definite gallop. Abdomen. Nontender. Positive bowel sounds. Extremities. No edema Neck. Symmetrical kyphotic with no meningismus Lymphatics. No submandibular cervical supraclavicular adenopathy. The remainder of the physical exam is noncontributory Plan. 01/05/2017 1. DC Lasix, 40 mg p.o. twice daily was her dose 2. Monitor BUN/creatinine sodium and potassium 3. Continue steroids 4. Daily chest x-rays and ABGs to we can see clear-cut improvement. 5. Today I asked the patient admits she has not seen anyone in pulmonary before she says on one occasion she saw Dr. Minesh Whaley. She requested to change to my service and after we discussed this I agree. She has some family members to see me. She is related to Tahira dorado 01/06/2017. 1. See today's note above. 2. Amiodarone lung which is improving. Continue steroids and follow chest x- ray and ABGs. 3. Replacement of potassium 01/08/2017. 1. See today's note above. 2. Amiodarone lung is improving by chest x-ray and physical exam criteria. 3. Continue present regimen including Solu-Medrol 40 IV push every 8 hours 01/09/2017. 1. See today's note above 2. For tomorrow morning I have ordered a 2 view chest x-ray. #3 continue to monitor O2 sats. 01/10/2017. 1. See today's note above. 2. Chest x-ray pending. Repeat Friday and Friday 3. Follow-up BMP 4. Supplemental oxygen. #5 continue Solu-Medrol 40 IV push every 8 hours. 01/13/2017. 1. See today's note. Above. 2. Continue Solu-Medrol 3. Intubation mechanical ventilation. Treat amiodarone lung as adult respiratory distress syndrome. 01/14/2017 1. Gradually increasing creatinine. Consider stopping Lasix and/or valsartan. 2. Slight improvement in ABGs. This looks like it is going to be slow. 3. Mechanical ventilation weaning protocol 4. Physical therapy protocol. 5. Deep venous thrombophlebitis prevention protocol 6. Proton pump inhibitor protocol 7. Discontinue Zithromax. 01/15/2017. 1. Creatinine is stabilized. 2. Chest x-ray showing gradual improvement and oxygenation although very poor is gradually improved 01/17/2017 1. Gram-negative rods gram-positive cocci and urine. 2. DC Cipro 3. Start Fortaz. Test dose 4. Start Cleocin. 5. FiO2 100%. PEEP of 5. Pressure support of 15. Weaning protocol. 6. Pressor agents. 7. Leukemoid reaction 8. Daily chest x-ray, ABGs and lab. 9. See today's note above Exam (Progress Note) - Constitutional Vitals: Period Temp Pulse Resp BP Sys/Scott Pulse Ox Last 24 Hr 96.7 F-97.4 F 75-104 15-29 72-179/31-95 86-100 Results - Labs CBC & BMP: 01/17/17 03:45 01/17/17 03:45
[2017-01-17 11:43] LABS: ABG Base Excess 8.6 MMOL/L (-2.5-2.5); ABG HCO3 32.2 MMOL/L (20-26); ABG Oxygen Saturation 90.7 % (95-100); ABG PCO2 52.6 MM HG (35-48); ABG PH 7.429 (7.35-7.45); ABG PO2 63.2 MM HG (80-95); ABG TCO2 30.4 MMOL/L (23-27); Allen Test Positive; Pt O2 Delivery Device Ventilator
[2017-01-17] MEDS: CLINDAMYCIN INJ 300 MG in PREMIX 1 EACH IV SCH ×2 (13:00→19:09)
[2017-01-17] MEDS: PROPOFOL 1,000 MG/100 ML BOTTLE IV SCH (16:42)
--- NOTE | 2017-01-17 18:19 | Family Practice Progress Note ---
Family Practice - PN: Subj Interval history: I am seeing the patient for Dr. Starks. Patient remains on ventilator support. She has been hypotensive and is presently receiving pressor medications. Has a urinary tract infection which is being treated appropriately. He is being seen by several subspecialties and I have reviewed there notes and recommendations. Presently concur with treatment plan. We will continue present treatment. Exam (Progress Note) - Constitutional Vitals: Period Temp Pulse Resp BP Sys/Scott Pulse Ox Last 24 Hr 96.6 F-97.4 F 75-104 15-33 76-180/44-111 85-99 Results - Labs CBC & BMP: 01/17/17 03:45 01/17/17 03:45
[2017-01-18] MEDS: methylPREDNISolone SOD SUC 40 MG/1 ML VIAL IV SCH ×4 (00:14→18:35)
[2017-01-18] MEDS: INSULIN REGULAR 100 UNIT/ML SUBCUT SCH ×4 (00:14→18:35)
[2017-01-18] MEDS: ALBUTEROL/IPRATROPIUM 3 ML NEB RESP TX SCH ×6 (00:15→20:14)
[2017-01-18] MEDS: CLINDAMYCIN INJ 300 MG in PREMIX 1 EACH IV SCH ×4 (00:15→18:35)
[2017-01-18] MEDS: LORazepam 2 MG/1 ML VIAL IV PRN (02:09)
[2017-01-18] MEDS: PROPOFOL 1,000 MG/100 ML BOTTLE IV SCH ×2 (03:00→20:25)
[2017-01-18 03:34] LABS: ABG Base Excess 7.3 MMOL/L (-2.5-2.5); ABG HCO3 31.2 MMOL/L (20-26); ABG Oxygen Saturation 99.4 % (95-100); ABG PCO2 44.7 MM HG (35-48); ABG PH 7.462 (7.35-7.45); ABG TCO2 29.6 MMOL/L (23-27)
[2017-01-18 04:49] LABS: Basophils % 0.2 % (0.0-0.8); Hematocrit 29.1 VOL% (35.7-47.0); Hemoglobin 8.5 GM/DL (12.0-16.0); Immature Granulocytes Absolute 0.53 #; Lymphocytes # 0.4 10*3/uL (1.4-4.0); Lymphocytes % 1.5 % (21.3-54.2); Mean Corpuscular HGB Conc 29.2 GM/DL (32-36); Mean Corpuscular Hemoglobin 29 PG (27-34); Mean Corpuscular Volume 98.3 FL (87-102); Mean Platelet Volume 11.8 FL (9.6-12.0); Monocytes # 0.9 10*3/uL (0.11-0.8); Monocytes % 3.2 % (1.7-12.7); Neutrophils # 24.7 10*3/uL (1.4-7.4); Neutrophils % 93.1 % (38.7-73.9); Platelet Count 126 T/CUMM (130-400); Red Blood Count 2.96 MC/CUMM (3.8-5.5); White Blood Count 26.5 T/CUMM (4-12)
[2017-01-18 05:31] LABS: Calcium 8.6 MG/DL (8.5-10.1); Magnesium 2.4 MG/DL (1.8-2.4); Osmolality,Calculated 316.3 MOS/KG (273-304); Potassium 5.1 MMOL/L (3.5-5.1)
--- NOTE | 2017-01-18 05:55 | Pulmonology Progress Note ---
Pulmonary - PN: Subj Interval history: This 76-year-old female came in with shortness of breath. Dr. Herrera saw her over the weekend and felt that she may have amiodarone lung. That was stopped and she has been given steroids. Her chest x-ray does look better. 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 She remains on the ventilator. Had to have her oxygen turned up yesterday but her PO2 is 180 on an FiO2 of 100% so we will reduce it again. Also has a urinary tract infection. She is hypotensive and is on pressors. Exam (Progress Note) - Constitutional Vitals: Period Temp Pulse Resp BP Sys/Scott Pulse Ox Last 24 Hr 96.6 F-97.8 F 65-104 18-33 76-180/35-122 82-100 Exam: Patient is sedated at present. Vital signs normal. Pupils react to light. Throat is clear. Chest shows some minimal bibasilar crackles. Heart normal rate and rhythm no murmurs. Abdomen soft no masses. Extremities no clubbing cyanosis edema. Calves nontender. Results - Labs CBC & BMP: 01/18/17 03:30 01/18/17 03:30 Lab Results: I have reviewed the past 24 hour labs - Diagnostic Findings Procedure: Chest x-ray: image reviewed by me (Mild cardiomegaly. Evidence of previous heart surgery with sternal wires. Pacemaker over left chest. Interstitial infiltrates in both lower lobes unchanged from yesterday.) Assessment and Plan (1) Coronary artery disease involving coronary bypass graft Status: Chronic Assessment and plan: BNP is a bit elevated at 385. Part of this may be congestive heart failure. 01/18/2017 does have some congestive heart failure seems to be stable with that Current Visit: Yes Qualifiers: [place] vs. transplanted heart: [place] heart Associated angina: without angina Qualified Code(s): I25.810 - Atherosclerosis of coronary artery bypass graft(s) without angina pectoris (2) Amiodarone pulmonary toxicity Status: Acute Assessment and plan: X-ray and symptoms have improved with holding amiodarone and giving steroids. However again part may be from diuretics improving her fluid status. 01/18/2017 has had her amiodarone stopped in [place] given steroids. Persistent interstitial infiltrates. Current Visit: Yes
[2017-01-18 06:03] LABS: Hypochromasia 1+; Microcytosis 1+
[2017-01-18 06:04] LABS: Ovalocytes Few; Platelet Estimate Adequate
[2017-01-18] MEDS: LEVOTHYROXINE 50 MCG TABLET PO SCH (06:13)
--- NOTE | 2017-01-18 06:37 | Cardiology Progress Note ---
Assessment and Plan (1) Amiodarone pulmonary toxicity Status: Acute Current Visit: Yes (2) Chronic renal failure, stage 3 (moderate) Status: Acute Current Visit: Yes (3) Chronic anticoagulation Status: Chronic Current Visit: Yes (4) Coronary artery disease involving coronary bypass graft Status: Chronic Current Visit: Yes Qualifiers: [place] vs. transplanted heart: [place] heart Associated angina: without angina Qualified Code(s): I25.810 - Atherosclerosis of coronary artery bypass graft(s) without angina pectoris (5) Dyslipidemia Status: Chronic Current Visit: Yes Cardiology - PN: Subj Interval history: This patient continues on ventilator support. She is comfortable and oxygenating well this morning. Her blood pressures are stable. Our plan is to continue attempts at weaning. From a cardiac standpoint she is stable. She has what appears to be amiodarone lung toxicity which is causing her problems related to alveolar filling. She is stable from a cardiac standpoint. She has had elevations in her white blood cell count and an infiltrate suspicious for pneumonia. She continues on Eliquis for chronic anticoagulation. Exam (Progress Note) - Constitutional Vitals: Period Temp Pulse Resp BP Sys/Scott Pulse Ox Last 24 Hr 96.6 F-97.8 F 65-104 18-33 69-180/35-122 82-100 Exam: General:no acute distress. Sedated on the ventilator. HEENT: no new lesions, sclerae are clear, mouth and pharynx benign. Ecchymosis noted unchanged from previous evaluation. Neck: supple, trachea midline, no JVD noted Lungs: no rales ronchi or wheeze is noted. pt comfortable without accesory muscle use to assist with breathing CV: RRR no murmur rub or gallop is noted. Abd: soft and nontender, BSNA, no masses. Ext: no cyanosis, clubbing or edema Neuro: grossly intact without focal neurologic deficit. Result/EKG - Labs CBC & BMP: 01/18/17 03:30 01/18/17 03:30 Labs: Laboratory Results - last 24 hr 01/16/17 01/17/17 01/17/17 09:15 05:32 08:35 WBC RBC Hgb Hct MCV MCH MCHC RDW Plt Count MPV Neut % (Auto) Lymph % (Auto) [place] % (Auto) Eos % (Auto) Baso % (Auto) Neut # (Auto) Lymph # (Auto) [place] # (Auto) Eos # (Auto) Baso # (Auto) Immature Gran % Nucleated RBC % Immature Gran # Nucleated RBCs # Platelet Estimate Hypochromasia Microcytosis Ovalocytes ABG pH 7.386 ABG pCO2 57.2 H ABG pO2 57.8 L ABG HCO3 31.1 H ABG Total CO2 30.9 H ABG O2 Saturation 87.4 L ABG Base Excess 7.5 H FiO2 80.00 Sodium Potassium Chloride Carbon Dioxide Anion Gap BUN Creatinine GFR Calculation BUN/Creatinine Ratio Glucose POC Glucose 225 H Calculated Osmolality Calcium Magnesium Urine Leukocytes Large H 01/17/17 01/17/17 01/17/17 11:30 11:37 17:31 WBC RBC Hgb Hct MCV MCH MCHC RDW Plt Count MPV Neut % (Auto) Lymph % (Auto) [place] % (Auto) Eos % (Auto) Baso % (Auto) Neut # (Auto) Lymph # (Auto) [place] # (Auto) Eos # (Auto) Baso # (Auto) Immature Gran % Nucleated RBC % Immature Gran # Nucleated RBCs # Platelet Estimate Hypochromasia Microcytosis Ovalocytes ABG pH 7.429 ABG pCO2 52.6 H ABG pO2 63.2 L ABG HCO3 32.2 H ABG Total CO2 30.4 H ABG O2 Saturation 90.7 L ABG Base Excess 8.6 H FiO2 100.00 Sodium Potassium Chloride Carbon Dioxide Anion Gap BUN Creatinine GFR Calculation BUN/Creatinine Ratio Glucose POC Glucose 142 H 236 H Calculated Osmolality Calcium Magnesium Urine Leukocytes 01/17/17 01/18/17 01/18/17 23:48 03:20 03:30 WBC 26.5 H D RBC 2.96 L Hgb 8.5 L Hct 29.1 L MCV 98.3 MCH 29 MCHC 29.2 L RDW 16.0 Plt Count 126 L D MPV 11.8 Neut % (Auto) 93.1 H Lymph % (Auto) 1.5 L [place] % (Auto) 3.2 Eos % (Auto) 0.0 Baso % (Auto) 0.2 Neut # (Auto) 24.7 H Lymph # (Auto) 0.4 L [place] # (Auto) 0.9 H Eos # (Auto) 0.0 Baso # (Auto) 0.0 Immature Gran % 2.0 Nucleated RBC % 0.0 Immature Gran # 0.53 Nucleated RBCs # 0.00 Platelet Estimate Adequate Hypochromasia 1+ Microcytosis 1+ Ovalocytes Few ABG pH 7.462 H ABG pCO2 44.7 ABG pO2 183.0 H ABG HCO3 31.2 H ABG Total CO2 29.6 H ABG O2 Saturation 99.4 ABG Base Excess 7.3 H FiO2 Sodium Potassium Chloride Carbon Dioxide Anion Gap BUN Creatinine GFR Calculation BUN/Creatinine Ratio Glucose POC Glucose 176 H Calculated Osmolality Calcium Magnesium Urine Leukocytes 01/18/17 01/18/17 03:30 05:47 WBC RBC Hgb Hct MCV MCH MCHC RDW Plt Count MPV Neut % (Auto) Lymph % (Auto) [place] % (Auto) Eos % (Auto) Baso % (Auto) Neut # (Auto) Lymph # (Auto) [place] # (Auto) Eos # (Auto) Baso # (Auto) Immature Gran % Nucleated RBC % Immature Gran # Nucleated RBCs # Platelet Estimate Hypochromasia Microcytosis Ovalocytes ABG pH ABG pCO2 ABG pO2 ABG HCO3 ABG Total CO2 ABG O2 Saturation ABG Base Excess FiO2 Sodium 148 H Potassium 5.1 Chloride 108 H Carbon Dioxide 32 Anion Gap 13.1 BUN 63 H Creatinine 1.10 H GFR Calculation 51 BUN/Creatinine Ratio 57.00 H Glucose 184 H POC Glucose 173 H Calculated Osmolality 316.3 H Calcium 8.6 Magnesium 2.4 Urine Leukocytes
--- NOTE | 2017-01-18 06:42 | Cardiology Progress Note ---
Assessment and Plan (1) Amiodarone pulmonary toxicity Status: Acute Current Visit: Yes (2) Chronic renal failure, stage 3 (moderate) Status: Acute Current Visit: Yes (3) Chronic anticoagulation Status: Chronic Current Visit: Yes (4) Coronary artery disease involving coronary bypass graft Status: Chronic Current Visit: Yes Qualifiers: [place] vs. transplanted heart: [place] heart Associated angina: without angina Qualified Code(s): I25.810 - Atherosclerosis of coronary artery bypass graft(s) without angina pectoris (5) Dyslipidemia Status: Chronic Current Visit: Yes Cardiology - PN: Subj Interval history: This patient is awake and alert moving all extremities continuing on the ventilator. She appears comfortable. She is not short of breath does not complain of chest discomfort. Her vital signs are stable. Cardiac banerjee things are reasonably stable currently. Her heart failure is resolving. Her blood gases look good to me. Exam (Progress Note) - Constitutional Vitals: Period Temp Pulse Resp BP Sys/Scott Pulse Ox Last 24 Hr 96.6 F-97.8 F 65-104 18-33 69-180/35-122 82-100 Result/EKG - Labs CBC & BMP: 01/18/17 03:30 01/18/17 03:30 Labs: Laboratory Results - last 24 hr 01/16/17 01/17/17 01/17/17 09:15 05:32 08:35 WBC RBC Hgb Hct MCV MCH MCHC RDW Plt Count MPV Neut % (Auto) Lymph % (Auto) [place] % (Auto) Eos % (Auto) Baso % (Auto) Neut # (Auto) Lymph # (Auto) [place] # (Auto) Eos # (Auto) Baso # (Auto) Immature Gran % Nucleated RBC % Immature Gran # Nucleated RBCs # Platelet Estimate Hypochromasia Microcytosis Ovalocytes ABG pH 7.386 ABG pCO2 57.2 H ABG pO2 57.8 L ABG HCO3 31.1 H ABG Total CO2 30.9 H ABG O2 Saturation 87.4 L ABG Base Excess 7.5 H FiO2 80.00 Sodium Potassium Chloride Carbon Dioxide Anion Gap BUN Creatinine GFR Calculation BUN/Creatinine Ratio Glucose POC Glucose 225 H Calculated Osmolality Calcium Magnesium Urine Leukocytes Large H 01/17/17 01/17/17 01/17/17 11:30 11:37 17:31 WBC RBC Hgb Hct MCV MCH MCHC RDW Plt Count MPV Neut % (Auto) Lymph % (Auto) [place] % (Auto) Eos % (Auto) Baso % (Auto) Neut # (Auto) Lymph # (Auto) [place] # (Auto) Eos # (Auto) Baso # (Auto) Immature Gran % Nucleated RBC % Immature Gran # Nucleated RBCs # Platelet Estimate Hypochromasia Microcytosis Ovalocytes ABG pH 7.429 ABG pCO2 52.6 H ABG pO2 63.2 L ABG HCO3 32.2 H ABG Total CO2 30.4 H ABG O2 Saturation 90.7 L ABG Base Excess 8.6 H FiO2 100.00 Sodium Potassium Chloride Carbon Dioxide Anion Gap BUN Creatinine GFR Calculation BUN/Creatinine Ratio Glucose POC Glucose 142 H 236 H Calculated Osmolality Calcium Magnesium Urine Leukocytes 01/17/17 01/18/17 01/18/17 23:48 03:20 03:30 WBC 26.5 H D RBC 2.96 L Hgb 8.5 L Hct 29.1 L MCV 98.3 MCH 29 MCHC 29.2 L RDW 16.0 Plt Count 126 L D MPV 11.8 Neut % (Auto) 93.1 H Lymph % (Auto) 1.5 L [place] % (Auto) 3.2 Eos % (Auto) 0.0 Baso % (Auto) 0.2 Neut # (Auto) 24.7 H Lymph # (Auto) 0.4 L [place] # (Auto) 0.9 H Eos # (Auto) 0.0 Baso # (Auto) 0.0 Immature Gran % 2.0 Nucleated RBC % 0.0 Immature Gran # 0.53 Nucleated RBCs # 0.00 Platelet Estimate Adequate Hypochromasia 1+ Microcytosis 1+ Ovalocytes Few ABG pH 7.462 H ABG pCO2 44.7 ABG pO2 183.0 H ABG HCO3 31.2 H ABG Total CO2 29.6 H ABG O2 Saturation 99.4 ABG Base Excess 7.3 H FiO2 Sodium Potassium Chloride Carbon Dioxide Anion Gap BUN Creatinine GFR Calculation BUN/Creatinine Ratio Glucose POC Glucose 176 H Calculated Osmolality Calcium Magnesium Urine Leukocytes 01/18/17 01/18/17 03:30 05:47 WBC RBC Hgb Hct MCV MCH MCHC RDW Plt Count MPV Neut % (Auto) Lymph % (Auto) [place] % (Auto) Eos % (Auto) Baso % (Auto) Neut # (Auto) Lymph # (Auto) [place] # (Auto) Eos # (Auto) Baso # (Auto) Immature Gran % Nucleated RBC % Immature Gran # Nucleated RBCs # Platelet Estimate Hypochromasia Microcytosis Ovalocytes ABG pH ABG pCO2 ABG pO2 ABG HCO3 ABG Total CO2 ABG O2 Saturation ABG Base Excess FiO2 Sodium 148 H Potassium 5.1 Chloride 108 H Carbon Dioxide 32 Anion Gap 13.1 BUN 63 H Creatinine 1.10 H GFR Calculation 51 BUN/Creatinine Ratio 57.00 H Glucose 184 H POC Glucose 173 H Calculated Osmolality 316.3 H Calcium 8.6 Magnesium 2.4 Urine Leukocytes
[2017-01-18 07:14] LABS: Allen Test Positive; Pt O2 Delivery Device Ventilator
[2017-01-18 07:15] LABS: ABG Base Excess 8.4 MMOL/L (-2.5-2.5); ABG Oxygen Saturation 97.2 % (95-100); ABG PCO2 40.8 MM HG (35-48); ABG PH 7.513 (7.35-7.45); ABG PO2 96.1 MM HG (80-95); ABG TCO2 33.3 MMOL/L (23-27)
[2017-01-18] MEDS: BUDESONIDE 0.5 MG/2 ML NEB RESP TX SCH ×2 (07:38→20:14)
--- NOTE | 2017-01-18 08:49 | XRay Report ---
XR chest 1V portable Indication: Intubated. Chest one view: Since yesterday, endotracheal tube, NG tube, pacemaker, median sternotomy wires, cardiomegaly, calcified tortuosity thoracic aorta and severe coarsening of interstitium of the lungs appears relatively stable. No new infiltrates are shown. Impression: No appreciable change. PROCEDURE INTERPRETED AT [facility] DEPARTMENT OF RADIOLOGY Final Report Signed by: John Harris M.D.
[2017-01-18] MEDS: APIXABAN 2.5 MG TABLET PO SCH ×2 (09:22→20:26)
[2017-01-18] MEDS: DOCUSATE SODIUM 100 MG CAPSULE PO SCH (09:22)
[2017-01-18] MEDS: ASPIRIN CHEW 81 MG TABLET PO SCH (09:22)
[2017-01-18] MEDS: POTASSIUM CHLORIDE 20 MEQ/15 ML UDCUP PER TUBE SCH ×2 (09:22→20:27)
[2017-01-18] MEDS: ROSUVASTATIN 10 MG TABLET PO SCH (09:22)
[2017-01-18] MEDS: MAGNESIUM CHLORIDE 64 MG TABLET PO SCH ×2 (09:22→20:26)
[2017-01-18] MEDS: LANSOPRAZOLE ODT 30 MG TABLET PO SCH (09:22)
[2017-01-18] MEDS: NEBIVOLOL 5 MG TABLET PO SCH (09:22)
[2017-01-18] MEDS: DESITIN 4OZ/NYSTATIN 15 GRAM MIXTURE PASTE TOP SCH ×2 (09:32→20:26)
[2017-01-18] MEDS: MUPIROCIN 2% OINT 22 GM TUBE TOP SCH ×2 (09:32→20:26)
--- NOTE | 2017-01-18 12:22 | Nephrology Progress Note ---
Nephrology - PN: Subj Interval history: The patient remains ventilated is on 80% FiO2. Serum creatinine has been stable at 1.1 in good urine output. She is hemodynamically stable. Exam (PN)-Nephrology - Vital Signs Vital signs: Period Temp Pulse Resp BP Sys/Scott Pulse Ox Last 24 Hr 96.6 F-97.8 F 63-93 18-33 69-168/35-122 82-100 - General Appearance General appearance: well-developed, intubated EENT: ATNC Neck: supple Respiratory: clear Cardiology: no edema, regular rate, regular rhythm Gastrointestinal: normoactive bowel sounds, no tenderness - Lab 01/18/17 03:30 01/18/17 03:30 Most recent lab results ABG pH 7.513 (7.35-7.45) H 01/18/17 07:05 ABG pCO2 40.8 MM HG (35-48) 01/18/17 07:05 ABG pO2 96.1 MM HG (80-95) H 01/18/17 07:05 ABG HCO3 32.0 MMOL/L (20-26) H 01/18/17 07:05 ABG O2 Saturation 97.2 % (95-100) 01/18/17 07:05 Calcium 8.6 MG/DL (8.5-10.1) 01/18/17 03:30 Phosphorus 3.7 MG/DL (2.5-4.9) 01/16/17 04:58 Magnesium 2.4 MG/DL (1.8-2.4) 01/18/17 03:30 Assessment and Plan (1) Coronary artery disease Status: Chronic Current Visit: Yes Qualifiers: Coronary Disease-Associated Artery/Lesion type: [place] artery Associated angina: without angina (2) History of atrial fibrillation Status: Chronic Current Visit: No (3) COPD (chronic obstructive pulmonary disease) Status: Chronic Assessment and plan: The patient remains ventilated. Current Visit: Yes (4) Solitary kidney Status: Chronic Assessment and plan: Renal function appears to be stable. Creatinine of 1.1. Current Visit: Yes (5) Ventilatory failure Status: Acute Current Visit: Yes
--- NOTE | 2017-01-18 14:20 | Family Practice Progress Note ---
Family Practice - PN: Subj Interval history: I am seeing the patient for Dr. Starks. Patient remains on ventilator support. She has been hypotensive and is presently receiving pressor medications. Has a urinary tract infection which is being treated appropriately. He is being seen by several subspecialties and I have reviewed there notes and recommendations. Presently concur with treatment plan. We will continue present treatment. 01/18/17 patient remains on ventilator support. Dr. Leos is adjusting her levels. Still requiring pressor agents. She is stable from a cardiac and nephrology standpoint. All issues are being addressed by multiple consultants. We will continue present treatment plan and hopefully patient will continue to improve. Exam (Progress Note) - Constitutional Vitals: Period Temp Pulse Resp BP Sys/Scott Pulse Ox Last 24 Hr 96.6 F-97.8 F 61-90 18-33 69-165/35-122 82-100 Results - Labs CBC & BMP: 01/18/17 03:30 01/18/17 03:30
[2017-01-18] MEDS: PHENYLEPHRINE DRIP 40 MG/250 ML PREMIX IV SCH (18:16)
[2017-01-19] MEDS: methylPREDNISolone SOD SUC 40 MG/1 ML VIAL IV SCH ×4 (00:30→18:34)
[2017-01-19] MEDS: INSULIN REGULAR 100 UNIT/ML SUBCUT SCH ×4 (00:30→18:34)
[2017-01-19] MEDS: CLINDAMYCIN INJ 300 MG in PREMIX 1 EACH IV SCH ×4 (00:31→18:35)
[2017-01-19] MEDS: ALBUTEROL/IPRATROPIUM 3 ML NEB RESP TX SCH ×7 (01:20→23:20)
[2017-01-19 04:09] LABS: ABG Base Excess 6.6 MMOL/L (-2.5-2.5); ABG HCO3 30.3 MMOL/L (20-26); ABG Oxygen Saturation 94.2 % (95-100); ABG PCO2 47.5 MM HG (35-48); ABG PH 7.432 (7.35-7.45); ABG PO2 73.8 MM HG (80-95); ABG TCO2 29.4 MMOL/L (23-27)
[2017-01-19 05:51] LABS: Basophils % 0.1 % (0.0-0.8); Hematocrit 27.3 VOL% (35.7-47.0); Hemoglobin 8.3 GM/DL (12.0-16.0); Immature Granulocytes % 1.8 %; Immature Granulocytes Absolute 0.44 #; Lymphocytes # 0.3 10*3/uL (1.4-4.0); Lymphocytes % 1.4 % (21.3-54.2); Mean Corpuscular HGB Conc 30.4 GM/DL (32-36); Mean Corpuscular Hemoglobin 29 PG (27-34); Mean Corpuscular Volume 96.8 FL (87-102); Mean Platelet Volume 12.2 FL (9.6-12.0); Monocytes # 0.7 10*3/uL (0.11-0.8); Monocytes % 2.9 % (1.7-12.7); Neutrophils # 22.8 10*3/uL (1.4-7.4); Neutrophils % 93.8 % (38.7-73.9); Red Blood Count 2.82 MC/CUMM (3.8-5.5); Red Cell Distribution Width 16.2 % (9.3-17.3); White Blood Count 24.3 T/CUMM (4-12)
[2017-01-19 06:07] LABS: Calcium 8.7 MG/DL (8.5-10.1); Magnesium 2.6 MG/DL (1.8-2.4); Osmolality,Calculated 315.4 MOS/KG (273-304); Potassium 5.3 MMOL/L (3.5-5.1)
[2017-01-19] MEDS: LEVOTHYROXINE 50 MCG TABLET PO SCH (06:13)
[2017-01-19 06:17] LABS: Platelet Count 97 T/CUMM (130-400)
[2017-01-19 06:32] LABS: Acanthocytes Few; Band Neutrophils 1 % (0-10); Lymphocytes 1 % (20-55); Metamyelocytes 1 %; Ovalocytes Few; Platelet Estimate Decreased; Segmented Neutrophils 94 % (50-85)
[2017-01-19 06:33] LABS: Total Cells Counted 100
[2017-01-19] MEDS: BUDESONIDE 0.5 MG/2 ML NEB RESP TX SCH ×2 (06:40→19:10)
--- NOTE | 2017-01-19 07:04 | Pulmonology Progress Note ---
Pulmonary - PN: Subj Interval history: This 76-year-old female came in with shortness of breath. Dr. Herrera saw her over the weekend and felt that she may have amiodarone lung. That was stopped and she has been given steroids. Her chest x-ray does look better. 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 She remains on the ventilator. Had to have her oxygen turned up yesterday but her PO2 is 180 on an FiO2 of 100% so we will reduce it again. Also has a urinary tract infection. She is hypotensive and is on pressors. 01/19/2017 chest x-ray little change. PO2 in the 70s. Trying to reduce FiO2 a little. Not ready for any weaning as yet Exam (Progress Note) - Constitutional Vitals: Period Temp Pulse Resp BP Sys/Scott Pulse Ox Last 24 Hr 97.7 F-97.8 F 60-103 18-38 66-167/36-78 89-100 Exam: Patient is sedated at present. Vital signs normal. Pupils react to light. Throat is clear. Chest shows some minimal bibasilar crackles. Heart normal rate and rhythm no murmurs. Abdomen soft no masses. Extremities no clubbing cyanosis edema. Calves nontender. Little change from yesterday. Results - Labs CBC & BMP: 01/19/17 04:00 01/19/17 04:00 Lab Results: I have reviewed the past 24 hour labs - Diagnostic Findings Procedure: Chest x-ray: image reviewed by me (Interstitial infiltrates with little change from yesterday. Pacemaker in place. ET tube good position.) Assessment and Plan (1) Coronary artery disease involving coronary bypass graft Status: Chronic Assessment and plan: BNP is a bit elevated at 385. Part of this may be congestive heart failure. 01/18/2017 does have some congestive heart failure seems to be stable with that 01/19/2017 trying to gently diurese. Current Visit: Yes Qualifiers: [place] vs. transplanted heart: [place] heart Associated angina: without angina Qualified Code(s): I25.810 - Atherosclerosis of coronary artery bypass graft(s) without angina pectoris (2) Amiodarone pulmonary toxicity Status: Acute Assessment and plan: X-ray and symptoms have improved with holding amiodarone and giving steroids. However again part may be from diuretics improving her fluid status. 01/18/2017 has had her amiodarone stopped in [place] given steroids. Persistent interstitial infiltrates. 01/19/2017 this appears to be stable. Current Visit: Yes
[2017-01-19] MEDS: MORPHINE 2 MG/1 ML SYRINGE IV PRN (07:54)
--- NOTE | 2017-01-19 08:03 | Cardiology Progress Note ---
Assessment and Plan (1) Amiodarone pulmonary toxicity Status: Acute Current Visit: Yes (2) Chronic renal failure, stage 3 (moderate) Status: Acute Current Visit: Yes (3) Chronic anticoagulation Status: Chronic Current Visit: Yes (4) Coronary artery disease involving coronary bypass graft Status: Chronic Current Visit: Yes Qualifiers: [place] vs. transplanted heart: [place] heart Associated angina: without angina Qualified Code(s): I25.810 - Atherosclerosis of coronary artery bypass graft(s) without angina pectoris (5) Dyslipidemia Status: Chronic Current Visit: Yes Cardiology - PN: Subj Interval history: Patient is sedated on the ventilator. She is oxygenating reasonably well requiring a fair amount of positive airway pressure for ventilation. Her hemodynamics look good her urine output is good renal function is stable. Her rhythm has been stable. She gets agitated when the allow the sedation to come off but overall I think she is stable and hopefully will continue to improve with her weaning effort. Exam (Progress Note) - Constitutional Vitals: Period Temp Pulse Resp BP Sys/Scott Pulse Ox Last 24 Hr 97.7 F-97.8 F 60-103 18-38 66-167/36-78 89-100 Exam: General:no acute distress. Sedated on the ventilator. HEENT: no new lesions, sclerae are clear, mouth and pharynx benign. Ecchymosis noted unchanged from previous evaluation. Neck: supple, trachea midline, no JVD noted Lungs: no rales ronchi or wheeze is noted. pt comfortable without accesory muscle use to assist with breathing CV: RRR no murmur rub or gallop is noted. Abd: soft and nontender, BSNA, no masses. Ext: no cyanosis, clubbing or edema Neuro: grossly intact without focal neurologic deficit. Result/EKG - Labs CBC & BMP: 01/19/17 04:00 01/19/17 04:00 Labs: Laboratory Results - last 24 hr 01/18/17 01/18/17 01/19/17 11:41 18:26 00:00 WBC RBC Hgb Hct MCV MCH MCHC RDW Plt Count MPV Neut % (Auto) Lymph % (Auto) [place] % (Auto) Eos % (Auto) Baso % (Auto) Neut # (Auto) Lymph # (Auto) [place] # (Auto) Eos # (Auto) Baso # (Auto) Total Counted Immature Gran % Nucleated RBC % Immature Gran # Segmented Neutrophils Band Neutrophils Lymphocytes Monocytes Metamyelocytes Nucleated RBCs # Platelet Estimate Ovalocytes Acanthocytes (Sp[place]) ABG pH ABG pCO2 ABG pO2 ABG HCO3 ABG Total CO2 ABG O2 Saturation ABG Base Excess Sodium Potassium Chloride Carbon Dioxide Anion Gap BUN Creatinine GFR Calculation BUN/Creatinine Ratio Glucose POC Glucose 177 H 194 H 197 H Calculated Osmolality Calcium Magnesium 01/19/17 01/19/17 01/19/17 03:34 04:00 04:00 WBC 24.3 H RBC 2.82 L Hgb 8.3 L Hct 27.3 L MCV 96.8 MCH 29 MCHC 30.4 L RDW 16.2 Plt Count 97 L D MPV 12.2 H Neut % (Auto) 93.8 H Lymph % (Auto) 1.4 L [place] % (Auto) 2.9 Eos % (Auto) 0.0 Baso % (Auto) 0.1 Neut # (Auto) 22.8 H Lymph # (Auto) 0.3 L [place] # (Auto) 0.7 Eos # (Auto) 0.0 Baso # (Auto) 0.0 Total Counted 100 Immature Gran % 1.8 Nucleated RBC % 0.0 Immature Gran # 0.44 Segmented Neutrophils 94 H Band Neutrophils 1 Lymphocytes 1 L Monocytes 3 Metamyelocytes 1 Nucleated RBCs # 0.00 Platelet Estimate Decreased Ovalocytes Few Acanthocytes ([place]) Few ABG pH 7.432 ABG pCO2 47.5 ABG pO2 73.8 L ABG HCO3 30.3 H ABG Total CO2 29.4 H ABG O2 Saturation 94.2 L ABG Base Excess 6.6 H Sodium 147 H Potassium 5.3 H Chloride 108 H Carbon Dioxide 33 H Anion Gap 11.3 BUN 68 H Creatinine 1.10 H GFR Calculation 51 BUN/Creatinine Ratio 61.00 H Glucose 177 H POC Glucose Calculated Osmolality 315.4 H Calcium 8.7 Magnesium 2.6 H 01/19/17 06:03 WBC RBC Hgb Hct MCV MCH MCHC RDW Plt Count MPV Neut % (Auto) Lymph % (Auto) [place] % (Auto) Eos % (Auto) Baso % (Auto) Neut # (Auto) Lymph # (Auto) [place] # (Auto) Eos # (Auto) Baso # (Auto) Total Counted Immature Gran % Nucleated RBC % Immature Gran # Segmented Neutrophils Band Neutrophils Lymphocytes Monocytes Metamyelocytes Nucleated RBCs # Platelet Estimate Ovalocytes Acanthocytes (Sp[place]) ABG pH ABG pCO2 ABG pO2 ABG HCO3 ABG Total CO2 ABG O2 Saturation ABG Base Excess Sodium Potassium Chloride Carbon Dioxide Anion Gap BUN Creatinine GFR Calculation BUN/Creatinine Ratio Glucose POC Glucose 186 H Calculated Osmolality Calcium Magnesium
--- NOTE | 2017-01-19 08:50 | Nephrology Progress Note ---
Nephrology - PN: Subj Interval history: Patient's condition is about the same. Serum creatinine is stable at 1.1. Good urine output. No other acute changes. Exam (PN)-Nephrology - Vital Signs Vital signs: Period Temp Pulse Resp BP Sys/Scott Pulse Ox Last 24 Hr 97.7 F-98.2 F 60-103 18-38 66-167/36-78 89-100 - General Appearance General appearance: intubated EENT: ATNC Neck: supple Respiratory: clear Cardiology: no edema, regular rate, regular rhythm Gastrointestinal: normoactive bowel sounds - Lab 01/19/17 04:00 01/19/17 04:00 Most recent lab results ABG pH 7.432 (7.35-7.45) 01/19/17 03:34 ABG pCO2 47.5 MM HG (35-48) 01/19/17 03:34 ABG pO2 73.8 MM HG (80-95) L 01/19/17 03:34 ABG HCO3 30.3 MMOL/L (20-26) H 01/19/17 03:34 ABG O2 Saturation 94.2 % (95-100) L 01/19/17 03:34 Calcium 8.7 MG/DL (8.5-10.1) 01/19/17 04:00 Phosphorus 3.7 MG/DL (2.5-4.9) 01/16/17 04:58 Magnesium 2.6 MG/DL (1.8-2.4) H 01/19/17 04:00 Assessment and Plan (1) Coronary artery disease Status: Chronic Current Visit: Yes Qualifiers: Coronary Disease-Associated Artery/Lesion type: [place] artery Associated angina: without angina (2) History of atrial fibrillation Status: Chronic Current Visit: No (3) COPD (chronic obstructive pulmonary disease) Status: Chronic Assessment and plan: The patient remains ventilated. Current Visit: Yes (4) Solitary kidney Status: Chronic Assessment and plan: Renal function appears to be stable. Creatinine of 1.1. Current Visit: Yes (5) Ventilatory failure Status: Acute Current Visit: Yes
[2017-01-19] MEDS: MAGNESIUM CHLORIDE 64 MG TABLET PO SCH ×2 (08:57→21:02)
[2017-01-19] MEDS: NEBIVOLOL 5 MG TABLET PO SCH (09:17)
[2017-01-19] MEDS: ROSUVASTATIN 10 MG TABLET PO SCH (09:17)
[2017-01-19] MEDS: DOCUSATE SODIUM 100 MG CAPSULE PO SCH (09:17)
[2017-01-19] MEDS: POTASSIUM CHLORIDE 20 MEQ/15 ML UDCUP PER TUBE SCH ×2 (09:18→21:01)
[2017-01-19] MEDS: LANSOPRAZOLE ODT 30 MG TABLET PO SCH (09:18)
[2017-01-19] MEDS: DESITIN 4OZ/NYSTATIN 15 GRAM MIXTURE PASTE TOP SCH ×2 (09:18→20:29)
[2017-01-19] MEDS: MUPIROCIN 2% OINT 22 GM TUBE TOP SCH ×2 (09:18→20:29)
[2017-01-19] MEDS: FLUDROCORTISONE 0.1 MG TABLET PO SCH (09:18)
[2017-01-19] MEDS: APIXABAN 2.5 MG TABLET PO SCH ×2 (09:18→21:02)
[2017-01-19] MEDS: ASPIRIN CHEW 81 MG TABLET PO SCH (09:18)
--- NOTE | 2017-01-19 10:12 | XRay Report ---
Portable chest Date: 01/19/2017 Clinical history: Ventilator Comparison: 01/18/2017 Technique: Portable AP sitting chest Findings: Persistent cardiomegaly with prior median sternotomy. The supportive devices are stable in position with left subclavian atrioventricular permanent pacemaker. Persistent diffuse parenchymal findings especially in the lower lung zones with stable mediastinum and osseous structures. Impression: No significant change in the appearance of the chest when compared to the previous exam. PROCEDURE INTERPRETED AT [facility] DEPARTMENT OF RADIOLOGY Final Report Signed by: Dr. Janie Farris
[2017-01-19] MEDS: PROPOFOL 1,000 MG/100 ML BOTTLE IV SCH ×3 (11:05→20:30)
--- NOTE | 2017-01-19 16:45 | Family Practice Progress Note ---
Family Practice - PN: Subj Interval history: I am seeing the patient for Dr. tSarks. Patient remains on ventilator support. She has been hypotensive and is presently receiving pressor medications. Has a urinary tract infection which is being treated appropriately. He is being seen by several subspecialties and I have reviewed there notes and recommendations. Presently concur with treatment plan. We will continue present treatment. 01/18/17 patient remains on ventilator support. Dr. Leos is adjusting her levels. Still requiring pressor agents. She is stable from a cardiac and nephrology standpoint. All issues are being addressed by multiple consultants. We will continue present treatment plan and hopefully patient will continue to improve. 01/19/17 patient's respiratory status has not changed. Still not able to wean off respirator. Patient was sedated at the time of my evaluation. Staff states that she becomes very agitated but is moving all extremities when sedatives are reduced. Is still receiving Axel-Synephrine drip.. We will continue present treatment plan Exam (Progress Note) - Constitutional Vitals: Period Temp Pulse Resp BP Sys/Scott Pulse Ox Last 24 Hr 97.7 F-98.2 F 60-103 17-38 66-167/25-78 89-98 Results - Labs CBC & BMP: 01/19/17 04:00 01/19/17 04:00
[2017-01-19] MEDS: PHENYLEPHRINE DRIP 40 MG/250 ML PREMIX IV SCH ×2 (17:28→20:31)
[2017-01-20] MEDS: INSULIN REGULAR 100 UNIT/ML SUBCUT SCH ×5 (01:38→23:21)
[2017-01-20] MEDS: methylPREDNISolone SOD SUC 40 MG/1 ML VIAL IV SCH ×4 (01:41→18:34)
[2017-01-20] MEDS: CLINDAMYCIN INJ 300 MG in PREMIX 1 EACH IV SCH ×4 (01:42→18:34)
[2017-01-20] MEDS: MORPHINE 2 MG/1 ML SYRINGE IV PRN ×2 (02:58→22:20)
[2017-01-20] MEDS: ALBUTEROL/IPRATROPIUM 3 ML NEB RESP TX SCH ×6 (03:25→23:21)
[2017-01-20 03:32] LABS: ABG Base Excess 4.9 MMOL/L (-2.5-2.5); ABG HCO3 28.8 MMOL/L (20-26); ABG Oxygen Saturation 95.4 % (95-100); ABG PCO2 45.2 MM HG (35-48); ABG PH 7.428 (7.35-7.45); ABG PO2 77.8 MM HG (80-95); ABG TCO2 27.7 MMOL/L (23-27); Allen Test Positive; Pt O2 Delivery Device Ventilator
[2017-01-20] MEDS: PROPOFOL 1,000 MG/100 ML BOTTLE IV SCH ×3 (03:35→16:21)
[2017-01-20 05:06] LABS: Basophils % 0.1 % (0.0-0.8); Hematocrit 25.2 VOL% (35.7-47.0); Hemoglobin 7.6 GM/DL (12.0-16.0); Immature Granulocytes Absolute 0.88 #; Lymphocytes # 0.4 10*3/uL (1.4-4.0); Lymphocytes % 1.3 % (21.3-54.2); Mean Corpuscular HGB Conc 30.2 GM/DL (32-36); Mean Corpuscular Hemoglobin 30 PG (27-34); Mean Corpuscular Volume 98.1 FL (87-102); Mean Platelet Volume 12.3 FL (9.6-12.0); Monocytes # 0.9 10*3/uL (0.11-0.8); Monocytes % 3.1 % (1.7-12.7); Neutrophils # 27.5 10*3/uL (1.4-7.4); Neutrophils % 92.5 % (38.7-73.9); Red Blood Count 2.57 MC/CUMM (3.8-5.5); Red Cell Distribution Width 16.3 % (9.3-17.3); White Blood Count 29.7 T/CUMM (4-12)
[2017-01-20 05:08] LABS: Platelet Count 96 T/CUMM (130-400)
[2017-01-20 05:36] LABS: Band Neutrophils 2 % (0-10); Hypochromasia 1+; Lymphocytes 1 % (20-55); Microcytosis Slight; Myelocytes 1 %; Ovalocytes Slight; Platelet Estimate Decreased; Segmented Neutrophils 92 % (50-85); Total Cells Counted 100
[2017-01-20 05:38] LABS: Calcium 7.5 MG/DL (8.5-10.1); Magnesium 2.5 MG/DL (1.8-2.4); Osmolality,Calculated 310.8 MOS/KG (273-304); Potassium 5.8 MMOL/L (3.5-5.1)
[2017-01-20 05:57] LABS: Magnesium 2.6 MG/DL (1.8-2.4); Prealbumin 22.5 MG/DL (20-40)
[2017-01-20] MEDS: LEVOTHYROXINE 50 MCG TABLET PO SCH (06:52)
[2017-01-20] MEDS: BUDESONIDE 0.5 MG/2 ML NEB RESP TX SCH ×2 (07:03→19:21)
--- NOTE | 2017-01-20 07:41 | Family Practice Progress Note ---
Family Practice - PN: Subj Interval history: Patient had an uneventful weekend but is certainly not shown any significant improvement. She is on Axel-Synephrine and propofol as well as ceftazadime and Cleocin. Patient's blood pressure remains just a bit low but her urine output is acceptable. I had a long discussion with her niece and she understands Ms. Guerrero present predicament. The patient was sedated this morning on propofol Exam (Progress Note) - Constitutional Vitals: Period Temp Pulse Resp BP Sys/Scott Pulse Ox Last 24 Hr 96.4 F-98.2 F 61-87 17-48 84-151/25-77 92-100 Exam: Objective a well-developed white female i who is sedated and on the ventilator. Patient's weight is stable. Cardiovascular: Heart rates regular I hear no murmurs or gallops respiratory: Respiratory: Patient has scattered inspiratory rales in all lung [place] which is unchanged from prior exam. Chest x-ray is unchanged from Friday. Abdomen: Abdomen soft and nontender. Results - Labs CBC & BMP: 01/20/17 04:50 01/20/17 04:50 Lab Results: I have reviewed the past 24 hour labs - Diagnostic Findings Procedure: Chest x-ray: report reviewed by me (No significant change from recent studies) Assessment and Plan (1) COPD (chronic obstructive pulmonary disease) Status: Chronic Assessment and plan: 01/08/2017: We will continue present therapy. 01/09/2017: Patient is slowly improving. 01/10/2017: Patient is slowly improving 01/13/2017: Patient is tolerating her Ventimask. Chest x-ray showed slight improvement with increasing steroids. Current Visit: Yes (2) Amiodarone pulmonary toxicity Status: Acute Assessment and plan: 01/08/2017: We will continue to hold her amiodarone of course. 01/09/2017: Patient is slowly improving. 01/10/2017: Patient is certainly improved with IV steroids. 01/13/2017: Patient improved with increase in steroids. 01/14/2017: Patient presently on ventilator and is oxygenating adequately. 01/15/2017: No significant change from yesterday. 01/16/2017: Patient may be slightly improved. 01/20/2017: Patient is making no improvement. Her vital signs and urine output remained adequate. Current Visit: Yes
--- NOTE | 2017-01-20 08:04 | XRay Report ---
History: Patient on ventilator Date: 01/20/2017 Study: Chest x-ray AP portable Comparison exam: 01/19/2017 The endotracheal tube, nasogastric tube, and left PICC line are generally unchanged in position. There is stable mild cardiomegaly. The mediastinal contours are unchanged in this patient status post prior median sternotomy. The lungs are unchanged. There is patchy parenchymal disease in the lung bases with groundglass parenchymal changes throughout both lungs. There is no new or worsening infiltrate. There is no increasing pleural effusion or pneumothorax. Osseous structures are similar. The left subclavian multilead transvenous pacemaker is generally intact and unchanged. Impression: No gross change from the previous study PROCEDURE INTERPRETED AT [facility] DEPARTMENT OF RADIOLOGY Final Report Signed by: Dr. Felicitas Puckett
--- NOTE | 2017-01-20 08:20 | Cardiology Progress Note ---
Assessment and Plan (1) UTI (urinary tract infection) Status: Acute Assessment and plan: 1. 76-year-old WF well known to me with history of labile hypertension, remote smoking, rectal CA 2007, recurrent syncope until after CABG in 2010 (AZAR to LAD and vein to OM), with long history of paroxysmal atrial fibrillation and tachybradycardia syndrome status post pacemaker April 2014 who presented with hypoxia and significant UTI now on prolonged intubation for approximately 9 days still requiring intubation and 70% oxygen. 2. 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 3. UTI has been treated with IV antibiotics 4. Newly on Axel-Synephrine due to hypotension from to prevent; this is slowly being weaned. 5. Normocytic anemia with hematocrit drop somewhat to 25%; discontinue aspirin she has had no coronary problems in years and is on Eliquis 2.5 mg twice daily. Hopefully we can continue her Eliquis low-dose to reduce her risk of DVT or cardioembolic phenomenon. 6. Remote occluded renal artery stent 7. Atrial paced rhythm 8. Normal LV systolic function noted on echocardiogram this admission with negative troponin. 9. Poor prognosis; I discussed this at length with her niece Current Visit: No (2) History of atrial fibrillation Status: Chronic Current Visit: No (3) Chronic anticoagulation Status: Chronic Current Visit: Yes (4) Paroxysmal a-fib Status: Chronic Current Visit: No (5) Amiodarone pulmonary toxicity Status: Acute Current Visit: Yes Cardiology - PN: Subj Interval history: Prescription this appears little changed and I discussed her progress with nursing staff. She has been weaned to 70% oxygen but still requires ventilator support with high pressure. She is not having dysrhythmia. She was started on axel-due to hypotension which was caused by dipper Van which was needed for sedation. Exam (Progress Note) - Constitutional Vitals: Period Temp Pulse Resp BP Sys/Scott Pulse Ox Last 24 Hr 96.4 F-97.9 F 61-87 17-48 84-151/25-77 91-100 General appearance: normal weight, no acute distress, other (intubated/sedated) - Head Head exam: Present: contusion - Respiratory Respiratory exam: Present: rales. Absent: wheezes - Cardiovascular Cardiovascular exam: Present: regular rate and rhythm. Absent: diastolic murmur , rubs - GI/Abdominal GI/Abdominal exam: Present: soft. Absent: tenderness - Extremities Exam Extremities exam: Absent: edema Result/EKG - Labs CBC & BMP: 01/20/17 04:50 01/20/17 04:50 Labs: Laboratory Results - last 24 hr 01/19/17 01/19/17 01/20/17 11:37 17:54 00:44 WBC RBC Hgb Hct MCV MCH MCHC RDW Plt Count MPV Neut % (Auto) Lymph % (Auto) Luce % (Auto) Eos % (Auto) Baso % (Auto) Neut # (Auto) Lymph # (Auto) Luce # (Auto) Eos # (Auto) Baso # (Auto) Total Counted Immature Gran % Nucleated RBC % Immature Gran # Segmented Neutrophils Band Neutrophils Lymphocytes Monocytes Myelocytes Nucleated RBCs # Platelet Estimate Hypochromasia Microcytosis Ovalocytes Morphology Comment ABG pH ABG pCO2 ABG pO2 ABG HCO3 ABG Total CO2 ABG O2 Saturation ABG Base Excess FiO2 Sodium Potassium Chloride Carbon Dioxide Anion Gap BUN Creatinine GFR Calculation BUN/Creatinine Ratio Glucose POC Glucose 205 H 167 H 209 H Calculated Osmolality Calcium Phosphorus Magnesium Prealbumin 01/20/17 01/20/17 01/20/17 03:10 04:50 04:50 WBC 29.7 H RBC 2.57 L Hgb 7.6 L Hct 25.2 L MCV 98.1 MCH 30 MCHC 30.2 L RDW 16.3 Plt Count 96 L MPV 12.3 H Neut % (Auto) 92.5 H Lymph % (Auto) 1.3 L Luce % (Auto) 3.1 Eos % (Auto) 0.0 Baso % (Auto) 0.1 Neut # (Auto) 27.5 H Lymph # (Auto) 0.4 L Luce # (Auto) 0.9 H Eos # (Auto) 0.0 Baso # (Auto) 0.0 Total Counted 100 Immature Gran % 3.0 Nucleated RBC % 0.0 Immature Gran # 0.88 Segmented Neutrophils 92 H Band Neutrophils 2 Lymphocytes 1 L Monocytes 4 Myelocytes 1 Nucleated RBCs # 0.00 Platelet Estimate Decreased Hypochromasia 1+ Microcytosis Slight Ovalocytes Slight Morphology Comment ABG pH 7.428 ABG pCO2 45.2 ABG pO2 77.8 L ABG HCO3 28.8 H ABG Total CO2 27.7 H ABG O2 Saturation 95.4 ABG Base Excess 4.9 H FiO2 70.00 Sodium Potassium Chloride Carbon Dioxide Anion Gap BUN Creatinine GFR Calculation BUN/Creatinine Ratio Glucose POC Glucose Calculated Osmolality Calcium Phosphorus 4.0 Magnesium 2.6 H Prealbumin 22.5 01/20/17 04:50 WBC RBC Hgb Hct MCV MCH MCHC RDW Plt Count MPV Neut % (Auto) Lymph % (Auto) Luce % (Auto) Eos % (Auto) Baso % (Auto) Neut # (Auto) Lymph # (Auto) Luce # (Auto) Eos # (Auto) Baso # (Auto) Total Counted Immature Gran % Nucleated RBC % Immature Gran # Segmented Neutrophils Band Neutrophils Lymphocytes Monocytes Myelocytes Nucleated RBCs # Platelet Estimate Hypochromasia Microcytosis Ovalocytes Morphology Comment ABG pH ABG pCO2 ABG pO2 ABG HCO3 ABG Total CO2 ABG O2 Saturation ABG Base Excess FiO2 Sodium 144 Potassium 5.8 H Chloride 109 H Carbon Dioxide 31 Anion Gap 9.8 BUN 73 H Creatinine 1.10 H GFR Calculation 51 BUN/Creatinine Ratio 66.00 H Glucose 156 H POC Glucose Calculated Osmolality 310.8 H Calcium 7.5 L Phosphorus Magnesium 2.5 H Prealbumin
[2017-01-20] MEDS: DOCUSATE SODIUM 100 MG CAPSULE PO SCH (08:37)
[2017-01-20] MEDS: APIXABAN 2.5 MG TABLET PO SCH ×2 (08:37→21:31)
[2017-01-20] MEDS: MUPIROCIN 2% OINT 22 GM TUBE TOP SCH ×2 (08:38→21:31)
[2017-01-20] MEDS: ROSUVASTATIN 10 MG TABLET PO SCH (08:38)
[2017-01-20] MEDS: DESITIN 4OZ/NYSTATIN 15 GRAM MIXTURE PASTE TOP SCH ×2 (08:38→21:31)
[2017-01-20] MEDS: ASPIRIN CHEW 81 MG TABLET PO SCH (08:38)
[2017-01-20] MEDS: LANSOPRAZOLE ODT 30 MG TABLET PO SCH (08:38)
[2017-01-20] MEDS: NEBIVOLOL 5 MG TABLET PO SCH (08:38)
[2017-01-20] MEDS: MAGNESIUM CHLORIDE 64 MG TABLET PO SCH ×2 (08:38→21:31)
--- NOTE | 2017-01-20 10:20 | Pulmonology Progress Note ---
Pulmonary - PN: Subj Interval history: This is a 76-year-old white female whom I saw in pulmonary consultation on 2016. She had had progressive shortness of breath and had chest x-ray changes along with progressive hypoxemia. My impressions were. 1. Diffuse 5 lobe interstitial and alveolar infiltrate. Suspect this will return clerk to be amiodarone lung. Note the presence of Velcro rales. Watch closely for the possibility of atypical pulmonary edema 2. COPD 3. Significant past history tobacco abuse. Stop smoking 2004 4. Normal TSH with elevated free T4 most likely secondary to amiodarone. 5. 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 6. Mild chronic renal failure and 1 nonfunctioning kidney followed by Dr. Martín Hays 7. Chronic anemia 8. Atrial fibrillation. Plan. 1. Stop amiodarone 2. Chest x-ray and ABGs daily 4 3. C-reactive protein and erythrocyte sedimentation rate 4. Repeat BNP 5. Increase Solu-Medrol to 40 mg every 8 hours 6. See orders 7. Dr. Tristan dickens and I have discussed the case and we have coordinated her care. 01/05/2017. Today's chest x-ray still shows 5 lobe interstitial and alveolar infiltrates but these appear to be a little different and a little less dense allowing for technique. The patient says she feels better. Her O2 has improved slightly she has erosions in her nose and with her to try different apparatus for her oxygen and will use Bactroban in her nares. There are no new microbiology reports. FiO2 of 44%, pH is 7.418, PO2 is 40.4, PO2 is 59.9 bicarb is 25.7. White count is 10,700 with 90.8 segs. H&H is 9.3/28.6. Sodium is 134 and potassium is 3.3. Cardiology will adjust this. Creatinine has increased to 2.00 with a BUN of 51. I think the patient is becoming a little over diuresed and I have stopped her Lasix which was 40 mg twice daily. Patient fell Velcro rounds have disappeared. 01/06/2017. This patient has amiodarone lung. This will be the third day she is off amiodarone. She is on Solu-Medrol 40 IV push q. 8. Today's chest x-ray looks markedly better. She still has 5 lobe alveolar and interstitial infiltrates but these are rapidly resolving. Today's O2 has not improved significantly but I expect that to follow. We need to continue the present treatment for right now impaired attention to her heart rhythm. Potassium is low at 3.2 and replacement as needed. H&H is stable at 9.6/29.9. White count is 9289 segs. TSH is normal. Free T4 is elevated most likely secondary to amiodarone. 01/08/2017. On steroids the patient's lung (chest x-ray) is looking much better. Her breath sounds are much improved. So far her ABGs have not improved a good bit. Hopefully this will follow soon. Off diuretics creatinine is dropped from 2.0-1.30 with a BUN of 35. Electrolytes are normal. CBC is stable. 01/09/2017. Patient had a fall yesterday. She was on the commode and slumped forward and injured her face. She has had CT scan of the face and brain these are negative. She is fine from a neurological standpoint today and embarrassed by the episode. Patient's chest is clear at this time goes by. Her O2 sats have not improved but she is found if she lays on the right side and takes several deep breaths her oxygen improved. I think we will just have to wait this out but this should begin to improve. Orders have been reviewed and note that Lasix has been restarted. With holding Lasix creatinine is dropped from 2.00-1.20 with a BUN of 32. Sodium is 134 and potassium is 4.3. White count is 11,200 with 84 segs. H&H is 8.9/27.3. I have not repeated the patient's blood gases since she is asked that we hold this if at all possible. 01/10/2017. This 76-year-old white female has amiodarone lung. After stopping amiodarone and starting Solu-Medrol 40 IV push every 8 hours her chest x-ray has improved remarkably. She however remains hypoxemia and hopefully this will be improved soon. Earlier in the patient's hospitalization she was slightly over diuresed and her creatinine went up to 1.6 with a BUN of 45. Creatinine is now 1.30 with a BUN of 36. Patient's on a lower dose of diuretics. Watch closely. White blood cell count is 14,500 with 86 segs. H&H is stable at 9.2/ 28.1. Platelets are 190,000. There are no positive cultures. Patient had a fall on 01/08/2017. CT of the face and head of been normal. She does have some mild contusions and bruises on her face. She was on Eliquis. There is a history of atrial fib. At the present time we will continue to follow her chest x-ray. Will wait for her oxygenation to improve and will watch her kidney status. 01/13/2017. During this weekend the patient was moved to intensive care. Her chest x-ray which is shown a very good improvement with steroids regressed and as she has a 5 lobe alveolar filling defect with increased interstitial markings. She was being treated for amiodarone lung. Even though her chest x- ray improved her ABGs did not improve and they have recently deteriorated. We are at the point that this needs to be treated as adult respiratory distress syndrome. That necessitates mechanical ventilation with PEEP and pressure support. I have discussed this with the patient and she is agreeable. I discussed it with Dr. Alex Starks and Dr. Sam Martell and they were agreeable. I have asked anesthesia to electively intubate the patient. I will start her on P and later will add IMV and pressure support. Electrolytes are normal. Creatinine is 1.4. H&H is stable at 9.2/28.9. White count is 13,500 with 91 segs. Platelets are 149,000. Natruretic peptide is 267 01/14/2017. This patient required intubation mechanical ventilation secondary to adult respiratory distress syndrome which is secondary to amiodarone. Today' s chest x-ray shows some improvement in a generalized 5 lobe alveolar infiltrates with surrounding interstitial edema. Endotracheal tube is in good position. ABGs on mechanical ventilation FiO2 of 100%. PEEP of 5 and pressure support of 12 shows a pH 7.537. PCO2 45.8. PO2 of 115 a bicarb of 35.2. Electrolytes are normal. Creatinine is increased to 1.50 with BUN of 56. We may need to stop either the patient's Lasix or her valsartan. H&H is 9.3/29.4. White count is 15,800 with 87% segs and platelets 148,000. 01/15/2017.Today's chest x-ray is improved. There is still 5 lobe alveolar infiltrates with associated increased interstitial markings. The consolidative pattern is resolving. There is a slight improvement in ABGs. On FiO2 of 100% pH is 7.506, PCO2 is 47.5, PO2 is 121 and bicarb is 36.4. Patient's on weaning protocol. Creatinine is dropped from 1.50-1.40 with a BUN of 58. Electrolytes are normal. White count is 14,991.5 segs. H&H is 8.9/27.9 and platelets are 135, 000. There are no positive cultures. This morning I had a talk with the niece . Hernán Victor nurse practitioner and lEver Resendiz RN were present. I explained amiodarone lung and the result of adult respiratory distress syndrome and pointed out that nationally the mortality for this is 50% in all comers. Madelyn wanted to know if the patient needed bronchoscopy. I told her not now but at later date we may need 1. 01/17/2017 peer this 76-year-old white female has amiodarone lung with 5 lobe alveolar and interstitial infiltrate. This initially improved rapidly with steroids and stopping amiodarone but then last week in this deteriorated. Patient is now on mechanical ventilation. Her chest x-ray is improving slightly on a daily basis. She still has a 5 lobe alveolar interstitial infiltrate with the tendencies towards consolidation at each base. Earlier today her endotracheal tube was a little too far down and it was retracted and the follow-up x-ray looks fine. Patient's hypoxemia has worsened. I have gone back from an FiO2 of 70% to 1 of 100%. Will try to keep her O2 sats 93 or above. She has CO2 retention and I have increased her rate to 32. She is on PEEP of 5 and I have increased her pressure support from 12-15. Patient also has hypotension and is on pressor agents. Patient has a white blood cell count of 39,000. I think this is a leukemoid reaction to high-dose steroid. Urine culture from 01/16/2017 is growing gram-negative rods and gram-positive cocci. There are no reported IDs and sensitivities. Patient was started on Cipro but she is allergic to Levaquin. Without any additional knowledge I am going to take the liberty of stopping the Cipro. I will start her on Fortaz 1 g every 8 hours and will begin with test dose and I will add Cleocin 300 every 6 hours. 01/20/2017. This patient's chest x-ray abnormalities which include a 5 lobe alveolar and interstitial infiltrates secondary to amiodarone lung is stable and only a slightly bit improved in the last few days. Her ABGs are slightly better. I had a talk with the patient's daughter who will talk to her brother. Hernán Victor nurse practitioner was present. She understands that this is treated just like adult respiratory distress syndrome. The mortality fall commerc is 50%. We will evaluate the patient additionally with fiberoptic bronchoscopy tomorrow. I have consulted ENT for elective trach. Patient still requires pressor agents and I hope she will be ready for trach by Friday. White blood cell count is 29,700 with a left shift. I think this is a leukemoid reaction. Urine cultures from 01/16/2017 grew Klebsiella pneumoniae and Enterococcus faecalis. Labs been reviewed and medicines have been reviewed. Have discussed the case with Dr. Alex Starks and we are in agreement with treatment. Physical exam. Vital signs. See below. Hypotension requiring pressor Psychiatric. Alert and oriented. Neurologic. Cranial nerves are intact Long track motor functions intact Chest. Wheeze free. Velcro rales have disappeared. No chest wall tenderness. Heart. No definite gallop. Abdomen. Nontender. Positive bowel sounds. Extremities. No edema Neck. Symmetrical kyphotic with no meningismus Lymphatics. No submandibular cervical supraclavicular adenopathy. The remainder of the physical exam is noncontributory Plan. 01/05/2017 1. DC Lasix, 40 mg p.o. twice daily was her dose 2. Monitor BUN/creatinine sodium and potassium 3. Continue steroids 4. Daily chest x-rays and ABGs to we can see clear-cut improvement. 5. Today I asked the patient admits she has not seen anyone in pulmonary before she says on one occasion she saw Dr. Minesh Whaley. She requested to change to my service and after we discussed this I agree. She has some family members to see me. She is related to Tahira dorado 01/06/2017. 1. See today's note above. 2. Amiodarone lung which is improving. Continue steroids and follow chest x- ray and ABGs. 3. Replacement of potassium 01/08/2017. 1. See today's note above. 2. Amiodarone lung is improving by chest x-ray and physical exam criteria. 3. Continue present regimen including Solu-Medrol 40 IV push every 8 hours 01/09/2017. 1. See today's note above 2. For tomorrow morning I have ordered a 2 view chest x-ray. #3 continue to monitor O2 sats. 01/10/2017. 1. See today's note above. 2. Chest x-ray pending. Repeat Friday and Friday 3. Follow-up BMP 4. Supplemental oxygen. #5 continue Solu-Medrol 40 IV push every 8 hours. 01/13/2017. 1. See today's note. Above. 2. Continue Solu-Medrol 3. Intubation mechanical ventilation. Treat amiodarone lung as adult respiratory distress syndrome. 01/14/2017 1. Gradually increasing creatinine. Consider stopping Lasix and/or valsartan. 2. Slight improvement in ABGs. This looks like it is going to be slow. 3. Mechanical ventilation weaning protocol 4. Physical therapy protocol. 5. Deep venous thrombophlebitis prevention protocol 6. Proton pump inhibitor protocol 7. Discontinue Zithromax. 01/15/2017. 1. Creatinine is stabilized. 2. Chest x-ray showing gradual improvement and oxygenation although very poor is gradually improved 01/17/2017 1. Gram-negative rods gram-positive cocci and urine. 2. DC Cipro 3. Start Fortaz. Test dose 4. Start Cleocin. 5. FiO2 100%. PEEP of 5. Pressure support of 15. Weaning protocol. 6. Pressor agents. 7. Leukemoid reaction 8. Daily chest x-ray, ABGs and lab. 9. See today's note above 01/20/2017. 1. Fiberoptic bronchoscopy Friday. 2. Trach Friday or later 3. Consult ENT 4. Ventilator adjustments made. Weaning protocol. Exam (Progress Note) - Constitutional Vitals: Period Temp Pulse Resp BP Sys/Scott Pulse Ox Last 24 Hr 96.4 F-99.1 F 61-87 17-48 84-151/25-77 90-100 Results - Labs CBC & BMP: 01/20/17 04:50 01/20/17 04:50
[2017-01-20] MEDS: PHENYLEPHRINE DRIP 40 MG/250 ML PREMIX IV SCH (18:34)
--- NOTE | 2017-01-20 22:59 | Nephrology Progress Note ---
Nephrology - PN: Subj Interval history: She remains on the ventilator. She is less responsive today than last week. She is requiring pressor support Exam (PN)-Nephrology - Vital Signs Vital signs: Period Temp Pulse Resp BP Sys/Scott Pulse Ox Last 24 Hr 97.2 F-99.1 F 61-89 21-48 81-154/32-70 89-100 Exam: Gen.: Sedated on ventilator ENT: Pupils equal round reactive to light. Neck: Supple. No JVD or bruit. Cardiovascular: Regular rate and rhythm. No murmur rub or gallop Lungs: Scattered rhonchi bilaterally Abdomen: Soft. Nontender. Positive bowel sounds. No organomegaly Extremities: No edema - Lab 01/20/17 04:50 01/20/17 04:50 Most recent lab results ABG pH 7.428 (7.35-7.45) 01/20/17 03:10 ABG pCO2 45.2 MM HG (35-48) 01/20/17 03:10 ABG pO2 77.8 MM HG (80-95) L 01/20/17 03:10 ABG HCO3 28.8 MMOL/L (20-26) H 01/20/17 03:10 ABG O2 Saturation 95.4 % (95-100) 01/20/17 03:10 Calcium 7.5 MG/DL (8.5-10.1) L 01/20/17 04:50 Phosphorus 4.0 MG/DL (2.5-4.9) 01/20/17 04:50 Magnesium 2.6 MG/DL (1.8-2.4) H 01/20/17 04:50 Assessment and Plan (1) Chronic renal failure, stage 3 (moderate) Status: Acute Assessment and plan: 76-year-old woman with: * Solitary kidney * CRF stage III. Creatinine is stable. * Hyperkalemia. Supplement has been discontinued * Ventilatory failure. 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 Wean ventilator as tolerated * COPD * A. fib * CAD Discussed with family Current Visit: Yes (2) Solitary kidney Status: Chronic Current Visit: Yes (3) Ventilatory failure Status: Acute Current Visit: Yes (4) Amiodarone pulmonary toxicity Status: Acute Current Visit: Yes (5) COPD (chronic obstructive pulmonary disease) Status: Chronic Current Visit: Yes (6) Coronary artery disease Status: Chronic Current Visit: Yes Qualifiers: Coronary Disease-Associated Artery/Lesion type: ham[place] artery Associated angina: without angina (7) Hypertension Status: Chronic Current Visit: Yes Qualifiers: Hypertension type: essential hypertension Qualified Code(s): I10 - Essential (primary) hypertension (8) History of atrial fibrillation Status: Chronic Current Visit: No
[2017-01-21] MEDS: CLINDAMYCIN INJ 300 MG in PREMIX 1 EACH IV SCH ×4 (00:36→18:05)
[2017-01-21] MEDS: methylPREDNISolone SOD SUC 40 MG/1 ML VIAL IV SCH ×5 (00:36→23:59)
[2017-01-21] MEDS: PROPOFOL 1,000 MG/100 ML BOTTLE IV SCH ×3 (00:37→17:00)
[2017-01-21] MEDS: PHENYLEPHRINE DRIP 40 MG/250 ML PREMIX IV SCH ×2 (00:38→17:12)
[2017-01-21 02:57] LABS: Allen Test Positive; Pt O2 Delivery Device Ventilator
[2017-01-21 02:58] LABS: ABG Base Excess 4.8 MMOL/L (-2.5-2.5); ABG HCO3 30.4 MMOL/L (20-26); ABG Oxygen Saturation 87.1 % (95-100); ABG PCO2 51.8 MM HG (35-48); ABG PH 7.387 (7.35-7.45); ABG PO2 55.1 MM HG (80-95)
[2017-01-21] MEDS: ALBUTEROL/IPRATROPIUM 3 ML NEB RESP TX SCH ×6 (02:59→23:16)
[2017-01-21 03:55] LABS: Basophils % 0.1 % (0.0-0.8); Hematocrit 24.4 VOL% (35.7-47.0); Hemoglobin 7.6 GM/DL (12.0-16.0); Immature Granulocytes % 3.7 %; Immature Granulocytes Absolute 1.26 #; Lymphocytes # 0.5 10*3/uL (1.4-4.0); Lymphocytes % 1.5 % (21.3-54.2); Mean Corpuscular HGB Conc 31.1 GM/DL (32-36); Mean Corpuscular Hemoglobin 30 PG (27-34); Mean Corpuscular Volume 94.9 FL (87-102); Mean Platelet Volume 12.6 FL (9.6-12.0); Neutrophils # 31.4 10*3/uL (1.4-7.4); Neutrophils % 91.7 % (38.7-73.9); Platelet Count 95 T/CUMM (130-400); Red Blood Count 2.57 MC/CUMM (3.8-5.5); Red Cell Distribution Width 16.2 % (9.3-17.3); White Blood Count 34.3 T/CUMM (4-12)
[2017-01-21 04:02] LABS: INR 1.1; PT Patient Result 11.8 SECS; Partial Thromboplastin Time 22.2 SECS (0-40)
[2017-01-21 04:13] LABS: Calcium 7.4 MG/DL (8.5-10.1); Potassium 5.6 MMOL/L (3.5-5.1)
[2017-01-21 04:52] LABS: Lymphocytes 2 % (20-55); Segmented Neutrophils 95 % (50-85); Total Cells Counted 100
[2017-01-21 04:53] LABS: Hypochromasia 1+; Platelet Estimate Decreased
[2017-01-21 04:54] LABS: Ovalocytes Slight
[2017-01-21] MEDS: INSULIN REGULAR 100 UNIT/ML SUBCUT SCH ×4 (06:08→23:59)
[2017-01-21] MEDS: LEVOTHYROXINE 50 MCG TABLET PO SCH (06:09)
[2017-01-21] MEDS: BUDESONIDE 0.5 MG/2 ML NEB RESP TX SCH ×2 (07:03→19:21)
--- NOTE | 2017-01-21 07:38 | Family Practice Progress Note ---
Family Practice - PN: Subj Interval history: Patient became more hypoxic last night and had to increase her FiO2 back to 90% . Repeat chest x-ray this morning shows significant decline with marked increased interstitial markings throughout both lung hamilton. I believe Dr. Herrera is planning a bronchoscopy on her today. Her niece has her handwritten will and she was wondering if it would be possible to stop the sedation and get her to sign it again and have it notarized. I will asked the nurses if they can arrange that. Exam (Progress Note) - Constitutional Vitals: Period Temp Pulse Resp BP Sys/Scott Pulse Ox Last 24 Hr 97.2 F-99.1 F 63-112 21-39 81-167/32-85 89-100 Exam: Objective a well-developed white female i who is sedated and on the ventilator. Patient's weight is up 1.5 kg this morning. Her mean blood pressure is running between 70 and 80. Repeat chest x-ray shows increasing interstitial markings. Her white blood count was up to 34,000. Cardiovascular: Heart rates regular I hear no murmurs or gallops respiratory: Respiratory: Patient has scattered inspiratory rales in all lung hamilton which is unchanged from prior exam. Abdomen: Abdomen soft and nontender. Results - Labs CBC & BMP: 01/21/17 03:40 01/21/17 03:40 Lab Results: I have reviewed the past 24 hour labs - Diagnostic Findings Procedure: Chest x-ray: report reviewed by me (Chest x-ray is significantly worsened from yesterday.) Assessment and Plan (1) COPD (chronic obstructive pulmonary disease) Status: Chronic Assessment and plan: 01/08/2017: We will continue present therapy. 01/09/2017: Patient is slowly improving. 01/10/2017: Patient is slowly improving 01/13/2017: Patient is tolerating her Ventimask. Chest x-ray showed slight improvement with increasing steroids. Current Visit: Yes (2) Amiodarone pulmonary toxicity Status: Acute Assessment and plan: 01/08/2017: We will continue to hold her amiodarone of course. 01/09/2017: Patient is slowly improving. 01/10/2017: Patient is certainly improved with IV steroids. 01/13/2017: Patient improved with increase in steroids. 01/14/2017: Patient presently on ventilator and is oxygenating adequately. 01/15/2017: No significant change from yesterday. 01/16/2017: Patient may be slightly improved. 01/20/2017: Patient is making no improvement. Her vital signs and urine output remained adequate. 01/22/2017: Patient's respiratory failure persists. Chest x-ray has worsened. Patient's for bronchoscopy today. Current Visit: Yes
--- NOTE | 2017-01-21 07:54 | XRay Report ---
History is ventilator management Comparison 01/20/2017 The heart is enlarged. ET tube tip is at T4. There remain diffuse bilateral reticulonodular and hazy pulmonary opacities with mixed interval change in the interval. There has been slight improvement on the right and slight worsening of the left. Impression: Mixed interval change of bilateral pulmonary opacities most likely dependent edema. Component of the diffuse infiltrates could certainly be present as well PROCEDURE INTERPRETED AT [facility] DEPARTMENT OF RADIOLOGY Final Report Signed by: Dr. Soco Oakes
--- NOTE | 2017-01-21 07:56 | Cardiology Progress Note ---
<Cherelle Muller - Last Filed: 01/21/17 07:43> Assessment and Plan (1) Amiodarone pulmonary toxicity Status: Acute Assessment and plan: See plan of care listed below. Current Visit: Yes (2) COPD (chronic obstructive pulmonary disease) Status: Chronic Assessment and plan: SEE PLAN OF CARE LISTED BELOW Current Visit: Yes (3) Congestive cardiac failure Status: Chronic Assessment and plan: SEE PLAN OF CARE LISTED BELOW Current Visit: Yes Qualifiers: Congestive heart failure type: diastolic Congestive heart failure chronicity: acute on chronic Qualified Code(s): I50.33 - Acute on chronic diastolic (congestive) heart failure (4) Coronary artery disease involving coronary bypass graft Status: Chronic Assessment and plan: SEE PLAN OF CARE LISTED BELOW Current Visit: Yes Qualifiers: Tribe vs. transplanted heart: [place] heart Associated angina: without angina Qualified Code(s): I25.810 - Atherosclerosis of coronary artery bypass graft(s) without angina pectoris (5) History of TIA (transient ischemic attack) Status: Chronic Assessment and plan: SEE PLAN OF CARE LISTED BELOW Current Visit: No (6) dual-chamber pacemaker Status: Chronic Assessment and plan: SEE PLAN OF CARE LISTED BELOW Current Visit: Yes (7) Former smoker Status: Chronic Assessment and plan: SEE PLAN OF CARE LISTED BELOW Current Visit: No (8) Chronic anemia Status: Chronic Assessment and plan: SEE PLAN OF CARE LISTED BELOW Current Visit: Yes (9) Dyslipidemia Status: Chronic Assessment and plan: SEE PLAN OF CARE LISTED BELOW Current Visit: Yes (10) Chronic anticoagulation Status: Chronic Assessment and plan: SEE PLAN OF CARE LISTED BELOW Current Visit: Yes (11) Paroxysmal a-fib Status: Chronic Assessment and plan: SEE PLAN OF CARE LISTED BELOW Current Visit: No (12) Hypertension Status: Chronic Assessment and plan: SEE PLAN OF CARE LISTED BELOW Current Visit: Yes Qualifiers: Hypertension type: essential hypertension Qualified Code(s): I10 - Essential (primary) hypertension (13) Hypokalemia Status: Acute Assessment and plan: See plan of care listed below. Current Visit: Yes (14) Chronic renal failure, stage 3 (moderate) Status: Acute Assessment and plan: See plan of care listed below. Current Visit: Yes (15) UTI (urinary tract infection) Status: Acute Assessment and plan: See plan of care listed below. Current Visit: Yes Cardiology - PN: Subj Interval history: ASSISTANT SECRETARY: DR. BARRY PCP: DR. HO IRENE SUMMARY: Ms. Quiros is a 76 year old female with known history of coronary artery disease, routinely followed by Dr. Barry. Patient's PMH includes: hypertension, dyslipidemia, former smoker, COPD, chronic anemia, anterior myocardial infarction and paroxysmal atrial fibrillation. History of CKD, solitary kidney. 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 She had a nuclear cardiac stress test August 2015 which revealed normal myocardial perfusion scan that did not suggest the presence of significant coronary ischemia. Normal LV systolic function with ejection fraction estimated to be 57%. Normal end-diastolic volume. Patient admitted January 01, 2017 with respiratory failure related to acute on chronic CHF, pneumonitis (Amiodarone as possible etiology). JANUARY 15, 2017 UPDATE - Patient was seen and examined in the ICU. She has done well overnight. She continues to be ventilated. This morning, she is awake on the ventilator and able to follow all commands. Hematoma noted to face. Patient is status post fall. Telemetry has been reviewed and no atrial fibrillation has been noted since amiodarone has been discontinued. It appears that she is in sinus rhythm with occasional PACs. Will get an EKG to confirm. We will continue to monitor her on the heart monitor and consider adding renally dose to sotalol if recurrent A. fib occurs. Vital signs are stable. H& H is stable at 8.9 and 27.9. No active bleeding noted. Creatinine of 1.4 with BUN of 58. We will continue to monitor this with daily BMP. I will discuss further with Dr. Martell and await his additional recommendations. JANUARY 16, 2017: Currently being treated for ARDS. Continuing low-dose Eliquis for stroke prevention. Labs are stable this morning. WBCs elevated overnight, possibly related to her steroid. I will add a urine sample to evaluate for UTI. Blood pressure adequately controlled. Continue following labs routinely. Will further discuss with Dr. Martell and await additional recommendations. JANUARY 21, 2017: No significant change overnight. Patient continues to be sedated and ventilated in the ICU. Appears to be very comfortable on the ventilator. Patient continues to require IV Axel-Synephrine for hypotension. Chest x-ray yesterday did not reveal any significant changes from previous study. WBC 34.3, afebrile. H&H 7.6 and 24.4. No overt bleeding noted. Aspirin was discontinued yesterday. Chest x-ray this morning pending. Vital signs are stable. Labs reviewed. No arrhythmias or ectopy observed on cardiac catheterization technician. Will further discuss with Dr. Barry and await additional recommendations. ASSESSMENT/PLAN: 1. AMIODARONE LUNG - Amiodarone has been discontinued. Continue aggressive steroid therapy. Currently being treated as ARDS. Management per pulmonary. 2. COPD EXACERBATION - Chest ray pending this morning. Continue current plan of care, aggressive pulmonary toilet. Will defer management of this to attending/pulmonary. 3. CONGESTIVE HEART FAILURE, DYSTOLIC DYSFUNCTION - Acute on chronic, now compensated. EF 60%, grade 1 diastolic dysfunction, NYHA Class IV. Suspect hypoxia is primarily a lung issue. 4. CORONARY ARTERY DISEASE, STATUS POST CABG 2010 - S/P CABG 2010 (AZAR to LAD, SVG to Cx.) May benefit from ischemic reevaluation once she recovers from her primary pulmonary issues. This is not ACS. Normal LV systolic function noted on echocardiogram this admission with negative troponin. 5. HYPERTENSION - Patient has had hypotensive episodes and is currently requiring IV Axel-Synephrine. Antihypertensives on hold. We will reinitiate when her blood pressure will allow. 6. FORMER SMOKER - Reports that she quit smoking in 2004. 7. HISTORY OF DUAL CHAMBER PACEMAKER - Continue current plan of care. Patient had dual-chamber pacemaker placed 2013 as she has history of paroxysmal atrial fibrillation and developed sick sinus syndrome with tachybradycardia components. 8. CHRONIC ANEMIA - Stable. Patient reports that she receives iron transfusions occasionally. Her last transfusion was April 2016. Aspirin was discontinued yesterday. Chronically anticoagulated with Eliquis for stroke prevention. Continue low dose as patient is high risk for stroke. Monitor is with daily CBC. 9. DYSLIPIDEMIA - Continue lipid-lowering agent. 10. CHRONIC ANTICOAGULATION - Eliquis for stroke prevention. Facial hematoma post fall. If this grows or if H&H drops may need to hold anticoagulation. CHADSVASC score of 7. 11. HISTORY OF PAF - Amiodarone has been discontinued this admission due to suspected pulmonary toxicity. Continue beta-blockade when blood pressure will allow. If symptomatic AF recurs, we may consider renally adjusted Sotalol. 12. HISTORY OF TIA - Patient reports history of TIA. She is currently chronically anticoagulated with Eliquis. 13. HYPOKALEMIA - Resolved 14. CHRONIC RENAL FAILURE, STAGE 3 WITH NONFUNCTIONING KIDNEY - Patient routinely followed by Dr. Martín Hays. Monitor with daily BMP. 15. UTI - Cipro initiated. Exam (Progress Note) - Constitutional Vitals: Period Temp Pulse Resp BP Sys/Scott Pulse Ox Last 24 Hr 97.2 F-99.1 F 63-112 21-39 81-167/32-85 89-100 Exam: General: [Thin female. On ventilator but wakes and responds appropriately. Frail ] HEENT: [Normocephalic, multiple ecchymotic areas noted, particularly large across the chin. Mucous membranes moist. No jaundice noted. Conjunctiva moist and clear, sclerae anicteric] Neck: No obvious JVD/HJR, no thyromegaly or lymphadenopathy noted. No carotid bruit appreciated Cardiac: [Regular rate and rhythm.] [No obvious murmur rub or gallop.] Lungs: [Coarse throughout, no wheezing noted. Symmetrical chest wall movements noted. Remains intubated. Abdomen: Soft, bowel sounds normoactive. Nontender and nondistended. No abdominal bruit or thrill noted. No masses noted. Musculoskeletal: No fluid collection. Decreased range of motion is noted. Extremities: No clubbing, cyanosis noted. [ No edema noted.] Upper extremity pulses 2+. Lower extremity pulses 1+. Capillary refill less than 3 seconds. Skin: Multiple areas of ecchymosis, skin tears. No rash. Neuro: Sedated on ventilator. No essential tremor is appreciated. Result/EKG - Labs CBC & BMP: 01/21/17 03:40 01/21/17 03:40 Lab Results: I have reviewed the past 24 hour labs Labs: Laboratory Results - last 24 hr 01/20/17 01/20/17 01/20/17 11:54 18:24 23:11 WBC RBC Hgb Hct MCV MCH MCHC RDW Plt Count MPV Neut % (Auto) Lymph % (Auto) Knott % (Auto) Eos % (Auto) Baso % (Auto) Neut # (Auto) Lymph # (Auto) Knott # (Auto) Eos # (Auto) Baso # (Auto) Total Counted Immature Gran % Nucleated RBC % Immature Gran # Segmented Neutrophils Lymphocytes Monocytes Nucleated RBCs # Platelet Estimate Hypochromasia Ovalocytes INR PT Patient/Control Mix Circ Anticoag PTT ABG pH ABG pCO2 ABG pO2 ABG HCO3 ABG Total CO2 ABG O2 Saturation ABG Base Excess FiO2 Sodium Potassium Chloride Carbon Dioxide Anion Gap BUN Creatinine GFR Calculation BUN/Creatinine Ratio Glucose POC Glucose 172 H 185 H 227 H Calculated Osmolality Calcium 01/21/17 01/21/17 01/21/17 02:45 03:40 03:40 WBC 34.3 H RBC 2.57 L Hgb 7.6 L Hct 24.4 L MCV 94.9 MCH 30 MCHC 31.1 L RDW 16.2 Plt Count 95 L MPV 12.6 H Neut % (Auto) 91.7 H Lymph % (Auto) 1.5 L Knott % (Auto) 3.0 Eos % (Auto) 0.0 Baso % (Auto) 0.1 Neut # (Auto) 31.4 H Lymph # (Auto) 0.5 L Knott # (Auto) 1.0 H Eos # (Auto) 0.0 Baso # (Auto) 0.0 Total Counted 100 Immature Gran % 3.7 Nucleated RBC % 0.0 Immature Gran # 1.26 Segmented Neutrophils 95 H Lymphocytes 2 L Monocytes 3 Nucleated RBCs # 0.00 Platelet Estimate Decreased Hypochromasia 1+ Ovalocytes Slight INR 1.1 PT Patient/Control Mix 11.8 Circ Anticoag PTT 22.2 D ABG pH 7.387 ABG pCO2 51.8 H ABG pO2 55.1 L ABG HCO3 30.4 H ABG Total CO2 32.0 H ABG O2 Saturation 87.1 L ABG Base Excess 4.8 H FiO2 70.00 Sodium Potassium Chloride Carbon Dioxide Anion Gap BUN Creatinine GFR Calculation BUN/Creatinine Ratio Glucose POC Glucose Calculated Osmolality Calcium 01/21/17 01/21/17 03:40 05:03 WBC RBC Hgb Hct MCV MCH MCHC RDW Plt Count MPV Neut % (Auto) Lymph % (Auto) Knott % (Auto) Eos % (Auto) Baso % (Auto) Neut # (Auto) Lymph # (Auto) Knott # (Auto) Eos # (Auto) Baso # (Auto) Total Counted Immature Gran % Nucleated RBC % Immature Gran # Segmented Neutrophils Lymphocytes Monocytes Nucleated RBCs # Platelet Estimate Hypochromasia Ovalocytes INR PT Patient/Control Mix Circ Anticoag PTT ABG pH ABG pCO2 ABG pO2 ABG HCO3 ABG Total CO2 ABG O2 Saturation ABG Base Excess FiO2 Sodium 143 Potassium 5.6 H Chloride 108 H Carbon Dioxide 31 Anion Gap 9.6 BUN 71 H Creatinine 1.10 H GFR Calculation 51 BUN/Creatinine Ratio 64.00 H Glucose 155 H POC Glucose 207 H Calculated Osmolality 308.0 H Calcium 7.4 L <Martín Barry - Last Filed: 01/21/17 09:47> Assessment and Plan (1) UTI (urinary tract infection) Status: Acute Current Visit: No (2) History of atrial fibrillation Status: Chronic Current Visit: No (3) Chronic anticoagulation Status: Chronic Current Visit: Yes (4) Paroxysmal a-fib Status: Chronic Current Visit: No (5) Amiodarone pulmonary toxicity Status: Acute Current Visit: Yes Exam (Progress Note) - Constitutional Vitals: Period Temp Pulse Resp BP Sys/Scott Pulse Ox Last 24 Hr 97.2 F-98.8 F 63-112 21-39 81-167/32-85 89-100 Result/EKG - Labs CBC & BMP: 01/21/17 03:40 01/21/17 03:40 Labs: Laboratory Results - last 24 hr 01/20/17 01/20/17 01/20/17 11:54 18:24 23:11 WBC RBC Hgb Hct MCV MCH MCHC RDW Plt Count MPV Neut % (Auto) Lymph % (Auto) Knott % (Auto) Eos % (Auto) Baso % (Auto) Neut # (Auto) Lymph # (Auto) Knott # (Auto) Eos # (Auto) Baso # (Auto) Total Counted Immature Gran % Nucleated RBC % Immature Gran # Segmented Neutrophils Lymphocytes Monocytes Nucleated RBCs # Platelet Estimate Hypochromasia Ovalocytes INR PT Patient/Control Mix Circ Anticoag PTT ABG pH ABG pCO2 ABG pO2 ABG HCO3 ABG Total CO2 ABG O2 Saturation ABG Base Excess FiO2 Sodium Potassium Chloride Carbon Dioxide Anion Gap BUN Creatinine GFR Calculation BUN/Creatinine Ratio Glucose POC Glucose 172 H 185 H 227 H Calculated Osmolality Calcium 01/21/17 01/21/17 01/21/17 02:45 03:40 03:40 WBC 34.3 H RBC 2.57 L Hgb 7.6 L Hct 24.4 L MCV 94.9 MCH 30 MCHC 31.1 L RDW 16.2 Plt Count 95 L MPV 12.6 H Neut % (Auto) 91.7 H Lymph % (Auto) 1.5 L Knott % (Auto) 3.0 Eos % (Auto) 0.0 Baso % (Auto) 0.1 Neut # (Auto) 31.4 H Lymph # (Auto) 0.5 L Knott # (Auto) 1.0 H Eos # (Auto) 0.0 Baso # (Auto) 0.0 Total Counted 100 Immature Gran % 3.7 Nucleated RBC % 0.0 Immature Gran # 1.26 Segmented Neutrophils 95 H Lymphocytes 2 L Monocytes 3 Nucleated RBCs # 0.00 Platelet Estimate Decreased Hypochromasia 1+ Ovalocytes Slight INR 1.1 PT Patient/Control Mix 11.8 Circ Anticoag PTT 22.2 D ABG pH 7.387 ABG pCO2 51.8 H ABG pO2 55.1 L ABG HCO3 30.4 H ABG Total CO2 32.0 H ABG O2 Saturation 87.1 L ABG Base Excess 4.8 H FiO2 70.00 Sodium Potassium Chloride Carbon Dioxide Anion Gap BUN Creatinine GFR Calculation BUN/Creatinine Ratio Glucose POC Glucose Calculated Osmolality Calcium 01/21/17 01/21/17 03:40 05:03 WBC RBC Hgb Hct MCV MCH MCHC RDW Plt Count MPV Neut % (Auto) Lymph % (Auto) Knott % (Auto) Eos % (Auto) Baso % (Auto) Neut # (Auto) Lymph # (Auto) Knott # (Auto) Eos # (Auto) Baso # (Auto) Total Counted Immature Gran % Nucleated RBC % Immature Gran # Segmented Neutrophils Lymphocytes Monocytes Nucleated RBCs # Platelet Estimate Hypochromasia Ovalocytes INR PT Patient/Control Mix Circ Anticoag PTT ABG pH ABG pCO2 ABG pO2 ABG HCO3 ABG Total CO2 ABG O2 Saturation ABG Base Excess FiO2 Sodium 143 Potassium 5.6 H Chloride 108 H Carbon Dioxide 31 Anion Gap 9.6 BUN 71 H Creatinine 1.10 H GFR Calculation 51 BUN/Creatinine Ratio 64.00 H Glucose 155 H POC Glucose 207 H Calculated Osmolality 308.0 H Calcium 7.4 L
[2017-01-21] MEDS: FLUDROCORTISONE 0.1 MG TABLET PO SCH (08:59)
[2017-01-21] MEDS: DOCUSATE SODIUM 100 MG CAPSULE PO SCH (08:59)
[2017-01-21] MEDS: LANSOPRAZOLE ODT 30 MG TABLET PO SCH (08:59)
[2017-01-21] MEDS: ROSUVASTATIN 10 MG TABLET PO SCH (09:00)
[2017-01-21] MEDS: MUPIROCIN 2% OINT 22 GM TUBE TOP SCH ×2 (09:00→20:16)
[2017-01-21] MEDS: APIXABAN 2.5 MG TABLET PO SCH ×2 (09:00→20:13)
[2017-01-21] MEDS: MAGNESIUM CHLORIDE 64 MG TABLET PO SCH ×2 (09:00→20:13)
[2017-01-21] MEDS: DESITIN 4OZ/NYSTATIN 15 GRAM MIXTURE PASTE TOP SCH ×2 (09:00→20:17)
--- NOTE | 2017-01-21 10:44 | Event Note ---
In hospital therapeutic and diagnostic fiberoptic bronchoscopy. 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 She has an abnormal chest x-ray with a 5 lobe alveolar and interstitial infiltrate. There are areas of atelectasis at the bases. Her cough is ineffective. She is on mechanical ventilation with PEEP and pressure support. For these reasons she is evaluated with fiberoptic bronchoscopy. The endotracheal tube is in good position. The distal trachea was normal and the radha was sharp Right mainstem bronchus was full of thick tenacious secretions. These extended into the right upper lung slightly into the right middle lung and all the subsegments of the right lower lung. These areas were lavaged until clear. There were areas of slight friability in the subsegments of the right lower lung. There were no endobronchial lesions to suggest cancer. The left mainstem bronchus contained some thick tenacious secretions that extended into the left upper lung and the left lower lung. These secretions were thick and tenacious. They were removed with bronchoalveolar lavage. There were no endobronchial areas of cancer. The patient tolerated the procedure well. Bilateral bronchoalveolar lavages were sent for the studies noted above. Follow-up chest x-ray is pending Impression. 1. 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 2. Mechanical ventilation 3. Ineffective cough 4. Retained secretions. Plan. 1. Follow-up chest x-ray 2. Check bronchoscopy specimens
--- NOTE | 2017-01-21 10:58 | Pulmonology Progress Note ---
Pulmonary - PN: Subj Interval history: This is a 76-year-old white female whom I saw in pulmonary consultation on 2016. She had had progressive shortness of breath and had chest x-ray changes along with progressive hypoxemia. My impressions were. 1. Diffuse 5 lobe interstitial and alveolar infiltrate. 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 Note the presence of Velcro rales. Watch closely for the possibility of atypical pulmonary edema 2. COPD 3. Significant past history tobacco abuse. Stop smoking 2004 4. Normal TSH with elevated free T4 most likely secondary to amiodarone. 5. 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 6. Mild chronic renal failure and 1 nonfunctioning kidney followed by Dr. Martín Hays 7. Chronic anemia 8. Atrial fibrillation. Plan. 1. Stop amiodarone 2. Chest x-ray and ABGs daily 4 3. C-reactive protein and erythrocyte sedimentation rate 4. Repeat BNP 5. Increase Solu-Medrol to 40 mg every 8 hours 6. See orders 7. Dr. Tristan dickens and I have discussed the case and we have coordinated her care. 01/05/2017. Today's chest x-ray still shows 5 lobe interstitial and alveolar infiltrates but these appear to be a little different and a little less dense allowing for technique. The patient says she feels better. Her O2 has improved slightly she has erosions in her nose and with her to try different apparatus for her oxygen and will use Bactroban in her nares. There are no new microbiology reports. FiO2 of 44%, pH is 7.418, PO2 is 40.4, PO2 is 59.9 bicarb is 25.7. White count is 10,700 with 90.8 segs. H&H is 9.3/28.6. Sodium is 134 and potassium is 3.3. Cardiology will adjust this. Creatinine has increased to 2.00 with a BUN of 51. I think the patient is becoming a little over diuresed and I have stopped her Lasix which was 40 mg twice daily. Patient fell Velcro rounds have disappeared. 01/06/2017. This patient has amiodarone lung. This will be the third day she is off amiodarone. She is on Solu-Medrol 40 IV push q. 8. Today's chest x-ray looks markedly better. She still has 5 lobe alveolar and interstitial infiltrates but these are rapidly resolving. Today's O2 has not improved significantly but I expect that to follow. We need to continue the present treatment for right now impaired attention to her heart rhythm. Potassium is low at 3.2 and replacement as needed. H&H is stable at 9.6/29.9. White count is 9289 segs. TSH is normal. Free T4 is elevated most likely secondary to amiodarone. 01/08/2017. On steroids the patient's lung (chest x-ray) is looking much better. Her breath sounds are much improved. So far her ABGs have not improved a good bit. Hopefully this will follow soon. Off diuretics creatinine is dropped from 2.0-1.30 with a BUN of 35. Electrolytes are normal. CBC is stable. 01/09/2017. Patient had a fall yesterday. She was on the commode and slumped forward and injured her face. She has had CT scan of the face and brain these are negative. She is fine from a neurological standpoint today and embarrassed by the episode. Patient's chest is clear at this time goes by. Her O2 sats have not improved but she is found if she lays on the right side and takes several deep breaths her oxygen improved. I think we will just have to wait this out but this should begin to improve. Orders have been reviewed and note that Lasix has been restarted. With holding Lasix creatinine is dropped from 2.00-1.20 with a BUN of 32. Sodium is 134 and potassium is 4.3. White count is 11,200 with 84 segs. H&H is 8.9/27.3. I have not repeated the patient's blood gases since she is asked that we hold this if at all possible. 01/10/2017. This 76-year-old white female has amiodarone lung. After stopping amiodarone and starting Solu-Medrol 40 IV push every 8 hours her chest x-ray has improved remarkably. She however remains hypoxemia and hopefully this will be improved soon. Earlier in the patient's hospitalization she was slightly over diuresed and her creatinine went up to 1.6 with a BUN of 45. Creatinine is now 1.30 with a BUN of 36. Patient's on a lower dose of diuretics. Watch closely. White blood cell count is 14,500 with 86 segs. H&H is stable at 9.2/ 28.1. Platelets are 190,000. There are no positive cultures. Patient had a fall on 01/08/2017. CT of the face and head of been normal. She does have some mild contusions and bruises on her face. She was on Eliquis. There is a history of atrial fib. At the present time we will continue to follow her chest x-ray. Will wait for her oxygenation to improve and will watch her kidney status. 01/13/2017. During this weekend the patient was moved to intensive care. Her chest x-ray which is shown a very good improvement with steroids regressed and as she has a 5 lobe alveolar filling defect with increased interstitial markings. She was being treated for amiodarone lung. Even though her chest x- ray improved her ABGs did not improve and they have recently deteriorated. We are at the point that this needs to be treated as adult respiratory distress syndrome. That necessitates mechanical ventilation with PEEP and pressure support. I have discussed this with the patient and she is agreeable. I discussed it with Dr. Alex Starks and Dr. Sam Martell and they were agreeable. I have asked anesthesia to electively intubate the patient. I will start her on P and later will add IMV and pressure support. Electrolytes are normal. Creatinine is 1.4. H&H is stable at 9.2/28.9. White count is 13,500 with 91 segs. Platelets are 149,000. Natruretic peptide is 267 01/14/2017. This patient required intubation mechanical ventilation secondary to adult respiratory distress syndrome which is secondary to amiodarone. Today' s chest x-ray shows some improvement in a generalized 5 lobe alveolar infiltrates with surrounding interstitial edema. Endotracheal tube is in good position. ABGs on mechanical ventilation FiO2 of 100%. PEEP of 5 and pressure support of 12 shows a pH 7.537. PCO2 45.8. PO2 of 115 a bicarb of 35.2. Electrolytes are normal. Creatinine is increased to 1.50 with BUN of 56. We may need to stop either the patient's Lasix or her valsartan. H&H is 9.3/29.4. White count is 15,800 with 87% segs and platelets 148,000. 01/15/2017.Today's chest x-ray is improved. There is still 5 lobe alveolar infiltrates with associated increased interstitial markings. The consolidative pattern is resolving. There is a slight improvement in ABGs. On FiO2 of 100% pH is 7.506, PCO2 is 47.5, PO2 is 121 and bicarb is 36.4. Patient's on weaning protocol. Creatinine is dropped from 1.50-1.40 with a BUN of 58. Electrolytes are normal. White count is 14,991.5 segs. H&H is 8.9/27.9 and platelets are 135, 000. There are no positive cultures. This morning I had a talk with the niece . Hernán Victor nurse practitioner and Elver Resendiz RN were present. I explained amiodarone lung and the result of adult respiratory distress syndrome and pointed out that nationally the mortality for this is 50% in all comers. Madelyn wanted to know if the patient needed bronchoscopy. I told her not now but at later date we may need 1. 01/17/2017 peer this 76-year-old white female has amiodarone lung with 5 lobe alveolar and interstitial infiltrate. This initially improved rapidly with steroids and stopping amiodarone but then last week in this deteriorated. Patient is now on mechanical ventilation. Her chest x-ray is improving slightly on a daily basis. She still has a 5 lobe alveolar interstitial infiltrate with the tendencies towards consolidation at each base. Earlier today her endotracheal tube was a little too far down and it was retracted and the follow-up x-ray looks fine. Patient's hypoxemia has worsened. I have gone back from an FiO2 of 70% to 1 of 100%. Will try to keep her O2 sats 93 or above. She has CO2 retention and I have increased her rate to 32. She is on PEEP of 5 and I have increased her pressure support from 12-15. Patient also has hypotension and is on pressor agents. Patient has a white blood cell count of 39,000. I think this is a leukemoid reaction to high-dose steroid. Urine culture from 01/16/2017 is growing gram-negative rods and gram-positive cocci. There are no reported IDs and sensitivities. Patient was started on Cipro but she is allergic to Levaquin. Without any additional knowledge I am going to take the liberty of stopping the Cipro. I will start her on Fortaz 1 g every 8 hours and will begin with test dose and I will add Cleocin 300 every 6 hours. 01/20/2017. This patient's chest x-ray abnormalities which include a 5 lobe alveolar and interstitial infiltrates secondary to amiodarone lung is stable and only a slightly bit improved in the last few days. Her ABGs are slightly better. I had a talk with the patient's daughter who will talk to her brother. Hernán Victor nurse practitioner was present. She understands that this is treated just like adult respiratory distress syndrome. The mortality fall commerce is 50%. We will evaluate the patient additionally with fiberoptic bronchoscopy tomorrow. I have consulted ENT for elective trach. Patient still requires pressor agents and I hope she will be ready for trach by Friday. White blood cell count is 29,700 with a left shift. I think this is a leukemoid reaction. Urine cultures from 01/16/2017 grew Klebsiella pneumoniae and Enterococcus faecalis. Labs been reviewed and medicines have been reviewed. Have discussed the case with Dr. Alex Starks and we are in agreement with treatment. 01/21/2017. We continue to have problems with oxygenation. I am switching this patient to a PEEP of 6 pressure support of 15 and will use IMR at a rate of 32/ min. Chest x-ray shows a 5 lobe alveolar infiltrate with increased interstitial markings. She has a little better variation than before there are areas of atelectasis at both bases. This patient was evaluated with fiberoptic bronchoscopy this morning. She had retained secretions bilaterally these were thick and tenacious and there were some fairly dense bronchial plugs especially in the lower lung segments bilaterally. There were no endobronchial lesions to suggest a cancer. Specimens were sent for cytology because of the amiodarone lung, bacterial fungal and AFB studies. There have been previous urine cultures which were positive for Klebsiella and enterococcus. Continue to have problems with oxygenation. On a PEEP of 6 and FiO2 of 70% and assist control ABGs this morning showed a pH of 7.39, PCO2 of 51.8, PO2 55.1 a bicarb of 30.4. Creatinine is 1.[address] Hays is only case from a renal standpoint. H&H is 7.6/24.4. Platelets have dropped to 95,000. White count is 34,300 which I think is a leukemoid reaction. Potassium is creeping up at 5.6. Glucoses are under acceptable control. Patient continues to require pressor agents. ENT was consulted yesterday for an elective trach. Daughter was agreeable to this but plan to talk to her brother Physical exam. Vital signs. See below. Hypotension requiring pressor Psychiatric. Alert and oriented. Neurologic. Cranial nerves are intact Long track motor functions intact Chest. Wheeze free. Velcro rales have disappeared. No chest wall tenderness. Heart. No definite gallop. Abdomen. Nontender. Positive bowel sounds. Extremities. No edema Neck. Symmetrical kyphotic with no meningismus Lymphatics. No submandibular cervical supraclavicular adenopathy. The remainder of the physical exam is noncontributory Plan. 01/05/2017 1. DC Lasix, 40 mg p.o. twice daily was her dose 2. Monitor BUN/creatinine sodium and potassium 3. Continue steroids 4. Daily chest x-rays and ABGs to we can see clear-cut improvement. 5. Today I asked the patient admits she has not seen anyone in pulmonary before she says on one occasion she saw Dr. Minesh Whaley. She requested to change to my service and after we discussed this I agree. She has some family members to see me. She is related to Tahira dorado 01/06/2017. 1. See today's note above. 2. Amiodarone lung which is improving. Continue steroids and follow chest x- ray and ABGs. 3. Replacement of potassium 01/08/2017. 1. See today's note above. 2. Amiodarone lung is improving by chest x-ray and physical exam criteria. 3. Continue present regimen including Solu-Medrol 40 IV push every 8 hours 01/09/2017. 1. See today's note above 2. For tomorrow morning I have ordered a 2 view chest x-ray. #3 continue to monitor O2 sats. 01/10/2017. 1. See today's note above. 2. Chest x-ray pending. Repeat Friday and Friday 3. Follow-up BMP 4. Supplemental oxygen. #5 continue Solu-Medrol 40 IV push every 8 hours. 01/13/2017. 1. See today's note. Above. 2. Continue Solu-Medrol 3. Intubation mechanical ventilation. Treat amiodarone lung as adult respiratory distress syndrome. 01/14/2017 1. Gradually increasing creatinine. Consider stopping Lasix and/or valsartan. 2. Slight improvement in ABGs. This looks like it is going to be slow. 3. Mechanical ventilation weaning protocol 4. Physical therapy protocol. 5. Deep venous thrombophlebitis prevention protocol 6. Proton pump inhibitor protocol 7. Discontinue Zithromax. 01/15/2017. 1. Creatinine is stabilized. 2. Chest x-ray showing gradual improvement and oxygenation although very poor is gradually improved 01/17/2017 1. Gram-negative rods gram-positive cocci and urine. 2. DC Cipro 3. Start Fortaz. Test dose 4. Start Cleocin. 5. FiO2 100%. PEEP of 5. Pressure support of 15. Weaning protocol. 6. Pressor agents. 7. Leukemoid reaction 8. Daily chest x-ray, ABGs and lab. 9. See today's note above 01/20/2017. 1. Fiberoptic bronchoscopy Friday. 2. Trach Friday or later 3. Consult ENT 4. Ventilator adjustments made. Weaning protocol. 01/21/2017. 1. See today's note above. 2. See fiberoptic bronchoscopy report 3. Check cultures. 4. Pressor agents. 5. Note azotemia. 6. ENT consult Exam (Progress Note) - Constitutional Vitals: Period Temp Pulse Resp BP Sys/Scott Pulse Ox Last 24 Hr 97.2 F-98.8 F 63-112 21-39 71-167/32-85 89-100 Results - Labs CBC & BMP: 01/21/17 03:40 01/21/17 03:40
--- NOTE | 2017-01-21 11:23 | Physician Query Form ---
CLICK EDIT DOCUMENT TO SELECT QUERY ANSWER --> OK --> SIGN Pearl Hoover RN, CCDS Certified Clinical Healthcare Prof W) [phone] (f) [phone] [email or web address] PROVIDERS: Make your selection(s) from the choices in EACH section by typing an "x" and enter comments in the comment section. Please use your independent medical judgment in providing your response. This request does not imply that any particular answer is desired or expected. CLINICAL INDICATORS: (Providers should not edit this section) The below diagnosis was documented in the record, but is not consistently noted in subsequent documentation. The medical record indicates that the patient was admitted with Amiodarone lung , on the : "She has had elevations in her white blood cell count and an infiltrate suspicious for pneumonia." and the patient is on antibiotics. Diagnosis: PNEUMONIA Please clarify the following: ( ) The above diagnosis was monitored, evaluated, and/or treated and is a confirmed diagnosis ( ) The above diagnosis was ruled out (x ) The above diagnosis is still a likely, suspected, probable diagnosis ( ) Other, please specify: ( ) Clinically unable to determine COMMENTS: PLEASE ALSO DOCUMENT RESPONSE IN PROGRESS NOTES AND/OR DISCHARGE SUMMARY Use of terms such as suspected, likely, or probable (associated with a specific diagnosis that is being evaluated, monitored, or treated as if it exists) are acceptable and can be restated in the discharge summary if not ruled out. MTDD
--- NOTE | 2017-01-21 22:45 | Nephrology Progress Note ---
Nephrology - PN: Subj Interval history: She was seen shortly after having bronchoscopy this morning. She is still sedated. Exam (PN)-Nephrology - Vital Signs Vital signs: Period Temp Pulse Resp BP Sys/Scott Pulse Ox Last 24 Hr 97.0 F-98.8 F 63-112 20-95 71-167/32-89 90-98 Exam: Gen.: Sedated on ventilator ENT: Pupils equal round reactive to light. Neck: Supple. No JVD or bruit. Cardiovascular: Regular rate and rhythm. No murmur rub or gallop Lungs: Clear Abdomen: Soft. Nontender. Positive bowel sounds. No organomegaly Extremities: No edema - Lab 01/21/17 03:40 01/21/17 03:40 Most recent lab results ABG pH 7.387 (7.35-7.45) 01/21/17 02:45 ABG pCO2 51.8 MM HG (35-48) H 01/21/17 02:45 ABG pO2 55.1 MM HG (80-95) L 01/21/17 02:45 ABG HCO3 30.4 MMOL/L (20-26) H 01/21/17 02:45 ABG O2 Saturation 87.1 % (95-100) L 01/21/17 02:45 Calcium 7.4 MG/DL (8.5-10.1) L 01/21/17 03:40 Phosphorus 4.0 MG/DL (2.5-4.9) 01/20/17 04:50 Magnesium 2.6 MG/DL (1.8-2.4) H 01/20/17 04:50 Assessment and Plan (1) Chronic renal failure, stage 3 (moderate) Status: Acute Assessment and plan: 76-year-old woman with: * Solitary kidney * CRF stage III. Creatinine is stable. * Hyperkalemia. Supplement has been discontinued * Ventilatory failure. 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 Wean ventilator as tolerated. Bronchoscopy today's showed significant retained secretions * COPD * A. fib * CAD Discussed with family Current Visit: Yes (2) Solitary kidney Status: Chronic Current Visit: Yes (3) Ventilatory failure Status: Acute Current Visit: Yes (4) Amiodarone pulmonary toxicity Status: Acute Current Visit: Yes (5) COPD (chronic obstructive pulmonary disease) Status: Chronic Current Visit: Yes (6) Coronary artery disease Status: Chronic Current Visit: Yes Qualifiers: Coronary Disease-Associated Artery/Lesion type: [place] artery Associated angina: without angina (7) Hypertension Status: Chronic Current Visit: Yes Qualifiers: Hypertension type: essential hypertension Qualified Code(s): I10 - Essential (primary) hypertension (8) History of atrial fibrillation Status: Chronic Current Visit: No
[2017-01-22] MEDS: CLINDAMYCIN INJ 300 MG in PREMIX 1 EACH IV SCH ×4 (01:25→18:47)
[2017-01-22 02:28] LABS: Hematocrit 24.3 VOL% (35.7-47.0); Hemoglobin 7.5 GM/DL (12.0-16.0); Immature Granulocytes % 1.4 %; Immature Granulocytes Absolute 0.28 #; Lymphocytes # 0.3 10*3/uL (1.4-4.0); Lymphocytes % 1.4 % (21.3-54.2); Mean Corpuscular HGB Conc 30.9 GM/DL (32-36); Mean Corpuscular Hemoglobin 30 PG (27-34); Mean Platelet Volume 13.2 FL (9.6-12.0); Monocytes # 0.8 10*3/uL (0.11-0.8); Monocytes % 3.7 % (1.7-12.7); NRBC # 0.02 10*3/uL; Neutrophils # 18.9 10*3/uL (1.4-7.4); Neutrophils % 93.5 % (38.7-73.9); Red Blood Count 2.53 MC/CUMM (3.8-5.5); Red Cell Distribution Width 15.8 % (9.3-17.3); White Blood Count 20.3 T/CUMM (4-12)
[2017-01-22 02:43] LABS: Platelet Count 54 T/CUMM (130-400)
[2017-01-22 02:58] LABS: Calcium 8.3 MG/DL (8.5-10.1); Magnesium 2.4 MG/DL (1.8-2.4); Osmolality,Calculated 303.3 MOS/KG (273-304); Potassium 5.2 MMOL/L (3.5-5.1)
[2017-01-22 03:15] LABS: Total Cells Counted 100
[2017-01-22 03:16] LABS: Anisocytosis Slight; Lymphocytes 2 % (20-55); Macrocytosis Slight; Platelet Estimate Decreased; Segmented Neutrophils 95 % (50-85)
[2017-01-22] MEDS: ALBUTEROL/IPRATROPIUM 3 ML NEB RESP TX SCH ×6 (03:58→23:59)
[2017-01-22 04:11] LABS: ABG Base Excess 4.2 MMOL/L (-2.5-2.5); ABG HCO3 28.1 MMOL/L (20-26); ABG Oxygen Saturation 96.2 % (95-100); ABG PCO2 47.7 MM HG (35-48); ABG PH 7.399 (7.35-7.45); ABG TCO2 27.8 MMOL/L (23-27); Allen Test Positive; Pt O2 Delivery Device Ventilator
[2017-01-22] MEDS: INSULIN REGULAR 100 UNIT/ML SUBCUT SCH ×3 (05:15→18:50)
[2017-01-22] MEDS: methylPREDNISolone SOD SUC 40 MG/1 ML VIAL IV SCH ×3 (06:01→18:44)
[2017-01-22] MEDS: PROPOFOL 1,000 MG/100 ML BOTTLE IV SCH ×5 (06:03→17:15)
[2017-01-22] MEDS: LEVOTHYROXINE 50 MCG TABLET PO SCH (06:34)
--- NOTE | 2017-01-22 06:57 | Family Practice Progress Note ---
Family Practice - PN: Subj Interval history: Patient had uneventful night according to nursing staff. She is back up to 90% FiO2. Patient had fiberoptic bronchoscopy yesterday and had quite a bit of mucus plugging. The chest x-ray this morning slightly improved but she has subcutaneous emphysema on the right but I do not see a pneumothorax. Patient is on deprivation and sedated this morning. Arterial blood gases are improved. White blood count is down to 20,000. Cultures of her bronchial washings are yet pending. Exam (Progress Note) - Constitutional Vitals: Period Temp Pulse Resp BP Sys/Scott Pulse Ox Last 24 Hr 97.0 F-98.6 F 65-94 20-95 71-156/36-89 92-100 Exam: Objective a well-developed white female i who is sedated and on the ventilator. Patient's weight is up 0.5 kg this morning. White blood count is down to 20, 000. Her chest x-ray actually looks a little improved except for subcutaneous emphysema on the right. Cardiovascular: Heart rates regular I hear no murmurs or gallops respiratory: Respiratory: Patient has scattered inspiratory rales in all lung [place] which is unchanged from prior exam. Abdomen: Abdomen soft and nontender. Results - Labs CBC & BMP: 01/22/17 02:20 01/22/17 02:20 Lab Results: I have reviewed the past 24 hour labs - Diagnostic Findings Procedure: Chest x-ray: report reviewed by me (Subcutaneous emphysema on the right.) Assessment and Plan (1) COPD (chronic obstructive pulmonary disease) Status: Chronic Assessment and plan: 01/08/2017: We will continue present therapy. 01/09/2017: Patient is slowly improving. 01/10/2017: Patient is slowly improving 01/13/2017: Patient is tolerating her Ventimask. Chest x-ray showed slight improvement with increasing steroids. Current Visit: Yes (2) Amiodarone pulmonary toxicity Status: Acute Assessment and plan: 01/08/2017: We will continue to hold her amiodarone of course. 01/09/2017: Patient is slowly improving. 01/10/2017: Patient is certainly improved with IV steroids. 01/13/2017: Patient improved with increase in steroids. 01/14/2017: Patient presently on ventilator and is oxygenating adequately. 01/15/2017: No significant change from yesterday. 01/16/2017: Patient may be slightly improved. 01/20/2017: Patient is making no improvement. Her vital signs and urine output remained adequate. 01/21/2017: Patient's respiratory failure persists. Chest x-ray has worsened. Patient's for bronchoscopy today. 01/22/2017: Respiratory failure persists chest x-ray is slightly improved. She does have some subcutaneous emphysema but no visible pneumothorax is seen. Will discuss with family. Current Visit: Yes
[2017-01-22] MEDS: BUDESONIDE 0.5 MG/2 ML NEB RESP TX SCH ×2 (07:08→19:43)
--- NOTE | 2017-01-22 08:00 | XRay Report ---
Exam: XR chest 1V portable Indication: Intubated, ventilator Comparison study: 01/21/2017 Findings: Endotracheal tube, esophagogastric tube and left-sided PICC line are in stable positions. Median sternotomy wiring is noted. Left chest pacemaker device and wire leads and median sternotomy wiring appears stable from prior. Minimal right chest wall emphysematous changes are present from prior. Diffuse mild interstitial prominence with patchy perihilar and basilar reticular opacities throughout both lungs again noted, essentially unchanged. Impression: Stable position of support tubes and lines. No other significant change. PROCEDURE INTERPRETED AT [facility] DEPARTMENT OF RADIOLOGY Final Report Signed by: Jamar Patino
--- NOTE | 2017-01-22 08:33 | Cardiology Progress Note ---
Assessment and Plan (1) Amiodarone pulmonary toxicity Status: Acute Assessment and plan: See plan of care listed below. Current Visit: Yes (2) COPD (chronic obstructive pulmonary disease) Status: Chronic Assessment and plan: SEE PLAN OF CARE LISTED BELOW Current Visit: Yes (3) Congestive cardiac failure Status: Chronic Assessment and plan: SEE PLAN OF CARE LISTED BELOW Current Visit: Yes Qualifiers: Congestive heart failure type: diastolic Congestive heart failure chronicity: acute on chronic Qualified Code(s): I50.33 - Acute on chronic diastolic (congestive) heart failure (4) Coronary artery disease involving coronary bypass graft Status: Chronic Assessment and plan: SEE PLAN OF CARE LISTED BELOW Current Visit: Yes Qualifiers: [place] vs. transplanted heart: [place] heart Associated angina: without angina Qualified Code(s): I25.810 - Atherosclerosis of coronary artery bypass graft(s) without angina pectoris (5) History of TIA (transient ischemic attack) Status: Chronic Assessment and plan: SEE PLAN OF CARE LISTED BELOW Current Visit: No (6) dual-chamber pacemaker Status: Chronic Assessment and plan: SEE PLAN OF CARE LISTED BELOW Current Visit: Yes (7) Former smoker Status: Chronic Assessment and plan: SEE PLAN OF CARE LISTED BELOW Current Visit: No (8) Chronic anemia Status: Chronic Assessment and plan: SEE PLAN OF CARE LISTED BELOW Current Visit: Yes (9) Dyslipidemia Status: Chronic Assessment and plan: SEE PLAN OF CARE LISTED BELOW Current Visit: Yes (10) Chronic anticoagulation Status: Chronic Assessment and plan: SEE PLAN OF CARE LISTED BELOW Current Visit: Yes (11) Paroxysmal a-fib Status: Chronic Assessment and plan: SEE PLAN OF CARE LISTED BELOW Current Visit: No (12) Hypertension Status: Chronic Assessment and plan: SEE PLAN OF CARE LISTED BELOW Current Visit: Yes Qualifiers: Hypertension type: essential hypertension Qualified Code(s): I10 - Essential (primary) hypertension (13) Hypokalemia Status: Acute Assessment and plan: See plan of care listed below. Current Visit: Yes (14) Chronic renal failure, stage 3 (moderate) Status: Acute Assessment and plan: See plan of care listed below. Current Visit: Yes (15) UTI (urinary tract infection) Status: Acute Assessment and plan: See plan of care listed below. Current Visit: Yes Cardiology - PN: Subj Interval history: BEER COIL CLEANER: DR. BARRY PCP: DR. HO IRENE SUMMARY: Ms. Quiros is a 76 year old female with known history of coronary artery disease, routinely followed by Dr. Barry. Patient's PMH includes: hypertension, dyslipidemia, former smoker, COPD, chronic anemia, anterior myocardial infarction and paroxysmal atrial fibrillation. History of CKD, solitary kidney. 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 She had a nuclear cardiac stress test August 2015 which revealed normal myocardial perfusion scan that did not suggest the presence of significant coronary ischemia. Normal LV systolic function with ejection fraction estimated to be 57%. Normal end-diastolic volume. Patient admitted January 01, 2017 with respiratory failure related to acute on chronic CHF, pneumonitis (Amiodarone as possible etiology). JANUARY 22, 2017: No significant change overnight. Patient continues to be sedated and ventilated in the ICU. Appears to be comfortable on the ventilator. Still requiring significant ventilator support, FiO2 90%. Axel- Synephrine was titrated off yesterday. Patient's blood pressure is stable this morning. Chest x-ray yesterday did not reveal any significant changes from previous study. WBC 20.3, afebrile. On steroid therapy. H&H 7.5 and 24.3. No overt bleeding noted. Aspirin has been discontinued. Continue low-dose Eliquis. Vital signs are stable. Will resume patient's beta blockade as her blood pressure will not tolerate. Labs reviewed. No arrhythmias or ectopy observed on taxicab dispatcher. Will further discuss with Dr. Barry and await additional recommendations ASSESSMENT/PLAN: 1. AMIODARONE LUNG - Amiodarone has been discontinued. Continue aggressive steroid therapy. Currently being treated as ARDS. Management per pulmonary. 2. COPD EXACERBATION - Continue current plan of care, aggressive pulmonary toilet. Will defer management of this to attending/pulmonary. 3. CONGESTIVE HEART FAILURE, DYSTOLIC DYSFUNCTION - Acute on chronic, now compensated. EF 60%, grade 1 diastolic dysfunction, NYHA Class IV. Suspect hypoxia is primarily a lung issue. 4. CORONARY ARTERY DISEASE, STATUS POST CABG 2010 - S/P CABG 2010 (AZAR to LAD, SVG to Cx.) May benefit from ischemic reevaluation once she recovers from her primary pulmonary issues. This is not ACS. Normal LV systolic function noted on echocardiogram this admission with negative troponin. 5. HYPERTENSION - Patient's blood pressure will now tolerate reinitiation of her beta-blockade. Will monitor blood pressure and make further adjustments as needed. 6. FORMER SMOKER - Reports that she quit smoking in 2004. 7. HISTORY OF DUAL CHAMBER PACEMAKER - Continue current plan of care. Patient had dual-chamber pacemaker placed 2013 as she has history of paroxysmal atrial fibrillation and developed sick sinus syndrome with tachybradycardia components. 8. CHRONIC ANEMIA - Stable. Patient reports that she receives iron transfusions occasionally. Her last transfusion was April 2016. Aspirin was discontinued yesterday. Chronically anticoagulated with Eliquis for stroke prevention. Continue low dose as patient is high risk for stroke. Monitor is with daily CBC. Patient may benefit from blood transfusion. 9. DYSLIPIDEMIA - Continue lipid-lowering agent. 10. CHRONIC ANTICOAGULATION - Eliquis for stroke prevention. Facial hematoma post fall. If this grows or if H&H drops may need to hold anticoagulation. CHADSVASC score of 7. 11. HISTORY OF PAF - Amiodarone has been discontinued this admission due to suspected pulmonary toxicity. Beta-blockade was reinitiated as her blood pressure will now allow. If symptomatic AF recurs, we may consider renally adjusted Sotalol. 12. HISTORY OF TIA - Patient reports history of TIA. She is currently chronically anticoagulated with Eliquis. 13. HYPOKALEMIA - Resolved 14. CHRONIC RENAL FAILURE, STAGE 3 WITH NONFUNCTIONING KIDNEY - Patient routinely followed by Dr. Martín Hays. Monitor with daily BMP. 15. UTI - Continue current plan of care. Exam (Progress Note) - Constitutional Vitals: Period Temp Pulse Resp BP Sys/Scott Pulse Ox Last 24 Hr 97.0 F-98.6 F 65-98 20-95 71-156/36-89 92-100 Exam: General: [Thin female. On ventilator but wakes and responds appropriately. Frail ] HEENT: [Normocephalic, multiple ecchymotic areas noted, particularly large across the chin. Mucous membranes moist. No jaundice noted. Conjunctiva moist and clear, sclerae anicteric] Neck: No obvious JVD/HJR, no thyromegaly or lymphadenopathy noted. No carotid bruit appreciated Cardiac: [Regular rate and rhythm.] [No obvious murmur rub or gallop.] Lungs: [Coarse throughout, no wheezing noted. Symmetrical chest wall movements noted. Remains intubated. Abdomen: Soft, bowel sounds normoactive. Nontender and nondistended. No abdominal bruit or thrill noted. No masses noted. Musculoskeletal: No fluid collection. Decreased range of motion is noted. Extremities: No clubbing, cyanosis noted. [ No edema noted.] Upper extremity pulses 2+. Lower extremity pulses 1+. Capillary refill less than 3 seconds. Skin: Multiple areas of ecchymosis, skin tears. No rash. Neuro: Sedated on ventilator. No essential tremor is appreciated. Result/EKG - Labs CBC & BMP: 01/22/17 02:20 01/22/17 02:20 Lab Results: I have reviewed the past 24 hour labs Labs: Laboratory Results - last 24 hr 01/21/17 01/21/17 01/21/17 11:53 16:15 23:21 WBC RBC Hgb Hct MCV MCH MCHC RDW Plt Count MPV Neut % (Auto) Lymph % (Auto) [place] % (Auto) Eos % (Auto) Baso % (Auto) Neut # (Auto) Lymph # (Auto) [place] # (Auto) Eos # (Auto) Baso # (Auto) Total Counted Immature Gran % Nucleated RBC % Immature Gran # Segmented Neutrophils Lymphocytes Monocytes Nucleated RBCs # Platelet Estimate Anisocytosis Macrocytosis ABG pH ABG pCO2 ABG pO2 ABG HCO3 ABG Total CO2 ABG O2 Saturation ABG Base Excess FiO2 Sodium Potassium Chloride Carbon Dioxide Anion Gap BUN Creatinine GFR Calculation BUN/Creatinine Ratio Glucose POC Glucose 230 H 238 H 210 H Calculated Osmolality Calcium Phosphorus Magnesium 01/22/17 01/22/17 01/22/17 02:19 02:20 02:20 WBC 20.3 H D RBC 2.53 L Hgb 7.5 L Hct 24.3 L MCV 96.0 MCH 30 MCHC 30.9 L RDW 15.8 Plt Count 54 L D MPV 13.2 H Neut % (Auto) 93.5 H Lymph % (Auto) 1.4 L [place] % (Auto) 3.7 Eos % (Auto) 0.0 Baso % (Auto) 0.0 Neut # (Auto) 18.9 H Lymph # (Auto) 0.3 L [place] # (Auto) 0.8 Eos # (Auto) 0.0 Baso # (Auto) 0.0 Total Counted 100 Immature Gran % 1.4 Nucleated RBC % 0.1 Immature Gran # 0.28 Segmented Neutrophils 95 H Lymphocytes 2 L Monocytes 3 Nucleated RBCs # 0.02 Platelet Estimate Decreased Anisocytosis Slight Macrocytosis Slight ABG pH ABG pCO2 ABG pO2 ABG HCO3 ABG Total CO2 ABG O2 Saturation ABG Base Excess FiO2 Sodium 141 Potassium 5.2 H Chloride 105 Carbon Dioxide 30 Anion Gap 11.2 BUN 68 H Creatinine 0.90 GFR Calculation 66 BUN/Creatinine Ratio 75.00 H Glucose 160 H POC Glucose 195 H Calculated Osmolality 303.3 Calcium 8.3 L Phosphorus Magnesium 2.4 01/22/17 01/22/17 01/22/17 02:20 03:57 05:15 WBC RBC Hgb Hct MCV MCH MCHC RDW Plt Count MPV Neut % (Auto) Lymph % (Auto) [place] % (Auto) Eos % (Auto) Baso % (Auto) Neut # (Auto) Lymph # (Auto) [place] # (Auto) Eos # (Auto) Baso # (Auto) Total Counted Immature Gran % Nucleated RBC % Immature Gran # Segmented Neutrophils Lymphocytes Monocytes Nucleated RBCs # Platelet Estimate Anisocytosis Macrocytosis ABG pH 7.399 ABG pCO2 47.7 ABG pO2 85.0 ABG HCO3 28.1 H ABG Total CO2 27.8 H ABG O2 Saturation 96.2 ABG Base Excess 4.2 H FiO2 90.00 Sodium Potassium Chloride Carbon Dioxide Anion Gap BUN Creatinine GFR Calculation BUN/Creatinine Ratio Glucose POC Glucose 192 H Calculated Osmolality Calcium Phosphorus 4.0 Magnesium
[2017-01-22] MEDS: APIXABAN 2.5 MG TABLET PO SCH ×2 (08:40→21:30)
[2017-01-22] MEDS: ROSUVASTATIN 10 MG TABLET PO SCH (08:40)
[2017-01-22] MEDS: DOCUSATE SODIUM 100 MG CAPSULE PO SCH (08:40)
[2017-01-22] MEDS: MAGNESIUM CHLORIDE 64 MG TABLET PO SCH ×2 (08:42→21:31)
[2017-01-22] MEDS: LANSOPRAZOLE ODT 30 MG TABLET PO SCH (08:42)
[2017-01-22] MEDS ORDERED: SODIUM CHLORIDE 0.9% 250 ML IV PRN ×2 (10:33→13:18)
[2017-01-22] MEDS: DESITIN 4OZ/NYSTATIN 15 GRAM MIXTURE PASTE TOP SCH (11:00)
--- NOTE | 2017-01-22 11:30 | Pulmonology Progress Note ---
Pulmonary - PN: Subj Interval history: Hernán Victor, [facility]ENTERNP-, acting as scribe for Dr. Lio Herrera This is a 76-year-old white female who we saw in pulmonary consultation on 2016. She had had progressive shortness of breath and had chest x-ray changes along with progressive hypoxemia. At the time of our initial consultation, our impressions were: 1. Diffuse 5 lobe interstitial and alveolar infiltrate. Suspect this will clipper and turner to be amiodarone lung. Note the presence of Velcro rales. Watch closely for the possibility of atypical pulmonary edema 2. COPD 3. Significant past history tobacco abuse. Stop smoking 2004 4. Normal TSH with elevated free T4 most likely secondary to amiodarone. 5. 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 6. Mild chronic renal failure and 1 nonfunctioning kidney followed by Dr. Martín Hays 7. Chronic anemia 8. Atrial fibrillation. Plan. 1. Stop amiodarone 2. Chest x-ray and ABGs daily 4 3. C-reactive protein and erythrocyte sedimentation rate 4. Repeat BNP 5. Increase Solu-Medrol to 40 mg every 8 hours 6. See orders 7. Dr. Tristan dickens and I have discussed the case and we have coordinated her care. 01/05/2017. Today's chest x-ray still shows 5 lobe interstitial and alveolar infiltrates but these appear to be a little different and a little less dense allowing for technique. The patient says she feels better. Her O2 has improved slightly she has erosions in her nose and with her to try different apparatus for her oxygen and will use Bactroban in her nares. There are no new microbiology reports. FiO2 of 44%, pH is 7.418, PO2 is 40.4, PO2 is 59.9 bicarb is 25.7. White count is 10,700 with 90.8 segs. H&H is 9.3/28.6. Sodium is 134 and potassium is 3.3. Cardiology will adjust this. Creatinine has increased to 2.00 with a BUN of 51. I think the patient is becoming a little over diuresed and I have stopped her Lasix which was 40 mg twice daily. Patient fell Velcro rounds have disappeared. 01/06/2017. This patient has amiodarone lung. This will be the third day she is off amiodarone. She is on Solu-Medrol 40 IV push q. 8. Today's chest x-ray looks markedly better. She still has 5 lobe alveolar and interstitial infiltrates but these are rapidly resolving. Today's O2 has not improved significantly but I expect that to follow. We need to continue the present treatment for right now impaired attention to her heart rhythm. Potassium is low at 3.2 and replacement as needed. H&H is stable at 9.6/29.9. White count is 9289 segs. TSH is normal. Free T4 is elevated most likely secondary to amiodarone. 01/08/2017. On steroids the patient's lung (chest x-ray) is looking much better. Her breath sounds are much improved. So far her ABGs have not improved a good bit. Hopefully this will follow soon. Off diuretics creatinine is dropped from 2.0-1.30 with a BUN of 35. Electrolytes are normal. CBC is stable. 01/09/2017. Patient had a fall yesterday. She was on the commode and slumped forward and injured her face. She has had CT scan of the face and brain these are negative. She is fine from a neurological standpoint today and embarrassed by the episode. Patient's chest is clear at this time goes by. Her O2 sats have not improved but she is found if she lays on the right side and takes several deep breaths her oxygen improved. I think we will just have to wait this out but this should begin to improve. Orders have been reviewed and note that Lasix has been restarted. With holding Lasix creatinine is dropped from 2.00-1.20 with a BUN of 32. Sodium is 134 and potassium is 4.3. White count is 11,200 with 84 segs. H&H is 8.9/27.3. I have not repeated the patient's blood gases since she is asked that we hold this if at all possible. 01/10/2017. This 76-year-old white female has amiodarone lung. After stopping amiodarone and starting Solu-Medrol 40 IV push every 8 hours her chest x-ray has improved remarkably. She however remains hypoxemia and hopefully this will be improved soon. Earlier in the patient's hospitalization she was slightly over diuresed and her creatinine went up to 1.6 with a BUN of 45. Creatinine is now 1.30 with a BUN of 36. Patient's on a lower dose of diuretics. Watch closely. White blood cell count is 14,500 with 86 segs. H&H is stable at 9.2/ 28.1. Platelets are 190,000. There are no positive cultures. Patient had a fall on 01/08/2017. CT of the face and head of been normal. She does have some mild contusions and bruises on her face. She was on Eliquis. There is a history of atrial fib. At the present time we will continue to follow her chest x-ray. Will wait for her oxygenation to improve and will watch her kidney status. 01/13/2017. During this weekend the patient was moved to intensive care. Her chest x-ray which is shown a very good improvement with steroids regressed and as she has a 5 lobe alveolar filling defect with increased interstitial markings. She was being treated for amiodarone lung. Even though her chest x- ray improved her ABGs did not improve and they have recently deteriorated. We are at the point that this needs to be treated as adult respiratory distress syndrome. That necessitates mechanical ventilation with PEEP and pressure support. I have discussed this with the patient and she is agreeable. I discussed it with Dr. Alex Starks and Dr. Sam Martell and they were agreeable. I have asked anesthesia to electively intubate the patient. I will start her on P and later will add IMV and pressure support. Electrolytes are normal. Creatinine is 1.4. H&H is stable at 9.2/28.9. White count is 13,500 with 91 segs. Platelets are 149,000. Natruretic peptide is 267 01/14/2017. This patient required intubation mechanical ventilation secondary to adult respiratory distress syndrome which is secondary to amiodarone. Today' s chest x-ray shows some improvement in a generalized 5 lobe alveolar infiltrates with surrounding interstitial edema. Endotracheal tube is in good position. ABGs on mechanical ventilation FiO2 of 100%. PEEP of 5 and pressure support of 12 shows a pH 7.537. PCO2 45.8. PO2 of 115 a bicarb of 35.2. Electrolytes are normal. Creatinine is increased to 1.50 with BUN of 56. We may need to stop either the patient's Lasix or her valsartan. H&H is 9.3/29.4. White count is 15,800 with 87% segs and platelets 148,000. 01/15/2017.Today's chest x-ray is improved. There is still 5 lobe alveolar infiltrates with associated increased interstitial markings. The consolidative pattern is resolving. There is a slight improvement in ABGs. On FiO2 of 100% pH is 7.506, PCO2 is 47.5, PO2 is 121 and bicarb is 36.4. Patient's on weaning protocol. Creatinine is dropped from 1.50-1.40 with a BUN of 58. Electrolytes are normal. White count is 14,991.5 segs. H&H is 8.9/27.9 and platelets are 135,000. There are no positive cultures. This morning I had a talk with the niece. Hernán Victor nurse practitioner and Elver Resendiz RN were present. I explained amiodarone lung and the result of adult respiratory distress syndrome and pointed out that nationally the mortality for this is 50% in all comers. Her niece wanted to know if the patient needed bronchoscopy. I told her not now but at later date we may need one. 01/16/2017. The patient's ABGs this morning on mechanical ventilation and an FiO2 of 100% showed pH of 7.457, PCO2 49.5, PO2 167.0, bicarb 33.1, and oxygen saturation 98.7%. We have decreased the FiO2 to 70%. Will repeat ABGs tomorrow. Chest x-ray stable. There are no positive cultures. The patient was started on tube feedings yesterday. She is reportedly tolerating this fine. 01/17/2017 peer this 76-year-old white female has amiodarone lung with 5 lobe alveolar and interstitial infiltrate. This initially improved rapidly with steroids and stopping amiodarone but then last week in this deteriorated. Patient is now on mechanical ventilation. Her chest x-ray is improving slightly on a daily basis. She still has a 5 lobe alveolar interstitial infiltrate with the tendencies towards consolidation at each base. Earlier today her endotracheal tube was a little too far down and it was retracted and the follow-up x-ray looks fine. Patient's hypoxemia has worsened. I have gone back from an FiO2 of 70% to 1 of 100%. Will try to keep her O2 sats 93 or above. She has CO2 retention and I have increased her rate to 32. She is on PEEP of 5 and I have increased her pressure support from 12-15. Patient also has hypotension and is on pressor agents. Patient has a white blood cell count of 39,000. I think this is a leukemoid reaction to high-dose steroid. Urine culture from 01/16/2017 is growing gram-negative rods and gram-positive cocci. There are no reported IDs and sensitivities. Patient was started on Cipro but she is allergic to Levaquin. Without any additional knowledge I am going to take the liberty of stopping the Cipro. I will start her on Fortaz 1 g every 8 hours and will begin with test dose and I will add Cleocin 300 every 6 hours. 01/20/2017. This patient's chest x-ray abnormalities which include a 5 lobe alveolar and interstitial infiltrates secondary to amiodarone lung is stable and only a slightly bit improved in the last few days. Her ABGs are slightly better. I had a talk with the patient's daughter who will talk to her brother. Hernán Victor nurse practitioner was present. She understands that this is treated just like adult respiratory distress syndrome. The mortality fall commerce is 50%. We will evaluate the patient additionally with fiberoptic bronchoscopy tomorrow. I have consulted ENT for elective trach. Patient still requires pressor agents and I hope she will be ready for trach by Friday. White blood cell count is 29,700 with a left shift. I think this is a leukemoid reaction. Urine cultures from 01/16/2017 grew Klebsiella pneumoniae and Enterococcus faecalis. Labs been reviewed and medicines have been reviewed. Have discussed the case with Dr. Alex Starks and we are in agreement with treatment. 01/21/2017. We continue to have problems with oxygenation. I am switching this patient to a PEEP of 6 pressure support of 15 and will use IMR at a rate of 32/ min. Chest x-ray shows a 5 lobe alveolar infiltrate with increased interstitial markings. She has a little better variation than before there are areas of atelectasis at both bases. This patient was evaluated with fiberoptic bronchoscopy this morning. She had retained secretions bilaterally these were thick and tenacious and there were some fairly dense bronchial plugs especially in the lower lung segments bilaterally. There were no endobronchial lesions to suggest a cancer. Specimens were sent for cytology because of the amiodarone lung, bacterial fungal and AFB studies. There have been previous urine cultures which were positive for Klebsiella and enterococcus. Continue to have problems with oxygenation. On a PEEP of 6 and FiO2 of 70% and assist control ABGs this morning showed a pH of 7.39, PCO2 of 51.8, PO2 55.1 a bicarb of 30.4. Creatinine is 1.[address] Hays is only case from a renal standpoint. H&H is 7.6/24.4. Platelets have dropped to 95,000. White count is 34,300 which I think is a leukemoid reaction. Potassium is creeping up at 5.6. Glucoses are under acceptable control. Patient continues to require pressor agents. ENT was consulted yesterday for an elective trach. Daughter was agreeable to this but plan to talk to her brother. 01/21/2017. The patient's chest x-ray shows subcutaneous air on the right. There is no pneumothorax. We have asked the nursing staff to closely watch her peak pressures and make sure that they are not elevated. Mrs. Quiros failed CPAP yesterday. We are advancing as tolerated. ENT has been consulted to see her regarding elective trach. That consult is still pending. She is presently n.p.o. in anticipation of possible surgery today. We have asked nursing staff to call and see if this is feasible, and if not, we will restart her tube feedings. H&H is lower at 7.5/24.3. We have asked for 2 units of red blood cells to be transfused today. This will increase her oxygen carrying capacity. Medications have been reviewed. We made no changes today. Labs have been reviewed. White count is 20,300 with 93.5% segs; H&H 7.5/24.3; platelet count 54,000; creatinine 0.90, BUN 68, sodium 141, potassium 5.2, magnesium 2.4 ABGs this morning on an FiO2 of 90% and mechanical ventilation showed a pH of 7.399, PCO2 47.7, PO2 85.0, bicarb 28.1, and oxygen saturation 96.2% Exam (Progress Note) - Constitutional Vitals: Period Temp Pulse Resp BP Sys/Scott Pulse Ox Last 24 Hr 97.0 F-98.6 F 65-99 15-95 78-156/37-89 92-100 Exam: Chest is wheeze free Heart no definite gallop Abdomen is nontender and nondistended; bowel sounds are positive 4 Extremities with nothing to suggest acute deep venous thrombophlebitis Psychiatric unchanged Neurologic unchanged Plan: Continue present treatment. Follow daily chest x-ray, ABGs, and labs. Transfuse 2 units of packed red blood cells today. Follow-up ENT consultation for elective trach. See orders. Results - Labs CBC & BMP: 01/22/17 02:20 01/22/17 02:20
--- NOTE | 2017-01-22 12:16 | Pathology Report from [facility] ---
[facility] [place] : [id number] PATIENT NAME : Elle uQiros ORDERING DR : SURESH KEANE MD CLINICAL HX: Amiodarone Lung POST-OP DX: Same SPECIMEN INFO: Washing,Bronchial,NAYELY - 35 mls light yellow, cloudy CLASS: II CLASS COMMENTS: Acute inflammation, reactive changes, squamous metaplasia.CELL BLOCK: Same; no foamy macrophages seen. CLASS LEGEND: CLASS 0 Material inadequate for diagnosis because of (see comment) CLASS I Absence of atypical or abnormal cells CLASS II Atypical Cytology but no evidence of malignancy CLASS III Cytology suggestive of but not conclusive for malignancy CLASS IV Cytology strongly suggestive of malignancy CLASS V Cytology conclusive for malignancy COLLECTED DATE: 01/21/2017 [facility] REPORT DATE: 01/22/2017 ELECTRONICALLY SIGNED BY: Jer Li III, M.D. 01/22/2017 - 10:17:16 [email or web address]
--- NOTE | 2017-01-22 13:42 | Nephrology Progress Note ---
Nephrology - PN: Subj Interval history: She remains on the ventilator. She is no longer requiring pressor support. Exam (PN)-Nephrology - Vital Signs Vital signs: Period Temp Pulse Resp BP Sys/Scott Pulse Ox Last 24 Hr 97.0 F-98.4 F 65-101 15-95 78-156/37-89 92-100 Exam: Gen.: Sedated on ventilator ENT: Pupils equal round reactive to light. Neck: Supple. No JVD or bruit. Cardiovascular: Regular rate and rhythm. No murmur rub or gallop Lungs: Few rhonchi Abdomen: Soft. Nontender. Positive bowel sounds. No organomegaly Extremities: No edema - Lab 01/22/17 02:20 01/22/17 02:20 Most recent lab results ABG pH 7.399 (7.35-7.45) 01/22/17 03:57 ABG pCO2 47.7 MM HG (35-48) 01/22/17 03:57 ABG pO2 85.0 MM HG (80-95) 01/22/17 03:57 ABG HCO3 28.1 MMOL/L (20-26) H 01/22/17 03:57 ABG O2 Saturation 96.2 % (95-100) 01/22/17 03:57 Calcium 8.3 MG/DL (8.5-10.1) L 01/22/17 02:20 Phosphorus 4.0 MG/DL (2.5-4.9) 01/22/17 02:20 Magnesium 2.4 MG/DL (1.8-2.4) 01/22/17 02:20 Assessment and Plan (1) Chronic renal failure, stage 3 (moderate) Status: Acute Assessment and plan: 76-year-old woman with: * Solitary kidney * CRF stage III. Creatinine is stable. * Hyperkalemia. Improved * Ventilatory failure. 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 Wean ventilator as tolerated. Awaiting tracheostomy placement * COPD * A. fib * CAD Discussed with family Current Visit: Yes (2) Solitary kidney Status: Chronic Current Visit: Yes (3) Ventilatory failure Status: Acute Current Visit: Yes (4) Amiodarone pulmonary toxicity Status: Acute Current Visit: Yes (5) COPD (chronic obstructive pulmonary disease) Status: Chronic Current Visit: Yes (6) Coronary artery disease Status: Chronic Current Visit: Yes Qualifiers: Coronary Disease-Associated Artery/Lesion type: [place] artery Associated angina: without angina (7) Hypertension Status: Chronic Current Visit: Yes Qualifiers: Hypertension type: essential hypertension Qualified Code(s): I10 - Essential (primary) hypertension (8) History of atrial fibrillation Status: Chronic Current Visit: No
--- NOTE | 2017-01-22 16:39 | Consultation ---
Assessment and Plan - Time spent with patient Time spent with patient: Less than 30 minutes (1) Ventilator dependence Status: Acute Current Visit: Yes (2) Respiratory failure, chronic Status: Acute Current Visit: Yes (3) Amiodarone pulmonary toxicity Status: Acute Current Visit: Yes (4) Ventilatory failure Status: Acute Current Visit: Yes History of Present Illness - Data of Consult Patient: new to practice Consult date: 01/22/17 Requesting Physician: Lio Herrera - Consult Narrative Reason for consult: Ventilator dependent respiratory failure History of present illness: Ms. 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 Additionally she has perioral ecchymosis consistent with the fall upstairs wall having a CPAP on. Overall there is no evidence of hematoma that would prohibit surgery. CC: Alex Starks MD - Home Medications and Allergies Home Medications: Home Medications Medication Instructions Recorded Confirmed Type Amiodarone Tab [Cordarone Tab] 200 mg PO DAILY 10/20/14 01/01/17 History Amlodipine Besylate 5 mg PO DAILY 10/20/14 01/01/17 History Aspirin [Ecotrin] 81 mg PO DAILY 10/20/14 01/01/17 History Fludrocortisone [Florinef] 0.1 mg PO DAILY PRN 10/20/14 01/01/17 History Apixaban [Eliquis] 2.5 mg PO BID 08/12/15 01/01/17 History Clorazepate [Tranxene] 3.75 mg PO BEDTIME 08/12/15 01/01/17 History Furosemide Tab [Lasix Tab] 40 mg PO DAILY PRN 08/12/15 01/01/17 History Magnesium Chloride [Mag Delay] 2 tablet PO BID 08/12/15 01/01/17 History Diphenoxylate/Atrop 2.5-0.025 1 tablet PO Q6H PRN 02/23/16 01/01/17 History [Lomotil Tab] Levothyroxine Tab [Synthroid Tab] 50 mcg PO DAILY 02/23/16 01/01/17 History Omeprazole [Prilosec] 20 mg PO BID 02/23/16 01/01/17 History Ondansetron Tab [Zofran Tab] 4 mg PO Q6HR PRN 02/23/16 01/01/17 History Valsartan/Hydrochlorothiazide 1 each PO DAILY 02/23/16 01/01/17 History [Valsartan-Hctz 160-12.5 mg Tab] HYDROcodone/ACETAMIN 7.5-325 1 tablet PO Q6H PRN 03/07/16 01/01/17 History [[place] 7.5-325] Nebivolol HCl [Bystolic] 5 mg PO DAILY 03/07/16 01/01/17 History Rosuvastatin Calcium 10 mg PO DAILY 01/01/17 01/01/17 History Nebivolol [Bystolic] 5 mg PO DAILY 01/02/17 01/02/17 History Allergies/Adverse Reactions: Allergies Allergy/AdvReac Type Severity Reaction Status Date / Time levetiracetam [From Keppra] Allergy Unknown/Unable Verified 01/01/17 18:30 to obtain levofloxacin [From Levaquin] Allergy Unknown/Unable Verified 01/01/17 20:54 to obtain nitroglycerin Allergy Unknown/Unable Verified 01/01/17 18:30 [From Nitro-Bid] to obtain promethazine [From Phenergan] Allergy Unknown/Unable Verified 01/01/17 18:30 to obtain meperidine [From Demerol] AdvReac Palpitation Verified 02/23/16 13:44 s milk AdvReac Nausea Verified 02/23/16 13:44 Penicillins AdvReac Unknown/Unable Verified 02/23/16 13:44 to obtain ROS unobtainable: due to endotracheal tube Medical,Surgical,& Family Hx - Medical History Cardio: History of: Cardiac Dysrhythmia (A-FIB), CHF, CAD, Hypertension, [place], Pacemaker (08/20), Cardiovascular Problems Neurology: History of: Seizures, TIA HEENT: History of: Eye Problem, Glaucoma Endocrine: History of: Dyslipidemia No history of: Diabetes Mellitus (IDDM), Diabetes Mellitus (NIDDM) Respiratory: History of: COPD Renal: History of: Renal Failure, Renal Problems (one kidney) Genitourinary: History of: Recurring Urinary Tract Infections Gastrointestinal: History of: Gastrointestinal Bleed (upper GI bleed), Gastrointestinal Cancer (rectal cancer), GI Problems (Rectal Cancer-- 22 inches of Colon removed 2011) Musculoskeletal: History of: Back/Neck Problems (chronic back pain), Herniated Disk No history of: Amputation Hematology: History of: Anemia Other: History of: Cancer (rectal) - Surgical History Cardiac Surgeries: Sugical HX of: Cardiac Surgery (CABG) Thoracic Surgeries: Patient denies;: Organ Transplant HEENT Surgeries: Surgical HX of: Tonsilectomy & Adenoidectomy Abdominal Surgeries: Surgical HX of: Abdominal Surgery (resection of rectal carcinoma, 2007. Explored for lap for bowel obs 2009), Appendectomy, Cholecystectomy, EGD, Hernia Repair Reproductive Surgeries: Patient denies;: Genitourinary Surgery, Gynecologic Surgery - Family History Family History: Reports;: Family Cancer (MOYHER), Family Heart Disease (FATHER) , Family Hypertension (FATHER), Family Stroke (UNCLE) Denies;: Family Diabetes, Family Psychiatric Problems - Social History Smoking Status: Former smoker Frequency of Alcohol Use: None Type of Drug Use: None Exam - Constitutional Vitals: Period Temp Pulse Resp BP Sys/Scott Pulse Ox Last 24 Hr 97.5 F-98.5 F 77-101 15-38 78-156/37-89 91-100 General appearance: normal weight, other (Unable to assess as the patient is intubated and sedated) - Head Head exam: Present: normal inspection, normocephalic, hematoma (Ecchymosis see HPI) - ENT ENT exam: Present: normal exam, normal external ear exam, normal oropharynx, other (Obscured exam secondary to endotracheal and nasogastric tube) - Neck Neck exam: Present: other (Low-lying hyolaryngeal complex) - Respiratory Respiratory exam: Present: other (On the ventilator) - GI/Abdominal GI/Abdominal exam: Present: soft - Extremities Exam Extremities exam: Present: normal inspection, normal capillary refill - Neurological Exam Neurological exam: Present: other (Unable to assess because the patient is intubated and sedated) - Psychiatric Psychiatric exam: Present: other (Unable to assess because the patient is intubated and sedated) - Skin Skin exam: Present: normal color, warm Results - Labs CBC & BMP: 01/22/17 02:20 01/22/17 02:20 Lab Results: I have reviewed the past 24 hour labs
[2017-01-22] MEDS: NEBIVOLOL 5 MG TABLET PO SCH (17:14)
[2017-01-22] MEDS: PHENYLEPHRINE DRIP 40 MG/250 ML PREMIX IV SCH ×2 (17:15→23:30)
[2017-01-22] MEDS: MUPIROCIN 2% OINT 22 GM TUBE TOP SCH ×2 (18:18→21:31)
[2017-01-23] MEDS: CLINDAMYCIN INJ 300 MG in PREMIX 1 EACH IV SCH (01:41)
[2017-01-23] MEDS: ALBUTEROL/IPRATROPIUM 3 ML NEB RESP TX SCH ×5 (03:24→20:48)
[2017-01-23 03:47] LABS: ABG Base Excess 0.3 MMOL/L (-2.5-2.5); ABG HCO3 24.6 MMOL/L (20-26); ABG Oxygen Saturation 94.9 % (95-100); ABG PCO2 47.2 MM HG (35-48); ABG PH 7.354 (7.35-7.45); ABG PO2 79.4 MM HG (80-95); ABG TCO2 23.6 MMOL/L (23-27); Pt O2 Delivery Device Ventilator
[2017-01-23] MEDS: PHENYLEPHRINE DRIP 40 MG/250 ML PREMIX IV SCH (04:01)
[2017-01-23] MEDS: DESITIN 4OZ/NYSTATIN 15 GRAM MIXTURE PASTE TOP SCH ×2 (04:21→10:06)
[2017-01-23 04:24] LABS: Basophils # 0.1 10*3/uL (0.0-0.2); Basophils % 0.1 % (0.0-0.8); Hematocrit 34.2 VOL% (35.7-47.0); Hemoglobin 11.2 GM/DL (12.0-16.0); Immature Granulocytes % 4.3 %; Immature Granulocytes Absolute 1.57 #; Lymphocytes # 0.4 10*3/uL (1.4-4.0); Lymphocytes % 1.1 % (21.3-54.2); Mean Corpuscular HGB Conc 32.7 GM/DL (32-36); Mean Corpuscular Hemoglobin 30 PG (27-34); Mean Corpuscular Volume 90.7 FL (87-102); Mean Platelet Volume 13.6 FL (9.6-12.0); Monocytes # 0.9 10*3/uL (0.11-0.8); Monocytes % 2.4 % (1.7-12.7); NRBC # 0.12 10*3/uL; Neutrophils # 33.8 10*3/uL (1.4-7.4); Neutrophils % 92.1 % (38.7-73.9); Red Blood Count 3.77 MC/CUMM (3.8-5.5); Red Cell Distribution Width 16.1 % (9.3-17.3); White Blood Count 36.7 T/CUMM (4-12)
[2017-01-23] MEDS: MORPHINE 2 MG/1 ML SYRINGE IV PRN (04:24)
[2017-01-23 04:38] LABS: Platelet Count 73 T/CUMM (130-400)
[2017-01-23 04:47] LABS: Band Neutrophils 1 % (0-10); Hypochromasia 1+; Lymphocytes 2 % (20-55); Microcytosis Slight; Ovalocytes Slight; Platelet Estimate Decreased; Segmented Neutrophils 95 % (50-85); Total Cells Counted 100
[2017-01-23 04:59] LABS: Calcium 8.9 MG/DL (8.5-10.1); Magnesium 2.6 MG/DL (1.8-2.4); Osmolality,Calculated 319.8 MOS/KG (273-304); Potassium 5.9 MMOL/L (3.5-5.1)
[2017-01-23] MEDS: PROPOFOL 1,000 MG/100 ML BOTTLE IV SCH ×3 (05:31→19:20)
[2017-01-23] MEDS: INSULIN REGULAR 100 UNIT/ML SUBCUT SCH ×4 (06:43→19:04)
[2017-01-23] MEDS: methylPREDNISolone SOD SUC 40 MG/1 ML VIAL IV SCH ×4 (06:53→19:08)
[2017-01-23] MEDS: LEVOTHYROXINE 50 MCG TABLET PO SCH (06:54)
[2017-01-23] MEDS: BUDESONIDE 0.5 MG/2 ML NEB RESP TX SCH ×2 (07:03→20:48)
--- NOTE | 2017-01-23 07:43 | Family Practice Progress Note ---
Family Practice - PN: Subj Interval history: Patient continues to do poorly. She still requiring 90% oxygen and her PEEP 7 turned up 6 cm. Her PO2 this morning is 79 with normal pH and CO2. Repeat chest x-ray shows some shrinking in her subcutaneous emphysema and I do not see a pneumothorax. Her chest x-ray overall is little changed from yesterday. Her potassium was up to 5.9 today someone start some Kayexalate. She also has increased swelling of her left upper extremity right lower extremity and venous Dopplers will be ordered. Exam (Progress Note) - Constitutional Vitals: Period Temp Pulse Resp BP Sys/Scott Pulse Ox Last 24 Hr 98.0 F-99.0 F 68-101 15-38 53-134/37-71 89-100 Exam: Objective a well-developed white female who is sedated and on the ventilator. Patient's weight is up to kg this morning. White blood count is elevated. Her chest x-ray actually looks unchanged and she still has a small amount of subcutaneous emphysema on the right. Cardiovascular: Heart rates regular I hear no murmurs or gallops respiratory: Respiratory: Patient has scattered inspiratory rales in all lung [place] which is unchanged from prior exam. Abdomen: Abdomen soft and nontender. Results - Labs CBC & BMP: 01/23/17 Unknown 01/23/17 04:00 Lab Results: I have reviewed the past 24 hour labs - Diagnostic Findings Procedure: Chest x-ray: report reviewed by me (Subcutaneous emphysema is smaller ) Assessment and Plan (1) COPD (chronic obstructive pulmonary disease) Status: Chronic Assessment and plan: 01/08/2017: We will continue present therapy. 01/09/2017: Patient is slowly improving. 01/10/2017: Patient is slowly improving 01/13/2017: Patient is tolerating her Ventimask. Chest x-ray showed slight improvement with increasing steroids. Current Visit: Yes (2) Amiodarone pulmonary toxicity Status: Acute Assessment and plan: 01/08/2017: We will continue to hold her amiodarone of course. 01/09/2017: Patient is slowly improving. 01/10/2017: Patient is certainly improved with IV steroids. 01/13/2017: Patient improved with increase in steroids. 01/14/2017: Patient presently on ventilator and is oxygenating adequately. 01/15/2017: No significant change from yesterday. 01/16/2017: Patient may be slightly improved. 01/20/2017: Patient is making no improvement. Her vital signs and urine output remained adequate. 01/21/2017: Patient's respiratory failure persists. Chest x-ray has worsened. Patient's for bronchoscopy today. 01/22/2017: Respiratory failure persists chest x-ray is slightly improved. She does have some subcutaneous emphysema but no visible pneumothorax is seen. Will discuss with family. 01/23/2017: No improvement in respiratory status. She does have increased swelling of left upper and right lower extremities I am going to check Dopplers. Potassium is up to 5.9 today I will add some Kayexalate. Current Visit: Yes
--- NOTE | 2017-01-23 07:58 | Cardiology Progress Note ---
<Cherelle Muller - Last Filed: 01/23/17 09:22> Assessment and Plan (1) Amiodarone pulmonary toxicity Status: Acute Assessment and plan: See plan of care listed below. Current Visit: Yes (2) COPD (chronic obstructive pulmonary disease) Status: Chronic Assessment and plan: SEE PLAN OF CARE LISTED BELOW Current Visit: Yes (3) Congestive cardiac failure Status: Chronic Assessment and plan: SEE PLAN OF CARE LISTED BELOW Current Visit: Yes Qualifiers: Congestive heart failure type: diastolic Congestive heart failure chronicity: acute on chronic Qualified Code(s): I50.33 - Acute on chronic diastolic (congestive) heart failure (4) Coronary artery disease involving coronary bypass graft Status: Chronic Assessment and plan: SEE PLAN OF CARE LISTED BELOW Current Visit: Yes Qualifiers: [place] vs. transplanted heart: [place] heart Associated angina: without angina Qualified Code(s): I25.810 - Atherosclerosis of coronary artery bypass graft(s) without angina pectoris (5) History of TIA (transient ischemic attack) Status: Chronic Assessment and plan: SEE PLAN OF CARE LISTED BELOW Current Visit: No (6) dual-chamber pacemaker Status: Chronic Assessment and plan: SEE PLAN OF CARE LISTED BELOW Current Visit: Yes (7) Former smoker Status: Chronic Assessment and plan: SEE PLAN OF CARE LISTED BELOW Current Visit: No (8) Chronic anemia Status: Chronic Assessment and plan: SEE PLAN OF CARE LISTED BELOW Current Visit: Yes (9) Dyslipidemia Status: Chronic Assessment and plan: SEE PLAN OF CARE LISTED BELOW Current Visit: Yes (10) Chronic anticoagulation Status: Chronic Assessment and plan: SEE PLAN OF CARE LISTED BELOW Current Visit: Yes (11) Paroxysmal a-fib Status: Chronic Assessment and plan: SEE PLAN OF CARE LISTED BELOW Current Visit: No (12) Hypertension Status: Chronic Assessment and plan: SEE PLAN OF CARE LISTED BELOW Current Visit: Yes Qualifiers: Hypertension type: essential hypertension Qualified Code(s): I10 - Essential (primary) hypertension (13) Hypokalemia Status: Acute Assessment and plan: See plan of care listed below. Current Visit: Yes (14) Chronic renal failure, stage 3 (moderate) Status: Acute Assessment and plan: See plan of care listed below. Current Visit: Yes (15) UTI (urinary tract infection) Status: Acute Assessment and plan: See plan of care listed below. Current Visit: Yes Cardiology - PN: Subj Interval history: LEAD SOFTWARE ENGINEER: DR. BARRY PCP: DR. HO IRENE SUMMARY: Ms. Quiros is a 76 year old female with known history of coronary artery disease, routinely followed by Dr. Barry. Patient's PMH includes: hypertension, dyslipidemia, former smoker, COPD, chronic anemia, anterior myocardial infarction and paroxysmal atrial fibrillation. History of CKD, solitary kidney. 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 She had a nuclear cardiac stress test August 2015 which revealed normal myocardial perfusion scan that did not suggest the presence of significant coronary ischemia. Normal LV systolic function with ejection fraction estimated to be 57%. Normal end-diastolic volume. Patient admitted January 01, 2017 with respiratory failure related to acute on chronic CHF, pneumonitis (Amiodarone as possible etiology). JANUARY 23, 2017: No significant change overnight. Patient continues to be sedated and ventilated in the ICU. Appears to be comfortable on the ventilator. Still requiring significant ventilator support, FiO2 90%. Overnight, patient required reinitiation of Axel-Synephrine due to hypotension. Currently her blood pressure is under well control with systolic blood pressure ranging from 100-110. Will hold antihypertensives as patient is on vasopressors. Chest x-ray today did not reveal any significant changes from previous study. WBC 36.7, afebrile. On steroid therapy. H&H has greatly improved to 11.2 and 34.2 this morning after blood transfusion yesterday. Platelet count also improved to 73 from 54 yesterday. Aspirin has been discontinued. Continue low-dose Eliquis. Vital signs are stable. Labs reviewed. No arrhythmias or ectopy observed on monitoring manager. Will further discuss with Dr. Barry and await additional recommendations ASSESSMENT/PLAN: 1. AMIODARONE LUNG - Amiodarone has been discontinued. Continue aggressive steroid therapy. Currently being treated as ARDS. Management per pulmonary. 2. COPD EXACERBATION - Continue current plan of care, aggressive pulmonary toilet. Will defer management of this to attending/pulmonary. 3. CONGESTIVE HEART FAILURE, DYSTOLIC DYSFUNCTION - Acute on chronic, now compensated. EF 60%, grade 1 diastolic dysfunction, NYHA Class IV. Suspect hypoxia is primarily a lung issue. 4. CORONARY ARTERY DISEASE, STATUS POST CABG 2010 - S/P CABG 2010 (AZAR to LAD, SVG to Cx.) May benefit from ischemic reevaluation once she recovers from her primary pulmonary issues. This is not ACS. Normal LV systolic function noted on echocardiogram this admission with negative troponin. 5. HYPERTENSION -patient now requiring Axel-Synephrine for blood pressure support. Will hold antihypertensives at this time. Will reinitiate as her blood pressure will allow. 6. FORMER SMOKER - Reports that she quit smoking in 2004. 7. HISTORY OF DUAL CHAMBER PACEMAKER - Continue current plan of care. Patient had dual-chamber pacemaker placed 2013 as she has history of paroxysmal atrial fibrillation and developed sick sinus syndrome with tachybradycardia components. 8. CHRONIC ANEMIA - Stable. H&H improved after blood transfusion yesterday. Patient reports that she receives iron transfusions occasionally. Her last transfusion was April 2016. Aspirin has been discontinued. Chronically anticoagulated with Eliquis for stroke prevention. Continue low dose as patient is high risk for stroke. Monitor is with daily CBC. 9. DYSLIPIDEMIA - Continue lipid-lowering agent. 10. CHRONIC ANTICOAGULATION - Eliquis for stroke prevention. Facial hematoma post fall. If this grows or if H&H drops may need to hold anticoagulation. CHADSVASC score of 7. 11. HISTORY OF PAF - Amiodarone has been discontinued this admission due to suspected pulmonary toxicity. Beta-tamara on hold as her blood pressure will not allow, currently on vasopressors. If symptomatic AF recurs, we may consider renally adjusted Sotalol. 12. HISTORY OF TIA - Patient reports history of TIA. She is currently chronically anticoagulated with Eliquis. 13. HYPOKALEMIA - Resolved 14. CHRONIC RENAL FAILURE, STAGE 3 WITH NONFUNCTIONING KIDNEY - Patient routinely followed by Dr. Martín Hays. Monitor with daily BMP. 15. UTI - Continue current plan of care. Exam (Progress Note) - Constitutional Vitals: Period Temp Pulse Resp BP Sys/Scott Pulse Ox Last 24 Hr 98.0 F-99.0 F 68-101 15-38 53-134/37-71 89-100 Exam: General: [Thin female. On ventilator but wakes and responds appropriately. Frail ] HEENT: [Normocephalic, multiple ecchymotic areas noted, particularly large across the chin. Mucous membranes moist. No jaundice noted. Conjunctiva moist and clear, sclerae anicteric] Neck: No obvious JVD/HJR, no thyromegaly or lymphadenopathy noted. No carotid bruit appreciated Cardiac: [Regular rate and rhythm.] [No obvious murmur rub or gallop.] Lungs: [Coarse throughout, no wheezing noted. Symmetrical chest wall movements noted. Remains intubated. Abdomen: Soft, bowel sounds normoactive. Nontender and nondistended. No abdominal bruit or thrill noted. No masses noted. Musculoskeletal: No fluid collection. Decreased range of motion is noted. Extremities: No clubbing, cyanosis noted. [ No edema noted.] Upper extremity pulses 2+. Lower extremity pulses 1+. Capillary refill less than 3 seconds. Skin: Multiple areas of ecchymosis, skin tears. No rash. Neuro: Sedated on ventilator. No essential tremor is appreciated. Result/EKG - Labs CBC & BMP: 01/23/17 Unknown 01/23/17 04:00 Lab Results: I have reviewed the past 24 hour labs Labs: Laboratory Results - last 24 hr 01/22/17 01/22/17 01/22/17 02:20 11:15 17:51 WBC RBC Hgb Hct MCV MCH MCHC RDW Plt Count MPV Neut % (Auto) Lymph % (Auto) [place] % (Auto) Eos % (Auto) Baso % (Auto) Neut # (Auto) Lymph # (Auto) [place] # (Auto) Eos # (Auto) Baso # (Auto) Total Counted Immature Gran % Nucleated RBC % Immature Gran # Segmented Neutrophils Band Neutrophils Lymphocytes Monocytes Nucleated RBCs # Platelet Estimate Hypochromasia Microcytosis Ovalocytes Morphology Comment ABG pH ABG pCO2 ABG pO2 ABG HCO3 ABG Total CO2 ABG O2 Saturation ABG Base Excess FiO2 Sodium Potassium Chloride Carbon Dioxide Anion Gap BUN Creatinine GFR Calculation BUN/Creatinine Ratio Glucose POC Glucose 209 H 208 H Calculated Osmolality Calcium Magnesium Prealbumin Blood Type A NEGATIVE Antibody Screen Negative Crossmatch See Detail 01/22/17 01/23/17 01/23/17 23:42 03:15 04:00 WBC RBC Hgb Hct MCV MCH MCHC RDW Plt Count MPV Neut % (Auto) Lymph % (Auto) [place] % (Auto) Eos % (Auto) Baso % (Auto) Neut # (Auto) Lymph # (Auto) [place] # (Auto) Eos # (Auto) Baso # (Auto) Total Counted Immature Gran % Nucleated RBC % Immature Gran # Segmented Neutrophils Band Neutrophils Lymphocytes Monocytes Nucleated RBCs # Platelet Estimate Hypochromasia Microcytosis Ovalocytes Morphology Comment ABG pH 7.354 ABG pCO2 47.2 ABG pO2 79.4 L ABG HCO3 24.6 ABG Total CO2 23.6 ABG O2 Saturation 94.9 L ABG Base Excess 0.3 FiO2 90.00 Sodium 144 Potassium 5.9 H Chloride 108 H Carbon Dioxide 28 Anion Gap 13.9 BUN 100 H Creatinine 1.50 H GFR Calculation 36 BUN/Creatinine Ratio 66.00 H Glucose 145 H POC Glucose 229 H Calculated Osmolality 319.8 H Calcium 8.9 Magnesium 2.6 H Prealbumin 30.0 Blood Type Antibody Screen Crossmatch 01/23/17 Unknown WBC 36.7 H D RBC 3.77 L D Hgb 11.2 L D Hct 34.2 L MCV 90.7 MCH 30 MCHC 32.7 RDW 16.1 Plt Count 73 L D MPV 13.6 H Neut % (Auto) 92.1 H Lymph % (Auto) 1.1 L [place] % (Auto) 2.4 Eos % (Auto) 0.0 Baso % (Auto) 0.1 Neut # (Auto) 33.8 H Lymph # (Auto) 0.4 L [place] # (Auto) 0.9 H Eos # (Auto) 0.0 Baso # (Auto) 0.1 Total Counted 100 Immature Gran % 4.3 Nucleated RBC % 0.3 Immature Gran # 1.57 Segmented Neutrophils 95 H Band Neutrophils 1 Lymphocytes 2 L Monocytes 2 Nucleated RBCs # 0.12 Platelet Estimate Decreased Hypochromasia 1+ Microcytosis Slight Ovalocytes Slight Morphology Comment ABG pH ABG pCO2 ABG pO2 ABG HCO3 ABG Total CO2 ABG O2 Saturation ABG Base Excess FiO2 Sodium Potassium Chloride Carbon Dioxide Anion Gap BUN Creatinine GFR Calculation BUN/Creatinine Ratio Glucose POC Glucose Calculated Osmolality Calcium Magnesium Prealbumin Blood Type Antibody Screen Crossmatch <Martín Barry - Last Filed: 01/23/17 14:08> Assessment and Plan (1) UTI (urinary tract infection) Status: Acute Current Visit: No (2) History of atrial fibrillation Status: Chronic Current Visit: No (3) Chronic anticoagulation Status: Chronic Current Visit: Yes (4) Paroxysmal a-fib Status: Chronic Current Visit: No (5) Amiodarone pulmonary toxicity Status: Acute Current Visit: Yes Exam (Progress Note) - Constitutional Vitals: Period Temp Pulse Resp BP Sys/Scott Pulse Ox Last 24 Hr 97.7 F-99.0 F 68-98 22-38 53-186/37-94 87-100 Result/EKG - Labs CBC & BMP: 01/23/17 Unknown 01/23/17 04:00 Labs: Laboratory Results - last 24 hr 01/22/17 01/22/17 01/22/17 02:20 17:51 23:42 WBC RBC Hgb Hct MCV MCH MCHC RDW Plt Count MPV Neut % (Auto) Lymph % (Auto) [place] % (Auto) Eos % (Auto) Baso % (Auto) Neut # (Auto) Lymph # (Auto) [place] # (Auto) Eos # (Auto) Baso # (Auto) Total Counted Immature Gran % Nucleated RBC % Immature Gran # Segmented Neutrophils Band Neutrophils Lymphocytes Monocytes Nucleated RBCs # Platelet Estimate Hypochromasia Microcytosis Ovalocytes Morphology Comment ABG pH ABG pCO2 ABG pO2 ABG HCO3 ABG Total CO2 ABG O2 Saturation ABG Base Excess FiO2 Sodium Potassium Chloride Carbon Dioxide Anion Gap BUN Creatinine GFR Calculation BUN/Creatinine Ratio Glucose POC Glucose 208 H 229 H Calculated Osmolality Calcium Magnesium Prealbumin Blood Type A NEGATIVE Antibody Screen Negative Crossmatch See Detail 01/23/17 01/23/17 01/23/17 03:15 04:00 05:58 WBC RBC Hgb Hct MCV MCH MCHC RDW Plt Count MPV Neut % (Auto) Lymph % (Auto) [place] % (Auto) Eos % (Auto) Baso % (Auto) Neut # (Auto) Lymph # (Auto) [place] # (Auto) Eos # (Auto) Baso # (Auto) Total Counted Immature Gran % Nucleated RBC % Immature Gran # Segmented Neutrophils Band Neutrophils Lymphocytes Monocytes Nucleated RBCs # Platelet Estimate Hypochromasia Microcytosis Ovalocytes Morphology Comment ABG pH 7.354 ABG pCO2 47.2 ABG pO2 79.4 L ABG HCO3 24.6 ABG Total CO2 23.6 ABG O2 Saturation 94.9 L ABG Base Excess 0.3 FiO2 90.00 Sodium 144 Potassium 5.9 H Chloride 108 H Carbon Dioxide 28 Anion Gap 13.9 BUN 100 H Creatinine 1.50 H GFR Calculation 36 BUN/Creatinine Ratio 66.00 H Glucose 145 H POC Glucose 133 H Calculated Osmolality 319.8 H Calcium 8.9 Magnesium 2.6 H Prealbumin 30.0 Blood Type Antibody Screen Crossmatch 01/23/17 01/23/17 12:10 Unknown WBC 36.7 H D RBC 3.77 L D Hgb 11.2 L D Hct 34.2 L MCV 90.7 MCH 30 MCHC 32.7 RDW 16.1 Plt Count 73 L D MPV 13.6 H Neut % (Auto) 92.1 H Lymph % (Auto) 1.1 L [place] % (Auto) 2.4 Eos % (Auto) 0.0 Baso % (Auto) 0.1 Neut # (Auto) 33.8 H Lymph # (Auto) 0.4 L [place] # (Auto) 0.9 H Eos # (Auto) 0.0 Baso # (Auto) 0.1 Total Counted 100 Immature Gran % 4.3 Nucleated RBC % 0.3 Immature Gran # 1.57 Segmented Neutrophils 95 H Band Neutrophils 1 Lymphocytes 2 L Monocytes 2 Nucleated RBCs # 0.12 Platelet Estimate Decreased Hypochromasia 1+ Microcytosis Slight Ovalocytes Slight Morphology Comment ABG pH ABG pCO2 ABG pO2 ABG HCO3 ABG Total CO2 ABG O2 Saturation ABG Base Excess FiO2 Sodium Potassium Chloride Carbon Dioxide Anion Gap BUN Creatinine GFR Calculation BUN/Creatinine Ratio Glucose POC Glucose 159 H Calculated Osmolality Calcium Magnesium Prealbumin Blood Type Antibody Screen Crossmatch
--- NOTE | 2017-01-23 08:08 | XRay Report ---
History is ventilator management Comparison 01/22/2017 The heart is mildly enlarged. ET tube tip is at T4. Pacemaker present. There remains moderate diffuse bilateral hazy and reticular nodular pulmonary opacities with some mildly more focal patchy opacities in both lung bases Subcutaneous air in the right the chest wall and neck remains. Multiple overlying the devices and shadows the right lung apex again seen grossly similar on the prior study PICC line catheter tip on the left remains in the region of the subclavian vein. Impression: No significant change detailed above PROCEDURE INTERPRETED AT [facility] DEPARTMENT OF RADIOLOGY Final Report Signed by: Dr. Soco Oakes
[2017-01-23] MEDS: APIXABAN 2.5 MG TABLET PO SCH ×2 (08:57→21:21)
[2017-01-23] MEDS: MAGNESIUM CHLORIDE 64 MG TABLET PO SCH ×2 (08:59→21:23)
--- NOTE | 2017-01-23 09:01 | Ultrasound Report ---
Exam: US venous doppler LE RT Indication: Swelling Date: 01/23/2017 7:37 AM Comparison 08/11/2013 Findings: Grayscale color flow duplex/Doppler imaging and spectral analysis waveform imaging was performed with real-time ultrasound with image stored and captured. The right common femoral, superficial femoral, popliteal saphenous veins are patent with normal augmentation and compression. There is no evidence of popliteal or Suarez's cyst. Normal wave form analysis present. Normal color flow Impression: 1. No DVT PROCEDURE INTERPRETED AT [facility] DEPARTMENT OF RADIOLOGY Final Report Signed by: Dr. Lio Bowen
--- NOTE | 2017-01-23 09:01 | Ultrasound Report ---
Exam: US venous doppler UE LT Date:01/23/2017 7:37 AM Comparison: None Indication: Left upper extremity swelling Left upper extremity venous Doppler performed with grayscale, spectral Doppler, and color flow analysis performed and interpreted. No evidence of echogenic, noncompressible thrombus seen in the left internal jugular, axillary, cephalic, basilic, or brachial veins No secondary signs of venous thrombus seen in the left subclavian vein Impression: No evidence of left upper extremity venous thrombosis identified. PROCEDURE INTERPRETED AT [facility] DEPARTMENT OF RADIOLOGY Final Report Signed by: Dr. Soco Oakes
[2017-01-23] MEDS: SODIUM POLYSTYRENE SULFATE 15 GM/60 ML BOTTLE PO SCH ×2 (09:30→16:34)
[2017-01-23] MEDS: DOCUSATE SODIUM 100 MG CAPSULE PO SCH (09:56)
[2017-01-23] MEDS: ROSUVASTATIN 10 MG TABLET PO SCH (09:56)
[2017-01-23] MEDS: FLUDROCORTISONE 0.1 MG TABLET PO SCH (09:56)
[2017-01-23] MEDS: NEBIVOLOL 5 MG TABLET PO SCH (09:56)
[2017-01-23] MEDS: MEROPENEM 1,000 MG in SODIUM CHLORIDE 0.9% 100 ML IV SCH ×2 (09:57→22:03)
[2017-01-23] MEDS: LANSOPRAZOLE ODT 30 MG TABLET PO SCH (10:05)
[2017-01-23] MEDS: AMPICILLIN INJ 1,000 MG in SODIUM CHLORIDE 0.9% 100 ML IV SCH ×3 (10:20→21:45)
--- NOTE | 2017-01-23 11:22 | Pulmonology Progress Note ---
Pulmonary - PN: Subj Interval history: This is a 76-year-old white female whom I saw in pulmonary consultation on 2016. She had had progressive shortness of breath and had chest x-ray changes along with progressive hypoxemia. My impressions were. 1. Diffuse 5 lobe interstitial and alveolar infiltrate. Suspect this will returned item clerk to be amiodarone lung. Note the presence of Velcro rales. Watch closely for the possibility of atypical pulmonary edema 2. COPD 3. Significant past history tobacco abuse. Stop smoking 2004 4. Normal TSH with elevated free T4 most likely secondary to amiodarone. 5. 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 6. Mild chronic renal failure and 1 nonfunctioning kidney followed by Dr. Martín Hays 7. Chronic anemia 8. Atrial fibrillation. Plan. 1. Stop amiodarone 2. Chest x-ray and ABGs daily 4 3. C-reactive protein and erythrocyte sedimentation rate 4. Repeat BNP 5. Increase Solu-Medrol to 40 mg every 8 hours 6. See orders 7. Dr. Tristan dickens and I have discussed the case and we have coordinated her care. 01/05/2017. Today's chest x-ray still shows 5 lobe interstitial and alveolar infiltrates but these appear to be a little different and a little less dense allowing for technique. The patient says she feels better. Her O2 has improved slightly she has erosions in her nose and with her to try different apparatus for her oxygen and will use Bactroban in her nares. There are no new microbiology reports. FiO2 of 44%, pH is 7.418, PO2 is 40.4, PO2 is 59.9 bicarb is 25.7. White count is 10,700 with 90.8 segs. H&H is 9.3/28.6. Sodium is 134 and potassium is 3.3. Cardiology will adjust this. Creatinine has increased to 2.00 with a BUN of 51. I think the patient is becoming a little over diuresed and I have stopped her Lasix which was 40 mg twice daily. Patient fell Velcro rounds have disappeared. 01/06/2017. This patient has amiodarone lung. This will be the third day she is off amiodarone. She is on Solu-Medrol 40 IV push q. 8. Today's chest x-ray looks markedly better. She still has 5 lobe alveolar and interstitial infiltrates but these are rapidly resolving. Today's O2 has not improved significantly but I expect that to follow. We need to continue the present treatment for right now impaired attention to her heart rhythm. Potassium is low at 3.2 and replacement as needed. H&H is stable at 9.6/29.9. White count is 9289 segs. TSH is normal. Free T4 is elevated most likely secondary to amiodarone. 01/08/2017. On steroids the patient's lung (chest x-ray) is looking much better. Her breath sounds are much improved. So far her ABGs have not improved a good bit. Hopefully this will follow soon. Off diuretics creatinine is dropped from 2.0-1.30 with a BUN of 35. Electrolytes are normal. CBC is stable. 01/09/2017. Patient had a fall yesterday. She was on the commode and slumped forward and injured her face. She has had CT scan of the face and brain these are negative. She is fine from a neurological standpoint today and embarrassed by the episode. Patient's chest is clear at this time goes by. Her O2 sats have not improved but she is found if she lays on the right side and takes several deep breaths her oxygen improved. I think we will just have to wait this out but this should begin to improve. Orders have been reviewed and note that Lasix has been restarted. With holding Lasix creatinine is dropped from 2.00-1.20 with a BUN of 32. Sodium is 134 and potassium is 4.3. White count is 11,200 with 84 segs. H&H is 8.9/27.3. I have not repeated the patient's blood gases since she is asked that we hold this if at all possible. 01/10/2017. This 76-year-old white female has amiodarone lung. After stopping amiodarone and starting Solu-Medrol 40 IV push every 8 hours her chest x-ray has improved remarkably. She however remains hypoxemia and hopefully this will be improved soon. Earlier in the patient's hospitalization she was slightly over diuresed and her creatinine went up to 1.6 with a BUN of 45. Creatinine is now 1.30 with a BUN of 36. Patient's on a lower dose of diuretics. Watch closely. White blood cell count is 14,500 with 86 segs. H&H is stable at 9.2/ 28.1. Platelets are 190,000. There are no positive cultures. Patient had a fall on 01/08/2017. CT of the face and head of been normal. She does have some mild contusions and bruises on her face. She was on Eliquis. There is a history of atrial fib. At the present time we will continue to follow her chest x-ray. Will wait for her oxygenation to improve and will watch her kidney status. 01/13/2017. During this weekend the patient was moved to intensive care. Her chest x-ray which is shown a very good improvement with steroids regressed and as she has a 5 lobe alveolar filling defect with increased interstitial markings. She was being treated for amiodarone lung. Even though her chest x- ray improved her ABGs did not improve and they have recently deteriorated. We are at the point that this needs to be treated as adult respiratory distress syndrome. That necessitates mechanical ventilation with PEEP and pressure support. I have discussed this with the patient and she is agreeable. I discussed it with Dr. Alex Starks and Dr. Sam Martell and they were agreeable. I have asked anesthesia to electively intubate the patient. I will start her on P and later will add IMV and pressure support. Electrolytes are normal. Creatinine is 1.4. H&H is stable at 9.2/28.9. White count is 13,500 with 91 segs. Platelets are 149,000. Natruretic peptide is 267 01/14/2017. This patient required intubation mechanical ventilation secondary to adult respiratory distress syndrome which is secondary to amiodarone. Today' s chest x-ray shows some improvement in a generalized 5 lobe alveolar infiltrates with surrounding interstitial edema. Endotracheal tube is in good position. ABGs on mechanical ventilation FiO2 of 100%. PEEP of 5 and pressure support of 12 shows a pH 7.537. PCO2 45.8. PO2 of 115 a bicarb of 35.2. Electrolytes are normal. Creatinine is increased to 1.50 with BUN of 56. We may need to stop either the patient's Lasix or her valsartan. H&H is 9.3/29.4. White count is 15,800 with 87% segs and platelets 148,000. 01/15/2017.Today's chest x-ray is improved. There is still 5 lobe alveolar infiltrates with associated increased interstitial markings. The consolidative pattern is resolving. There is a slight improvement in ABGs. On FiO2 of 100% pH is 7.506, PCO2 is 47.5, PO2 is 121 and bicarb is 36.4. Patient's on weaning protocol. Creatinine is dropped from 1.50-1.40 with a BUN of 58. Electrolytes are normal. White count is 14,991.5 segs. H&H is 8.9/27.9 and platelets are 135, 000. There are no positive cultures. This morning I had a talk with the niece . Hernán Victor nurse practitioner and Elver Resendiz RN were present. I explained amiodarone lung and the result of adult respiratory distress syndrome and pointed out that nationally the mortality for this is 50% in all comers. Madelyn wanted to know if the patient needed bronchoscopy. I told her not now but at later date we may need 1. 01/17/2017 peer this 76-year-old white female has amiodarone lung with 5 lobe alveolar and interstitial infiltrate. This initially improved rapidly with steroids and stopping amiodarone but then last week in this deteriorated. Patient is now on mechanical ventilation. Her chest x-ray is improving slightly on a daily basis. She still has a 5 lobe alveolar interstitial infiltrate with the tendencies towards consolidation at each base. Earlier today her endotracheal tube was a little too far down and it was retracted and the follow-up x-ray looks fine. Patient's hypoxemia has worsened. I have gone back from an FiO2 of 70% to 1 of 100%. Will try to keep her O2 sats 93 or above. She has CO2 retention and I have increased her rate to 32. She is on PEEP of 5 and I have increased her pressure support from 12-15. Patient also has hypotension and is on pressor agents. Patient has a white blood cell count of 39,000. I think this is a leukemoid reaction to high-dose steroid. Urine culture from 01/16/2017 is growing gram-negative rods and gram-positive cocci. There are no reported IDs and sensitivities. Patient was started on Cipro but she is allergic to Levaquin. Without any additional knowledge I am going to take the liberty of stopping the Cipro. I will start her on Fortaz 1 g every 8 hours and will begin with test dose and I will add Cleocin 300 every 6 hours. 01/20/2017. This patient's chest x-ray abnormalities which include a 5 lobe alveolar and interstitial infiltrates secondary to amiodarone lung is stable and only a slightly bit improved in the last few days. Her ABGs are slightly better. I had a talk with the patient's daughter who will talk to her brother. Hernán Victor nurse practitioner was present. She understands that this is treated just like adult respiratory distress syndrome. The mortality fall commerce is 50%. We will evaluate the patient additionally with fiberoptic bronchoscopy tomorrow. I have consulted ENT for elective trach. Patient still requires pressor agents and I hope she will be ready for trach by Friday. White blood cell count is 29,700 with a left shift. I think this is a leukemoid reaction. Urine cultures from 01/16/2017 grew Klebsiella pneumoniae and Enterococcus faecalis. Labs been reviewed and medicines have been reviewed. Have discussed the case with Dr. Alex Starks and we are in agreement with treatment. 01/21/2017. We continue to have problems with oxygenation. I am switching this patient to a PEEP of 6 pressure support of 15 and will use IMR at a rate of 32/ min. Chest x-ray shows a 5 lobe alveolar infiltrate with increased interstitial markings. She has a little better variation than before there are areas of atelectasis at both bases. This patient was evaluated with fiberoptic bronchoscopy this morning. She had retained secretions bilaterally these were thick and tenacious and there were some fairly dense bronchial plugs especially in the lower lung segments bilaterally. There were no endobronchial lesions to suggest a cancer. Specimens were sent for cytology because of the amiodarone lung, bacterial fungal and AFB studies. There have been previous urine cultures which were positive for Klebsiella and enterococcus. Continue to have problems with oxygenation. On a PEEP of 6 and FiO2 of 70% and assist control ABGs this morning showed a pH of 7.39, PCO2 of 51.8, PO2 55.1 a bicarb of 30.4. Creatinine is 1.[address] Hays is only case from a renal standpoint. H&H is 7.6/24.4. Platelets have dropped to 95,000. White count is 34,300 which I think is a leukemoid reaction. Potassium is creeping up at 5.6. Glucoses are under acceptable control. Patient continues to require pressor agents. ENT was consulted yesterday for an elective trach. Daughter was agreeable to this but plan to talk to her brother 01/23/2017. Today's chest x-ray is stable. ABGs on mechanical ventilation with a PEEP of 6 pressure support of 15 FiO2 90% shows a pH of 7.35, PCO2 of 47.2, PO2 of 79.4 and a bicarb of 24.3. Ammonia increased the FiO2 to 70%. Potassium is elevated 5.9 and this is being treated. Creatinine has increased to 1.50 with a BUN of 500. I have increased the patient's fluids, D5 half- normal saline at 75 cc/h.. White blood cell count is 36,700 with 92 segs. H&H posttransfusion is 11.2/34.2. Platelets are 73,000. Labs been reviewed. Bronchoscopy specimens from 01/21/2017 are growing a gram-negative teofilo. The patient has been on Fortaz and I am switching this to meropenem. Previously the urine grew Klebsiella pneumoniae and Enterococcus faecalis. I will add amoxicillin for coverage of anaerobic coccus. Cleocin is been stopped. Patient 's pulmonary status is stable but not significantly improved. Doppler venograms of the lower extremities are negative Physical exam. Vital signs. See below. Hypotension requiring pressor Psychiatric. Alert and oriented. Neurologic. Cranial nerves are intact Long track motor functions intact Chest. Wheeze free. Velcro rales have disappeared. No chest wall tenderness. Heart. No definite gallop. Abdomen. Nontender. Positive bowel sounds. Extremities. No edema Neck. Symmetrical kyphotic with no meningismus Lymphatics. No submandibular cervical supraclavicular adenopathy. The remainder of the physical exam is noncontributory Plan. 01/05/2017 1. DC Lasix, 40 mg p.o. twice daily was her dose 2. Monitor BUN/creatinine sodium and potassium 3. Continue steroids 4. Daily chest x-rays and ABGs to we can see clear-cut improvement. 5. Today I asked the patient admits she has not seen anyone in pulmonary before she says on one occasion she saw Dr. Minesh Whaley. She requested to change to my service and after we discussed this I agree. She has some family members to see me. She is related to Tahira dorado 01/06/2017. 1. See today's note above. 2. Amiodarone lung which is improving. Continue steroids and follow chest x- ray and ABGs. 3. Replacement of potassium 01/08/2017. 1. See today's note above. 2. Amiodarone lung is improving by chest x-ray and physical exam criteria. 3. Continue present regimen including Solu-Medrol 40 IV push every 8 hours 01/09/2017. 1. See today's note above 2. For tomorrow morning I have ordered a 2 view chest x-ray. #3 continue to monitor O2 sats. 01/10/2017. 1. See today's note above. 2. Chest x-ray pending. Repeat Friday and Friday 3. Follow-up BMP 4. Supplemental oxygen. #5 continue Solu-Medrol 40 IV push every 8 hours. 01/13/2017. 1. See today's note. Above. 2. Continue Solu-Medrol 3. Intubation mechanical ventilation. Treat amiodarone lung as adult respiratory distress syndrome. 01/14/2017 1. Gradually increasing creatinine. Consider stopping Lasix and/or valsartan. 2. Slight improvement in ABGs. This looks like it is going to be slow. 3. Mechanical ventilation weaning protocol 4. Physical therapy protocol. 5. Deep venous thrombophlebitis prevention protocol 6. Proton pump inhibitor protocol 7. Discontinue Zithromax. 01/15/2017. 1. Creatinine is stabilized. 2. Chest x-ray showing gradual improvement and oxygenation although very poor is gradually improved 01/17/2017 1. Gram-negative rods gram-positive cocci and urine. 2. DC Cipro 3. Start Fortaz. Test dose 4. Start Cleocin. 5. FiO2 100%. PEEP of 5. Pressure support of 15. Weaning protocol. 6. Pressor agents. 7. Leukemoid reaction 8. Daily chest x-ray, ABGs and lab. 9. See today's note above 01/20/2017. 1. Fiberoptic bronchoscopy Friday. 2. Trach Friday or later 3. Consult ENT 4. Ventilator adjustments made. Weaning protocol. 01/21/2017. 1. See today's note above. 2. See fiberoptic bronchoscopy report 3. Check cultures. 4. Pressor agents. 5. Note azotemia. 6. ENT consult 01/23/2017. 1. See today's note above. 2. Present antibiotics for now we are pending him and ampicillin. Exam (Progress Note) - Constitutional Vitals: Period Temp Pulse Resp BP Sys/Scott Pulse Ox Last 24 Hr 98.0 F-99.0 F 68-101 22-38 53-134/37-79 89-100 Results - Labs CBC & BMP: 01/23/17 Unknown 01/23/17 04:00
[2017-01-23] MEDS: PHENYLEPHRINE INJ 160 MG in SODIUM CHLORIDE 0.9% 234 ML IV SCH (11:44)
[2017-01-23] MEDS: DEXTROSE 5% NACL 0.45% 1,000 ML IV SCH (11:59)
--- NOTE | 2017-01-23 12:27 | Nephrology Progress Note ---
Nephrology - PN: Subj Interval history: Patient is intubated and sedate. She does open her eyes and seems to fix and follow Physical exam general the patient is chronically ill-appearing, heart is regular rate and rhythm, she has no pitting edema, lungs are clear to auscultation anteriorly, abdomen is soft with decreased bowel sounds Assessment/plan 1. Solitary kidney-patient's creatinine is increased to 1.5 mg/ dL from around 1 mg/dL yesterday, the patient's tube feeds have been held since yesterday she is not getting any IV fluids, I think she do well to have a little bit of IV fluids while her tube feeds are being held. 2. Acute respiratory distress syndrome-1 start some fluids for this patient's kidneys will need a make sure that the patient does does not become over hydrated. 3. Respiratory failure 4. Anemia-patient's hematocrit is 34% 5. Hyperkalemia-patient's potassium is 5.9 hopefully this will improve with some IV fluid hydration. Exam (PN)-Nephrology - Vital Signs Vital signs: Period Temp Pulse Resp BP Sys/Scott Pulse Ox Last 24 Hr 98.5 F-99.0 F 68-99 22-38 53-134/37-84 89-100 - Lab 01/23/17 Unknown 01/23/17 04:00 Most recent lab results ABG pH 7.354 (7.35-7.45) 01/23/17 03:15 ABG pCO2 47.2 MM HG (35-48) 01/23/17 03:15 ABG pO2 79.4 MM HG (80-95) L 01/23/17 03:15 ABG HCO3 24.6 MMOL/L (20-26) 01/23/17 03:15 ABG O2 Saturation 94.9 % (95-100) L 01/23/17 03:15 Calcium 8.9 MG/DL (8.5-10.1) 01/23/17 04:00 Phosphorus 4.0 MG/DL (2.5-4.9) 01/22/17 02:20 Magnesium 2.6 MG/DL (1.8-2.4) H 01/23/17 04:00
[2017-01-24] MEDS: ALBUTEROL/IPRATROPIUM 3 ML NEB RESP TX SCH ×7 (00:20→23:55)
[2017-01-24] MEDS: INSULIN REGULAR 100 UNIT/ML SUBCUT SCH ×4 (00:50→18:23)
[2017-01-24] MEDS: methylPREDNISolone SOD SUC 40 MG/1 ML VIAL IV SCH ×4 (00:50→18:24)
[2017-01-24] MEDS: DESITIN 4OZ/NYSTATIN 15 GRAM MIXTURE PASTE TOP SCH ×3 (00:50→22:15)
[2017-01-24] MEDS: SODIUM POLYSTYRENE SULFATE 15 GM/60 ML BOTTLE PO SCH ×3 (00:50→15:06)
[2017-01-24] MEDS: DEXTROSE 5% NACL 0.45% 1,000 ML IV SCH ×2 (02:29)
[2017-01-24] MEDS: AMPICILLIN INJ 1,000 MG in SODIUM CHLORIDE 0.9% 100 ML IV SCH ×4 (03:00→23:17)
[2017-01-24] MEDS: PROPOFOL 1,000 MG/100 ML BOTTLE IV SCH ×3 (03:24→18:13)
[2017-01-24 03:27] LABS: ABG Base Excess -0.3 MMOL/L (-2.5-2.5); ABG HCO3 24.1 MMOL/L (20-26); ABG Oxygen Saturation 92.4 % (95-100); ABG PCO2 48.8 MM HG (35-48); ABG PH 7.334 (7.35-7.45); ABG TCO2 23.8 MMOL/L (23-27)
[2017-01-24] MEDS: LEVOTHYROXINE 50 MCG TABLET PO SCH (06:21)
[2017-01-24 06:26] LABS: Basophils % 0.1 % (0.0-0.8); Hemoglobin 8.5 GM/DL (12.0-16.0); Immature Granulocytes % 2.7 %; Immature Granulocytes Absolute 0.66 #; Lymphocytes # 0.2 10*3/uL (1.4-4.0); Mean Corpuscular HGB Conc 31.5 GM/DL (32-36); Mean Corpuscular Hemoglobin 29 PG (27-34); Mean Corpuscular Volume 92.8 FL (87-102); Mean Platelet Volume 14.2 FL (9.6-12.0); Monocytes # 0.4 10*3/uL (0.11-0.8); Monocytes % 1.8 % (1.7-12.7); NRBC # 0.05 10*3/uL; Neutrophils # 23.1 10*3/uL (1.4-7.4); Neutrophils % 94.4 % (38.7-73.9); Red Blood Count 2.91 MC/CUMM (3.8-5.5); Red Cell Distribution Width 16.1 % (9.3-17.3); White Blood Count 24.5 T/CUMM (4-12)
[2017-01-24 06:29] LABS: Platelet Count 34 T/CUMM (130-400)
[2017-01-24 06:41] LABS: Band Neutrophils 4 % (0-10); Lymphocytes 1 % (20-55); Segmented Neutrophils 93 % (50-85); Total Cells Counted 100
[2017-01-24 06:42] LABS: Hypochromasia 1+; Microcytosis Slight; Ovalocytes Slight; Platelet Estimate Decreased
[2017-01-24 06:50] LABS: Calcium 7.6 MG/DL (8.5-10.1); Magnesium 2.1 MG/DL (1.8-2.4); Osmolality,Calculated 330.4 MOS/KG (273-304); Potassium 3.9 MMOL/L (3.5-5.1)
[2017-01-24] MEDS: BUDESONIDE 0.5 MG/2 ML NEB RESP TX SCH ×2 (07:06→18:50)
--- NOTE | 2017-01-24 07:39 | XRay Report ---
XR chest 1V portable Indication: Ventilator Comparison: Chest x-ray dated January 23, 2017 Technique: Single frontal view of the chest. Findings: Endotracheal tube stable in positioning. Left-sided PICC line tip projects over the left upper chest at the lateral rib location. This is grossly unchanged from prior examination. Continued cardiomegaly status post sternotomy. Interval increased interstitial infiltrates as well as bilateral mid and lower lung consolidation. Subcutaneous emphysema remains within the right upper chest. Visualized osseous and surrounding soft tissue structures appear grossly unchanged. IMPRESSION: As above. PROCEDURE INTERPRETED AT [facility] DEPARTMENT OF RADIOLOGY Final Report Signed by: Dr Edi Damian
--- NOTE | 2017-01-24 08:32 | Cardiology Progress Note ---
Assessment and Plan (1) Amiodarone pulmonary toxicity Status: Acute Assessment and plan: See plan of care listed below. Current Visit: Yes (2) COPD (chronic obstructive pulmonary disease) Status: Chronic Assessment and plan: SEE PLAN OF CARE LISTED BELOW Current Visit: Yes (3) Congestive cardiac failure Status: Chronic Assessment and plan: SEE PLAN OF CARE LISTED BELOW Current Visit: Yes Qualifiers: Congestive heart failure type: diastolic Congestive heart failure chronicity: acute on chronic Qualified Code(s): I50.33 - Acute on chronic diastolic (congestive) heart failure (4) Coronary artery disease involving coronary bypass graft Status: Chronic Assessment and plan: SEE PLAN OF CARE LISTED BELOW Current Visit: Yes Qualifiers: [place] vs. transplanted heart: jamul heart Associated angina: without angina Qualified Code(s): I25.810 - Atherosclerosis of coronary artery bypass graft(s) without angina pectoris (5) History of TIA (transient ischemic attack) Status: Chronic Assessment and plan: SEE PLAN OF CARE LISTED BELOW Current Visit: No (6) dual-chamber pacemaker Status: Chronic Assessment and plan: SEE PLAN OF CARE LISTED BELOW Current Visit: Yes (7) Former smoker Status: Chronic Assessment and plan: SEE PLAN OF CARE LISTED BELOW Current Visit: No (8) Chronic anemia Status: Chronic Assessment and plan: SEE PLAN OF CARE LISTED BELOW Current Visit: Yes (9) Dyslipidemia Status: Chronic Assessment and plan: SEE PLAN OF CARE LISTED BELOW Current Visit: Yes (10) Chronic anticoagulation Status: Chronic Assessment and plan: SEE PLAN OF CARE LISTED BELOW Current Visit: Yes (11) Paroxysmal a-fib Status: Chronic Assessment and plan: SEE PLAN OF CARE LISTED BELOW Current Visit: No (12) Hypertension Status: Chronic Assessment and plan: SEE PLAN OF CARE LISTED BELOW Current Visit: Yes Qualifiers: Hypertension type: essential hypertension Qualified Code(s): I10 - Essential (primary) hypertension (13) Hypokalemia Status: Acute Assessment and plan: See plan of care listed below. Current Visit: Yes (14) Chronic renal failure, stage 3 (moderate) Status: Acute Assessment and plan: See plan of care listed below. Current Visit: Yes (15) UTI (urinary tract infection) Status: Acute Assessment and plan: See plan of care listed below. Current Visit: Yes (16) Elevated liver enzymes Status: Acute Assessment and plan: See plan of care listed below Current Visit: Yes (17) Thrombocytopenia Status: Acute Assessment and plan: See plan of care listed below. Current Visit: Yes Cardiology - PN: Subj Interval history: JAVASCRIPT WEB DEVELOPER: DR. BARRY PCP: DR. HO IRENE SUMMARY: Ms. Quiros is a 76 year old female with known history of coronary artery disease, routinely followed by Dr. Barry. Patient's PMH includes: hypertension, dyslipidemia, former smoker, COPD, chronic anemia, anterior myocardial infarction and paroxysmal atrial fibrillation. History of CKD, solitary kidney. 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 She had a nuclear cardiac stress test August 2015 which revealed normal myocardial perfusion scan that did not suggest the presence of significant coronary ischemia. Normal LV systolic function with ejection fraction estimated to be 57%. Normal end-diastolic volume. Patient admitted January 01, 2017 with respiratory failure related to acute on chronic CHF, pneumonitis (Amiodarone as possible etiology). JANUARY 24, 2017: No significant change overnight. Patient continues to be sedated and ventilated in the ICU. Appears to be comfortable on the ventilator. Still requiring significant ventilator support, FiO2 now 100%. Patient continues to require IV Axel-Synephrine. Continue to hold antihypertensives. Patient is scheduled for trach placement today. Chest x- ray today did not reveal any significant changes from previous study. WBC 24.5, afebrile. On steroid therapy. H&H stable at 8.5 and 27.0. No overt bleeding noted. Platelet count significantly dropped to 34. Aspirin and Eliquis have been discontinued. Oncology has been consulted. No arrhythmias or ectopy observed on teletypesetter monitor. Will further discuss with Dr. Barry and await additional recommendations ASSESSMENT/PLAN: 1. AMIODARONE LUNG - Amiodarone has been discontinued. Continue aggressive steroid therapy. Currently being treated as ARDS. Management per pulmonary. Plan for trach placement today. 2. COPD EXACERBATION - Continue current plan of care, aggressive pulmonary toilet. Will defer management of this to attending/pulmonary. 3. CONGESTIVE HEART FAILURE, DYSTOLIC DYSFUNCTION - Acute on chronic, now compensated. EF 60%, grade 1 diastolic dysfunction, NYHA Class IV. Suspect hypoxia is primarily a lung issue. 4. CORONARY ARTERY DISEASE, STATUS POST CABG 2010 - S/P CABG 2010 (AZAR to LAD, SVG to Cx.) May benefit from ischemic reevaluation once she recovers from her primary pulmonary issues. This is not ACS. Normal LV systolic function noted on echocardiogram this admission with negative troponin. 5. HYPERTENSION -patient now requiring Aexl-Synephrine for blood pressure support. Will hold antihypertensives at this time. Will reinitiate as her blood pressure will allow. 6. FORMER SMOKER - Reports that she quit smoking in 2004. 7. HISTORY OF DUAL CHAMBER PACEMAKER - Continue current plan of care. Patient had dual-chamber pacemaker placed 2013 as she has history of paroxysmal atrial fibrillation and developed sick sinus syndrome with tachybradycardia components. 8. CHRONIC ANEMIA - Stable. H&H 8.5 and 27.0. Aspirin and Eliquis have been discontinued. Daily CBC. 9. DYSLIPIDEMIA - Continue lipid-lowering agent. 10. CHRONIC ANTICOAGULATION -Eliquis is on hold for trach placement today. Chads vasc score of 7. Recommend reinitiation of Eliquis when able. Monitor with daily CBC. 11. HISTORY OF PAF - Amiodarone has been discontinued this admission due to suspected pulmonary toxicity. Beta-tamara on hold as her blood pressure will not allow, currently on vasopressors. If symptomatic AF recurs, we may consider renally adjusted Sotalol. 12. HISTORY OF TIA - Patient reports history of TIA. She is currently chronically anticoagulated with Eliquis. Eliquis on hold for trach placement today. 13. HYPOKALEMIA - Resolved 14. CHRONIC RENAL FAILURE, STAGE 3 WITH NONFUNCTIONING KIDNEY - Patient routinely followed by Dr. Martín Hays. Monitor with daily BMP. 15. UTI - Continue current plan of care. 16. ELEVATED LIVER ENYZMES - Most likely secondary to hypotension. Will monitor. 17. THROMBOCYTOPENIA - Oncology has been consulted. Exam (Progress Note) - Constitutional Vitals: Period Temp Pulse Resp BP Sys/Scott Pulse Ox Last 24 Hr 97.5 F-98.7 F 65-94 21-37 58-187/35-94 87-99 Exam: General: [Thin female. On ventilator but wakes and responds appropriately. Frail ] HEENT: [Normocephalic, multiple ecchymotic areas noted, particularly large across the chin. Mucous membranes moist. No jaundice noted. Conjunctiva moist and clear, sclerae anicteric] Neck: No obvious JVD/HJR, no thyromegaly or lymphadenopathy noted. No carotid bruit appreciated Cardiac: [Regular rate and rhythm.] [No obvious murmur rub or gallop.] Lungs: [Coarse throughout, no wheezing noted. Symmetrical chest wall movements noted. Remains intubated. Abdomen: Soft, bowel sounds normoactive. Nontender and nondistended. No abdominal bruit or thrill noted. No masses noted. Musculoskeletal: No fluid collection. Decreased range of motion is noted. Extremities: No clubbing, cyanosis noted. [ No edema noted.] Upper extremity pulses 2+. Lower extremity pulses 1+. Capillary refill less than 3 seconds. Skin: Multiple areas of ecchymosis, skin tears. No rash. Neuro: Sedated on ventilator. No essential tremor is appreciated. Result/EKG - Labs CBC & BMP: 01/24/17 06:15 01/24/17 06:15 Lab Results: I have reviewed the past 24 hour labs Labs: Laboratory Results - last 24 hr 01/23/17 01/23/17 01/23/17 12:10 17:59 23:37 WBC RBC Hgb Hct MCV MCH MCHC RDW Plt Count MPV Neut % (Auto) Lymph % (Auto) [place] % (Auto) Eos % (Auto) Baso % (Auto) Neut # (Auto) Lymph # (Auto) [place] # (Auto) Eos # (Auto) Baso # (Auto) Total Counted Immature Gran % Nucleated RBC % Immature Gran # Segmented Neutrophils Band Neutrophils Lymphocytes Monocytes Nucleated RBCs # Platelet Estimate Hypochromasia Microcytosis Ovalocytes Morphology Comment ABG pH ABG pCO2 ABG pO2 ABG HCO3 ABG Total CO2 ABG O2 Saturation ABG Base Excess Sodium Potassium Chloride Carbon Dioxide Anion Gap BUN Creatinine GFR Calculation BUN/Creatinine Ratio Glucose POC Glucose 159 H 196 H 187 H Calculated Osmolality Calcium Magnesium 01/24/17 01/24/17 01/24/17 03:00 05:31 06:15 WBC 24.5 H D RBC 2.91 L D Hgb 8.5 L D Hct 27.0 L MCV 92.8 MCH 29 MCHC 31.5 L RDW 16.1 Plt Count 34 L* D MPV 14.2 H Neut % (Auto) 94.4 H Lymph % (Auto) 1.0 L [place] % (Auto) 1.8 Eos % (Auto) 0.0 Baso % (Auto) 0.1 Neut # (Auto) 23.1 H Lymph # (Auto) 0.2 L [place] # (Auto) 0.4 Eos # (Auto) 0.0 Baso # (Auto) 0.0 Total Counted 100 Immature Gran % 2.7 Nucleated RBC % 0.2 Immature Gran # 0.66 Segmented Neutrophils 93 H Band Neutrophils 4 Lymphocytes 1 L Monocytes 2 Nucleated RBCs # 0.05 Platelet Estimate Decreased Hypochromasia 1+ Microcytosis Slight Ovalocytes Slight Morphology Comment ABG pH 7.334 L ABG pCO2 48.8 H ABG pO2 72.0 L ABG HCO3 24.1 ABG Total CO2 23.8 ABG O2 Saturation 92.4 L ABG Base Excess -0.3 Sodium Potassium Chloride Carbon Dioxide Anion Gap BUN Creatinine GFR Calculation BUN/Creatinine Ratio Glucose POC Glucose 205 H Calculated Osmolality Calcium Magnesium 01/24/17 06:15 WBC RBC Hgb Hct MCV MCH MCHC RDW Plt Count MPV Neut % (Auto) Lymph % (Auto) [place] % (Auto) Eos % (Auto) Baso % (Auto) Neut # (Auto) Lymph # (Auto) [place] # (Auto) Eos # (Auto) Baso # (Auto) Total Counted Immature Gran % Nucleated RBC % Immature Gran # Segmented Neutrophils Band Neutrophils Lymphocytes Monocytes Nucleated RBCs # Platelet Estimate Hypochromasia Microcytosis Ovalocytes Morphology Comment ABG pH ABG pCO2 ABG pO2 ABG HCO3 ABG Total CO2 ABG O2 Saturation ABG Base Excess Sodium 147 H Potassium 3.9 Chloride 112 H Carbon Dioxide 27 Anion Gap 11.9 BUN 77 H Creatinine 1.10 H GFR Calculation 53 BUN/Creatinine Ratio 70.00 H Glucose 392 H POC Glucose Calculated Osmolality 330.4 H Calcium 7.6 L Magnesium 2.1
[2017-01-24] MEDS ORDERED: SODIUM CHLORIDE 0.9% 250 ML IV PRN (09:12)
[2017-01-24 09:29] LABS: INR 1.2; Partial Thromboplastin Time 27.1 SECS (0-40)
[2017-01-24] MEDS: MEROPENEM 1,000 MG in SODIUM CHLORIDE 0.9% 100 ML IV SCH ×2 (09:44→22:15)
[2017-01-24] MEDS: DOCUSATE SODIUM 100 MG CAPSULE PO SCH (09:49)
[2017-01-24] MEDS: LANSOPRAZOLE ODT 30 MG TABLET PO SCH (09:53)
[2017-01-24] MEDS: MAGNESIUM CHLORIDE 64 MG TABLET PO SCH ×2 (09:53→22:12)
[2017-01-24] MEDS: ROSUVASTATIN 10 MG TABLET PO SCH (09:53)
--- NOTE | 2017-01-24 10:08 | Pulmonology Progress Note ---
Pulmonary - PN: Subj Interval history: This is a 76-year-old white female whom I saw in pulmonary consultation on 2016. She had had progressive shortness of breath and had chest x-ray changes along with progressive hypoxemia. My impressions were. 1. Diffuse 5 lobe interstitial and alveolar infiltrate. 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 Note the presence of Velcro rales. Watch closely for the possibility of atypical pulmonary edema 2. COPD 3. Significant past history tobacco abuse. Stop smoking 2004 4. Normal TSH with elevated free T4 most likely secondary to amiodarone. 5. 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 6. Mild chronic renal failure and 1 nonfunctioning kidney followed by Dr. Martín Hays 7. Chronic anemia 8. Atrial fibrillation. Plan. 1. Stop amiodarone 2. Chest x-ray and ABGs daily 4 3. C-reactive protein and erythrocyte sedimentation rate 4. Repeat BNP 5. Increase Solu-Medrol to 40 mg every 8 hours 6. See orders 7. Dr. Tristan dickens and I have discussed the case and we have coordinated her care. 01/05/2017. Today's chest x-ray still shows 5 lobe interstitial and alveolar infiltrates but these appear to be a little different and a little less dense allowing for technique. The patient says she feels better. Her O2 has improved slightly she has erosions in her nose and with her to try different apparatus for her oxygen and will use Bactroban in her nares. There are no new microbiology reports. FiO2 of 44%, pH is 7.418, PO2 is 40.4, PO2 is 59.9 bicarb is 25.7. White count is 10,700 with 90.8 segs. H&H is 9.3/28.6. Sodium is 134 and potassium is 3.3. Cardiology will adjust this. Creatinine has increased to 2.00 with a BUN of 51. I think the patient is becoming a little over diuresed and I have stopped her Lasix which was 40 mg twice daily. Patient fell Velcro rounds have disappeared. 01/06/2017. This patient has amiodarone lung. This will be the third day she is off amiodarone. She is on Solu-Medrol 40 IV push q. 8. Today's chest x-ray looks markedly better. She still has 5 lobe alveolar and interstitial infiltrates but these are rapidly resolving. Today's O2 has not improved significantly but I expect that to follow. We need to continue the present treatment for right now impaired attention to her heart rhythm. Potassium is low at 3.2 and replacement as needed. H&H is stable at 9.6/29.9. White count is 9289 segs. TSH is normal. Free T4 is elevated most likely secondary to amiodarone. 01/08/2017. On steroids the patient's lung (chest x-ray) is looking much better. Her breath sounds are much improved. So far her ABGs have not improved a good bit. Hopefully this will follow soon. Off diuretics creatinine is dropped from 2.0-1.30 with a BUN of 35. Electrolytes are normal. CBC is stable. 01/09/2017. Patient had a fall yesterday. She was on the commode and slumped forward and injured her face. She has had CT scan of the face and brain these are negative. She is fine from a neurological standpoint today and embarrassed by the episode. Patient's chest is clear at this time goes by. Her O2 sats have not improved but she is found if she lays on the right side and takes several deep breaths her oxygen improved. I think we will just have to wait this out but this should begin to improve. Orders have been reviewed and note that Lasix has been restarted. With holding Lasix creatinine is dropped from 2.00-1.20 with a BUN of 32. Sodium is 134 and potassium is 4.3. White count is 11,200 with 84 segs. H&H is 8.9/27.3. I have not repeated the patient's blood gases since she is asked that we hold this if at all possible. 01/10/2017. This 76-year-old white female has amiodarone lung. After stopping amiodarone and starting Solu-Medrol 40 IV push every 8 hours her chest x-ray has improved remarkably. She however remains hypoxemia and hopefully this will be improved soon. Earlier in the patient's hospitalization she was slightly over diuresed and her creatinine went up to 1.6 with a BUN of 45. Creatinine is now 1.30 with a BUN of 36. Patient's on a lower dose of diuretics. Watch closely. White blood cell count is 14,500 with 86 segs. H&H is stable at 9.2/ 28.1. Platelets are 190,000. There are no positive cultures. Patient had a fall on 01/08/2017. CT of the face and head of been normal. She does have some mild contusions and bruises on her face. She was on Eliquis. There is a history of atrial fib. At the present time we will continue to follow her chest x-ray. Will wait for her oxygenation to improve and will watch her kidney status. 01/13/2017. During this weekend the patient was moved to intensive care. Her chest x-ray which is shown a very good improvement with steroids regressed and as she has a 5 lobe alveolar filling defect with increased interstitial markings. She was being treated for amiodarone lung. Even though her chest x- ray improved her ABGs did not improve and they have recently deteriorated. We are at the point that this needs to be treated as adult respiratory distress syndrome. That necessitates mechanical ventilation with PEEP and pressure support. I have discussed this with the patient and she is agreeable. I discussed it with Dr. Alex Starks and Dr. Sam Martell and they were agreeable. I have asked anesthesia to electively intubate the patient. I will start her on P and later will add IMV and pressure support. Electrolytes are normal. Creatinine is 1.4. H&H is stable at 9.2/28.9. White count is 13,500 with 91 segs. Platelets are 149,000. Natruretic peptide is 267 01/14/2017. This patient required intubation mechanical ventilation secondary to adult respiratory distress syndrome which is secondary to amiodarone. Today' s chest x-ray shows some improvement in a generalized 5 lobe alveolar infiltrates with surrounding interstitial edema. Endotracheal tube is in good position. ABGs on mechanical ventilation FiO2 of 100%. PEEP of 5 and pressure support of 12 shows a pH 7.537. PCO2 45.8. PO2 of 115 a bicarb of 35.2. Electrolytes are normal. Creatinine is increased to 1.50 with BUN of 56. We may need to stop either the patient's Lasix or her valsartan. H&H is 9.3/29.4. White count is 15,800 with 87% segs and platelets 148,000. 01/15/2017.Today's chest x-ray is improved. There is still 5 lobe alveolar infiltrates with associated increased interstitial markings. The consolidative pattern is resolving. There is a slight improvement in ABGs. On FiO2 of 100% pH is 7.506, PCO2 is 47.5, PO2 is 121 and bicarb is 36.4. Patient's on weaning protocol. Creatinine is dropped from 1.50-1.40 with a BUN of 58. Electrolytes are normal. White count is 14,991.5 segs. H&H is 8.9/27.9 and platelets are 135, 000. There are no positive cultures. This morning I had a talk with the niece . Hernán Victor nurse practitioner and Elver Resendiz RN were present. I explained amiodarone lung and the result of adult respiratory distress syndrome and pointed out that nationally the mortality for this is 50% in all comers. Madelyn wanted to know if the patient needed bronchoscopy. I told her not now but at later date we may need 1. 01/17/2017 peer this 76-year-old white female has amiodarone lung with 5 lobe alveolar and interstitial infiltrate. This initially improved rapidly with steroids and stopping amiodarone but then last week in this deteriorated. Patient is now on mechanical ventilation. Her chest x-ray is improving slightly on a daily basis. She still has a 5 lobe alveolar interstitial infiltrate with the tendencies towards consolidation at each base. Earlier today her endotracheal tube was a little too far down and it was retracted and the follow-up x-ray looks fine. Patient's hypoxemia has worsened. I have gone back from an FiO2 of 70% to 1 of 100%. Will try to keep her O2 sats 93 or above. She has CO2 retention and I have increased her rate to 32. She is on PEEP of 5 and I have increased her pressure support from 12-15. Patient also has hypotension and is on pressor agents. Patient has a white blood cell count of 39,000. I think this is a leukemoid reaction to high-dose steroid. Urine culture from 01/16/2017 is growing gram-negative rods and gram-positive cocci. There are no reported IDs and sensitivities. Patient was started on Cipro but she is allergic to Levaquin. Without any additional knowledge I am going to take the liberty of stopping the Cipro. I will start her on Fortaz 1 g every 8 hours and will begin with test dose and I will add Cleocin 300 every 6 hours. 01/20/2017. This patient's chest x-ray abnormalities which include a 5 lobe alveolar and interstitial infiltrates secondary to amiodarone lung is stable and only a slightly bit improved in the last few days. Her ABGs are slightly better. I had a talk with the patient's daughter who will talk to her brother. Hernán Victor nurse practitioner was present. She understands that this is treated just like adult respiratory distress syndrome. The mortality fall commerce is 50%. We will evaluate the patient additionally with fiberoptic bronchoscopy tomorrow. I have consulted ENT for elective trach. Patient still requires pressor agents and I hope she will be ready for trach by Friday. White blood cell count is 29,700 with a left shift. I think this is a leukemoid reaction. Urine cultures from 01/16/2017 grew Klebsiella pneumoniae and Enterococcus faecalis. Labs been reviewed and medicines have been reviewed. Have discussed the case with Dr. Alex Starks and we are in agreement with treatment. 01/21/2017. We continue to have problems with oxygenation. I am switching this patient to a PEEP of 6 pressure support of 15 and will use IMR at a rate of 32/ min. Chest x-ray shows a 5 lobe alveolar infiltrate with increased interstitial markings. She has a little better variation than before there are areas of atelectasis at both bases. This patient was evaluated with fiberoptic bronchoscopy this morning. She had retained secretions bilaterally these were thick and tenacious and there were some fairly dense bronchial plugs especially in the lower lung segments bilaterally. There were no endobronchial lesions to suggest a cancer. Specimens were sent for cytology because of the amiodarone lung, bacterial fungal and AFB studies. There have been previous urine cultures which were positive for Klebsiella and enterococcus. Continue to have problems with oxygenation. On a PEEP of 6 and FiO2 of 70% and assist control ABGs this morning showed a pH of 7.39, PCO2 of 51.8, PO2 55.1 a bicarb of 30.4. Creatinine is 1.[address] Hays is only case from a renal standpoint. H&H is 7.6/24.4. Platelets have dropped to 95,000. White count is 34,300 which I think is a leukemoid reaction. Potassium is creeping up at 5.6. Glucoses are under acceptable control. Patient continues to require pressor agents. ENT was consulted yesterday for an elective trach. Daughter was agreeable to this but plan to talk to her brother 01/23/2017. Today's chest x-ray is stable. ABGs on mechanical ventilation with a PEEP of 6 pressure support of 15 FiO2 90% shows a pH of 7.35, PCO2 of 47.2, PO2 of 79.4 and a bicarb of 24.3. Ammonia increased the FiO2 to 70%. Potassium is elevated 5.9 and this is being treated. Creatinine has increased to 1.50 with a BUN of 500. I have increased the patient's fluids, D5 half- normal saline at 75 cc/h.. White blood cell count is 36,700 with 92 segs. H&H posttransfusion is 11.2/34.2. Platelets are 73,000. Labs been reviewed. Bronchoscopy specimens from 01/21/2017 are growing a gram-negative teofilo. The patient has been on Fortaz and I am switching this to meropenem. Previously the urine grew Klebsiella pneumoniae and Enterococcus faecalis. I will add amoxicillin for coverage of anaerobic coccus. Cleocin is been stopped. Patient 's pulmonary status is stable but not significantly improved. Doppler venograms of the lower extremities are negative 01/24/2017. This is a 76-year-old white female who has amiodarone along with 5 lobe alveolar interstitial infiltrate. Initially this improved rapidly with steroids and stopping amiodarone but then after 5 or 6 days the chest x-ray deteriorated. Oxygen never came up. She is on mechanical ventilation. She is still has generalized interstitial and alveolar infiltrate. She is on steroids. She is going to need to have a trach but her platelets have begun to decrease and we have canceled her trach that was scheduled for the day. I have asked hematology oncology to see her concerning her platelets. 2 days ago we had a blood transfusion H&H is dropped some now. Some of this may be related to the fluids are started on her yesterday and her creatinine was creeping up and I put her on D5 one half normal saline at 75 cc an hour and overnight creatinine dropped from 1.5-1.0. Patient is hypotensive and has required long- term pressor agents. Bronchoscopy lavages on 01/21/2017 grew Citrobacter which is sensitive to meropenem. On 01/16/2017 urine cultures grew Klebsiella pneumonia which is sensitive to the pending of this and Enterococcus faecalis which is being treated with ampicillin. Ampicillin was started 01/23/2017. ABGs on FiO2 of 100% PEEP of 6 and pressure support of 15 shows a pH of 7.334, PCO2 48.8, PO2 of 72 and a bicarb of 24.1. Electrolytes are normal. Creatinine has dropped from 1.50-1.10. BUN is elevated at 77. H&H is dropped from 11.2/34.2-8.5/27.0. White blood cell count is dropped from 36,000 724, 500. Platelets are 34,000. INR is 1.2. PTT is 27.1. This patient's prognosis is poor and I have mentioned this to the family every time that I have discussed this with him. Physical exam. Vital signs. See below. Hypotension requiring pressor Psychiatric. Sedated Neurologic. Cranial nerves are intact. Moves all Long track motor functions intact Chest. Wheeze free. Velcro rales have disappeared. No chest wall tenderness. Heart. No definite gallop. Abdomen. Nontender. Positive bowel sounds. Extremities. No edema Neck. Symmetrical kyphotic with no meningismus Lymphatics. No submandibular cervical supraclavicular adenopathy. The remainder of the physical exam is noncontributory Plan. 01/05/2017 1. DC Lasix, 40 mg p.o. twice daily was her dose 2. Monitor BUN/creatinine sodium and potassium 3. Continue steroids 4. Daily chest x-rays and ABGs to we can see clear-cut improvement. 5. Today I asked the patient admits she has not seen anyone in pulmonary before she says on one occasion she saw Dr. Minesh Whaley. She requested to change to my service and after we discussed this I agree. She has some family members to see me. She is related to Tahira dorado 01/06/2017. 1. See today's note above. 2. Amiodarone lung which is improving. Continue steroids and follow chest x- ray and ABGs. 3. Replacement of potassium 01/08/2017. 1. See today's note above. 2. Amiodarone lung is improving by chest x-ray and physical exam criteria. 3. Continue present regimen including Solu-Medrol 40 IV push every 8 hours 01/09/2017. 1. See today's note above 2. For tomorrow morning I have ordered a 2 view chest x-ray. #3 continue to monitor O2 sats. 01/10/2017. 1. See today's note above. 2. Chest x-ray pending. Repeat Friday and Friday 3. Follow-up BMP 4. Supplemental oxygen. #5 continue Solu-Medrol 40 IV push every 8 hours. 01/13/2017. 1. See today's note. Above. 2. Continue Solu-Medrol 3. Intubation mechanical ventilation. Treat amiodarone lung as adult respiratory distress syndrome. 01/14/2017 1. Gradually increasing creatinine. Consider stopping Lasix and/or valsartan. 2. Slight improvement in ABGs. This looks like it is going to be slow. 3. Mechanical ventilation weaning protocol 4. Physical therapy protocol. 5. Deep venous thrombophlebitis prevention protocol 6. Proton pump inhibitor protocol 7. Discontinue Zithromax. 01/15/2017. 1. Creatinine is stabilized. 2. Chest x-ray showing gradual improvement and oxygenation although very poor is gradually improved 01/17/2017 1. Gram-negative rods gram-positive cocci and urine. 2. DC Cipro 3. Start Fortaz. Test dose 4. Start Cleocin. 5. FiO2 100%. PEEP of 5. Pressure support of 15. Weaning protocol. 6. Pressor agents. 7. Leukemoid reaction 8. Daily chest x-ray, ABGs and lab. 9. See today's note above 01/20/2017. 1. Fiberoptic bronchoscopy Friday. 2. Trach Friday or later 3. Consult ENT 4. Ventilator adjustments made. Weaning protocol. 01/21/2017. 1. See today's note above. 2. See fiberoptic bronchoscopy report 3. Check cultures. 4. Pressor agents. 5. Note azotemia. 6. ENT consult 01/23/2017. 1. See today's note above. 2. Present antibiotics for now we are pending him and ampicillin. 01/24/2017. 1. See today's note above 2. Oncology hematology consultation for low platelets 3. In face of low platelets we will cancel trach. 4. Discontinue Eliquis Exam (Progress Note) - Constitutional Vitals: Period Temp Pulse Resp BP Sys/Scott Pulse Ox Last 24 Hr 97.5 F-98.7 F 65-94 18-37 58-187/35-94 87-99 Results - Labs CBC & BMP: 01/24/17 06:15 01/24/17 06:15
[2017-01-24 10:28] LABS: Albumin 1.6 G/DL (3.4-5.0); Bilirubin,Direct 0.3 MG/DL (0.0-0.20); Bilirubin,Indirect 0.2 MG/DL (0.0-1.0); Bilirubin,Total 0.5 MG/DL (0.2-1.0)
--- NOTE | 2017-01-24 11:12 | Nephrology Progress Note ---
Nephrology - PN: Subj Interval history: Patient remains intubated and sedate. Physical exam general the patient's chronically ill-appearing, heart is regular rate and rhythm, she has no pitting edema, lungs are clear to auscultation anteriorly, abdomen is soft with decreased bowel sounds Assessment/plan 1. Respiratory failure-this patient has developed ARDS, this may be related to amiodarone toxicity, she continues on ventilator support she was to get a tracheostomy today but this is been prone due to her low platelet count 2. Thrombocytopenia 3. Acute renal failure-this patient's creatinine is increased to 1.5 mg/dL from 1 mg/dL yesterday, IV fluids were started yesterday and today her creatinine is 1.1 mg/dL. The patient does have a solitary kidney. We will continue her IV fluids. The patient is not getting tube feeds presently, once these are restarted we could decrease her IV fluids significantly if not stop them altogether. 4. Anemia-patient's hematocrit is 27% 5. Hyponatremia-I am going to adjust her IV fluids. Exam (PN)-Nephrology - Vital Signs Vital signs: Period Temp Pulse Resp BP Sys/Scott Pulse Ox Last 24 Hr 97.5 F-98.7 F 65-94 18-37 58-187/35-94 87-99 - Lab 01/24/17 06:15 01/24/17 06:15 Most recent lab results ABG pH 7.334 (7.35-7.45) L 01/24/17 03:00 ABG pCO2 48.8 MM HG (35-48) H 01/24/17 03:00 ABG pO2 72.0 MM HG (80-95) L 01/24/17 03:00 ABG HCO3 24.1 MMOL/L (20-26) 01/24/17 03:00 ABG O2 Saturation 92.4 % (95-100) L 01/24/17 03:00 Calcium 7.6 MG/DL (8.5-10.1) L 01/24/17 06:15 Phosphorus 4.0 MG/DL (2.5-4.9) 01/22/17 02:20 Magnesium 2.1 MG/DL (1.8-2.4) 01/24/17 06:15
[2017-01-24] MEDS: DEXTROSE 5% 1,000 ML IV SCH (12:19)
[2017-01-24] MEDS: PHENYLEPHRINE INJ 160 MG in SODIUM CHLORIDE 0.9% 234 ML IV SCH (12:29)
[2017-01-25] MEDS: SODIUM POLYSTYRENE SULFATE 15 GM/60 ML BOTTLE PO SCH ×3 (00:33→09:38)
[2017-01-25] MEDS: methylPREDNISolone SOD SUC 40 MG/1 ML VIAL IV SCH ×5 (00:33→18:31)
[2017-01-25] MEDS: INSULIN REGULAR 100 UNIT/ML SUBCUT SCH ×4 (00:35→18:31)
[2017-01-25] MEDS: PROPOFOL 1,000 MG/100 ML BOTTLE IV SCH ×4 (01:05→16:12)
[2017-01-25] MEDS: DEXTROSE 5% 1,000 ML IV SCH ×2 (01:24→14:06)
[2017-01-25] MEDS: ALBUTEROL/IPRATROPIUM 3 ML NEB RESP TX SCH ×5 (03:08→19:42)
[2017-01-25 03:10] LABS: ABG Base Excess 0.9 MMOL/L (-2.5-2.5); ABG HCO3 28.5 MMOL/L (20-26); ABG Oxygen Saturation 87.1 % (95-100); ABG PCO2 63.1 MM HG (35-48); ABG PH 7.272 (7.35-7.45); ABG PO2 58.5 MM HG (80-95); ABG TCO2 30.4 MMOL/L (23-27); Allen Test Positive; Pt O2 Delivery Device Ventilator
[2017-01-25 03:56] LABS: Basophils % 0.1 % (0.0-0.8); Hematocrit 26.4 VOL% (35.7-47.0); Hemoglobin 8.3 GM/DL (12.0-16.0); Immature Granulocytes % 2.3 %; Immature Granulocytes Absolute 0.57 #; Lymphocytes # 0.3 10*3/uL (1.4-4.0); Lymphocytes % 1.2 % (21.3-54.2); Mean Corpuscular HGB Conc 31.4 GM/DL (32-36); Mean Corpuscular Hemoglobin 30 PG (27-34); Mean Corpuscular Volume 95.3 FL (87-102); Mean Platelet Volume 10.9 FL (9.6-12.0); Monocytes # 0.4 10*3/uL (0.11-0.8); Monocytes % 1.6 % (1.7-12.7); NRBC # 0.06 10*3/uL; Neutrophils # 23.2 10*3/uL (1.4-7.4); Neutrophils % 94.8 % (38.7-73.9); Platelet Count 79 T/CUMM (130-400); Red Blood Count 2.77 MC/CUMM (3.8-5.5); Red Cell Distribution Width 16.1 % (9.3-17.3); White Blood Count 24.5 T/CUMM (4-12)
[2017-01-25 04:17] LABS: Band Neutrophils 3 % (0-10); Lymphocytes 1 % (20-55); Platelet Estimate Decreased; Segmented Neutrophils 95 % (50-85); Total Cells Counted 100
[2017-01-25 04:18] LABS: Anisocytosis 1+; Polychromasia Slight
[2017-01-25 04:32] LABS: Magnesium 2.1 MG/DL (1.8-2.4); Osmolality,Calculated 318.4 MOS/KG (273-304); Potassium 3.4 MMOL/L (3.5-5.1)
[2017-01-25] MEDS: AMPICILLIN INJ 1,000 MG in SODIUM CHLORIDE 0.9% 100 ML IV SCH ×4 (04:35→21:38)
[2017-01-25 04:36] LABS: ABG Base Excess 0.2 MMOL/L (-2.5-2.5); ABG HCO3 24.4 MMOL/L (20-26); ABG Oxygen Saturation 80.1 % (95-100); ABG PCO2 65.8 MM HG (35-48); ABG PH 7.247 (7.35-7.45); ABG PO2 52.2 MM HG (80-95); Allen Test Positive; Pt O2 Delivery Device Ventilator
[2017-01-25 04:40] LABS: Albumin 1.7 G/DL (3.4-5.0); Bilirubin,Direct 0.4 MG/DL (0.0-0.20); Bilirubin,Indirect 0.2 MG/DL (0.0-1.0); Bilirubin,Total 0.6 MG/DL (0.2-1.0); Total Protein 4.4 G/DL (6.4-8.3)
[2017-01-25] MEDS: LEVOTHYROXINE 50 MCG TABLET PO SCH (06:30)
--- NOTE | 2017-01-25 06:47 | Pulmonology Progress Note ---
Pulmonary - PN: Subj Interval history: Patient is a 76-year-old white lady that is critically ill on the ventilator in ICU. She has a history of having COPD and congestive heart failure. She has had previous bypass surgery and known coronary artery disease along with a pacemaker. 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 She has been very hard to oxygenate and ventilate. She has very stiff noncompliant lungs. She has 1 functioning kidney but has a normal creatinine. She has been getting steroids. She is sedated on the ventilator. Exam (Progress Note) - Constitutional Vitals: Period Temp Pulse Resp BP Sys/Scott Pulse Ox Last 24 Hr 96.4 F-98.8 F 73-100 18-38 70-155/42-76 83-94 General appearance: normal weight, other (She is sedated on the ventilator. She certainly looks chronically ill.) - Head Head exam: Present: normal inspection, normocephalic - Eye Eye exam: Present: EOMI. Absent: scleral icterus Pupils: Present: KEVON - ENT ENT exam: Present: other (ET tube in good position) - Neck Neck exam: Absent: lymphadenopathy, thyromegaly - Respiratory Respiratory exam: Present: rales, other (Patient has good breath sounds bilaterally with bilateral rales.). Absent: wheezes - Cardiovascular Cardiovascular exam: Present: regular rate and rhythm, tachycardia - GI/Abdominal GI/Abdominal exam: Present: soft. Absent: distended, organomegaly, tenderness - Extremities Exam Extremities exam: Absent: calf tenderness, edema - Neurological Exam Neurological exam: Present: other (Patient is requiring a lot of sedation.) - Psychiatric Psychiatric exam: Absent: anxious - Skin Skin exam: Present: warm, dry Results - Labs CBC & BMP: 01/25/17 03:49 01/25/17 03:49 Labs: PO2 is 52 with a PCO2 of 65 and a pH of 7.24 on 100% oxygen. - Diagnostic Findings Procedure: Chest x-ray: image reviewed by me, report reviewed by me (Chest x- ray has diffuse infiltrates.) Assessment and Plan (1) Coronary artery disease involving coronary bypass graft Status: Chronic Assessment and plan: The patient has known coronary artery disease. Current Visit: Yes Qualifiers: [place] vs. transplanted heart: [place] heart Associated angina: without angina Qualified Code(s): I25.810 - Atherosclerosis of coronary artery bypass graft(s) without angina pectoris (2) Paroxysmal a-fib Status: Chronic Assessment and plan: Patient's heart rate is under reasonable control. Current Visit: No (3) COPD (chronic obstructive pulmonary disease) Status: Chronic Assessment and plan: Patient is a former smoker with known COPD. Current Visit: Yes (4) Amiodarone pulmonary toxicity Status: Acute Assessment and plan: The patient has diffuse interstitial lung disease now. She is extremely ill on the ventilator. Current Visit: Yes (5) Ventilator dependence Status: Acute Assessment and plan: The patient is hard to ventilate and oxygenate and will try to adjust the ventilator. Current Visit: Yes (6) Respiratory failure, chronic Status: Acute Assessment and plan: Patient has had chronic lung disease for quite some time. Current Visit: Yes
[2017-01-25] MEDS ORDERED: FUROSEMIDE 40 MG/4 ML VIAL IV ONE (06:53)
[2017-01-25] MEDS ORDERED: VECURONIUM 10 MG VIAL IV ONE ×2 (06:58→07:17)
[2017-01-25] MEDS: BUDESONIDE 0.5 MG/2 ML NEB RESP TX SCH ×2 (07:32→19:42)
[2017-01-25 08:20] LABS: ABG Base Excess -1.2 MMOL/L (-2.5-2.5); ABG HCO3 23.2 MMOL/L (20-26); ABG Oxygen Saturation 86.7 % (95-100); ABG PO2 67.1 MM HG (80-95); ABG TCO2 28.2 MMOL/L (23-27); Allen Test Positive; Pt O2 Delivery Device Ventilator
[2017-01-25 08:22] LABS: ABG PCO2 83.7 MM HG (35-48); ABG PH 7.152 (7.35-7.45)
--- NOTE | 2017-01-25 08:54 | XRay Report ---
XR chest 1V portable Indication: Ventilator patient Comparison: 24 January 2017 Findings: The heart and mediastinum are stable in size and configuration. Pacemaker device is unchanged in position. The lines and tubes are unchanged in position. The pulmonary vascularity is increase of bilateral pulmonary density similar to previous exam. No other lung infiltrates, effusions, pneumothorax or other abnormality is demonstrated. Impression: No significant change. PROCEDURE INTERPRETED AT [facility] [place] DEPARTMENT OF RADIOLOGY Final Report Signed by: Dr. Chip Garcia
--- NOTE | 2017-01-25 09:17 | Cardiology Progress Note ---
Assessment and Plan (1) UTI (urinary tract infection) Status: Acute Assessment and plan: Previous assessment: 1. 76-year-old WF well known to me with history of labile hypertension, remote smoking, rectal CA 2007, recurrent syncope until after CABG in 2010 (AZAR to LAD and vein to OM), with long history of paroxysmal atrial fibrillation and tachybradycardia syndrome status post pacemaker April 2014 who presented with hypoxia and significant UTI now on prolonged intubation for approximately 9 days still requiring intubation and 70% oxygen. 2. 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 3. UTI has been treated with IV antibiotics 4. Newly on Axel-Synephrine due to hypotension from to prevent; this is slowly being weaned. 5. Normocytic anemia with hematocrit drop somewhat to 25%; discontinue aspirin she has had no coronary problems in years and is on Eliquis 2.5 mg twice daily. Hopefully we can continue her Eliquis low-dose to reduce her risk of DVT or cardioembolic phenomenon. 6. Remote occluded renal artery stent 7. Atrial paced rhythm 8. Normal LV systolic function noted on echocardiogram this admission with negative troponin. 9. Poor prognosis; I discussed this at length with her niece January 25 update: 1. Little change since yesterday with worse gases still 100% oxygen 2. She has had intermittent atrial fibrillation as well as atrial pacing; check EKG 3. Requiring pressure support intermittently to maintain blood pressure. 4. Normal LV systolic function 5. Significant elevated liver function test with history of hepatitis C is noted 6. Thrombocytopenia slightly better today at 72,000 Current Visit: No (2) History of atrial fibrillation Status: Chronic Current Visit: No (3) Chronic anticoagulation Status: Chronic Current Visit: Yes (4) Paroxysmal a-fib Status: Chronic Current Visit: No (5) Amiodarone pulmonary toxicity Status: Acute Current Visit: Yes Cardiology - PN: Subj Interval history: Ms. Quiros has not changed much from yesterday still requiring 100% oxygen her gases look a little worse. She reportedly is able to follow commands when she is off sedation. Exam (Progress Note) - Constitutional Vitals: Period Temp Pulse Resp BP Sys/Scott Pulse Ox Last 24 Hr 96.4 F-99.1 F 74-101 18-38 73-155/39-76 83-95 General appearance: normal weight, other (Intubated and sedated) - Head Head exam: Present: normal inspection, normocephalic, atraumatic - Neck Neck exam: Present: normal inspection - Respiratory Respiratory exam: Present: rales. Absent: stridor, wheezes Result/EKG - Labs CBC & BMP: 01/25/17 03:49 01/25/17 03:49 Labs: Laboratory Results - last 24 hr 01/24/17 01/24/17 01/24/17 06:00 06:15 12:13 WBC RBC Hgb Hct MCV MCH MCHC RDW Plt Count MPV Neut % (Auto) Lymph % (Auto) [place] % (Auto) Eos % (Auto) Baso % (Auto) Neut # (Auto) Lymph # (Auto) [place] # (Auto) Eos # (Auto) Baso # (Auto) Total Counted Immature Gran % Nucleated RBC % Immature Gran # Segmented Neutrophils Band Neutrophils Lymphocytes Monocytes Nucleated RBCs # Platelet Estimate Polychromasia Anisocytosis INR 1.2 PT Patient/Control Mix 13.0 Circ Anticoag PTT 27.1 D ABG pH ABG pCO2 ABG pO2 ABG HCO3 ABG Total CO2 ABG O2 Saturation ABG Base Excess FiO2 Sodium Potassium Chloride Carbon Dioxide Anion Gap BUN Creatinine GFR Calculation BUN/Creatinine Ratio Glucose POC Glucose 213 H Calculated Osmolality Calcium Magnesium Total Bilirubin 0.50 Direct Bilirubin 0.30 H Indirect Bilirubin 0.2 AST 636 H ALT 2130 H Alkaline Phosphatase 125 H Total Protein 4.0 L Albumin 1.6 L 01/24/17 01/24/17 01/25/17 18:08 23:18 03:00 WBC RBC Hgb Hct MCV MCH MCHC RDW Plt Count MPV Neut % (Auto) Lymph % (Auto) [place] % (Auto) Eos % (Auto) Baso % (Auto) Neut # (Auto) Lymph # (Auto) [place] # (Auto) Eos # (Auto) Baso # (Auto) Total Counted Immature Gran % Nucleated RBC % Immature Gran # Segmented Neutrophils Band Neutrophils Lymphocytes Monocytes Nucleated RBCs # Platelet Estimate Polychromasia Anisocytosis INR PT Patient/Control Mix Circ Anticoag PTT ABG pH 7.272 L ABG pCO2 63.1 H ABG pO2 58.5 L ABG HCO3 28.5 H ABG Total CO2 30.4 H ABG O2 Saturation 87.1 L ABG Base Excess 0.9 FiO2 100.00 Sodium Potassium Chloride Carbon Dioxide Anion Gap BUN Creatinine GFR Calculation BUN/Creatinine Ratio Glucose POC Glucose 206 H 205 H Calculated Osmolality Calcium Magnesium Total Bilirubin Direct Bilirubin Indirect Bilirubin AST ALT Alkaline Phosphatase Total Protein Albumin 01/25/17 01/25/17 01/25/17 03:49 03:49 03:49 WBC 24.5 H RBC 2.77 L Hgb 8.3 L Hct 26.4 L MCV 95.3 MCH 30 MCHC 31.4 L RDW 16.1 Plt Count 79 L D MPV 10.9 Neut % (Auto) 94.8 H Lymph % (Auto) 1.2 L [place] % (Auto) 1.6 L Eos % (Auto) 0.0 Baso % (Auto) 0.1 Neut # (Auto) 23.2 H Lymph # (Auto) 0.3 L [place] # (Auto) 0.4 Eos # (Auto) 0.0 Baso # (Auto) 0.0 Total Counted 100 Immature Gran % 2.3 Nucleated RBC % 0.2 Immature Gran # 0.57 Segmented Neutrophils 95 H Band Neutrophils 3 Lymphocytes 1 L Monocytes 1 L Nucleated RBCs # 0.06 Platelet Estimate Decreased Polychromasia Slight Anisocytosis 1+ INR PT Patient/Control Mix Circ Anticoag PTT ABG pH ABG pCO2 ABG pO2 ABG HCO3 ABG Total CO2 ABG O2 Saturation ABG Base Excess FiO2 Sodium 147 H Potassium 3.4 L Chloride 110 H Carbon Dioxide 31 Anion Gap 9.4 BUN 71 H Creatinine 0.90 GFR Calculation 67 BUN/Creatinine Ratio 78.00 H Glucose 211 H POC Glucose Calculated Osmolality 318.4 H Calcium 8.0 L Magnesium 2.1 Total Bilirubin 0.60 Direct Bilirubin 0.40 H Indirect Bilirubin 0.2 AST 311 H ALT 1467 H Alkaline Phosphatase 184 H Total Protein 4.4 L Albumin 1.7 L 01/25/17 01/25/17 01/25/17 04:25 05:13 08:16 WBC RBC Hgb Hct MCV MCH MCHC RDW Plt Count MPV Neut % (Auto) Lymph % (Auto) [place] % (Auto) Eos % (Auto) Baso % (Auto) Neut # (Auto) Lymph # (Auto) [place] # (Auto) Eos # (Auto) Baso # (Auto) Total Counted Immature Gran % Nucleated RBC % Immature Gran # Segmented Neutrophils Band Neutrophils Lymphocytes Monocytes Nucleated RBCs # Platelet Estimate Polychromasia Anisocytosis INR PT Patient/Control Mix Circ Anticoag PTT ABG pH 7.247 L 7.152 L* D ABG pCO2 65.8 H 83.7 H* ABG pO2 52.2 L 67.1 L ABG HCO3 24.4 23.2 ABG Total CO2 27.0 28.2 H ABG O2 Saturation 80.1 L 86.7 L ABG Base Excess 0.2 -1.2 FiO2 100.00 100.00 Sodium Potassium Chloride Carbon Dioxide Anion Gap BUN Creatinine GFR Calculation BUN/Creatinine Ratio Glucose POC Glucose 239 H Calculated Osmolality Calcium Magnesium Total Bilirubin Direct Bilirubin Indirect Bilirubin AST ALT Alkaline Phosphatase Total Protein Albumin
[2017-01-25] MEDS: MEROPENEM 1,000 MG in SODIUM CHLORIDE 0.9% 100 ML IV SCH ×2 (09:39→21:00)
[2017-01-25] MEDS: LANSOPRAZOLE ODT 30 MG TABLET PO SCH (09:39)
[2017-01-25] MEDS: DOCUSATE SODIUM 100 MG CAPSULE PO SCH (09:39)
[2017-01-25] MEDS: MAGNESIUM CHLORIDE 64 MG TABLET PO SCH ×2 (09:39→21:38)
[2017-01-25] MEDS: DESITIN 4OZ/NYSTATIN 15 GRAM MIXTURE PASTE TOP SCH ×2 (09:40→21:38)
--- NOTE | 2017-01-25 09:51 | Internal Med Progress Note ---
Assessment and Plan (1) Amiodarone pulmonary toxicity Status: Acute Assessment and plan: 76-year-old female seen in the ICU * Acute on chronic respiratory failure. Patient is on ventilator and extremely ill. She has diffuse interstitial lung disease. Management per Dr. Whaley * Coronary artery disease. Stable * Anemia. Platelets and hematocrit are low * Continue antibiotic * Patient is DNR Current Visit: Yes (2) COPD (chronic obstructive pulmonary disease) with acute bronchitis Status: Acute Current Visit: Yes (3) Chronic renal failure, stage 3 (moderate) Status: Acute Current Visit: Yes (4) Chronic anemia Status: Chronic Current Visit: Yes (5) Coronary artery disease involving coronary bypass graft Status: Chronic Current Visit: Yes Qualifiers: [place] vs. transplanted heart: [place] heart Associated angina: without angina Qualified Code(s): I25.810 - Atherosclerosis of coronary artery bypass graft(s) without angina pectoris Internal Medicine - PN: Subj Interval history: Patient seen and examined. Chart reviewed. She is sedated on ventilator. She was made DNR this morning. Exam (Progress Note) - Constitutional Vitals: Period Temp Pulse Resp BP Sys/Scott Pulse Ox Last 24 Hr 96.4 F-99.1 F 74-101 20-40 70-155/39-76 83-95 Exam: Examination: GENERAL: Patient sedated on the ventilator NECK: Neck is supple. Tracheostomy in place CVS: Regular rate and rhythm. S1 and S2 are normal. RESPIRATORY: Lungs are clear. Bibasilar rales. ABDOMEN: Soft and nontender. Bowel sounds are present. 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
[2017-01-25] MEDS: FLUDROCORTISONE 0.1 MG TABLET PO SCH (10:28)
[2017-01-25] MEDS: PHENYLEPHRINE INJ 160 MG in SODIUM CHLORIDE 0.9% 234 ML IV SCH ×2 (11:00→20:58)
--- NOTE | 2017-01-25 11:28 | Nephrology Progress Note ---
Nephrology - PN: Subj Interval history: Pt more acidotic today. Made a DNR. Creatinine/lytes stable. Mild free water deficit manifested by mild hypernatremia. Exam (PN)-Nephrology - Vital Signs Vital signs: Period Temp Pulse Resp BP Sys/Scott Pulse Ox Last 24 Hr 96.4 F-99.1 F 74-101 20-40 70-155/39-76 83-95 - General Appearance General appearance: chronically ill, sedated on ventilator, intubated EENT: ATNC, PERRL, mucous membranes dry Neck: JVD, no thyromegaly Respiratory: no kyphosis, clear Cardiology: no murmurs, no rub Gastrointestinal: hypoactive bowel sounds, no masses Integumentary: no rash, warm and dry Neurologic: obtunded Musculoskeletal: no erythema, no cyanosis - Lab 01/25/17 03:49 01/25/17 03:49 Most recent lab results ABG pH 7.152 (7.35-7.45) L* D 01/25/17 08:16 ABG pCO2 83.7 MM HG (35-48) H* 01/25/17 08:16 ABG pO2 67.1 MM HG (80-95) L 01/25/17 08:16 ABG HCO3 23.2 MMOL/L (20-26) 01/25/17 08:16 ABG O2 Saturation 86.7 % (95-100) L 01/25/17 08:16 Calcium 8.0 MG/DL (8.5-10.1) L 01/25/17 03:49 Phosphorus 4.0 MG/DL (2.5-4.9) 01/22/17 02:20 Magnesium 2.1 MG/DL (1.8-2.4) 01/25/17 03:49 Assessment and Plan (1) Solitary kidney Status: Chronic Assessment and plan: No new recs. Will continue to follow with you. Current Visit: Yes (2) Amiodarone pulmonary toxicity Problem details: More difficult to ventilate. poor prognosis. Status: Acute Current Visit: Yes
--- NOTE | 2017-01-25 11:41 | EKG Report ---
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
[2017-01-25] MEDS: VECURONIUM 10 MG VIAL IV PRN ×2 (12:29→19:49)
--- NOTE | 2017-01-25 14:46 | Oncology Progress Note ---
Oncology Subjective PN Interval history: Consult for patient with thrombocytopenia. This is a very ill patient with respiratory failure. Nurses report of amiodarone lung. She is on 100% O2 with a rate of 40. Cross blood gases are noted. Patient is sedated and unresponsive. She is also requiring vasopressors. She did receive platelet transfusion yesterday with a good increment based on today's level. Previous values were approximately 70-90,000. Anemia is noted which is consistent with her acutely ill status. She has leukocytosis which rules out bone marrow failure. This patient is terminally ill. My recommendations are conservative with transfusions of platelets for levels 20,000 or less unless bleeding is noted. Exam - Constitutional Vitals: Period Temp Pulse Resp BP Sys/Scott Pulse Ox Last 24 Hr 96.4 F-99.1 F 74-101 20-40 70-143/39-76 83-95 Results - Labs CBC & BMP: 01/25/17 03:49 01/25/17 03:49
[2017-01-26] MEDS: ALBUTEROL/IPRATROPIUM 3 ML NEB RESP TX SCH ×5 (00:15→15:05)
[2017-01-26] MEDS: INSULIN REGULAR 100 UNIT/ML SUBCUT SCH ×3 (00:30→12:09)
[2017-01-26] MEDS: methylPREDNISolone SOD SUC 40 MG/1 ML VIAL IV SCH ×3 (03:00→12:57)
[2017-01-26] MEDS: VECURONIUM 10 MG VIAL IV PRN (03:20)
[2017-01-26] MEDS: AMPICILLIN INJ 1,000 MG in SODIUM CHLORIDE 0.9% 100 ML IV SCH ×3 (03:26→17:09)
[2017-01-26] MEDS: DEXTROSE 5% 1,000 ML IV SCH ×2 (03:26→17:10)
[2017-01-26 03:28] LABS: ABG Base Excess -3.5 MMOL/L (-2.5-2.5); ABG HCO3 21.4 MMOL/L (20-26); ABG Oxygen Saturation 87.9 % (95-100); ABG PO2 65.2 MM HG (80-95); ABG TCO2 26.7 MMOL/L (23-27); Allen Test Positive; Pt O2 Delivery Device Ventilator
[2017-01-26] MEDS: PHENYLEPHRINE INJ 160 MG in SODIUM CHLORIDE 0.9% 234 ML IV SCH ×2 (03:30→11:30)
[2017-01-26 03:32] LABS: ABG PCO2 85.3 MM HG (35-48); ABG PH 7.114 (7.35-7.45)
[2017-01-26 05:28] LABS: Basophils % 0.1 % (0.0-0.8); Hematocrit 25.2 VOL% (35.7-47.0); Hemoglobin 7.4 GM/DL (12.0-16.0); Immature Granulocytes % 3.8 %; Immature Granulocytes Absolute 0.84 #; Lymphocytes # 0.4 10*3/uL (1.4-4.0); Lymphocytes % 1.8 % (21.3-54.2); Mean Corpuscular HGB Conc 29.4 GM/DL (32-36); Mean Corpuscular Hemoglobin 29 PG (27-34); Mean Corpuscular Volume 99.6 FL (87-102); Mean Platelet Volume 12.5 FL (9.6-12.0); Monocytes # 0.6 10*3/uL (0.11-0.8); Monocytes % 2.6 % (1.7-12.7); NRBC # 0.17 10*3/uL; Neutrophils # 20.2 10*3/uL (1.4-7.4); Neutrophils % 91.7 % (38.7-73.9); Red Blood Count 2.53 MC/CUMM (3.8-5.5); Red Cell Distribution Width 16.5 % (9.3-17.3)
[2017-01-26 05:38] LABS: Platelet Count 21 T/CUMM (130-400)
[2017-01-26 05:56] LABS: Calcium 7.4 MG/DL (8.5-10.1); Magnesium 2.2 MG/DL (1.8-2.4); Osmolality,Calculated 312.7 MOS/KG (273-304); Potassium 3.6 MMOL/L (3.5-5.1)
[2017-01-26 06:23] LABS: Band Neutrophils 5 % (0-10); Lymphocytes 2 % (20-55); Nucleated Red Blood Cells 1 (0-5); Segmented Neutrophils 93 % (50-85); Total Cells Counted 100
[2017-01-26 06:24] LABS: Anisocytosis 1+; Hypochromasia 1+; Platelet Estimate Decreased
[2017-01-26] MEDS: LEVOTHYROXINE 50 MCG TABLET PO SCH (06:31)
[2017-01-26] MEDS: BUDESONIDE 0.5 MG/2 ML NEB RESP TX SCH (07:00)
--- NOTE | 2017-01-26 07:20 | Pulmonology Progress Note ---
Pulmonary - PN: Subj Interval history: Patient is a 76-year-old white lady that is critically ill on the ventilator in ICU. She has a history of having COPD and congestive heart failure. She has had previous bypass surgery and known coronary artery disease along with a pacemaker. 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 She has been very hard to oxygenate and ventilate. She has very stiff noncompliant lungs. She has 1 functioning kidney but has a normal creatinine. She has been getting steroids. The family has made her DNR now. She is extremely hard to ventilate and her oxygenation did improve some but her CO2 is worse. Her peak airway pressures are up but her main pressures are only 23. Will try a little higher tidal volume and try to decrease her FiO2. Her chest x-ray is unchanged. She does have very severe lung disease. Exam (Progress Note) - Constitutional Vitals: Period Temp Pulse Resp BP Sys/Scott Pulse Ox Last 24 Hr 96.6 F-99.1 F 74-103 36-40 47-156/33-67 85-95 Exam: General appearance: normal weight, other (She is sedated on the ventilator. She certainly looks chronically ill.) - Head Head exam: Present: normal inspection, normocephalic - Eye Eye exam: Present: EOMI. Absent: scleral icterus Pupils: Present: KEVON - ENT ENT exam: Present: other (ET tube in good position) - Neck Neck exam: Absent: lymphadenopathy, thyromegaly - Respiratory Respiratory exam: Present: She has good breath sounds bilaterally but does have bilateral crackles throughout . - Cardiovascular Cardiovascular exam: Present: regular rate and rhythm, tachycardia - GI/Abdominal GI/Abdominal exam: Present: soft. Absent: distended, organomegaly, tenderness - Extremities Exam Extremities exam: Absent: calf tenderness, edema - Neurological Exam Neurological exam: Present: other (Patient is requiring a lot of sedation. She is not really responding now.) - Psychiatric Psychiatric exam: Absent: anxious - Skin Skin exam: Present: warm, dry Results - Labs CBC & BMP: 01/26/17 04:05 01/26/17 04:05 Labs: PO2 65 with a PCO2 of 85 and a pH of 7.11 - Diagnostic Findings Procedure: Chest x-ray: image reviewed by me, report reviewed by me (Chest x- ray shows extensive interstitial infiltrates bilaterally.) Assessment and Plan (1) Coronary artery disease involving coronary bypass graft Status: Chronic Assessment and plan: The patient has known coronary artery disease. Current Visit: Yes Qualifiers: [place] vs. transplanted heart: [place] heart Associated angina: without angina Qualified Code(s): I25.810 - Atherosclerosis of coronary artery bypass graft(s) without angina pectoris (2) Paroxysmal a-fib Status: Chronic Assessment and plan: Patient's heart rate is under reasonable control. Current Visit: No (3) COPD (chronic obstructive pulmonary disease) Status: Chronic Assessment and plan: Patient is a former smoker with known COPD. Current Visit: Yes (4) Amiodarone pulmonary toxicity Problem details: More difficult to ventilate. poor prognosis. Status: Acute Assessment and plan: The patient has diffuse interstitial lung disease now. She is extremely ill on the ventilator. She has still been noncompliant lungs. She is requiring a very high FiO2. She is very hard to ventilate. Her prognosis is very poor and now she is a DNR. Current Visit: Yes (5) Ventilator dependence Status: Acute Assessment and plan: The patient is hard to ventilate and oxygenate and will try to adjust the ventilator. She is very hard to ventilate and oxygenate Current Visit: Yes (6) Respiratory failure, chronic Status: Acute Assessment and plan: Patient has had chronic lung disease for quite some time. Now she has respiratory failure on the ventilator and has a very poor prognosis. Current Visit: Yes
--- NOTE | 2017-01-26 08:27 | Cardiology Progress Note ---
Assessment and Plan (1) UTI (urinary tract infection) Status: Acute Assessment and plan: Previous assessment: 1. 76-year-old WF well known to me with history of labile hypertension, remote smoking, rectal CA 2007, recurrent syncope until after CABG in 2010 (AZAR to LAD and vein to OM), with long history of paroxysmal atrial fibrillation and tachybradycardia syndrome status post pacemaker April 2014 who presented with hypoxia and significant UTI now on prolonged intubation for approximately 9 days still requiring intubation and 70% oxygen. 2. 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 3. UTI has been treated with IV antibiotics 4. Newly on Axel-Synephrine due to hypotension from to prevent; this is slowly being weaned. 5. Normocytic anemia with hematocrit drop somewhat to 25%; discontinue aspirin she has had no coronary problems in years and is on Eliquis 2.5 mg twice daily. Hopefully we can continue her Eliquis low-dose to reduce her risk of DVT or cardioembolic phenomenon. 6. Remote occluded renal artery stent 7. Atrial paced rhythm 8. Normal LV systolic function noted on echocardiogram this admission with negative troponin. 9. Poor prognosis; I discussed this at length with her niece January 25 update: 1. Little change since yesterday with worse gases still 100% oxygen 2. She has had intermittent atrial fibrillation as well as atrial pacing; check EKG 3. Requiring pressure support intermittently to maintain blood pressure. 4. Normal LV systolic function 5. Significant elevated liver function test with history of hepatitis C is noted 6. Thrombocytopenia slightly better today at 72,000 January 26 update: 1. Ms. Quiros seems to be gradually declining with worse gases on ABG, severe thrombocytopenia, and she is no longer responding to verbal stimuli when off of sedation 2. Normal LV function 3. She is now DNR 4. I talked to her niece whether withdrawal is being considered, and she said that Ms. Quiros son does not want that at this point. 5. Dismal prognosis Current Visit: No (2) History of atrial fibrillation Status: Chronic Current Visit: No (3) Chronic anticoagulation Status: Chronic Current Visit: Yes (4) Paroxysmal a-fib Status: Chronic Current Visit: No (5) Amiodarone pulmonary toxicity Problem details: More difficult to ventilate. poor prognosis. Status: Acute Current Visit: Yes Exam (Progress Note) - Constitutional Vitals: Period Temp Pulse Resp BP Sys/Scott Pulse Ox Last 24 Hr 96.6 F-98.4 F 74-103 40-40 47-187/33-67 85-94 General appearance: normal weight, no acute distress, other - Head Head exam: Present: normal inspection, normocephalic, atraumatic - Respiratory Respiratory exam: Present: rales. Absent: stridor, wheezes - Cardiovascular Cardiovascular exam: Present: regular rate and rhythm. Absent: diastolic murmur , rubs - GI/Abdominal GI/Abdominal exam: Present: soft - Extremities Exam Extremities exam: Absent: edema Result/EKG - Labs CBC & BMP: 01/26/17 04:05 01/26/17 04:05 Labs: Laboratory Results - last 24 hr 01/25/17 01/25/17 01/25/17 12:13 18:25 23:29 WBC RBC Hgb Hct MCV MCH MCHC RDW Plt Count MPV Neut % (Auto) Lymph % (Auto) [place] % (Auto) Eos % (Auto) Baso % (Auto) Neut # (Auto) Lymph # (Auto) [place] # (Auto) Eos # (Auto) Baso # (Auto) Total Counted Immature Gran % Nucleated RBC % Immature Gran # Segmented Neutrophils Band Neutrophils Lymphocytes Nucleated RBCs Nucleated RBCs # Platelet Estimate Hypochromasia Anisocytosis ABG pH ABG pCO2 ABG pO2 ABG HCO3 ABG Total CO2 ABG O2 Saturation ABG Base Excess FiO2 Sodium Potassium Chloride Carbon Dioxide Anion Gap BUN Creatinine GFR Calculation BUN/Creatinine Ratio Glucose POC Glucose 200 H 218 H 242 H Calculated Osmolality Calcium Magnesium 01/26/17 01/26/17 01/26/17 03:28 04:05 04:05 WBC 22.0 H RBC 2.53 L Hgb 7.4 L Hct 25.2 L MCV 99.6 MCH 29 MCHC 29.4 L RDW 16.5 Plt Count 21 L* D MPV 12.5 H Neut % (Auto) 91.7 H Lymph % (Auto) 1.8 L [place] % (Auto) 2.6 Eos % (Auto) 0.0 Baso % (Auto) 0.1 Neut # (Auto) 20.2 H Lymph # (Auto) 0.4 L [place] # (Auto) 0.6 Eos # (Auto) 0.0 Baso # (Auto) 0.0 Total Counted 100 Immature Gran % 3.8 Nucleated RBC % 0.8 Immature Gran # 0.84 Segmented Neutrophils 93 H Band Neutrophils 5 Lymphocytes 2 L Nucleated RBCs 1 Nucleated RBCs # 0.17 Platelet Estimate Decreased Hypochromasia 1+ Anisocytosis 1+ ABG pH 7.114 L* ABG pCO2 85.3 H* ABG pO2 65.2 L ABG HCO3 21.4 ABG Total CO2 26.7 ABG O2 Saturation 87.9 L ABG Base Excess -3.5 L FiO2 100.00 Sodium 138 Potassium 3.6 Chloride 99 Carbon Dioxide 28 Anion Gap 14.6 BUN 73 H Creatinine 1.20 H GFR Calculation 49 BUN/Creatinine Ratio 60.00 H Glucose 390 H POC Glucose Calculated Osmolality 312.7 H Calcium 7.4 L Magnesium 2.2 01/26/17 05:20 WBC RBC Hgb Hct MCV MCH MCHC RDW Plt Count MPV Neut % (Auto) Lymph % (Auto) [place] % (Auto) Eos % (Auto) Baso % (Auto) Neut # (Auto) Lymph # (Auto) [place] # (Auto) Eos # (Auto) Baso # (Auto) Total Counted Immature Gran % Nucleated RBC % Immature Gran # Segmented Neutrophils Band Neutrophils Lymphocytes Nucleated RBCs Nucleated RBCs # Platelet Estimate Hypochromasia Anisocytosis ABG pH ABG pCO2 ABG pO2 ABG HCO3 ABG Total CO2 ABG O2 Saturation ABG Base Excess FiO2 Sodium Potassium Chloride Carbon Dioxide Anion Gap BUN Creatinine GFR Calculation BUN/Creatinine Ratio Glucose POC Glucose 175 H Calculated Osmolality Calcium Magnesium
[2017-01-26] MEDS ORDERED: MULTIVITAMIN LIQUID (CENTRUM) 60 ML BOTTLE PER TUBE SCH (09:00)
--- NOTE | 2017-01-26 09:57 | XRay Report ---
XR chest 1V portable Indication: Ventilator patient Comparison: 25 January 2017 Findings: The heart and mediastinum are stable in size and configuration. The lines and tubes are unchanged in position. The pulmonary vascularity is normal in caliber. Bilateral pulmonary density is present similar to previous study. No definite new pulmonary infiltrates, effusions, pneumothorax or other abnormality is demonstrated. Impression: No significant change PROCEDURE INTERPRETED AT [facility] DEPARTMENT OF RADIOLOGY Final Report Signed by: Dr. Chip Garcia
[2017-01-26] MEDS: MEROPENEM 1,000 MG in SODIUM CHLORIDE 0.9% 100 ML IV SCH (09:59)
[2017-01-26] MEDS: LANSOPRAZOLE ODT 30 MG TABLET PO SCH (09:59)
[2017-01-26] MEDS: DOCUSATE SODIUM 100 MG CAPSULE PO SCH (10:00)
[2017-01-26] MEDS: MAGNESIUM CHLORIDE 64 MG TABLET PO SCH (10:00)
[2017-01-26] MEDS: DESITIN 4OZ/NYSTATIN 15 GRAM MIXTURE PASTE TOP SCH (10:00)
[2017-01-26] MEDS: PROPOFOL 1,000 MG/100 ML BOTTLE IV SCH ×2 (10:17→17:09)
--- NOTE | 2017-01-26 11:01 | Internal Med Progress Note ---
Assessment and Plan (1) Amiodarone pulmonary toxicity Problem details: More difficult to ventilate. poor prognosis. Status: Acute Assessment and plan: 76-year-old female seen in the ICU * Acute on chronic respiratory failure. Patient is on ventilator and extremely ill. * Coronary artery disease. Stable * Anemia. Platelet count is lower * Continue antibiotic * Renal function is worse. * Patient is DNR. Family is considering about withdrawing support. Dismal prognosis Current Visit: Yes (2) COPD (chronic obstructive pulmonary disease) with acute bronchitis Status: Acute Current Visit: Yes (3) Chronic renal failure, stage 3 (moderate) Status: Acute Current Visit: Yes (4) Chronic anemia Status: Chronic Current Visit: Yes (5) Coronary artery disease involving coronary bypass graft Status: Chronic Current Visit: Yes Qualifiers: [place] vs. transplanted heart: [place] heart Associated angina: without angina Qualified Code(s): I25.810 - Atherosclerosis of coronary artery bypass graft(s) without angina pectoris Internal Medicine - PN: Subj Interval history: Patient is unresponsive off sedation. Her renal output is worse. Exam (Progress Note) - Constitutional Vitals: Period Temp Pulse Resp BP Sys/Scott Pulse Ox Last 24 Hr 96.6 F-98.4 F 74-103 40-40 47-187/33-67 85-94 Exam: Examination: GENERAL: Patient sedated on the ventilator NECK: Neck is supple. CVS: Regular rate and rhythm. S1 and S2 are normal. RESPIRATORY: Lungs are clear. Bibasilar rales. ABDOMEN: Soft and nontender. 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
--- NOTE | 2017-01-26 11:57 | Nephrology Progress Note ---
Nephrology - PN: Subj Interval history: Premorbid. Deteriorating overnight. DNR. Exam (PN)-Nephrology - Vital Signs Vital signs: Period Temp Pulse Resp BP Sys/Scott Pulse Ox Last 24 Hr 96.6 F-98.4 F 74-103 40-40 47-187/33-67 85-94 - General Appearance General appearance: chronically ill, sedated on ventilator, intubated, frail EENT: ATNC, PERRL, mucous membranes dry Neck: no JVD, no thyromegaly Respiratory: no kyphosis, rales Cardiology: no murmurs, no rub Gastrointestinal: hypoactive bowel sounds, no tenderness Integumentary: no rash, warm and dry Neurologic: obtunded Musculoskeletal: no deformities, no erythema - Lab 01/26/17 04:05 01/26/17 04:05 Most recent lab results ABG pH 7.114 (7.35-7.45) L* 01/26/17 03:28 ABG pCO2 85.3 MM HG (35-48) H* 01/26/17 03:28 ABG pO2 65.2 MM HG (80-95) L 01/26/17 03:28 ABG HCO3 21.4 MMOL/L (20-26) 01/26/17 03:28 ABG O2 Saturation 87.9 % (95-100) L 01/26/17 03:28 Calcium 7.4 MG/DL (8.5-10.1) L 01/26/17 04:05 Phosphorus 4.0 MG/DL (2.5-4.9) 01/22/17 02:20 Magnesium 2.2 MG/DL (1.8-2.4) 01/26/17 04:05 Assessment and Plan (1) Solitary kidney Status: Chronic Assessment and plan: No new recs. Will continue to follow with you. Current Visit: Yes (2) Amiodarone pulmonary toxicity Problem details: More difficult to ventilate. poor prognosis. Status: Acute Current Visit: Yes
[2017-01-26 15:50] VITALS: BP 148/30
--- NOTE | 2017-02-12 12:26 | Discharge Summary ---
Hospital Course - Hospital Course Hospital Course: Patient is a 76-year-old white female who was admitted to the hospital with increasing dyspnea, cough and shortness of breath. She was found to have diffuse bilateral pneumonitis and this was suspicion she may have congestive heart failure as well as some underlying COPD. Patient does have a long history of COPD. Patient persisted in having increasing shortness of breath and was seen in consultation by cardiology and Dr. Vaibhav Blas. 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 Patient was begun on IV steroids but regretfully showed a continued decline in her respiratory status with prominent hypoxia. Patient declined to the point that she was moved to intensive care and placed on the ventilator. He became obvious that she had developed ARDS with continued decline in her pulmonary function. She did not undergo bronchoscopy and was treated with appropriate antibiotic therapy but she never showed any improvement. She continued to decline and she remained hypoxic with 100% oxygen. Patient succumbed to her illness on 01/27/2017 and the body will be released to the home of family's choice. Diagnosis - Discharge Diagnosis (1) COPD (chronic obstructive pulmonary disease) Status: Chronic (2) Amiodarone pulmonary toxicity Status: Acute Discharge Plan - Discharge Data Disposition: - Discharge Medications No Action Fludrocortisone [Florinef] 0.1 mg PO DAILY PRN PRN Reason: Allergy Symptoms Amiodarone Tab [Cordarone Tab] 200 mg PO DAILY Aspirin [Ecotrin] 81 mg PO DAILY Amlodipine Besylate 5 mg PO DAILY Clorazepate [Tranxene] 3.75 mg PO BEDTIME Magnesium Chloride [Mag Delay] 2 tablet PO BID Furosemide Tab [Lasix Tab] 40 mg PO DAILY PRN PRN Reason: Edema Apixaban [Eliquis] 2.5 mg PO BID Omeprazole [Prilosec] 20 mg PO BID Diphenoxylate/Atrop 2.5-0.025 [Lomotil Tab] 1 tablet PO Q6H PRN PRN Reason: Diarrhea Valsartan/Hydrochlorothiazide [Valsartan-Hctz 160-12.5 mg Tab] 1 each PO DAILY Ondansetron Tab [Zofran Tab] 4 mg PO Q6HR PRN PRN Reason: Nausea Levothyroxine Tab [Synthroid Tab] 50 mcg PO DAILY HYDROcodone/ACETAMIN 7.5-325 [[place] 7.5-325] 1 tablet PO Q6H PRN PRN Reason: Pain Nebivolol HCl [Bystolic] 5 mg PO DAILY Rosuvastatin Calcium 10 mg PO DAILY Nebivolol [Bystolic] 5 mg PO DAILY - Follow Up or Referral - Forms/Instructions Exam - Constitutional Exam: Patient has developed progressive hypoxia and family decided to stop all supportive efforts. Discharge Results Procedures and tests throughout hospitalization: Pending Orders 01/21/17 AFB Culture/Smears Stat Fungal Culture w/ Prep Stat Labs on day of discharge: Preliminary micro results at discharge 01/21/17 Unknown Mycobacterial Culture - Preliminary Bronchial David Lavage No AFB isolated at 2 weeks 01/21/17 Unknown Fungal Culture - Preliminary Bronchial David Lavage No Fungus isolated at 3 weeks DS: Provider Date of admission: 01/01/17 20:03 Primary care physician: . 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 Consulting Provider: Consult to Specialist Group: Cardiology When should Consulting Provider be notified: In am Person Notified: Sean Date Notified: 01/02/17 Time Notified: 07:40 01/04/17 09:33 Consult to Physician [CONS] Routine Comment: Consulting Provider: Lio Herrera Consult to Specialist Group: Pulmonology 01/06/17 00:55 Consult to Physician [CONS] Routine Comment: hypoxia; fibrotic lung disease; rule out MACK Consulting Provider: Jane Crow 01/07/17 10:15 Consult to Sleep Center [CONS] Routine Reason for Sleep Center: Sleep Center Physician Consult Comment: hypoxia; fibrotic lung dz; rule out mack 01/13/17 09:04 Consult to Anesthesiology [CONS] Routine Consulting Provider: Reason for Anesthesiology: Intubation Consult Comment: Elective intubation 01/14/17 07:46 Consult to Physical Therapy [CONS] Routine Reason for Physical Therapy: Evaluate and Treat 01/15/17 14:00 Consult to Dietitian [CONS] Routine Reason for Dietitian: TF-Initiate/Manage 01/20/17 10:17 Consult to Physician [CONS] Routine Comment: elective trach; should be ready by Friday Consulting Provider: Matteo Zaidi Consulting Provider Notified: Yes Consult to Specialist Group: ENT Person Notified: DELIO Date Notified: 01/20/17 Time Notified: 10:45 01/24/17 09:18 Consult to Physician [CONS] Routine Comment: Consulting Provider: Consult to Specialist Group: Oncology When should Consulting Provider be notified: Now Person Notified: Jolene Date Notified: 01/24/17 Time Notified: 11:21 01/24/17 10:02 Consult to Physician [CONS] Routine Comment: thrombocytopenia Consulting Provider: [place] [facility] Discharging clinician: Alex Starks MD Expected date of discharge: 01/27/17
== END 2017-01-26 16:30 | disposition expired | DRG 987 ==
LOC: EDBD → EDUNIT# → N.ED 17:28 → N.EDINP 20:03 → N.TELES 20:17 → N.ICU 01-11 13:52
PROVIDERS: ADMIT Family Medicine; ATTEND Family Medicine